=== PATIENT | male | born 1960 | race Caucasian/White ===

== ENCOUNTER → 2018-07-03 | Outpatient (CLI) | payer BC ==
[2018-07-03 12:06] LABS: Basophils % (A) 0 %; Eosinophils # (A) 0.1 k/uL (0-0.7); Eosinophils % (A) 1 %; HCT 45.7 % (39.0-53.0); HGB 14.9 gm/dL (13.0-17.5); Lymphocytes # (A) 1.1 k/uL (1.0-4.8); Lymphocytes % (A) 13 %; MCH 32.7 pg (25.0-35.0); MCHC 32.6 g/dL (31.0-37.0); Mean Platelet Volume 6.3; Monocytes # (A) 0.6 k/uL (0-1.0); Monocytes % (A) 7 %; Neutrophils # (A) 6.7 k/uL (1.3-7.7); Neutrophils % (A) 77 %; Platelet Count 232 k/uL (150-450); RBC 4.57 m/uL (4.30-5.90); RDW 13.5 % (11.5-15.5); WBC 8.7 k/uL (3.8-10.6)
== END | disposition home or self-care (01) ==
LOC: LABPAT 10:59
PROVIDERS: ATTEND Anesthesiology
DX: Z01.812 Encounter for preprocedural laboratory examination (principal)
CPT/HCPCS: 36415; 85025

== ENCOUNTER 2018-07-05 06:15 | Day surgery (SDC) | payer BC ==
[2018-06-29 16:07] VITALS: BMI 22.4
[~2018-07-05 06:15] MED LIST: DEXAMETHASONE SOD PHOSPHATE 10 MG/ML 1 ML VIAL IV ONE; HEPARIN SODIUM,PORCINE 5,000 UNIT/ML 1 ML VIAL SQ ONE; LACTATED RINGERS 1,000 ML IV SCH; LIDOCAINE 1% 20 ML VIAL (10MG/ML) FOR IV START INTRADERMA PRN; ONDANSETRON 4 MG/2 ML VIAL IVP ONE; SCOPOLAMINE 1.5MG/72HR PATCH TRANSDERM ONE
[2018-07-05] MEDS ORDERED: fentaNYL (PF) 50 MCG/ML 2 ML AMP IV ONE (07:43)
[2018-07-05] MEDS ORDERED: MIDAZOLAM 2 MG/2 ML VIAL IV ONE (07:43)
[2018-07-05] MEDS ORDERED: BUPIVACAIN-EPI 0.5%-1:200,000 30 ML VIAL SQ ONE ×2 (08:10)
[2018-07-05] MEDS ORDERED: LIDOCAINE 1% INJ 10MG/ML (20 ML MDV) ONE (08:27)
[2018-07-05] MEDS ORDERED: KETOROLAC 30 MG/ML 1 ML VIAL ONE (08:27)
[2018-07-05] MEDS ORDERED: fentaNYL (PF) 50 MCG/ML 2 ML AMP ONE (08:27)
[2018-07-05] MEDS ORDERED: MIDAZOLAM 2 MG/2 ML VIAL ONE (08:27)
[2018-07-05] MEDS ORDERED: GLYCOPYRROLATE 0.2 MG/ML 2 ML VIAL ONE (08:27)
[2018-07-05] MEDS ORDERED: ROCURONIUM BROMIDE 10 MG/ML 10 ML VIAL IV ONE (08:27)
[2018-07-05] MEDS ORDERED: PHENYLEPHRINE-0.9% NACL SYG 1 MG/10 ML SYRINGE ONE (08:27)
[2018-07-05] MEDS ORDERED: PROPOFOL 10 MG/ML 20 ML VIAL IV ONE (08:27)
[2018-07-05] MEDS ORDERED: ROPIVACAINE 5 MG/ML 30 ML VIAL ONE (08:27)
[2018-07-05] MEDS ORDERED: NEOSTIGMINE 1 MG/ML 10 ML VIAL ONE (08:27)
--- NOTE | 2018-07-05 08:27 | P.GSHP ---
History of Present Illness H&P Date: 07/05/18 Chief Complaint: rt inguinal hernia, umb hernia Patient today for laparoscopic repair right inguinal hernia. Patient also has an umbilical hernia as well. These of been there for many years. The right angle hernia is painful at times. He does not feel any swelling or bulge in the left groin. No prior repairs. Past Medical History Past Medical History: No Reported History History of Any Multi-Drug Resistant Organisms: None Reported Past Surgical History: No Surgical Hx Reported Past Anesthesia/Blood Transfusion Reactions: No Reported Reaction Past Psychological History: Anxiety Smoking Status: Current every day smoker Past Alcohol Use History: None Reported Past Drug Use History: None Reported - Past Family History Father Additional Family Medical History / Comment(s): OF PANCREATIC ISSUES Mother Additional Family Medical History / Comment(s): PULMONARY HYPERTENSION Medications and Allergies Home Medications Medication Instructions Recorded Confirmed Type No Known Home Medications 06/29/18 06/29/18 History Allergies Allergy/AdvReac Type Severity Reaction Status Date / Time bee venom protein (honey bee) Allergy Anaphylaxis Verified 06/29/18 15:59 Surgical - Exam Vital Signs Temp Pulse Resp BP Pulse Ox 97 F L 106 H 18 171/105 97 07/05/18 07:36 07/05/18 07:36 07/05/18 07:36 07/05/18 07:36 07/05/18 07:36 Physical exam: General: Well-developed, well-nourished HEENT: Normocephalic, sclerae nonicteric Abdomen: Nontender, nondistended, small reducible umbilical hernia, moderate size reducible right inguinal hernia Extremities: No edema Neuro: Alert and oriented Assessment and Plan (1) Right inguinal hernia Narrative/Plan: Will proceed with laparoscopic da Jorge A assisted right inguinal hernia repair with mesh, possible bilateral with umbilical hernia repair with possible mesh. Risks of bleeding, infection, recurrence, bladder and bowel injury, numbness, nerve injury, conversion to an open procedure were discussed with the patient. The patient understands and wishes to proceed. Current Visit: Yes Status: Acute Code(s): K40.90 - UNIL INGUINAL HERNIA, W/O OBST OR GANGR, NOT SPCF RECUR SNOMED Code(s): 682739241
[2018-07-05] MEDS: ceFAZolin IN SWFI 2 GM/20 ML SYRINGE IVP ONE ×2 (08:30→08:32)
[2018-07-05] MEDS ORDERED: LACTATED RINGERS 1,000 ML IV ONE (09:51)
[2018-07-05] MEDS ORDERED: HYDROcodone/APAP 5-325MG 1 EACH TAB PO PRN (10:33)
[2018-07-05] MEDS ORDERED: NALOXONE 0.4 MG/ML 1 ML VIAL IV PRN (10:33)
[2018-07-05 10:44] VITALS: TEMP 97.2
--- NOTE | 2018-07-05 10:46 | P.OP ---
Date of Procedure: 07/05/18 Procedure(s) Performed: PREOPERATIVE DIAGNOSIS: Right inguinal hernia, umbilical POSTOPERATIVE DIAGNOSIS: Same PROCEDURE: Laparoscopic repair right inguinal hernia with the da Jorge A robot assistance with mesh, open repair umbilical hernia SURGEON: Fox EBL: Minimal ANESTHESIA: General COMPLICATIONS: None OPERATIVE PROCEDURE: Patient was placed in the operating table in the supine position. The patient was placed under general anesthesia. The abdomen was prepped and draped in usual sterile fashion. A small curvilinear supraumbilical incision was made. The patient's hernia was carefully dissected. The umbilicus was elevated off the fascia. The defect was 1 cm in size. Through that defect the Veress needle was inserted. The saline drop test was normal. Insufflation took place to 15 mmHg. A 5 mm trocar was placed into the peritoneal cavity. This was later switched to a 12 mm trocar. 2 additional 8 mm trochars were placed in the right upper quadrant and left upper quadrant under visualization. The robotic arms were then brought in and docked into place. The fenestrated bipolar was used in the left arm and the laparoscopic oralia was utilized in the right arm. A 30 12 mm scope was used in the up position. The peritoneal cavity was inspected. The patient had an obvious large right direct inguinal hernia with some induration of the adjacent small bowel. Her was no evidence of ischemia. Evaluation of the left groin showed no identifiable hernia. The peritoneum was incised in a horizontal fashion cephalad to the internal inguinal ring. Following that careful dissection of the preperitoneal space took place. This took place using both electrocautery, sharp dissection but primarily blunt dissection. Visualization of the pubic tubercle and Noe's ligament took place medially. Full dissection took place laterally as well. The hernia sac was fully dissected. Once we had adequate space the 15 x 10 progrip mesh was advanced into the preperitoneal space and flattened out appropriately to cover all potential hernia sites. No sutures were used. The peritoneal defect was then closed using a locking 2-0 VLok suture. The large sac was incorporated into our closure anterior and medially. A small defect in the peritoneum was closed using a 3-0 Vicryl [id number] stitch. The pneumoperitoneum was then evacuated. The fascia at the umbilical hernia site was closed using [id number] Ethibond sutures. The skin of the umbilicus was tacked down to the fascia using 3-0 Vicryl sutures. The skin of all 3 sites was closed using a 4-0 Monocryl stitch. Skin glue was then applied. DISPOSITION: Stable to recovery room
[2018-07-05 10:53] VITALS: RESP 16
[2018-07-05] MEDS: HYDROmorphone 0.5 MG/0.5 ML SYRINGE IVP PRN ×2 (11:17→11:25)
[2018-07-05 12:06] VITALS: BP 143/83
[2018-07-05 12:17] VITALS: PULSE 88
--- NOTE | 2018-07-05 12:47 | P.ONQ ---
Anesthesiology Proc Note - PNB - Peripheral Nerve Block Performed Right Rectus Abdominis Single Time Out Performed: Yes (741) Procedure Start Time: 07:42 Procedure Stop Time: 07:50 Indication: Acute Post-Operative Pain, Analgesia Sedation Type: Sedate with meaningful contact maintained Preparation: Sterile Prep Position: Supine Catheter: None Needle Types: On-Q Needle Size: 50mm (2") Needle Gauge: 20 Injectate: 0.5% Ropivacaine (see comment for volume) (15) Blood Aspirated: No Pain Paresthesia on Injection Noted: No Resistance on Injection: Normal (15 ml) Events: Uneventful and Well Tolerated
--- NOTE | 2018-07-05 12:47 | P.ONQ ---
Anesthesiology Proc Note - PNB - Peripheral Nerve Block Performed Right Transversus Abdominis Single Time Out Performed: Yes (741) Procedure Start Time: 07:42 Procedure Stop Time: 07:50 Indication: Acute Post-Operative Pain, Analgesia Sedation Type: Sedate with meaningful contact maintained Position: Supine Catheter: None Needle Types: On-Q Needle Size: 50mm (2") Needle Gauge: 20 Technique: Ultrasound Injectate: 0.5% Ropivacaine (see comment for volume) (15ml)
== END 2018-07-05 12:45 | disposition home or self-care (01) ==
LOC: OR 06:15
PROVIDERS: ATTEND Surgery
DX: K40.90 Unilateral inguinal hernia, without obstruction or gangrene, not specified as recurrent (principal); K42.9 Umbilical hernia without obstruction or gangrene; F17.200 Nicotine dependence, unspecified, uncomplicated; Z91.030 Bee allergy status; Z79.899 Other long term (current) drug therapy
CPT/HCPCS: 64486; 49585; 49650; C1781; J2250; J1100; J2710; J2405; J2001; J3010; J1885; J2795; J2370; J2704; J1170; J0690

== ENCOUNTER 2019-03-09 19:46 | Inpatient (IN) | payer BC ==
[2019-03-09] MEDS ORDERED: SODIUM CHLORIDE 0.9% 500 ML 500 ML IV STA (20:11)
[2019-03-09] MEDS ORDERED: SODIUM CHLORIDE 0.9% 1,000 ML with MVI, ADULT NO.4 WITH VIT K 10 ML, THIAMINE 100 MG, F... IV ONE ×4 (20:12)
--- NOTE | 2019-03-09 20:14 | ED ---
Psych HPI - General Chief Complaint: Psychiatric Symptoms Stated Complaint: Depression Time Seen by Provider: 03/09/19 20:03 Source: patient Mode of arrival: ambulatory - History of Present Illness Initial Comments: This is a 58-year-old male with a history of alcoholism was drinking 1 bottle wine per day for long time who states she's feeling very depressed tonight not suicidal but very depressed and desponded he wants to get off alcohol. He doesn't usually go through alcohol withdrawal He does state he has a history of fatty liver. He denies any fevers chills sweats he does have intermittent episodes of dry heaves. No hematemesis no dark-colored stools no other modifying factors MD Complaint: feels depressed, other - Related Data Previous Rx's Medication Instructions Recorded Hydrocodone/Acetaminophen [[place] 1 tab PO Q6HR PRN 3 Days #10 tab 07/05/18 5-325] Allergies Allergy/AdvReac Type Severity Reaction Status Date / Time bee venom protein (honey bee) Allergy Anaphylaxis Verified 03/09/19 19:57 Review of Systems ROS Statement: Those systems with pertinent positive or pertinent negative responses have been documented in the HPI. ROS Other: All systems not noted in ROS Statement are negative. Past Medical History Past Medical History: No Reported History History of Any Multi-Drug Resistant Organisms: None Reported Past Surgical History: No Surgical Hx Reported Past Anesthesia/Blood Transfusion Reactions: No Reported Reaction Past Psychological History: Anxiety Smoking Status: Current every day smoker Past Alcohol Use History: None Reported Past Drug Use History: None Reported - Past Family History Father Additional Family Medical History / Comment(s): OF PANCREATIC ISSUES Mother Additional Family Medical History / Comment(s): PULMONARY HYPERTENSION General Exam - General Exam Comments Initial Comments: Is a well-developed asthenic appearing male who is awake alert and appears be oriented x3 he does have the smell of alcohol conjoiners on his breath Limitations: no limitations General appearance: alert, anxious Head exam: Present: atraumatic, normocephalic, normal inspection Eye exam: Present: normal appearance, PERRL, EOMI. Absent: scleral icterus, conjunctival injection, periorbital swelling ENT exam: Present: mucous membranes dry Neck exam: Present: normal inspection, full ROM, other (No stridor JVD or bruits). Absent: tenderness, meningismus, lymphadenopathy Respiratory exam: Present: normal lung sounds bilaterally. Absent: respiratory distress, wheezes, rales, rhonchi, stridor Cardiovascular Exam: Present: normal rhythm, tachycardia, normal heart sounds. Absent: systolic murmur, diastolic murmur, rubs, gallop, clicks GI/Abdominal exam: Present: soft, normal bowel sounds. Absent: distended, tenderness, guarding, rebound, rigid Extremities exam: Present: normal inspection, full ROM, normal capillary refill. Absent: tenderness, pedal edema, joint swelling, calf tenderness Back exam: Present: normal inspection Neurological exam: Present: alert, oriented X3, CN II-XII intact Psychiatric exam: Present: normal affect, normal mood Skin exam: Present: warm, dry, intact, normal color. Absent: rash Course Vital Signs 03/09/19 03/09/19 19:55 21:49 Temperature 98.4 F Pulse Rate 101 H 90 Respiratory 20 17 Rate Blood Pressure 138/88 137/80 O2 Sat by Pulse 98 98 Oximetry - Reevaluation(s) Reevaluation #1: 03/09/19 22:49 I did discuss findings with patient he is demonstrated marked intoxication with a 422 legal transcriptionist level. Patient will require admission and psychiatric evaluation with sobriety is achieved Medical Decision Making - Medical Decision Making Patient will be admitted for alcohol intoxication and depression. We placed on the alcohol withdrawal protocol. The case was discussed with Dr. Maloney - Lab Data Result diagrams: 03/09/19 21:43 03/09/19 21:43 Lab Results 03/09/19 03/09/19 03/09/19 Range/Units 21:43 21:43 21:43 WBC 4.9 (3.8-10.6) k/uL RBC 4.27 L (4.30-5.90) m/uL Hgb 14.7 (13.0-17.5) gm/dL Hct 42.9 (39.0-53.0) % MCV 100.5 H (80.0-100.0) fL MCH 34.3 (25.0-35.0) pg MCHC 34.1 (31.0-37.0) g/dL RDW 13.5 (11.5-15.5) % Plt Count 152 (150-450) k/uL Neutrophils % 61 % Lymphocytes % 28 % Monocytes % 7 % Eosinophils % 1 % Basophils % 1 % Neutrophils # 2.9 (1.3-7.7) k/uL Lymphocytes # 1.4 (1.0-4.8) k/uL Monocytes # 0.3 (0-1.0) k/uL Eosinophils # 0.1 (0-0.7) k/uL Basophils # 0.0 (0-0.2) k/uL Sodium 137 (137-145) mmol/L Potassium 4.0 (3.5-5.1) mmol/L Chloride 99 (98-107) mmol/L Carbon Dioxide 30 (22-30) mmol/L Anion Gap 8 mmol/L BUN 7 L (9-20) mg/dL Creatinine 0.67 (0.66-1.25) mg/dL Est GFR (CKD-EPI)AfAm >90 (>60 ml/min/1.73 sqM) Est GFR (CKD-EPI)NonAf >90 (>60 ml/min/1.73 sqM) Glucose 116 H (74-99) mg/dL Calcium 8.7 (8.4-10.2) mg/dL Magnesium 1.9 (1.6-2.3) mg/dL Total Bilirubin 0.7 (0.2-1.3) mg/dL AST 212 H (17-59) U/L ALT 90 H (4-49) U/L Alkaline Phosphatase 97 (38-126) U/L Total Protein 6.7 (6.3-8.2) g/dL Albumin 4.1 (3.5-5.0) g/dL Urine Opiates Screen Not Detected (NotDetected) Ur Oxycodone Screen Not Detected (NotDetected) Urine Methadone Screen Not Detected (NotDetected) Ur Propoxyphene Screen Not Detected (NotDetected) Ur Barbiturates Screen Not Detected (NotDetected) U Tricyclic Antidepress Not Detected (NotDetected) Ur Phencyclidine Scrn Not Detected (NotDetected) Ur Amphetamines Screen Not Detected (NotDetected) U Methamphetamines Scrn Not Detected (NotDetected) U Benzodiazepines Scrn Not Detected (NotDetected) Urine Cocaine Screen Not Detected (NotDetected) U Marijuana (THC) Screen Not Detected (NotDetected) Serum Alcohol 422 H* mg/dL Disposition Clinical Impression: Depression, Alcohol intoxication Disposition: ADMITTED IP TO THIS HOSP Condition: Fair Referrals: None,Stated [Primary Care Provider] - 1-2 days
[2019-03-09 22:00] LABS: Basophils % (A) 1 %; Eosinophils # (A) 0.1 k/uL (0-0.7); Eosinophils % (A) 1 %; HCT 42.9 % (39.0-53.0); HGB 14.7 gm/dL (13.0-17.5); Lymphocytes # (A) 1.4 k/uL (1.0-4.8); Lymphocytes % (A) 28 %; MCH 34.3 pg (25.0-35.0); MCHC 34.1 g/dL (31.0-37.0); MCV 100.5 fL (80.0-100.0); Mean Platelet Volume 7.9; Monocytes # (A) 0.3 k/uL (0-1.0); Monocytes % (A) 7 %; Neutrophils # (A) 2.9 k/uL (1.3-7.7); Neutrophils % (A) 61 %; Platelet Count 152 k/uL (150-450); RBC 4.27 m/uL (4.30-5.90); RDW 13.5 % (11.5-15.5); WBC 4.9 k/uL (3.8-10.6)
[2019-03-09 22:10] LABS: Amphetamine Screen,Urine Not Detected (NotDetected); Barbiturate Screen,Urine Not Detected (NotDetected); Benzodiazepines Screen,Urine Not Detected (NotDetected); Cocaine Screen,Urine Not Detected (NotDetected); Methadone Screen, Urine Not Detected (NotDetected); Opiate Screen,Urine Not Detected (NotDetected); Oxycodone Screen, Urine Not Detected (NotDetected); Phencyclidine Screen,Urine Not Detected (NotDetected); Tricyclic Antidepressant,Urine Not Detected (NotDetected); Urn Cannabinoid Scrn Not Detected (NotDetected)
[2019-03-09 22:12] LABS: ALT 90 U/L (4-49); AST 212 U/L (17-59); African American GFR (CKD) >90 (>60 ml/min/1.73 sqM); Albumin 4.1 g/dL (3.5-5.0); Alkaline Phosphatase 97 U/L (38-126); Anion Gap 8 mmol/L; Blood Urea Nitrogen 7 mg/dL (9-20); Calcium 8.7 mg/dL (8.4-10.2); Carbon Dioxide 30 mmol/L (22-30); Chloride 99 mmol/L (98-107); Glucose 116 mg/dL (74-99); Magnesium 1.9 mg/dL (1.6-2.3); Non-African American GFR(CKD) >90 (>60 ml/min/1.73 sqM); Sodium 137 mmol/L (137-145); Total Bilirubin 0.7 mg/dL (0.2-1.3); Total Protein 6.7 g/dL (6.3-8.2)
[2019-03-09 22:21] LABS: Alcohol 422 mg/dL
[2019-03-09] MEDS ORDERED: NALOXONE 0.4 MG/ML 1 ML VIAL IV PRN (22:52)
[2019-03-09] MEDS ORDERED: THIAMINE 100 MG/ML 2 ML VIAL IM STA (22:54)
[2019-03-09] MEDS: THIAMINE 100 MG TAB PO SCH (23:27)
[2019-03-09] MEDS: LORazepam 2 MG/ML INJ IV PRN (23:33)
[2019-03-09] MEDS: SODIUM CHLORIDE 0.9% 1,000 ML IV SCH (23:34)
--- NOTE | 2019-03-10 00:04 | P.HPIM ---
History of Present Illness H&P Date: 03/09/19 Chief Complaint: alcohol intoxication 58 year old male with no significant past medical history patient comes in today, reporting that he had one bottle of wine, as he feels very depressed. He denies any physical complaints at this time, denies any chest pain trouble breathing, fever, or chills. he denies any GI bleeding. he wants to get off alcohol and addiction. he tried in the past to quit cold turkey , but gets really bad withdrawal symptoms. he has been fighting addiction for the past 10 years since his left him. he was found to have very high level of blood alcohol. will be admitted under medical observation until sober. labs showed elevatedliver enzymes Review of Systems Pertinent positives as noted in HPI. All other systems were reviewed and are negative Past Medical History Past Medical History: No Reported History History of Any Multi-Drug Resistant Organisms: None Reported Past Surgical History: No Surgical Hx Reported Past Anesthesia/Blood Transfusion Reactions: No Reported Reaction Past Psychological History: Anxiety Smoking Status: Current every day smoker Past Alcohol Use History: None Reported Past Drug Use History: None Reported - Past Family History Father Additional Family Medical History / Comment(s): OF PANCREATIC ISSUES Mother Additional Family Medical History / Comment(s): PULMONARY HYPERTENSION Medications and Allergies Home Medications Medication Instructions Recorded Confirmed Type No Known Home Medications 03/09/19 03/09/19 History Allergies Allergy/AdvReac Type Severity Reaction Status Date / Time bee venom protein (honey bee) Allergy Anaphylaxis Verified 03/09/19 23:08 Physical Exam Vitals: Vital Signs Temp Pulse Resp BP Pulse Ox 03/09/19 21:49 90 17 137/80 98 03/09/19 19:55 98.4 F 101 H 20 138/88 98 Intake and Output 03/09/19 03/09/19 03/10/19 14:59 22:59 06:59 Other: Weight 63.503 kg Constitutional: No acute distress, conversant, pleasant Eyes: Anicteric sclerae, moist conjunctiva, no lid-lag Pupils equal round reactive to light ENMT: NC/AT Oropharynx clear, no erythema, exudates Neck: Supple, FROM, no masses, or JVD No carotid bruits No thyromegaly Lungs: Clear to auscultation Clear to percussion Normal respiratory effort, no accessory muscle use Cardiovascular: Heart regular in rate and rhythm, No murmurs, gallops, or rubs No peripheral edema Abdominal: Soft Nontender, no guarding, rebound or rigidity Abdomen moving with respiration Normoactive bowel sounds No hepatomegaly, No splenomegaly No palpable mass No abdominal wall hernia noted Skin: Normal temperature, tone, texture, turgor No induration No subcutaneous nodules multiple echymotic spots over his left forearm Extremities: No digital cyanosis finger clubbing bilateral hands Pedal pulses intact and symmetrical Radial pulses intact and symmetrical No calf tenderness Psychiatric: Alert and oriented to person, place and time Appropriate affect fair judgment Neuro Muscles Strength 5/5 in all 4 extremities Sensation to light touch grossly present throughout Cranial nerves II-XII grossly intact No focal sensory deficits Lymphatics: no palpable cervical or supraclavicular , or inguinal lymph nodes Results CBC & Chem 7: 03/09/19 21:43 03/09/19 21:43 Labs: Abnormal Lab Results - Last 24 Hours (Table) 03/09/19 03/09/19 Range/Units 21:43 21:43 RBC 4.27 L (4.30-5.90) m/uL MCV 100.5 H (80.0-100.0) fL BUN 7 L (9-20) mg/dL Glucose 116 H (74-99) mg/dL AST 212 H (17-59) U/L ALT 90 H (4-49) U/L Serum Alcohol 422 H* mg/dL Assessment and Plan Assessment: 58-year-old male with no significant past medical history Comes in due to long history of alcohol abuse he wants to quit alcohol and seeking help with depression and addiction. Currently denies any medical complaints Admitted under observation due to high alcohol level Plan: acute severe alcohol intoxication depression Monitor for signs of withdrawal Supportive care IV fluid hydration Multivitamins Benzos per CIWA scale Fall and seizure precautions psych consult for depression Patient denies any suicidal ideation Elevated liver enzymes secondary to alcoholic hepatitis Monitor liver function DVT prophylaxis mechanical CODE STATUS:full code Discussed with: Patient, ER, RN Anticipated length of stay less than [address]: pending psych eval A total of 60 minutes was spent on the care of this complex patient more than 50% of the time was spent in counseling and care coordination.
[2019-03-10] MEDS: LORazepam 2 MG/ML INJ IV PRN ×6 (08:03→23:14)
[2019-03-10] MEDS: SODIUM CHLORIDE 0.9% 1,000 ML IV SCH ×2 (08:04→23:16)
[2019-03-10] MEDS: THIAMINE 100 MG TAB PO SCH ×2 (09:00→16:41)
[2019-03-10 10:35] VITALS: BMI 20.7
--- NOTE | 2019-03-10 14:48 | P.PN ---
Subjective Progress Note Date: 03/10/19 Principal diagnosis: Alcohol withdrawal Patient was seen and examined. No acute events overnight. Patient reports intense shakiness and withdrawal-like symptoms. Had a fall this morning which was witnessed, denies any head trauma. He denies any chest pain, shortness of breath or palpitations. No nausea or vomiting. No fever or chills. Requesting help but states that he cannot go to inpatient alcohol detox as he would lose his job. Objective - Vital Signs Vital signs: Vital Signs Temp 98.4 F 03/10/19 14:29 Pulse 107 H 03/10/19 14:29 Resp 19 03/10/19 14:29 BP 143/85 03/10/19 14:29 Pulse Ox 94 L 03/10/19 14:29 Intake & Output 03/09/19 03/10/19 03/10/19 18:59 06:59 18:59 Intake Total 700 640 Balance 700 640 Weight 63.503 kg 63.503 kg Intake: IV 640 Sodium Chloride 0.9% 1, 640 000 ml @ 80 mls/hr IV . [id number] [facility] Rx#:[id number] Intake, IV Titration 700 Amount Sodium Chloride 0.9% 1, 700 000 ml @ 100 mls/hr IV . Q10H7M ONE with Mvi, Adult No.4 with Vit K 10 ml with Thiamine 100 mg with Folic Acid 1 mg Rx#: [id number] Other: # Voids 3 # Bowel Movements 1 - Exam General: [non toxic], [no distress], [appears at stated age] Derm: [warm], [dry] Head: [atraumatic], [normocephalic], [symmetric] Eyes: [EOMI], [no lid lag], [anicteric sclera] Mouth: [no lip lesion], [mucus membranes moist] Cardiovascular: [S1S2 reg], [tachycardic], [positive posterior tibial pulse bilateral], Lungs: [CTA bilateral], [no rhonchi, no rales] , [no accessory muscle use] Abdominal: [soft], [ nontender to palpation], [no guarding], [no appreciable organomegaly] Ext: [no gross muscle atrophy], [no edema], [no contractures] Neuro: [no focal neuro deficits] Psych: [Alert], [oriented], [appropriate affect] - Labs CBC & Chem 7: 03/09/19 21:43 03/09/19 21:43 Labs: Abnormal Lab Results - Last 24 Hours (Table) 03/09/19 03/09/19 Range/Units 21:43 21:43 RBC 4.27 L (4.30-5.90) m/uL MCV 100.5 H (80.0-100.0) fL BUN 7 L (9-20) mg/dL Glucose 116 H (74-99) mg/dL AST 212 H (17-59) U/L ALT 90 H (4-49) U/L Serum Alcohol 422 H* mg/dL Assessment and Plan Assessment: Alcohol intoxication with impending withdrawals Depression Transaminitis from alcohol abuse Macrocytosis likely due to alcohol abuse Plans: Continue Ativan as needed based on [facility] protocol. Will add Librium scheduled. Continue thiamine by mouth. Fall precautions. Advanced neurochecks. Seizure precautions. Follow psychiatry recommendations. Plans: Follow psychiatry recommendations. AST 212, ALT 90. Total bilirubin and alkaline phosphatase within normal limits. Likely due to alcohol abuse. Plans: Repeat CMP tomorrow morning. Needs to quit alcohol. MCV 100.5. Plans: Follow B12 and folate. [Patient admitted for alcohol intoxication. Withdrawing from alcohol. Had a fall this morning. Unsafe for discharge. Needs better control of his withdrawal symptoms. Would be appropriate for inpatient detox. He is pending clinical improvement.]
[2019-03-10] MEDS: chlordiazePOXIDE 25 MG CAP PO SCH ×2 (16:41→23:14)
[2019-03-11] MEDS: LORazepam 2 MG/ML INJ IV PRN ×5 (01:42→20:22)
[2019-03-11 06:56] LABS: ALT 88 U/L (4-49); AST 189 U/L (17-59); African American GFR (CKD) >90 (>60 ml/min/1.73 sqM); Albumin 3.3 g/dL (3.5-5.0); Alkaline Phosphatase 95 U/L (38-126); Anion Gap 6 mmol/L; Blood Urea Nitrogen 9 mg/dL (9-20); Calcium 9.1 mg/dL (8.4-10.2); Carbon Dioxide 27 mmol/L (22-30); Chloride 102 mmol/L (98-107); Glucose 77 mg/dL (74-99); Non-African American GFR(CKD) >90 (>60 ml/min/1.73 sqM); Potassium 3.4 mmol/L (3.5-5.1); Sodium 135 mmol/L (137-145); Total Bilirubin 1.5 mg/dL (0.2-1.3); Total Protein 5.7 g/dL (6.3-8.2)
[2019-03-11] MEDS: THIAMINE 100 MG TAB PO SCH ×2 (07:04→17:09)
[2019-03-11] MEDS: chlordiazePOXIDE 25 MG CAP PO SCH ×3 (07:04→22:21)
[2019-03-11] MEDS: SODIUM CHLORIDE 0.9% 1,000 ML IV SCH (09:52)
[2019-03-11] MEDS ORDERED: Potassium Replacement Protocol 1 EACH MISC MISCELLANE PRN (12:49)
--- NOTE | 2019-03-11 13:42 | P.PN ---
Subjective Progress Note Date: 03/11/19 Principal diagnosis: Alcohol withdrawal Patient was seen and examined. No acute events overnight. Patient sleeping comfortably after receiving Ativan. CIWA scale currently around 13. RN reports shakiness and instability in gait. He is unsafe to go home due to his balance issues. Objective - Vital Signs Vital signs: Vital Signs Temp 97.8 F 03/11/19 07:07 Pulse 69 03/11/19 07:07 Resp 16 03/11/19 07:07 BP 148/91 03/11/19 07:07 Pulse Ox 96 03/11/19 07:07 Intake & Output 03/10/19 03/11/19 03/11/19 18:59 06:59 18:59 Intake Total 640 720 170 Output Total 200 Balance 640 520 170 Weight 63.503 kg Intake: IV 640 320 Sodium Chloride 0.9% 1, 640 320 000 ml @ 80 mls/hr IV . [id number] [facility] Rx#:[id number] Intake, IV Titration 400 Amount Sodium Chloride 0.9% 1, 400 000 ml @ 80 mls/hr IV . [id number] [facility] Rx#:[id number] Oral 170 Output: Urine 200 Other: Voiding Method Toilet Diaper Incontinent # Voids 3 2 # Bowel Movements 1 - Exam General: [non toxic], [no distress], [appears at stated age] Derm: [warm], [dry] Head: [atraumatic], [normocephalic], [symmetric] Eyes: [EOMI], [no lid lag], [anicteric sclera] Mouth: [no lip lesion], [mucus membranes moist] Cardiovascular: [S1S2 reg], [no murmur], [positive DP pulse bilateral], Lungs: [CTA bilateral], [no rhonchi, no rales] , [no accessory muscle use] Abdominal: [soft], [ nontender to palpation], [no guarding], [no appreciable organomegaly] Ext: [no gross muscle atrophy], [no edema], [no contractures] Neuro: [no focal neuro deficits] Psych: [Alert], [oriented], [appropriate affect] - Labs CBC & Chem 7: 03/09/19 21:43 03/11/19 06:29 Labs: Abnormal Lab Results - Last 24 Hours (Table) 03/11/19 Range/Units 06:29 Sodium 135 L (137-145) mmol/L Potassium 3.4 L (3.5-5.1) mmol/L Creatinine 0.63 L (0.66-1.25) mg/dL Total Bilirubin 1.5 H (0.2-1.3) mg/dL AST 189 H (17-59) U/L ALT 88 H (4-49) U/L Total Protein 5.7 L (6.3-8.2) g/dL Albumin 3.3 L (3.5-5.0) g/dL Assessment and Plan Assessment: Alcohol intoxication with impending withdrawals Hypokalemia Depression Transaminitis from alcohol abuse Macrocytosis likely due to alcohol abuse Plans: Continue Ativan as needed based on [facility] protocol. Will add Librium scheduled. Continue thiamine by mouth. Fall precautions. Advanced neurochecks. Seizure precautions. Follow psychiatry recommendations. Potassium 3.4. Plans: Replace via protocol. Repeat BMP tomorrow morning. Plans: Follow psychiatry recommendations. AST 212-189, ALT 90-88. Total bilirubin elevated to 1.5 this morning. Alkaline phosphatase within normal limits. Likely due to alcohol abuse. Plans: Repeat CMP tomorrow morning. Needs to quit alcohol. MCV 100.5. Plans: Follow B12 and folate. [Patient admitted for alcohol intoxication. Withdrawing from alcohol. Unsafe for discharge due to unstable gait. Needs better control of his withdrawal symptoms. Would be appropriate for inpatient detox.]
[2019-03-11] MEDS: NICOTINE 21MG/24HR PATCH TRANSDERM SCH (14:44)
[2019-03-12] MEDS: LORazepam 2 MG/ML INJ IV PRN (02:24)
[2019-03-12] MEDS: SODIUM CHLORIDE 0.9% 1,000 ML IV SCH ×2 (02:39→13:02)
[2019-03-12] MEDS: THIAMINE 100 MG TAB PO SCH (07:21)
[2019-03-12] MEDS: NICOTINE 21MG/24HR PATCH TRANSDERM SCH (07:21)
[2019-03-12] MEDS: chlordiazePOXIDE 25 MG CAP PO SCH (07:21)
[2019-03-12 09:07] LABS: ALT 77 U/L (4-49); AST 111 U/L (17-59); African American GFR (CKD) >90 (>60 ml/min/1.73 sqM); Albumin 3.5 g/dL (3.5-5.0); Alkaline Phosphatase 94 U/L (38-126); Anion Gap 7 mmol/L; Blood Urea Nitrogen 11 mg/dL (9-20); Calcium 9.2 mg/dL (8.4-10.2); Carbon Dioxide 27 mmol/L (22-30); Chloride 101 mmol/L (98-107); Glucose 112 mg/dL (74-99); Non-African American GFR(CKD) >90 (>60 ml/min/1.73 sqM); Potassium 3.2 mmol/L (3.5-5.1); Sodium 135 mmol/L (137-145); Total Bilirubin 1.3 mg/dL (0.2-1.3); Total Protein 6.1 g/dL (6.3-8.2)
[2019-03-12] MEDS ORDERED: Potassium Replacement Protocol 1 EACH MISC MISCELLANE PRN (12:49)
[2019-03-12] MEDS ORDERED: POTASSIUM CHLORIDE ER 20 MEQ TAB.ER PO STA (12:51)
[2019-03-12] MEDS: POTASSIUM CHLORIDE ER 20 MEQ TAB.ER PO SCH ×2 (13:02→14:15)
--- NOTE | 2019-03-12 13:04 | P.DS ---
Providers Date of admission: 03/09/19 22:54 Expected date of discharge: 03/12/19 Attending physician: Elmer Kong MD Consults: 03/09/19 22:53 Consult Physician Routine Consulting Provider: Logan Renteria Consult Reason/Comments: Depression Do you want consulting provider notified?: Yes, Notify in am Primary care physician: Stated None Hospital Course: 58-year-old male with history of alcohol abuse presents the ED for depression and alcohol withdrawal. In the ED, he was noted to have a blood alcohol level of 422. He was admitted for alcohol intoxication, impending withdrawal and psychiatry consult. Patient was noted to undergo withdrawal from alcohol during his hospitalization. His CIWA scale was consistently around 13. He was given Ativan as needed per CIWA protocol. Librium was added scheduled. He was given thiamine. Psychiatry was consulted and recommended cessation of alcohol and cleared the patient for discharge. Patient was noted to have a transaminitis and macrocytosis that was thought to be secondary to alcohol abuse. Patient was seen and examined this morning. No acute events overnight. Patient reports feeling less shakiness. States that he needs to go to work. He denies any chest pain, shortness of breath or palpitations. No nausea or vomiting. No fever or chills. General: [non toxic], [mild tremors of the outstretched hands], [appears at stated age] Derm: [warm], [dry] Head: [atraumatic], [normocephalic], [symmetric] Eyes: [EOMI], [no lid lag], [anicteric sclera] Mouth: [no lip lesion], [mucus membranes moist] Cardiovascular: [S1S2 reg], [no murmur], [positive posterior tibial pulse bilateral], Lungs: [CTA bilateral], [no rhonchi, no rales] , [no accessory muscle use] Abdominal: [soft], [ nontender to palpation], [no guarding], [no appreciable organomegaly] Ext: [no gross muscle atrophy], [no edema], [no contractures] Neuro: [no focal neuro deficits] Psych: [Alert], [oriented], [appropriate affect] Alcohol intoxication with impending withdrawals and gait instability Depression Hypokalemia Transaminitis from alcohol abuse Macrocytosis likely due to alcohol abuse Plans: Continue Ativan as needed based on CIWA protocol. Will add Librium scheduled. Continue thiamine by mouth. Fall precautions. Advanced neurochecks. Seizure precautions. Follow psychiatry recommendations. Follow PT and OT recommendations. Plans: Follow psychiatry recommendations. Potassium 3.2. Plans: Replace via protocol. AST 212-111, ALT 90-77. Total bilirubin and alkaline phosphatase within normal limits. Likely due to alcohol abuse. Plans: Repeat CMP tomorrow morning. Needs to quit alcohol. MCV 100.5. Plans: Follow B12 and folate. [Patient admitted for alcohol intoxication. Shakiness has improved. We have ordered rolling walker to bedside. He is pending PT evaluation. Discharge planning pending PT clearance.] Patient Condition at Discharge: Fair Plan - Discharge Summary Discharge Rx Participant: No New Discharge Prescriptions: Continue No Known Home Medications Discharge Medication List No Known Home Medications 03/09/19 [History] Follow up Appointment(s)/Referral(s): [facility],Equipment [NON-STAFF] - As Needed None,Stated [Primary Care Provider] - 1-2 days Activity/Diet/Wound Care/Special Instructions: [facility] will deliver walker to patient's bedside before discharge.
[2019-03-12 15:09] VITALS: BP 146/82; PULSE 125; RESP 17; TEMP 97.6
== END 2019-03-12 16:15 | disposition home or self-care (01) | DRG 897 ==
LOC: EC 19:46 → 4SSUR 22:54 → OBSVTOIN 03-12 11:28 → UNDODISOB 03-12 16:15
PROVIDERS: ADMIT Internal Medicine; ATTEND Internal Medicine
DX: F10.229 Alcohol dependence with intoxication, unspecified (principal); E87.6 Hypokalemia; F10.239 Alcohol dependence with withdrawal, unspecified; F32.9 Major depressive disorder, single episode, unspecified; F17.200 Nicotine dependence, unspecified, uncomplicated; F41.9 Anxiety disorder, unspecified; K70.10 Alcoholic hepatitis without ascites; R26.9 Unspecified abnormalities of gait and mobility; Y90.8 Blood alcohol level of 240 mg/100 ml or more; D75.89 Other specified diseases of blood and blood-forming organs; W19.XXXA Unspecified fall, initial encounter; Z91.030 Bee allergy status; Z82.49 Family history of ischemic heart disease and other diseases of the circulatory system; Z83.79 Family history of other diseases of the digestive system
CPT/HCPCS: 36415; 80053; 80306; 80320; 82075; 82607; 82746; 83735; 85025; 96365; 96366; 96375; 99284

== ENCOUNTER 2019-04-19 00:58 | Emergency (ER) | payer BC ==
[2019-04-19 01:08] VITALS: TEMP 98.2
--- NOTE | 2019-04-19 01:20 | ED ---
Alcohol HPI - General Chief Complaint: Alcohol Stated Complaint: ETOH Time Seen by Provider: 04/19/19 01:19 Source: patient, family Mode of arrival: wheelchair Limitations: physical limitation - History of Present Illness Initial Comments: Jorge 58-year-old male with a history of alcohol abuse who presents the ER today questing help for his alcohol addiction. Patient states that he is always drink at least a bottle of wine nightly and starting in february he began drinking wine in the morning before work which resulted in him losing his job at which time he became more depressed and began drinking vodka during the day and wine at night. Patient reports that over the past couple weeks is been trying to cut down drinking but he goes more than today without I'll call a because very shaky and feels sick. He has never had a seizure. Patient states that he needs help. Patient denies any suicidal thoughts or plan to me states that he just wants help. Patient states that he has a daughter in good social support he has contacted [facility] but doesn't have an enrollment date as of yet. - Related Data Previous Rx's Medication Instructions Recorded Thiamine [Vitamin B-1] 100 mg PO BID-W/MEALS #60 tab 03/12/19 chlordiazePOXIDE HCl [Librium] 50 mg PO QID #34 capsule 04/19/19 Allergies Allergy/AdvReac Type Severity Reaction Status Date / Time bee venom protein (honey bee) Allergy Anaphylaxis Verified 04/19/19 01:07 Review of Systems ROS Statement: Those systems with pertinent positive or pertinent negative responses have been documented in the HPI. ROS Other: All systems not noted in ROS Statement are negative. Past Medical History Past Medical History: No Reported History Additional Past Medical History / Comment(s): ETOH History of Any Multi-Drug Resistant Organisms: None Reported Past Surgical History: No Surgical Hx Reported Additional Past Surgical History / Comment(s): Hernia Repair Past Anesthesia/Blood Transfusion Reactions: No Reported Reaction Past Psychological History: Anxiety, Depression Smoking Status: Current every day smoker Past Alcohol Use History: Abuse Past Drug Use History: None Reported - Past Family History Father Additional Family Medical History / Comment(s): OF PANCREATIC ISSUES Mother Additional Family Medical History / Comment(s): PULMONARY HYPERTENSION General Exam - General Exam Comments Initial Comments: Physical Exam GENERAL: Patient is well-developed and well-nourished. Patient is nontoxic and well-hydrated and is in no distress. HENT: Normocephalic, Atraumatic. EYES: PERRL, EOMI PULMONARY: Unlabored respirations. CARDIOVASCULAR: RRR Warm and well perfused extremities ABDOMEN: Non-distended SKIN: No rashes or bruising : Deferred NEUROLOGIC: Alert and oriented Normal speech Normal gait MUSCULOSKELETAL: Moving all extremities with no apparent injury PSYCHIATRIC: No SI/HI Relational depression Limitations: physical limitation Course Vital Signs 04/19/19 04/19/19 01:02 06:02 Temperature 98.2 F Pulse Rate 102 H 91 Respiratory 18 18 Rate Blood Pressure 127/95 119/74 O2 Sat by Pulse 97 95 Oximetry Medical Decision Making - Medical Decision Making Patient was seen and evaluated history was obtained from the patient Despite breath alcohol level being significantly elevated the patient is clinically sober he is awake alert, knows that no slurred speech no altered gait Patient adamantly denies any suicidal thoughts or plan is actively seeking help for his alcoholism Patient will be treated with Librium and discharged home with a Librium taper he is arty contact [facility] and plans to seek enrollment there for alcohol treatment - Lab Data Result diagrams: 04/19/19 01:33 04/19/19 01:33 Lab Results 04/19/19 04/19/19 04/19/19 Range/Units : 01:33 04:09 WBC 5.2 (3.8-10.6) k/uL RBC 4.66 (4.30-5.90) m/uL Hgb 15.8 (13.0-17.5) gm/dL Hct 48.4 (39.0-53.0) % MCV 103.9 H (80.0-100.0) fL MCH 33.9 (25.0-35.0) pg MCHC 32.6 (31.0-37.0) g/dL RDW 13.9 (11.5-15.5) % Plt Count 146 L (150-450) k/uL Neutrophils % 68 % Lymphocytes % 23 % Monocytes % 5 % Eosinophils % 2 % Basophils % 2 % Neutrophils # 3.5 (1.3-7.7) k/uL Lymphocytes # 1.2 (1.0-4.8) k/uL Monocytes # 0.2 (0-1.0) k/uL Eosinophils # 0.1 (0-0.7) k/uL Basophils # 0.1 (0-0.2) k/uL Macrocytosis Slight Sodium 138 (137-145) mmol/L Potassium 4.4 (3.5-5.1) mmol/L Chloride 96 L (98-107) mmol/L Carbon Dioxide 27 (22-30) mmol/L Anion Gap 15 mmol/L BUN 15 (9-20) mg/dL Creatinine 0.67 (0.66-1.25) mg/dL Est GFR (CKD-EPI)AfAm >90 (>60 ml/min/1.73 sqM) Est GFR (CKD-EPI)NonAf >90 (>60 ml/min/1.73 sqM) Glucose 113 H (74-99) mg/dL Calcium 9.5 (8.4-10.2) mg/dL Magnesium 2.0 (1.6-2.3) mg/dL Total Bilirubin 1.1 (0.2-1.3) mg/dL AST 268 H (17-59) U/L ALT 99 H (4-49) U/L Alkaline Phosphatase 141 H (38-126) U/L Total Protein 8.3 H (6.3-8.2) g/dL Albumin 5.0 (3.5-5.0) g/dL Lipase 1557 H (23-300) U/L Urine Opiates Screen Not Detected (NotDetected) Ur Oxycodone Screen Not Detected (NotDetected) Urine Methadone Screen Not Detected (NotDetected) Ur Propoxyphene Screen Not Detected (NotDetected) Ur Barbiturates Screen Not Detected (NotDetected) U Tricyclic Antidepress Not Detected (NotDetected) Ur Phencyclidine Scrn Not Detected (NotDetected) Ur Amphetamines Screen Not Detected (NotDetected) U Methamphetamines Scrn Not Detected (NotDetected) U Benzodiazepines Scrn Not Detected (NotDetected) Urine Cocaine Screen Not Detected (NotDetected) U Marijuana (THC) Screen Not Detected (NotDetected) Serum Alcohol 435 H* mg/dL Disposition Clinical Impression: Alcohol intoxication Disposition: HOME SELF-CARE Condition: Stable Instructions (If sedation given, give patient instructions): Alcohol Intoxication (ED) Prescriptions: chlordiazePOXIDE HCl [Librium] 50 mg PO QID #34 capsule Is patient prescribed a controlled substance at d/c from ED?: Yes When asked, does pt state using other controlled substances?: No Referrals: None,Stated [Primary Care Provider] - 1-2 days
[2019-04-19] MEDS ORDERED: SODIUM CHLORIDE 0.9% 1,000 ML IV STA (02:18)
[2019-04-19 02:54] LABS: Basophils # (A) 0.1 k/uL (0-0.2); Basophils % (A) 2 %; Eosinophils # (A) 0.1 k/uL (0-0.7); Eosinophils % (A) 2 %; HCT 48.4 % (39.0-53.0); HGB 15.8 gm/dL (13.0-17.5); Lymphocytes # (A) 1.2 k/uL (1.0-4.8); Lymphocytes % (A) 23 %; MCH 33.9 pg (25.0-35.0); MCHC 32.6 g/dL (31.0-37.0); MCV 103.9 fL (80.0-100.0); Macrocytosis Slight; Mean Platelet Volume 8.1; Monocytes # (A) 0.2 k/uL (0-1.0); Monocytes % (A) 5 %; Neutrophils # (A) 3.5 k/uL (1.3-7.7); Neutrophils % (A) 68 %; Platelet Count 146 k/uL (150-450); RBC 4.66 m/uL (4.30-5.90); RDW 13.9 % (11.5-15.5); WBC 5.2 k/uL (3.8-10.6)
[2019-04-19 02:57] LABS: ALT 99 U/L (4-49); AST 268 U/L (17-59); African American GFR (CKD) >90 (>60 ml/min/1.73 sqM); Alkaline Phosphatase 141 U/L (38-126); Anion Gap 15 mmol/L; Blood Urea Nitrogen 15 mg/dL (9-20); Calcium 9.5 mg/dL (8.4-10.2); Carbon Dioxide 27 mmol/L (22-30); Chloride 96 mmol/L (98-107); Glucose 113 mg/dL (74-99); Non-African American GFR(CKD) >90 (>60 ml/min/1.73 sqM); Potassium 4.4 mmol/L (3.5-5.1); Sodium 138 mmol/L (137-145); Total Bilirubin 1.1 mg/dL (0.2-1.3); Total Protein 8.3 g/dL (6.3-8.2)
[2019-04-19 03:07] LABS: Alcohol 435 mg/dL
[2019-04-19] MEDS ORDERED: chlordiazePOXIDE 25 MG CAP PO STA (03:29)
[2019-04-19 04:32] LABS: Amphetamine Screen,Urine Not Detected (NotDetected); Barbiturate Screen,Urine Not Detected (NotDetected); Benzodiazepines Screen,Urine Not Detected (NotDetected); Cocaine Screen,Urine Not Detected (NotDetected); Methadone Screen, Urine Not Detected (NotDetected); Opiate Screen,Urine Not Detected (NotDetected); Oxycodone Screen, Urine Not Detected (NotDetected); Phencyclidine Screen,Urine Not Detected (NotDetected); Tricyclic Antidepressant,Urine Not Detected (NotDetected); Urn Cannabinoid Scrn Not Detected (NotDetected)
[2019-04-19 09:48] VITALS: BP 135/76; PULSE 76; RESP 16
== END 2019-04-19 09:59 | disposition home or self-care (01) ==
LOC: EC 00:58
DX: F10.129 Alcohol abuse with intoxication, unspecified (principal); F17.200 Nicotine dependence, unspecified, uncomplicated; Z91.030 Bee allergy status
CPT/HCPCS: 36415; 80053; 80306; 80320; 82075; 83690; 83735; 85025; 93005; 96360; 99284

== ENCOUNTER 2021-06-18 16:16 | Inpatient (IN) | payer OTHER ==
[2021-06-18] MEDS ORDERED: SODIUM CHLORIDE 0.9% 1,000 ML IV STA (16:48)
[2021-06-18] MEDS ORDERED: LORazepam 2 MG/ML INJ IV PRN (16:50)
[2021-06-18] MEDS ORDERED: THIAMINE 100 MG/ML 2 ML VIAL IM STA (16:50)
--- NOTE | 2021-06-18 16:57 | ED ---
General Adult HPI - General Source: patient, EMS, RN notes reviewed, old records reviewed Mode of arrival: EMS Limitations: no limitations - History of Present Illness -: week(s) (2) Location: chest (left rib) Severity scale (1-10): 5 Quality: stabbing, aching Consistency: intermittent Associated Symptoms: confusion, shortness of breath, other (altered gait) Treatments Prior to Arrival: none <Andrew Flynn - Last Filed: 06/18/21 23:56> <Cassandra Galvin - Last Filed: 06/20/21 22:40> - General Chief complaint: Alcohol Stated complaint: anxiety Time Seen by Provider: 06/18/21 16:40 - History of Present Illness Initial comments: 60-year-old male, alert and oriented 4, presents to the emergency room tremulous with complaints of alcohol withdrawal. Patient states that he normally drinks 1-2 bottles of wine a day. He did see his primary care doctor 3 weeks ago to get assistance with alcohol cessation and was prescribed BuSpar. He states he looked up the side effects of BuSpar and was concerned so he stopped taking it 2 weeks ago. He was instructed to follow up with a [facility] however he does not have the time to go to [facility]. He has a follow-up appointment with his PCP on June 30. He states that his gait has been off for the past couple of weeks also and has been experiencing some blurred vision and some left-sided chest pain. He states that at night he gets short of breath and is not sleeping well. He denies any fevers, nausea or vomiting. (Andrew Flynn) - Related Data Home Medications Medication Instructions Recorded Confirmed No Known Home Medications 06/18/21 06/18/21 Allergies Allergy/AdvReac Type Severity Reaction Status Date / Time bee venom protein (honey bee) Allergy Anaphylaxis Verified 06/18/21 18:52 Review of Systems ROS Other: All systems not noted in ROS Statement are negative. <Andrew Flynn - Last Filed: 06/18/21 23:56> ROS Other: All systems not noted in ROS Statement are negative. <Cassandra Galvin - Last Filed: 06/20/21 22:40> ROS Statement: Those systems with pertinent positive or pertinent negative responses have been documented in the HPI. Past Medical History Past Medical History: No Reported History Additional Past Medical History / Comment(s): ETOH History of Any Multi-Drug Resistant Organisms: None Reported Past Surgical History: Hernia Repair Additional Past Surgical History / Comment(s): Hernia Repair Past Anesthesia/Blood Transfusion Reactions: No Reported Reaction Past Psychological History: Anxiety, Depression Smoking Status: Current every day smoker Past Alcohol Use History: Abuse Past Drug Use History: None Reported - Past Family History Father Additional Family Medical History / Comment(s): OF PANCREATIC ISSUES Mother Additional Family Medical History / Comment(s): PULMONARY HYPERTENSION <Abdulkadir Flynni - Last Filed: 06/18/21 23:56> General Exam Limitations: no limitations General appearance: alert, in no apparent distress Head exam: Present: atraumatic, normocephalic, normal inspection Eye exam: Present: normal appearance, EOMI. Absent: scleral icterus, conjunctival injection, periorbital swelling, periorbital tenderness ENT exam: Present: normal oropharynx, mucous membranes moist Neck exam: Present: normal inspection, full ROM. Absent: tenderness, meningismus, lymphadenopathy, thyromegaly Respiratory exam: Present: normal lung sounds bilaterally. Absent: respiratory distress, accessory muscle use Cardiovascular Exam: Present: tachycardia. Absent: JVD GI/Abdominal exam: Present: soft. Absent: distended, tenderness Extremities exam: Present: normal capillary refill. Absent: pedal edema Back exam: Present: normal inspection, full ROM. Absent: tenderness, CVA tenderness (R), CVA tenderness (L), rash noted Neurological exam: Present: alert, oriented X3, CN II-XII intact Expanded Neurological exam: Present: tremor Patient oriented to: Present: person, place, time Speech: Present: fluid speech Cranial nerves: EOM's Intact: Normal, Gag Reflex: Normal, Tongue Deviation: Normal Motor strength exam: RUE: 5, LUE: 5, RLE: 5, LLE: 5 Eye Response: (4) open spontaneously Motor Response: (6) obeys commands Verbal Response: (5) oriented [place] Total: 15 Psychiatric exam: Present: normal affect, normal mood. Absent: homicidal ideation, suicidal ideation Skin exam: Present: warm, dry, intact, normal color. Absent: cyanosis, omer phoretic, petechiae, pallor <Abdulkadir Flynni - Last Filed: 06/18/21 23:56> Course Vital Signs 06/18/21 06/18/21 06/18/21 16:18 18:00 20:25 Temperature 99.9 F H 98.5 F Pulse Rate 114 H 125 H 89 Respiratory 18 18 18 Rate Blood Pressure 158/95 162/105 138/91 O2 Sat by Pulse 96 97 96 Oximetry 06/19/21 06/19/21 06/19/21 02:00 03:00 04:00 Temperature Pulse Rate 85 87 82 Respiratory 18 16 18 Rate Blood Pressure 145/107 148/99 143/104 O2 Sat by Pulse 96 95 95 Oximetry 06/19/21 06/19/21 06/19/21 05:00 06:23 07:42 Temperature Pulse Rate 82 84 78 Respiratory 18 18 16 Rate Blood Pressure 140/98 157/99 148/96 O2 Sat by Pulse 95 96 Oximetry 06/19/21 06/19/21 06/19/21 08:17 10:21 10:43 Temperature Pulse Rate 98 78 101 H Respiratory 18 18 20 Rate Blood Pressure 158/98 151/110 163/101 O2 Sat by Pulse 94 L Oximetry 06/19/21 11:11 Temperature Pulse Rate 80 Respiratory 18 Rate Blood Pressure 174/91 O2 Sat by Pulse 94 L Oximetry Medical Decision Making - Lab Data Result diagrams: 06/18/21 17:25 06/18/21 17:25 <Andrew Flynn - Last Filed: 06/18/21 23:56> - Lab Data Result diagrams: 06/20/21 06:12 06/20/21 06:12 <Cassandra Galvin - Last Filed: 06/20/21 22:40> - Medical Decision Making 60-year-old male patient presents to emergency room with complaints of dizziness, left sided chest pain and shortness of breath since yesterday. He states that he's also had an altered gait for the past 2 weeks. He denies any recent head trauma. He is tremulous with complaints of alcohol withdrawal, states he normally drinks 1-2 bottles of wine a day, last drink today. CT of the brain was completed for the patient's complaints of altered gait and dizziness. No acute intracranial process was noted. No evidence of midline shift or intracranial bleed. Chest x-ray shows no acute cardiopulmonary disease. Labs show no evidence of leukocytosis. D-dimer was elevated 0.[address] angiogram of the chest shows no evidence of pulmonary embolism. There is evidence of hepatic steatosis and mild emphysematous changes. Lactic acid is 3.1, magnesium is 1.3, IV fluids and magnesium supplementation was provided. Alcohol level is 121. Troponin is 0.021 EKG shows sinus tachycardia at 104. On physical exam patient has no leg swelling or calf tenderness. No focal neurological deficits. Lung sounds are clear. Patient remains tachycardic and tremulous. He will be admitted for impending DTs, given ativan per CIWA scale. Patient is agreeable to the admission states that he would prefer to be discharged on Ativan to help with alcohol cessation. Case discussed with Dr. Galvin. (Andrew Flynn) I was available for consultation in the emergency department. The history and physical exam were done by the midlevel provider. I was consulted for this patients care. I reviewed the case with the midlevel provider and based on their presentation of the patient, I agree with the assessment, medical decision making and plan of care as documented. Chart was dictated using [employer] dictation software. Attempts were made to correct any dictation errors however some typographical errors may persist. (Cassandra Galvin) - Lab Data Lab Results 06/18/21 06/18/21 06/18/21 Range/Units 17:25 17:25 17:25 WBC 7.6 (3.8-10.6) k/uL RBC 4.24 L (4.30-5.90) m/uL Hgb 14.2 (13.0-17.5) gm/dL Hct 43.1 (39.0-53.0) % MCV 101.7 H (80.0-100.0) fL MCH 33.5 (25.0-35.0) pg MCHC 32.9 (31.0-37.0) g/dL RDW 13.4 (11.5-15.5) % Plt Count 133 L (150-450) k/uL MPV 8.0 Neutrophils % 76 % Lymphocytes % 12 % Monocytes % 7 % Eosinophils % 2 % Basophils % 1 % Neutrophils # 5.8 (1.3-7.7) k/uL Lymphocytes # 0.9 L (1.0-4.8) k/uL Monocytes # 0.5 (0-1.0) k/uL Eosinophils # 0.1 (0-0.7) k/uL Basophils # 0.1 (0-0.2) k/uL Macrocytosis Slight PT 9.9 (9.0-12.0) sec INR 0.9 (<1.2) APTT 20.8 L (22.0-30.0) sec D-Dimer 0.99 H (<0.60) mg/L FEU Sodium 131 L (137-145) mmol/L Potassium 4.0 (3.5-5.1) mmol/L Chloride 97 L (98-107) mmol/L Carbon Dioxide 19 L (22-30) mmol/L Anion Gap 15 mmol/L BUN 9 (9-20) mg/dL Creatinine 0.65 L (0.66-1.25) mg/dL Est GFR (CKD-EPI)AfAm >90 (>60 ml/min/1.73 sqM) Est GFR (CKD-EPI)NonAf >90 (>60 ml/min/1.73 sqM) Glucose 90 (74-99) mg/dL Lactic Ac Sepsis Rflx Plasma Lactic Acid Franky (0.7-2.0) mmol/L Calcium 9.3 (8.4-10.2) mg/dL Magnesium 1.3 L (1.6-2.3) mg/dL Total Bilirubin 1.2 (0.2-1.3) mg/dL AST 160 H (17-59) U/L ALT 64 H (4-49) U/L Alkaline Phosphatase 156 H (38-126) U/L Troponin I (0.000-0.034) ng/mL Total Protein 7.4 (6.3-8.2) g/dL Albumin 4.4 (3.5-5.0) g/dL Serum Alcohol 121 mg/dL Influenza Type A (PCR) (Not Detectd) Influenza Type B (PCR) (Not Detectd) RSV (PCR) (Not Detectd) SARS-CoV-2 (PCR) (Not Detectd) 06/18/21 06/18/21 06/18/21 Range/Units 17:25 17:25 18:04 WBC (3.8-10.6) k/uL RBC (4.30-5.90) m/uL Hgb (13.0-17.5) gm/dL Hct (39.0-53.0) % MCV (80.0-100.0) fL MCH (25.0-35.0) pg MCHC (31.0-37.0) g/dL RDW (11.5-15.5) % Plt Count (150-450) k/uL MPV Neutrophils % % Lymphocytes % % Monocytes % % Eosinophils % % Basophils % % Neutrophils # (1.3-7.7) k/uL Lymphocytes # (1.0-4.8) k/uL Monocytes # (0-1.0) k/uL Eosinophils # (0-0.7) k/uL Basophils # (0-0.2) k/uL Macrocytosis PT (9.0-12.0) sec INR (<1.2) APTT (22.0-30.0) sec D-Dimer (<0.60) mg/L FEU Sodium (137-145) mmol/L Potassium (3.5-5.1) mmol/L Chloride (98-107) mmol/L Carbon Dioxide (22-30) mmol/L Anion Gap mmol/L BUN (9-20) mg/dL Creatinine (0.66-1.25) mg/dL Est GFR (CKD-EPI)AfAm (>60 ml/min/1.73 sqM) Est GFR (CKD-EPI)NonAf (>60 ml/min/1.73 sqM) Glucose (74-99) mg/dL Lactic Ac Sepsis Rflx Y Plasma Lactic Acid Franky 3.1 H* (0.7-2.0) mmol/L Calcium (8.4-10.2) mg/dL Magnesium (1.6-2.3) mg/dL Total Bilirubin (0.2-1.3) mg/dL AST (17-59) U/L ALT (4-49) U/L Alkaline Phosphatase (38-126) U/L Troponin I 0.021 (0.000-0.034) ng/mL Total Protein (6.3-8.2) g/dL Albumin (3.5-5.0) g/dL Serum Alcohol mg/dL Influenza Type A (PCR) (Not Detectd) Influenza Type B (PCR) (Not Detectd) RSV (PCR) (Not Detectd) SARS-CoV-2 (PCR) (Not Detectd) 06/18/21 06/18/21 Range/Units 19:13 20:36 WBC (3.8-10.6) k/uL RBC (4.30-5.90) m/uL Hgb (13.0-17.5) gm/dL Hct (39.0-53.0) % MCV (80.0-100.0) fL MCH (25.0-35.0) pg MCHC (31.0-37.0) g/dL RDW (11.5-15.5) % Plt Count (150-450) k/uL MPV Neutrophils % % Lymphocytes % % Monocytes % % Eosinophils % % Basophils % % Neutrophils # (1.3-7.7) k/uL Lymphocytes # (1.0-4.8) k/uL Monocytes # (0-1.0) k/uL Eosinophils # (0-0.7) k/uL Basophils # (0-0.2) k/uL Macrocytosis PT (9.0-12.0) sec INR (<1.2) APTT (22.0-30.0) sec D-Dimer (<0.60) mg/L FEU Sodium (137-145) mmol/L Potassium (3.5-5.1) mmol/L Chloride (98-107) mmol/L Carbon Dioxide (22-30) mmol/L Anion Gap mmol/L BUN (9-20) mg/dL Creatinine (0.66-1.25) mg/dL Est GFR (CKD-EPI)AfAm (>60 ml/min/1.73 sqM) Est GFR (CKD-EPI)NonAf (>60 ml/min/1.73 sqM) Glucose (74-99) mg/dL Lactic Ac Sepsis Rflx Plasma Lactic Acid Franky 1.4 (0.7-2.0) mmol/L Calcium (8.4-10.2) mg/dL Magnesium (1.6-2.3) mg/dL Total Bilirubin (0.2-1.3) mg/dL AST (17-59) U/L ALT (4-49) U/L Alkaline Phosphatase (38-126) U/L Troponin I (0.000-0.034) ng/mL Total Protein (6.3-8.2) g/dL Albumin (3.5-5.0) g/dL Serum Alcohol mg/dL Influenza Type A (PCR) Not Detected (Not Detectd) Influenza Type B (PCR) Not Detected (Not Detectd) RSV (PCR) Not Detected (Not Detectd) SARS-CoV-2 (PCR) Not Detected (Not Detectd) Disposition Decision Date: 06/18/21 Decision Time: 19:36 <Andrew Flynn - Last Filed: 06/18/21 23:56> <Cassandra Galvin - Last Filed: 06/20/21 22:40> Clinical Impression: Alcohol intoxication, Alcohol withdrawal, Impending delirium tremens, Lactic acidosis Disposition: ADMITTED IP TO THIS HOSP
[2021-06-18] MEDS: LORazepam 2 MG/ML INJ IV PRN ×3 (17:40→22:43)
[2021-06-18 17:42] LABS: Basophils # (A) 0.1 k/uL (0-0.2); Basophils % (A) 1 %; Eosinophils # (A) 0.1 k/uL (0-0.7); Eosinophils % (A) 2 %; HCT 43.1 % (39.0-53.0); HGB 14.2 gm/dL (13.0-17.5); Lymphocytes # (A) 0.9 k/uL (1.0-4.8); Lymphocytes % (A) 12 %; MCH 33.5 pg (25.0-35.0); MCHC 32.9 g/dL (31.0-37.0); MCV 101.7 fL (80.0-100.0); Macrocytosis Slight; Monocytes # (A) 0.5 k/uL (0-1.0); Monocytes % (A) 7 %; Neutrophils # (A) 5.8 k/uL (1.3-7.7); Neutrophils % (A) 76 %; Platelet Count 133 k/uL (150-450); RBC 4.24 m/uL (4.30-5.90); RDW 13.4 % (11.5-15.5); WBC 7.6 k/uL (3.8-10.6)
[2021-06-18 17:54] LABS: ALT 64 U/L (4-49); AST 160 U/L (17-59); African American GFR (CKD) >90 (>60 ml/min/1.73 sqM); Albumin 4.4 g/dL (3.5-5.0); Alkaline Phosphatase 156 U/L (38-126); Anion Gap 15 mmol/L; Blood Urea Nitrogen 9 mg/dL (9-20); Calcium 9.3 mg/dL (8.4-10.2); Carbon Dioxide 19 mmol/L (22-30); Chloride 97 mmol/L (98-107); Glucose 90 mg/dL (74-99); Magnesium 1.3 mg/dL (1.6-2.3); Non-African American GFR(CKD) >90 (>60 ml/min/1.73 sqM); Sodium 131 mmol/L (137-145); Total Bilirubin 1.2 mg/dL (0.2-1.3); Total Protein 7.4 g/dL (6.3-8.2)
[2021-06-18 18:05] LABS: INR 0.9 (<1.2); Prothrombin Time 9.9 sec (9.0-12.0)
[2021-06-18 18:06] LABS: Alcohol 121 mg/dL; Partial Thromboplastin Time 20.8 sec (22.0-30.0)
[2021-06-18] MEDS ORDERED: MAGNESIUM OXIDE 400 MG TAB PO STA (18:37)
--- NOTE | 2021-06-18 19:04 | CT ---
EXAMINATION TYPE: CT brain wo con CT DLP: 1090.4 mGycm, Automated exposure control for dose reduction was used. DATE OF EXAM: 06/18/2021 6:03 PM COMPARISON: None. CLINICAL INDICATION:Male, 60 years old with history of altered gait, Unsteady gait. TECHNIQUE: Brain: Multiple axial CT images of the brain were obtained without IV contrast. FINDINGS: Brain: Extra-axial spaces: No abnormal extra-axial fluid collections. Ventricular system: Within normal limits Cerebral parenchyma: No acute intraparenchymal hemorrhage or mass effect. The doe-white junction is well differentiated. Cerebellum: Unremarkable. Mass effect: No evidence of midline shift. Intracranial vasculature: Atherosclerotic calcifications of the intracranial vessels. Soft tissues: Normal. Calvarium/osseous structures: No depressed skull fracture. Paranasal sinuses and mastoid air cells: Mild scattered paranasal sinus disease. Visualized orbits: Orbital contents are intact. IMPRESSION: No acute intracranial process.
--- NOTE | 2021-06-18 19:06 | XR ---
EXAMINATION TYPE: XR chest 2V DATE OF EXAM: 06/18/2021 6:03 PM COMPARISON:None TECHNIQUE: XR chest 2V Frontal and lateral views of the chest. CLINICAL INDICATION:Male, 60 years old with history of difficulty breathing; FINDINGS: Lungs/Pleura: There is no evidence of pleural effusion, focal consolidation, or pneumothorax. Pulmonary vascularity: Unremarkable. Heart/mediastinum: Cardiomediastinal silhouette is unremarkable. Musculoskeletal: No acute osseous pathology. IMPRESSION: No acute cardiopulmonary disease/process.
--- NOTE | 2021-06-18 19:15 | CT ---
EXAMINATION TYPE: CT angio chest CT DLP: 254.1 mGycm, Automated exposure control for dose reduction was used. DATE OF EXAM: 06/18/2021 6:41 PM COMPARISON: Chest radiograph from same day. CLINICAL INDICATION:Male, 60 years old with history of elevated dimer; Elevated d-dimer, anxiety. TECHNIQUE/CONTRAST: CTA scan of the thorax is performed with IV Contrast, patient injected with 100 mL of Isovue 370, pul monary embolism protocol. MIP images are created and reviewed. FINDINGS: Pulmonary Artery: There is no evidence for a filling defect within the pulmonary vasculature to sugge st acute pulmonary embolism. The pulmonary artery is of normal size. Lungs/Pleura: No evidence of focal consolidation, pleural effusion or pneumothorax. Airway: Large airways are patent. Heart: Within normal limits for size.. Vasculature: No evidence of aortic aneurysm. Mediastinum: No gross evidence of adenopathy. Musculoskeletal: No acute osseous abnormalities. Mild multilevel degenerative disc disease changes. Soft Tissues: Unremarkable. Lower neck: No significant findings. Upper Abdomen: Diffuse low-attenuation to the liver parenchyma. IMPRESSION: 1. No evidence of pulmonary embolism. 2. Mild emphysema changes. 3. Hepatic steatosis.
[2021-06-18] MEDS: SODIUM CHLORIDE 0.9% 1,000 ML IV SCH (19:43)
[2021-06-18] MEDS ORDERED: ACETAMINOPHEN TAB 325 MG TAB PO PRN (19:48)
[2021-06-18] MEDS ORDERED: NALOXONE 0.4 MG/ML 1 ML VIAL IV PRN (19:48)
[2021-06-19] MEDS: LORazepam 2 MG/ML INJ IV PRN ×10 (00:15→20:00)
[2021-06-19] MEDS: SODIUM CHLORIDE 0.9% 1,000 ML IV SCH ×3 (06:37→18:48)
[2021-06-19] MEDS: NICOTINE 14MG/24HR PATCH TRANSDERM SCH (10:23)
[2021-06-19] MEDS: THIAMINE 100 MG TAB PO SCH ×2 (11:16→17:00)
[2021-06-19 12:05] LABS: ALT 52 U/L (4-49); AST 107 U/L (17-59); African American GFR (CKD) >90 (>60 ml/min/1.73 sqM); Albumin 3.6 g/dL (3.5-5.0); Albumin/Globulin Ratio 1.3; Alkaline Phosphatase 122 U/L (38-126); Anion Gap 8 mmol/L; Blood Urea Nitrogen 10 mg/dL (9-20); Calcium 9.1 mg/dL (8.4-10.2); Carbon Dioxide 24 mmol/L (22-30); Chloride 99 mmol/L (98-107); Globulin 2.8 g/dL; Glucose 74 mg/dL (74-99); Magnesium 1.4 mg/dL (1.6-2.3); Non-African American GFR(CKD) >90 (>60 ml/min/1.73 sqM); Potassium 3.9 mmol/L (3.5-5.1); Sodium 131 mmol/L (137-145); Total Bilirubin 1.4 mg/dL (0.2-1.3); Total Protein 6.4 g/dL (6.3-8.2)
[2021-06-19] MEDS ORDERED: Magnesium Replacement Protocol 1 EACH MISC MISCELLANE PRN (12:24)
--- NOTE | 2021-06-19 14:22 | P.HPIM ---
History of Present Illness H&P Date: 06/19/21 This is a pleasant 60-year-old male presents to the with complaints of gait disturbance for the last couple weeks, blurred vision as well as left-sided rib pain that he states will intermittent spasm on his lower rib on the left side. No radiation. Denies chest pain, palpitations. Denies headache, dizziness or lightheadedness. Per patient his gait problems have resulted in multiple falls, denies hitting his head. Blurry vision he states that he has bad eyes and doesn't elaborate much more than that. Has been getting short of breath at night and is not sleeping well. Reports cough with grayish yellow sputum persistent states he has been a smoker for 20 years and this is chronic for him. There has been no fever. Also reports feelings of anxiety, states physically he feels similar to when he went through his divorce and required a walker to ambulate around the house. Patient is also a daily drinker, admits to drinking 1-2 bottles of wine per day with a 12% alcohol content, but has cut down to maybe 1 bottle per day of chardonnay with half the alcohol content. Alcohol on admission was 121. Patient was prescribed BuSpar by his primary care provider to help with alcohol cessation however he stopped taking outpatient about 2 weeks ago as he states he read the medication could cause anxiety. Was recommended to follow-up with [facility]. Patient is also a daily smoker states at his heaviest over 2 packs per day currently around 1/2 to 3/4 packs per day. Patient does have tremors noted with purposeful movement, none at rest. Some ataxia and generalized weakness present. Brain CT negative for acute changes. Chest x-ray is also negative. Chest CTA shows no evidence for PE, mild emphysema changes, hepatic steatosis. with a fatty liver. Patient follows with Dr. Rina aLwrence in the primary care setting, chronic medical conditions include alcohol abuse, current daily smoker, anxiety, depression, hernia repair. No home medications. On admission, d-dimer elevated at 0.99, sodium 131, chloride 97, CO2 19, lactic acid 3.1, now 1.4, magnesium 1.3, elevated liver enz ymes. Troponin negative. Influenza A/B, RSV, Covid all negative. EKG shows sinus tachycardia heart rate 104. We will replace magnesium, consult neurology, patient started on CIWA protocol, monitor patient for acute alcohol withdrawal. REVIEW OF SYSTEMS: CONSTITUTIONAL: No fever, no malaise, Reports fatigue and decreased appetite HEENT: No recent visual problems or hearing problems. Denied any sore throat. CARDIOVASCULAR: No chest pain, orthopnea, PND, no palpitations, no syncope. PULMONARY: no hemoptysis. Reports shortness of breath at night, productive cough with yellow/doe sputum GASTROINTESTINAL: No diarrhea, no nausea, no vomiting, no abdominal pain. NEUROLOGICAL: No headaches, no numbness, reports generalized weakness, difficulty ambulating has been falling. No slurred speech, no confusion. HEMATOLOGICAL: Denies any bleeding or petechiae. GENITOURINARY: Denies any burning micturition, reports hesitancy and weak stream. MUSCULOSKELETAL/RHEUMATOLOGICAL: Denies any joint pain, swelling, or any muscle pain. ENDOCRINE: Denies any polyuria or polydipsia. The rest of the 14-point review of systems is negative. PHYSICAL EXAMINATION: GENERAL: The patient is alert and oriented x3, not in any acute distress. Well developed, well nourished. HEENT: Pupils are round and equally reacting to light. EOMI. No scleral icterus. No conjunctival pallor. Normocephalic, atraumatic. No pharyngeal erythema. No thyromegaly. CARDIOVASCULAR: S1 and S2 present. No murmurs, rubs, or gallops. PULMONARY: Chest is clear to auscultation, no wheezing or crackles. ABDOMEN: Soft, nontender, nondistended, normoactive bowel sounds. No palpable organomegaly. MUSCULOSKELETAL: No joint swelling or deformity. EXTREMITIES: No cyanosis, clubbing, or pedal edema. NEUROLOGICAL: Generalized weakness, ataxia noted, tremors with movement SKIN: No rashes. 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 other neurologic process, neuro has been consulted for further work up. Hypertension not currently on medication states his blood pressure fluctuates at home Elevated d-dimer with no evidence for PE Hyponatremia, due to poor oral intake continue with IV fluids Lactic acidosis, resolved Hypomagnesemia Chronic alcohol abuse Daily nicotine use GI prophylaxis DVT Prophylaxis Full Code Plan Continue IV fluids [facility] protocol Monitor for acute withdrawal Consult Neuro Replace magnesium PT/OT consult The impression and plan of care has been dictated by Thu Theodore Nurse Practitioner as directed. Dr. Octavia MD I have performed a history and physical examination and medical decision making of this patient, discussed the same with the dictator, and agree with the dictators assessment and plan as written, documented as a scribe. Based on total visit time, I have performed more than 50% of this visit. Past Medical History Past Medical History: No Reported History Additional Past Medical History / Comment(s): ETOH History of Any Multi-Drug Resistant Organisms: None Reported Past Surgical History: Hernia Repair Additional Past Surgical History / Comment(s): Hernia Repair Past Anesthesia/Blood Transfusion Reactions: No Reported Reaction Past Psychological History: Anxiety, Depression Smoking Status: Current every day smoker Past Alcohol Use History: Abuse Past Drug Use History: None Reported - Past Family History Father Additional Family Medical History / Comment(s): OF PANCREATIC ISSUES Mother Additional Family Medical History / Comment(s): PULMONARY HYPERTENSION Medications and Allergies Home Medications Medication Instructions Recorded Confirmed Type No Known Home Medications 06/18/21 06/18/21 History Allergies Allergy/AdvReac Type Severity Reaction Status Date / Time bee venom protein (honey bee) Allergy Anaphylaxis Verified 06/18/21 18:52 Physical Exam Vitals: Vital Signs Temp Pulse Resp BP Pulse Ox 06/19/21 08:17 98 18 158/98 06/19/21 07:42 78 16 148/96 06/19/21 06:23 84 18 157/99 96 06/19/21 05:00 82 18 140/98 95 06/19/21 04:00 82 18 143/104 95 06/19/21 03:00 87 16 148/99 95 06/19/21 02:00 85 18 145/107 96 06/18/21 20:25 89 18 138/91 96 06/18/21 18:00 98.5 F 125 H 18 162/105 97 06/18/21 16:18 99.9 F H 114 H 18 158/95 96 Intake and Output 06/18/21 06/19/21 06/19/21 22:59 06:59 14:59 Output Total 220 Balance -220 Output: Urine 220 Other: Weight 63.503 kg Results CBC & Chem 7: 06/18/21 17:25 06/19/21 11:28 Labs: Abnormal Lab Results - Last 24 Hours (Table) 06/18/21 06/18/21 06/18/21 Range/Units 17:25 17:25 17:25 RBC 4.24 L (4.30-5.90) m/uL MCV 101.7 H (80.0-100.0) fL Plt Count 133 L (150-450) k/uL Lymphocytes # 0.9 L (1.0-4.8) k/uL APTT 20.8 L (22.0-30.0) sec D-Dimer 0.99 H (<0.60) mg/L FEU Sodium 131 L (137-145) mmol/L Chloride 97 L (98-107) mmol/L Carbon Dioxide 19 L (22-30) mmol/L Creatinine 0.65 L (0.66-1.25) mg/dL Plasma Lactic Acid Franky (0.7-2.0) mmol/L Magnesium 1.3 L (1.6-2.3) mg/dL AST 160 H (17-59) U/L ALT 64 H (4-49) U/L Alkaline Phosphatase 156 H (38-126) U/L 06/18/21 Range/Units 17:25 RBC (4.30-5.90) m/uL MCV (80.0-100.0) fL Plt Count (150-450) k/uL Lymphocytes # (1.0-4.8) k/uL APTT (22.0-30.0) sec D-Dimer (<0.60) mg/L FEU Sodium (137-145) mmol/L Chloride (98-107) mmol/L Carbon Dioxide (22-30) mmol/L Creatinine (0.66-1.25) mg/dL Plasma Lactic Acid Franky 3.1 H* (0.7-2.0) mmol/L Magnesium (1.6-2.3) mg/dL AST (17-59) U/L ALT (4-49) U/L Alkaline Phosphatase (38-126) U/L Assessment and Plan Time with Patient: Greater than 30
--- NOTE | 2021-06-19 14:43 | P.CNNES ---
History of Present Illness Consult date: 06/19/21 Requesting physician: Thu Theodore Reason for Consult: gait disturbance, tremors History of Present Illness: This is a 60-year-old gentleman with alcohol use, tobacco use use who presented to the emergency department for tremulous and complaints of alcohol withdrawal. He drinks 1-2 bottles of wine daily. His last drink was was yesterday. Neurology is consulted for tremors and gait disturbance. I spoke with N.P. from primary team and was concerned about Parkinson's disease. According to the patient he has been treating drinking alcohol for 10 years after getting . There is a period and his that he stopped but restarted again and last drink was yesterday. He smokes about 3/4 of pack per day. He denies of any focal weakness. He does have numbness in his feet and he feels he had it for some time. Patient denies of any family history of essential tremor. Some of the work-up in the hospital consisted of: CT head is reported as no acute intracranial process. I reviewed the CT and do agree there is no acute or subacute ischemic stroke and no intraparechymal hemorrhage. There is lacunar infarcts that are old in the basal ganglia (internal capsule). MCV 101 Sodium is 131, magnesium is 1.3 AST 160, ALT 64, lactic acid vein is 3.1 Urine alcohol level is 121 Review of Systems Review of system: The 12 point system was reviewed and apparent positive and negative per HPI. Past Medical History Past Medical History: No Reported History Additional Past Medical History / Comment(s): ETOH History of Any Multi-Drug Resistant Organisms: None Reported Past Surgical History: Hernia Repair Additional Past Surgical History / Comment(s): Hernia Repair Past Anesthesia/Blood Transfusion Reactions: No Reported Reaction Past Psychological History: Anxiety, Depression Smoking Status: Current every day smoker Past Alcohol Use History: Abuse Past Drug Use History: None Reported - Past Family History Father Additional Family Medical History / Comment(s): OF PANCREATIC ISSUES Mother Additional Family Medical History / Comment(s): PULMONARY HYPERTENSION Medications and Allergies Home Medications Medication Instructions Recorded Confirmed Type No Known Home Medications 06/18/21 06/18/21 History Allergies Allergy/AdvReac Type Severity Reaction Status Date / Time bee venom protein (honey bee) Allergy Anaphylaxis Verified 06/18/21 18:52 Physical Examination - Vital Signs Vital Signs: Vital Signs Temp Pulse Resp BP Pulse Ox 06/19/21 12:45 98 F 88 18 139/100 97 06/19/21 11:11 80 18 174/91 94 L 06/19/21 10:43 101 H 20 163/101 06/19/21 10:21 78 18 151/110 94 L 06/19/21 08:17 98 18 158/98 06/19/21 07:42 78 16 148/96 06/19/21 06:23 84 18 157/99 96 06/19/21 05:00 82 18 140/98 95 06/19/21 04:00 82 18 143/104 95 06/19/21 03:00 87 16 148/99 95 06/19/21 02:00 85 18 145/107 96 06/18/21 20:25 89 18 138/91 96 06/18/21 18:00 98.5 F 125 H 18 162/105 97 06/18/21 16:18 99.9 F H 114 H 18 158/95 96 Intake and Output 06/18/21 06/19/21 06/19/21 22:59 06:59 14:59 Output Total 480 Balance -480 Output: Urine 480 Other: Weight 63.503 kg 63.503 kg GENERAL: The patient is lying in bed and is not in acute distress. CHEST: The heart rate is regular rate rhythm. No murmurs to auscultation. LUNG: Clear to auscultation bilaterally no wheezing noted throughout. Not labored breathing. ABDOMEN/GI: Bowel sounds present in all 4 quadrants. No tenderness to palpation throughout. NEUROLOGICAL: Higher mental function: The patient is awake, alert, oriented to self, place and time. Patient is following commands. No aphasia and no neglect. Cranial nerves: The pupils are round, equal and reactive to light and accommodation. Visual damico are full to confrontation throughout. Extraocular movement is intact no nystagmus is noted. Facial sensation is normal to touch throughout. The facial strength is normal throughout. Hearing is normal bilaterally to hand rub. Tongue is midline and moved [id number] without any difficulty. No dysarthria is noted. Shoulder shrug is normal bilaterally. Motor: The strength is 5 over 5 throughout. Normal tone and bulk. No resting tremor. He has some tremor with finger to nose and seems like essential tremor. and at time generalized tremor and is awake and responsive during episode. Cerebellum: Normal finger to nose heel to lange bilaterally. Sensation: Sensation is normal to touch throughout. Reflexes (right/left): 2+ over bilateral uppers while lowers are 0. Plantars are mute bilaterally. Results - Laboratory Findings CBC and BMP: 06/18/21 17:25 06/19/21 11:28 Abnormal Lab Findings: Abnormal Labs 06/18/21 06/18/21 06/18/21 17:25 17:25 17:25 RBC 4.24 L MCV 101.7 H Plt Count 133 L Lymphocytes # 0.9 L APTT 20.8 L D-Dimer 0.99 H Sodium 131 L Chloride 97 L Carbon Dioxide 19 L Creatinine 0.65 L Plasma Lactic Acid Franky Magnesium 1.3 L Total Bilirubin AST 160 H ALT 64 H Alkaline Phosphatase 156 H 06/18/21 06/19/21 17:25 11:28 RBC MCV Plt Count Lymphocytes # APTT D-Dimer Sodium 131 L Chloride Carbon Dioxide Creatinine 0.63 L Plasma Lactic Acid Franky 3.1 H* Magnesium 1.4 L Total Bilirubin 1.4 H AST 107 H ALT 52 H Alkaline Phosphatase Assessment and Plan Assessment: Alcohol intoxication and his serum alcohol on presentation is 121 His generalized tremor is hard to assess but possibly going through alcohol withdrawal and possible component of essential tremors. His unsteady gait is likely due peripheral neuropathy from chronic alcohol use (has areflexia of lowers and per patient has numbness of feet). Ongoing alcohol use for the past 10 years Tobacco use Plan: Recommend alcohol cessation for at least a month and to have his tremors be re- evaluated. Vitamin B12, folate and TSH is ordered by the primary team is pending I ordered hemoglobin A1c Recommend EMG with nerve conduction study as an outpatient since I feel the patient has peripheral neuropathy in his lower extremity likely due to his chronic alcohol use CT of the head I feel the patient has lacunar stroke in the basal ganglia bilaterally. Therefore I started the patient on aspirin 81 mg daily. I'll refrain from using statin because of his elevated LFT's. Every 4 neuro checks PT and OT is consulted Patient is currently on thiamine 100 mg twice a day Regarding alcohol withdrawal will defer management to primary team. We'll defer the rest of medical management to primary team Upon discharge recommend the patient follow up with a neurologist within 1-2 weeks. Thank you for the consultation Neuro-hospitalist Padilla Villavicencio M.D. Time with Patient: Greater than 30
[2021-06-19] MEDS: MAGNESIUM SULFATE-D5W PMX 1 GM in DEXTROSE/WATER 1 100ML.BAG IVPB SCH ×3 (15:44→21:28)
[2021-06-19] MEDS: amLODIPine 5 MG TAB PO SCH (16:09)
--- NOTE | 2021-06-19 17:01 | US ---
EXAMINATION TYPE: US carotid duplex BILAT DATE OF EXAM: 06/19/2021 COMPARISON: NONE CLINICAL HISTORY: stroke. stroke EXAM MEASUREMENTS: RIGHT: Peak Systolic Velocity (PSV) cm/sec ----- Right CCA: 50.5 ----- Right ICA: 58.1 ----- Right ECA: 70.2 ICA/CCA ratio: 1.2 RIGHT: End Diastole cm/sec ----- Right CCA: 13.9 ----- Right ICA: 10.9 ----- Right ECA: 14.2 LEFT: Peak Systolic Velocity (PSV) cm/sec ----- Left CCA: 65.8 ----- Left ICA: 63.6 ----- Left ECA: 81.2 ICA/CCA ratio: 1.0 LEFT: End Diastole cm/sec ----- Left CCA: 10.9 ----- Left ICA: 19.1 ----- Left ECA: 12.0 VERTEBRALS (direction of flow): Right Vertebral: Antegrade Left Vertebral: Antegrade Rhythm: Normal Mild plaque bilateral bifurcations. no evidence of increased velocities. IMPRESSION: There is antegrade flow in the vertebral arteries. The images and measurements suggest le ss than 15% stenosis in both internal carotid arteries. Criteria for Assigning % of Stenosis / Diameter reduction (Estimation based on the indirect measurements of the internal carotid artery velocities (ICA PSV). 1. Normal (no stenosis)=ICA PSV < 125 cm/s: ratio < 2.0: ICA EDV<40 cm/s. 2. Less than 50% stenosis=ICA PSV < 125 cm/s: ratio < 2.0: ICA EDV<40 cm/s. 3. 50 to 69% stenosis=ICA PSV of 125 to 230 cm/s: ration 2.0 ? 4.0: ICA EDV 40-100 cm/s. 4. Greater than 70% stenosis to near occlusion= ICA PSV > 230 cm/s: ratio > 4.0: ICA EDV > 100 cm/s. 5. Near occlusion= ICA PSV velocities may be low or undetectable: variable ratio and ICA EDV. 6. Total occlusion=unable to detect flow.
--- NOTE | 2021-06-19 18:40 | ECHOF ---
Referral Reason:stroke MEASUREMENTS -------- HEIGHT: 175.3 cm WEIGHT: 63.5 kg BP: 153/85 RVIDd: 2.9 cm (< 3.3) IVSd: 1.0 cm (0.6 - 1.1) LVIDd: 3.2 cm (3.9 - 5.3) LVPWd: 1.0 cm (0.6 - 1.1) IVSs: 1.5 cm LVIDs: 2.6 cm LVPWs: 1.4 cm LA Diam: 2.4 cm (2.7 - 3.8) Ao Diam: 2.7 cm (2.0 - 3.7) AV Cusp: 1.8 cm (1.5 - 2.6) MV EXCURSION: 13.059 mm (> 18.000) MV EF SLOPE: 99 mm/s (70 - 150) EPSS: 1.1 cm MV E Jethro: 0.46 m/s MV DecT: 522 ms MV A Jethro: 0.55 m/s MV E/A Ratio: 0.85 FINDINGS -------- Sinus rhythm. This was a technically difficult study with suboptimal views. The left ventricular size is normal. Left ventricular wall thickness is normal. Overall left vent ricular systolic function is mildly impaired with, an EF between 45 - 50 %. The right ventricle is normal in size. The left atrium is normal in size. The right atrium is normal in size. 3 ml of Lumason was utilized for enhancement of images. Interatrial and interventricular septum intact. The aortic valve is trileaflet, and appears structurally normal. No aortic stenosis or regurgitation. The mitral valve is normal. Trace tricuspid regurgitation present. Unable to estimate RVSP due to inadequate TR jet spectral do ppler profile. The pulmonic valve was not well visualized. The aortic root size is normal. Normal inferior vena cava with normal inspiratory collapse consistent with estimated right atrial pre ssure of 5 mmHg. There is no pericardial effusion. CONCLUSIONS -------- 1. This was a technically difficult study with suboptimal views. 2. The left ventricular size is normal. 3. Left ventricular wall thickness is normal. 4. Overall left ventricular systolic function is mildly impaired with, an EF between 45 - 50 %. 5. 3 ml of Lumason was utilized for enhancement of images. 6. Trace tricuspid regurgitation present. 7. There is no pericardial effusion. SALES ACCOUNT ASSOCIATE: Irene Rincon RDCS
[2021-06-19] MEDS: SYMBICORT 80-4.5 MCG INHALER INHALATION SCH (21:17)
[2021-06-19 23:18] LABS: Vitamin B12 >2000.0 pg/mL (200.0-944.0)
[2021-06-20] MEDS: SODIUM CHLORIDE 0.9% 1,000 ML IV SCH ×2 (02:05→12:20)
[2021-06-20] MEDS: LORazepam 2 MG/ML INJ IV PRN ×3 (06:05→23:38)
[2021-06-20] MEDS: SYMBICORT 80-4.5 MCG INHALER INHALATION SCH ×2 (08:16→19:55)
[2021-06-20] MEDS: THIAMINE 100 MG TAB PO SCH ×2 (08:51→16:58)
[2021-06-20] MEDS: ASPIRIN 81 MG PO SCH (08:51)
[2021-06-20] MEDS: amLODIPine 5 MG TAB PO SCH (08:51)
[2021-06-20] MEDS: NICOTINE 14MG/24HR PATCH TRANSDERM SCH (08:51)
[2021-06-20] MEDS: FOLIC ACID 1 MG TAB PO SCH (08:51)
[2021-06-20] MEDS ORDERED: Magnesium Replacement Protocol 1 EACH MISC MISCELLANE PRN (09:01)
[2021-06-20 09:52] LABS: Basophils # (A) 0.03 X 10*3/uL (0.00-0.10); Basophils % (A) 0.6 %; Eosinophils # (A) 0.07 X 10*3/uL (0.04-0.35); Eosinophils % (A) 1.5 %; HCT 37.8 % (39.6-50.0); HGB 12.8 g/dL (13.0-17.0); Immature Grans, Automated 0.4 %; Lymphocytes # (A) 0.77 X 10*3/uL (0.90-5.00); Lymphocytes % (A) 16.2 %; MCH 33.7 pg (27.0-32.0); MCHC 33.9 g/dL (32.0-37.0); MCV 99.5 fL (80.0-97.0); Mean Platelet Volume 10.7 fL (9.5-12.2); Monocytes # (A) 0.81 X 10*3/uL (0.20-1.00); NRBC Per 100 WBC 0 /100 WBCS (0.0-0.0); Neutrophils # (A) 3.06 X 10*3/uL (1.80-7.70); Neutrophils % (A) 64.3 %; Platelet Count 126 X 10*3/uL (140-440); RDW 13.2 % (11.5-14.5); WBC 4.76 X 10*3/uL (4.50-10.00)
[2021-06-20 10:15] LABS: African American GFR (CKD) 128.4 (60.0-200.0); Anion Gap 14.2 mmol/L (10.00-18.00); BUN/Creat Ratio 13.67 Ratio (12.00-20.00); Blood Urea Nitrogen 8.2 mg/dL (9.0-27.0); Calcium 8.5 mg/dL (8.7-10.3); Carbon Dioxide 20.8 mmol/L (20.0-27.5); Non-African American GFR(CKD) 110.8 (60.0-200.0); Potassium 3.6 mmol/L (3.5-5.5)
[2021-06-20] MEDS: MAGNESIUM SULFATE-D5W PMX 1 GM in DEXTROSE/WATER 1 100ML.BAG IVPB SCH ×2 (10:35→11:34)
--- NOTE | 2021-06-20 11:18 | P.PN ---
Subjective Progress Note Date: 06/20/21 The patient is seen at bedside and feels about the same. Objective - Vital Signs Vital signs: Vital Signs Temp 97.4 F L 06/20/21 07:00 Pulse 81 06/20/21 07:00 Resp 18 06/20/21 07:00 BP 158/89 06/20/21 07:00 Pulse Ox 97 06/20/21 00:55 Intake & Output 06/19/21 06/20/21 06/20/21 18:59 06:59 18:59 Intake Total 118 Output Total 510 630 Balance -392 -630 Weight 63.503 kg Intake: Oral 118 Output: Urine 510 630 Other: Voiding Method Urinal # Voids 1 1 - Exam GENERAL: The patient is lying in bed and is not in acute distress. NEUROLOGICAL: Higher mental function: The patient is awake, alert, oriented to self, place and time. Patient is following commands. No aphasia and no neglect. Cranial nerves: The pupils are round, equal and reactive to light and accommodation. Visual damico are full to confrontation throughout. Extraocular movement is intact no nystagmus is noted. Facial sensation is normal to touch throughout. The facial strength is normal throughout. Hearing is normal bilaterally to hand rub. Tongue is midline and moved [id number] without any difficulty. No dysarthria is noted. Shoulder shrug is normal bilaterally. Motor: Upon walking he has generalized body tremor and is unsteady but resolves when he rests. The strength is 5 over 5 throughout. Normal tone and bulk. No resting tremor. He has some tremor with finger to nose and seems like essential tremor. and at time generalized tremor and is awake and responsive during episode. Cerebellum: Normal finger to nose heel to lange bilaterally. Sensation: Sensation is normal to touch throughout. Reflexes (right/left): 2+ over bilateral uppers. While right lower is 1+ over patella and ankle while left is 0. Plantars are mute bilaterally. WORK-UP: CT head is reported as no acute intracranial process. I reviewed the CT and do agree there is no acute or subacute ischemic stroke and no intraparechymal hem orrhage. There is lacunar infarcts that are old in the basal ganglia (internal capsule). MCV 101 Sodium is 131, magnesium is 1.3 AST 160, ALT 64, lactic acid vein is 3.1 Urine alcohol level is 121 TSH: 2.24 Serum folate: 4.40 which is just make it to cut-off of borderline normal (normal is 4.40-31) HbA1c: 5.2 Vitamin B12: >2000 - Labs CBC & Chem 7: 06/20/21 06:12 06/20/21 06:12 Labs: Abnormal Lab Results - Last 24 Hours (Table) 06/19/21 06/19/21 06/20/21 Range/Units 11:28 15:58 06:12 RBC (4.40-5.60) X 10*6/uL Hgb (13.0-17.0) g/dL Hct (39.6-50.0) % MCV (80.0-97.0) fL MCH (27.0-32.0) pg Plt Count (140-440) X 10*3/uL Lymphocytes # (0.90-5.00) X 10*3/uL Sodium 131 L 133 L (137-145) mmol/L BUN 8.2 L (9.0-27.0) mg/dL Creatinine 0.63 L (0.66-1.25) mg/dL Calcium 8.5 L (8.7-10.3) mg/dL Magnesium 1.4 L (1.6-2.3) mg/dL Total Bilirubin 1.4 H (0.2-1.3) mg/dL AST 107 H (17-59) U/L ALT 52 H (4-49) U/L Vitamin B12 >2000.0 H (200.0-944.0) pg/mL 06/20/21 Range/Units 06:12 RBC 3.80 L (4.40-5.60) X 10*6/uL Hgb 12.8 L (13.0-17.0) g/dL Hct 37.8 L (39.6-50.0) % MCV 99.5 H (80.0-97.0) fL MCH 33.7 H (27.0-32.0) pg Plt Count 126 L (140-440) X 10*3/uL Lymphocytes # 0.77 L (0.90-5.00) X 10*3/uL Sodium (137-145) mmol/L BUN (9.0-27.0) mg/dL Creatinine (0.66-1.25) mg/dL Calcium (8.7-10.3) mg/dL Magnesium (1.6-2.3) mg/dL Total Bilirubin (0.2-1.3) mg/dL AST (17-59) U/L ALT (4-49) U/L Vitamin B12 (200.0-944.0) pg/mL Assessment and Plan Assessment: Alcohol intoxication and his serum alcohol on presentation is 121 His generalized tremor is hard to assess but possibly going through alcohol withdrawal and possible component of essential tremors on examination. His unsteady gait is likely due peripheral neuropathy from chronic alcohol use (numbness of feet. Possibly lumbosacral radicultopathy on left lower extremity). Severely low normal folate (Serum folate: 4.40 which is just make it to cut-off of borderline normal (normal is 4.40-31): likely due to his chronic alcohol use. Ongoing alcohol use for the past 10 years Tobacco use Plan: * Recommend alcohol cessation for at least a month and to have his tremors be re-evaluated. * Severely low normal folate (Serum folate: 4.40 which is just make it to cut- off of borderline normal (normal is 4.40-31). I started the patient on folic acid 1mg daily. * Recommend EMG with nerve conduction study as an outpatient since I feel the patient has peripheral neuropathy in his lower extremity likely due to his chronic alcohol use * Can consider MRI L-spine: If unable as inpatient can be done as outpatient. He seems to have asymmetric reflexes in lowers (worse on the left lower). * CT of the head I feel the patient has lacunar stroke in the basal ganglia bilaterally (likely small vessel disease). Therefore I started the patient on aspirin 81 mg daily. I'll refrain from using statin because of his elevated LFT's. * Ordered ionizied calcium * Every 4 neuro checks * PT and OT is consulted * Patient is currently on thiamine 100 mg twice a day * Can consider propranolol low dose which helps with essential tremor and hypertension. * Regarding alcohol withdrawal will defer management to primary team. * We'll defer the rest of medical management to primary team * Upon discharge recommend the patient follow up with a neurologist within 1-2 weeks. The patient is discussed with the patient, his nurse and N.P. from primary team. Neuro-hospitalist Padilla Villavicencio M.D. Time with Patient: Less than 30
[2021-06-20] MEDS ORDERED: Potassium Replacement Protocol 1 EACH MISC MISCELLANE PRN (11:59)
[2021-06-20] MEDS ORDERED: POTASSIUM CHLORIDE ER 20 MEQ TAB.ER PO SCH (12:00)
[2021-06-20 14:03] VITALS: BMI 20.7
--- NOTE | 2021-06-20 16:30 | P.PN ---
Subjective Progress Note Date: 06/20/21 This is a pleasant 60-year-old male presents to the with complaints of gait disturbance for the last couple weeks, blurred vision as well as left-sided rib pain that he states will intermittent spasm on his lower rib on the left side. No radiation. Denies chest pain, palpitations. Denies headache, dizziness or lightheadedness. Per patient his gait problems have resulted in multiple falls, denies hitting his head. Blurry vision he states that he has bad eyes and doesn't elaborate much more than that. Has been getting short of breath at night and is not sleeping well. Reports cough with grayish yellow sputum persistent states he has been a smoker for 20 years and this is chronic for him. There has been no fever. Also reports feelings of anxiety, states physically he feels similar to when he went through his divorce and required a walker to ambulate around the house. Patient is also a daily drinker, admits to drinking 1-2 bottles of wine per day with a 12% alcohol content, but has cut down to maybe 1 bottle per day of chardonnay with half the alcohol content. Alcohol on admission was 121. Patient was prescribed BuSpar by his primary care provider to help with alcohol cessation however he stopped taking outpatient about 2 weeks ago as he states he read the medication could cause anxiety. Was recommended to follow-up with [facility]. Patient is also a daily smoker states at his heaviest over 2 packs per day currently around 1/2 to 3/4 packs per day. Patient does have tremors noted with purposeful movement, none at rest. Some ataxia and generalized weakness present. Brain CT negative for acute changes. Chest x-ray is also negative. Chest CTA shows no evidence for PE, mild emphysema changes, hepatic steatosis. with a fatty liver. Patient follows with Dr. Rina Lawrence in the primary care setting, chronic medical conditions include alcohol abuse, current daily smoker, anxiety, depression, hernia repair. No home medications. On admission, d-dimer elevated at 0.99, sodium 131, chloride 97, CO2 19, lactic acid 3.1, now 1.4, magnesium 1.3, elevated liver enzymes. Troponin negative. Influenza A/B, RSV, Covid all negative. EKG shows sinus tachycardia heart rate 104. We will replace magnesium, consult neurology, patient started on CIWA protocol, monitor patient for acute alcohol withdrawal. 06/20/2021 Patient doing better today, still with an essential tremor. States he is seeing spots all along the wall. Alert x 3, appropriate. Continues on CIWA protcol. Magnesium improved today now 2.0, potassium 3.6. Carotid doppler shows less than 15% stenosis bilateral ICA, EF 45-50% with trace triscupid regurg. A1C 5.2, Neuro recommends follow up outpatient in 1-2 weeks for EMG, and further evaluation of tremors. Possible neuropathy lower extremity from chronic alcohol abuse. Vitals stable today. Awaiting PT/OT evaluation. Review of Systems Constitutional: Denied any fatigue denied any fever. Cardio vascular: denied any chest pain, palpitations Gastrointestinal: denied any nausea, vomiting, diarrhea Pulmonary: Denied any shortness of breath cough Neurologic: Reports tremors, reports visual hallucinations All inpatient medications were reviewed and appropriate changes in these medications as dictated in the interval history and assessment and plan. PHYSICAL EXAMINATION: GENERAL: The patient is alert and oriented x3, not in any acute distress. Well developed, well nourished. HEENT: Pupils are round and equally reacting to light. EOMI. No scleral icterus. No conjunctival pallor. Normocephalic, atraumatic. No pharyngeal erythema. No thyromegaly. CARDIOVASCULAR: S1 and S2 present. No murmurs, rubs, or gallops. PULMONARY: Chest is clear to auscultation, no wheezing or crackles. ABDOMEN: Soft, nontender, nondistended, normoactive bowel sounds. No palpable organomegaly. MUSCULOSKELETAL: No joint swelling or deformity. EXTREMITIES: No cyanosis, clubbing, or pedal edema. NEUROLOGICAL: Generalized weakness, ataxia noted, tremors with movement SKIN: No rashes. Assessment and Plan Assessment Acute alcohol withdrawal Elevated liver enzymes; component of fatty liver and possible alcoholic hepatitis Tremors; alcohol withdrawal vs. 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 current ef 45-50% not in acute exacerbation Hypertension, was started on amlodipine Elevated d-dimer with no evidence for PE Hyponatremia, due to poor oral intake continue with IV fluids, improved Lactic acidosis, resolved Hypomagnesemia, resolved Chronic alcohol abuse: counseling provided Daily nicotine use: counseling provided GI prophylaxis DVT Prophylaxis Full Code Plan Continue IV fluids CIPA protocol Monitor for acute withdrawal Neuro workup outpatient for EMG Cardiology evaluation outpatient PT/OT eval needed for discharge planning The impression and plan of care has been dictated by Thu Theodore Nurse Practitioner as directed. Dr. Octavia MD I have performed a history and physical examination and medical decision making of this patient, discussed the same with the dictator, and agree with the dictators assessment and plan as written, documented as a scribe. Based on total visit time, I have performed more than 50% of this visit. Objective - Vital Signs Vital signs: Vital Signs Temp 97.4 F L 06/20/21 07:00 Pulse 81 06/20/21 07:00 Resp 18 06/20/21 07:00 BP 158/89 06/20/21 07:00 Pulse Ox 97 06/20/21 00:55 Intake & Output 06/19/21 06/20/21 06/20/21 18:59 06:59 18:59 Intake Total 118 Output Total 510 630 Balance -392 -630 Weight 63.503 kg Intake: Oral 118 Output: Urine 510 630 Other: Voiding Method Urinal # Voids 1 1 - Labs CBC & Chem 7: 06/20/21 06:12 06/20/21 06:12 Labs: Abnormal Lab Results - Last 24 Hours (Table) 06/19/21 06/19/21 06/20/21 Range/Units 11:28 15:58 06:12 RBC (4.40-5.60) X 10*6/uL Hgb (13.0-17.0) g/dL Hct (39.6-50.0) % MCV (80.0-97.0) fL MCH (27.0-32.0) pg Plt Count (140-440) X 10*3/uL Lymphocytes # (0.90-5.00) X 10*3/uL Sodium 131 L 133 L (137-145) mmol/L BUN 8.2 L (9.0-27.0) mg/dL Creatinine 0.63 L (0.66-1.25) mg/dL Calcium 8.5 L (8.7-10.3) mg/dL Magnesium 1.4 L (1.6-2.3) mg/dL Total Bilirubin 1.4 H (0.2-1.3) mg/dL AST 107 H (17-59) U/L ALT 52 H (4-49) U/L Vitamin B12 >2000.0 H (200.0-944.0) pg/mL 06/20/21 Range/Units 06:12 RBC 3.80 L (4.40-5.60) X 10*6/uL Hgb 12.8 L (13.0-17.0) g/dL Hct 37.8 L (39.6-50.0) % MCV 99.5 H (80.0-97.0) fL MCH 33.7 H (27.0-32.0) pg Plt Count 126 L (140-440) X 10*3/uL Lymphocytes # 0.77 L (0.90-5.00) X 10*3/uL Sodium (137-145) mmol/L BUN (9.0-27.0) mg/dL Creatinine (0.66-1.25) mg/dL Calcium (8.7-10.3) mg/dL Magnesium (1.6-2.3) mg/dL Total Bilirubin (0.2-1.3) mg/dL AST (17-59) U/L ALT (4-49) U/L Vitamin B12 (200.0-944.0) pg/mL Assessment and Plan Time with Patient: Less than 30
[2021-06-21] MEDS: LORazepam 2 MG/ML INJ IV PRN ×3 (04:02→20:17)
[2021-06-21] MEDS: SYMBICORT 80-4.5 MCG INHALER INHALATION SCH ×2 (08:38→19:24)
[2021-06-21] MEDS: FOLIC ACID 1 MG TAB PO SCH (09:52)
[2021-06-21] MEDS: amLODIPine 5 MG TAB PO SCH (09:52)
[2021-06-21] MEDS: ASPIRIN 81 MG PO SCH (09:52)
[2021-06-21] MEDS: NICOTINE 14MG/24HR PATCH TRANSDERM SCH (09:52)
[2021-06-21] MEDS: THIAMINE 100 MG TAB PO SCH ×2 (09:52→15:14)
--- NOTE | 2021-06-21 11:06 | P.PN ---
Subjective Progress Note Date: 06/21/21 The patient is seen at bedside and feels his tremors is mildly improving today compared to initial presentation. Denies of any new neurological problems. Objective - Vital Signs Vital signs: Vital Signs Temp 97.6 F 06/21/21 07:00 Pulse 81 06/21/21 07:00 Resp 20 06/21/21 07:00 BP 158/92 06/21/21 07:00 Pulse Ox 97 06/21/21 07:00 Intake & Output 06/20/21 06/21/21 06/21/21 18:59 06:59 18:59 Intake Total 720 118 Output Total 0 Balance 720 118 Weight 63.503 kg Intake: Intake, IV Titration 600 Amount Sodium Chloride 0.9% 1, 600 000 ml @ 75 mls/hr IV . [id number] [facility] Rx#:[id number] Oral 120 118 Output: Stool 0 Other: Voiding Method Urinal # Voids 2 4 # Bowel Movements 1 - Exam GENERAL: The patient is lying in bed and is not in acute distress. NEUROLOGICAL: Higher mental function: The patient is awake, alert, oriented to self, place and time. Patient is following commands. No aphasia and no neglect. Cranial nerves: The pupils are round, equal and reactive to light and accommodation. Visual damico are full to confrontation throughout. Extraocular movement is intact no nystagmus is noted. Facial sensation is normal to touch throughout. The facial strength is normal throughout. Hearing is normal bilaterally to hand rub. Tongue is midline and moved [id number] without any difficulty. No dysarthria is noted. Shoulder shrug is normal bilaterally. Motor: The strength is 5 over 5 throughout. Normal tone and bulk. No resting tremor. He has some tremor with finger to nose and seems like essential tremor. and at time generalized tremor but mildly improved compared to yesterday and is awake and responsive during episode. Cerebellum: Normal finger to nose heel to lange bilaterally. Sensation: Sensation is normal to touch throughout. Reflexes (right/left): 2+ over bilateral uppers. While right lower is 1+ over patella and ankle while left is 0. Plantars are mute bilaterally. WORK-UP: CT head is reported as no acute intracranial process. I reviewed the CT and do agree there is no acute or subacute ischemic stroke and no intraparechymal hemorrhage. There is lacunar infarcts that are old in the basal ganglia (internal capsule). MCV 101 Sodium is 131, magnesium is 2.0 calcium is 8.5 and ionized calcium is 5.0 AST 160, ALT 64, lactic acid vein is 3.1 Urine alcohol level is 121 TSH: 2.24 Serum folate: 4.40 which is just make it to cut-off of borderline normal (normal is 4.40-31) HbA1c: 5.2 Vitamin B12: >2000 - Labs CBC & Chem 7: 06/20/21 06:12 06/20/21 06:12 Assessment and Plan Assessment: Alcohol intoxication and his serum alcohol on presentation is 121 His generalized tremor is hard to assess but possibly going through alcohol withdrawal and possible component of essential tremors on examination. His unsteady gait is likely due peripheral neuropathy from chronic alcohol use (numbness of feet. Possibly lumbosacral radicultopathy on left lower extremity). Severely low normal folate (Serum folate: 4.40 which is just make it to cut-off of borderline normal (normal is 4.40-31): likely due to his chronic alcohol use. Ongoing alcohol use for the past 10 years Tobacco use Plan: * Recommend alcohol cessation for at least a month and to have his tremors be re-evaluated. * Severely low normal folate (Serum folate: 4.40 which is just make it to cut- off of borderline normal (normal is 4.40-31). I started the patient on folic acid 1mg daily. * Recommend EMG with nerve conduction study as an outpatient since I feel the patient has peripheral neuropathy in his lower extremity likely due to his chronic alcohol use * Can consider MRI L-spine: If unable as inpatient can be done as outpatient. He seems to have asymmetric reflexes in lowers (worse on the left lower). Also consider MRI Brain/C-spine as outpatient if he continues to have tremors and he is sober. * CT of the head I feel the patient has lacunar stroke in the basal ganglia bilaterally (likely small vessel disease). Therefore I started the patient on aspirin 81 mg daily. I'll refrain from using statin because of his elevated LFT's. * Every 4 neuro checks * PT and OT is consulted * Patient is currently on thiamine 100 mg twice a day * Can consider propranolol low dose which helps with essential tremor and hypertension. * Regarding alcohol withdrawal will defer management to primary team. * We'll defer the rest of medical management to primary team * Upon discharge recommend the patient follow up with a neurologist within 1-2 weeks. The patient is discussed with the patient and his nurse. There is no further neurological work-up. Please notify neurology team if any further concerns (Dr. Santillan will start neurology coverage tomorrow AM if needed). Neuro-hospitalist Padilla Villavicencio M.D. Time with Patient: Less than 30
[2021-06-21 11:43] LABS: African American GFR (CKD) 128.4 (60.0-200.0); Albumin 3.8 g/dL (3.8-4.9); Albumin/Globulin Ratio 1.65 (1.60-3.17); Anion Gap 13.6 mmol/L (10.00-18.00); BUN/Creat Ratio 14.67 Ratio (12.00-20.00); Blood Urea Nitrogen 8.8 mg/dL (9.0-27.0); Calcium 9.1 mg/dL (8.7-10.3); Carbon Dioxide 22.4 mmol/L (20.0-27.5); Globulin 2.3 g/dL (1.6-3.3); Magnesium 1.9 mg/dL (1.5-2.4); Non-African American GFR(CKD) 110.8 (60.0-200.0); Potassium 3.6 mmol/L (3.5-5.5); Total Bilirubin 0.9 mg/dL (0.30-1.20); Total Protein 6.1 g/dL (6.2-8.2)
--- NOTE | 2021-06-21 12:54 | P.PN ---
Subjective Progress Note Date: 06/21/21 This is a pleasant 60-year-old male presents to the with complaints of gait disturbance for the last couple weeks, blurred vision as well as left-sided rib pain that he states will intermittent spasm on his lower rib on the left side. No radiation. Denies chest pain, palpitations. Denies headache, dizziness or lightheadedness. Per patient his gait problems have resulted in multiple falls, denies hitting his head. Blurry vision he states that he has bad eyes and doesn't elaborate much more than that. Has been getting short of breath at night and is not sleeping well. Reports cough with grayish yellow sputum persistent states he has been a smoker for 20 years and this is chronic for him. There has been no fever. Also reports feelings of anxiety, states physically he feels similar to when he went through his divorce and required a walker to ambulate around the house. Patient is also a daily drinker, admits to drinking 1-2 bottles of wine per day with a 12% alcohol content, but has cut down to maybe 1 bottle per day of chardonnay with half the alcohol content. Alcohol on admission was 121. Patient was prescribed BuSpar by his primary care provider to help with alcohol cessation however he stopped taking outpatient about 2 weeks ago as he states he read the medication could cause anxiety. Was recommended to follow-up with [place]. Patient is also a daily smoker states at his heaviest over 2 packs per day currently around 1/2 to 3/4 packs per day. Patient does have tremors noted with purposeful movement, none at rest. Some ataxia and generalized weakness present. Brain CT negative for acute changes. Chest x-ray is also negative. Chest CTA shows no evidence for PE, mild emphysema changes, hepatic steatosis. with a fatty liver. Patient follows with Dr. Rina Lawrence in the primary care setting, chronic medical conditions include alcohol abuse, current daily smoker, anxiety, depression, hernia repair. No home medications. On admission, d-dimer elevated at 0.99, sodium 131, chloride 97, CO2 19, lactic acid 3.1, now 1.4, magnesium 1.3, elevated liver enzymes. Troponin negative. Influenza A/B, RSV, Covid all negative. EKG shows sinus tachycardia heart rate 104. We will replace magnesium, consult neurology, patient started on CIWA protocol, monitor patient for acute alcohol withdrawal. 06/20/2021 Patient doing better today, still with an essential tremor. States he is seeing spots all along the wall. Alert x 3, appropriate. Continues on CIWA protcol. Magnesium improved today now 2.0, potassium 3.6. Carotid doppler shows less than 15% stenosis bilateral ICA, EF 45-50% with trace triscupid regurg. A1C 5.2, Neuro recommends follow up outpatient in 1-2 weeks for EMG, and further evaluation of tremors. Possible neuropathy lower extremity from chronic alcohol abuse. Vitals stable today. Awaiting PT/OT evaluation. 06/21/2021 Patient evaluated today sitting in bed. Requesting a walker and needs to increase activity level. Pending PT OT consultation. Patient wants to go home, which really needs PT evaluation prior. Having some tremors, per nurse CIWA scale has been around 8 to 9 today and patient has been receiving IV ativan. Labs today show sodium level has improved up to 134, magnesium 1.9, potassium 3.6. Will start patient on oral supplementation daily. Liver enzymes have almost normalized. Afebrile. Review of Systems Constitutional: Denied any fatigue denied any fever. Cardio vascular: denied any chest pain, palpitations Gastrointestinal: denied any nausea, vomiting, diarrhea Pulmonary: Denied any shortness of breath cough Neurologic: Reports tremors, reports visual hallucinations All inpatient medications were reviewed and appropriate changes in these medications as dictated in the interval history and assessment and plan. PHYSICAL EXAMINATION: GENERAL: The patient is alert and oriented x3, not in any acute distress. Well developed, well nourished. HEENT: Pupils are round and equally reacting to light. EOMI. No scleral icterus. No conjunctival pallor. Normocephalic, atraumatic. No pharyngeal erythema. No thyromegaly. CARDIOVASCULAR: S1 and S2 present. No murmurs, rubs, or gallops. PULMONARY: Chest is clear to auscultation, no wheezing or crackles. ABDOMEN: Soft, nontender, nondistended, normoactive bowel sounds. No palpable organomegaly. MUSCULOSKELETAL: No joint swelling or deformity. EXTREMITIES: No cyanosis, clubbing, or pedal edema. NEUROLOGICAL: Generalized weakness, patient still with noted tremors. SKIN: No rashes. Assessment and Plan Assessment Acute alcohol withdrawal Elevated liver enzymes; component of fatty liver and possible alcoholic hepatitis Tremors; alcohol withdrawal vs. 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 current ef 45-50% not in acute exacerbation Hypertension, was started on amlodipine Elevated d-dimer with no evidence for PE Hyponatremia, due to poor oral intake continue with IV fluids, improved Lactic acidosis, resolved Hypomagnesemia, resolved Chronic alcohol abuse: counseling provided Daily nicotine use: counseling provided GI prophylaxis DVT Prophylaxis Full Code Plan Start Propanolol today Continue IV fluids CIWA protocol Monitor for acute withdrawal Neuro workup outpatient for EMG Cardiology evaluation outpatient PT/OT eval needed for discharge planning which can D/C tomorrow once patient has PT eval. The impression and plan of care has been dictated by Thu Theodore, Nurse Practitioner as directed. Dr. Octavia MD I have performed a history and physical examination and medical decision making of this patient, discussed the same with the dictator, and agree with the di ctators assessment and plan as written, documented as a scribe. Based on total visit time, I have performed more than 50% of this visit. Objective - Vital Signs Vital signs: Vital Signs Temp 97.6 F 06/21/21 07:00 Pulse 81 06/21/21 07:00 Resp 20 06/21/21 07:00 BP 158/92 06/21/21 07:00 Pulse Ox 97 06/21/21 07:00 Intake & Output 06/20/21 06/21/21 06/21/21 18:59 06:59 18:59 Intake Total 720 118 Output Total 0 Balance 720 118 Weight 63.503 kg Intake: Intake, IV Titration 600 Amount Sodium Chloride 0.9% 1, 600 000 ml @ 75 mls/hr IV . [id number] [facility] Rx#:[id number] Oral 120 118 Output: Stool 0 Other: Voiding Method Urinal # Voids 2 4 # Bowel Movements 1 - Labs CBC & Chem 7: 06/20/21 06:12 06/21/21 08:09 Labs: Abnormal Lab Results - Last 24 Hours (Table) 06/20/21 Range/Units 06:12 Sodium 133 L (135-145) mmol/L BUN 8.2 L (9.0-27.0) mg/dL Calcium 8.5 L (8.7-10.3) mg/dL Assessment and Plan Time with Patient: Less than 30
[2021-06-21] MEDS: PROPRANOLOL LA 60 MG CAP.SA.24H PO SCH (15:13)
[2021-06-21] MEDS: POTASSIUM CHLORIDE ER 20 MEQ TAB.ER PO SCH (15:14)
[2021-06-21] MEDS: MAGNESIUM OXIDE 400 MG TAB PO SCH (15:14)
[2021-06-22] MEDS: SYMBICORT 80-4.5 MCG INHALER INHALATION SCH (07:34)
[2021-06-22 07:44] VITALS: BP 150/103; PULSE 75; RESP 19; TEMP 97.7
[2021-06-22] MEDS: POTASSIUM CHLORIDE ER 20 MEQ TAB.ER PO SCH (10:33)
[2021-06-22] MEDS: ASPIRIN 81 MG PO SCH (10:33)
[2021-06-22] MEDS: FOLIC ACID 1 MG TAB PO SCH (10:33)
[2021-06-22] MEDS: amLODIPine 5 MG TAB PO SCH (10:33)
[2021-06-22] MEDS: THIAMINE 100 MG TAB PO SCH (10:33)
[2021-06-22] MEDS: PROPRANOLOL LA 60 MG CAP.SA.24H PO SCH (10:33)
[2021-06-22] MEDS: MAGNESIUM OXIDE 400 MG TAB PO SCH (10:33)
[2021-06-22] MEDS: NICOTINE 14MG/24HR PATCH TRANSDERM SCH (10:33)
--- NOTE | 2021-06-23 22:33 | P.DS ---
Providers Date of admission: 06/19/21 09:23 Attending physician: Joaquín Ramsey Consults: 06/19/21 12:24 Consult Physician Routine Consulting Provider: Padilla Villavicencio Consult Reason/Comments: gait disturbance, tremors Do you want consulting provider notified?: Yes [facility] Course: Final Diagnosis Acute alcohol withdrawal Elevated liver enzymes; component of fatty liver and possible alcoholic hepatitis Tremors; alcohol withdrawal vs. 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 Walker has been provider. PT has cleared patient for discharge home. Patient will follow up with primary care, neurology and cardiology. Patient expresses a desire for smoking and drinking cessation. Understands health risk associated with use. Patient is also recommended for EMG outpatient with neurology. Statin was not recommended on d ischarge due to elevated liver enzymes these can be trended outpatient and once returned to normal patient would be appropriate for statin therapy. Hospital Course This is a pleasant 60-year-old male presents to the with complaints of gait disturbance for the last couple weeks, blurred vision as well as left-sided rib pain that he states will intermittent spasm on his lower rib on the left side. No radiation. Denies chest pain, palpitations. Denies headache, dizziness or lightheadedness. Per patient his gait problems have resulted in multiple falls, denies hitting his head. Blurry vision he states that he has bad eyes and doesn't elaborate much more than that. Has been getting short of breath at night and is not sleeping well. Reports cough with grayish yellow sputum persistent states he has been a smoker for 20 years and this is chronic for him. Chronic conditions include hypertension not currently on medication at home, currently daily smoker, chronic daily alcohol use with 1 to 2 bottles of wine daily which he has recently cut down. On initial exam patient presents with tremors and taxia. He is alert x3. Was recently started on BuSpar outpatient to help with cessation but stopped taking. Patient was admitted and monitored for acute alcohol withdrawal and consult was placed to neurology for work up regarding tremors and ataxia. Magnesium was also replaced. Diagnostics include; Brain CT negative for acute changes. Chest x-ray is also negative. Chest CTA shows no evidence for PE, mild emphysema changes, hepatic steatosis. with a fatty liver. D-dimer elevated at 0.99, sodium 131, chloride 97, CO2 19, lactic acid 3.1, now 1.4, magnesium 1.3, elevated liver enzymes. Troponin negative x3. TSH 2.240, B12 >2000, folate 4.40. Influenza A/B, RSV, Covid all negative. EKG shows sinus tachycardia heart rate 104. Carotid doppler shows less than 15% stenosis bilateral ICA, EF 45-50% with trace triscupid regurg. Neurology work up includes possible peripheral neuropathy secondary to chronic alcohol abuse as well as possible lumbosacral radiculopathy on left lower extremity. Further recommendations from neurology include; MRI L-spine which can be done outpatient, for asymmetric reflexes in lowers (worse on the left lower). Also consider MRI Brain/C-spine as outpatient if he continues to have tremors and he is sober. 06/22/2021 Patient evaluated today sitting up at the bedside. PT evaluation completed and is stable for discharge home. Patient was started on propanolol for tremors. He did receive IV ativan for alcohol withdrawal symptoms yesterday. Tremors have much improved. Patient also had elevated blood pressure and was started on amlodipine. Blood pressure now in the 130's/80s. Sodium has improved to 134 after receiving IV fluids, potassium 3.6, magnesium now 1.9. Liver enzymes have improved as well. Patient will need to follow up with cardiology outpatient as well as neurology. Patient today denies chest pain, chest pressure. He denies cough or shortness of breath. Denies nausea, vomiting, diarrhea. He is tolerating diet. Alert x3. Lungs are clear, S1 S2 auscultated. Abdomen is soft and nontender. Tremors have improved. He receieved walker today and is antcipating discharge. Scripts are given for repeat labs in 2-3 days. Follow up with primary care within 1-2 days after discharge. Labs are stable. Vitals are stable. Please see medication reconciliation for a list of current medications. Thank you for allowing us to participate in the care of this patient. The impression and plan of care has been dictated by Thu Theodore, Nurse Practitioner as directed. Dr. Octavia MD I have performed a history and physical examination and medical decision making of this patient, discussed the same with the dictator, and agree with the dictators assessment and plan as written, documented as a scribe. Based on total visit time, I have performed more than 50% of this visit. Patient Condition at Discharge: Fair Plan - Discharge Summary Discharge Rx Participant: No New Discharge Prescriptions: New Folic Acid 1 mg PO DAILY #30 tab Propranolol LA [Inderal LA] 60 mg PO DAILY #30 cap Magnesium Oxide [Mag-Ox] 400 mg PO DAILY #14 tab amLODIPine [Norvasc] 5 mg PO DAILY #30 tab Thiamine [Vitamin B-1] 100 mg PO BID-W/MEALS #60 tab Aspirin 81 mg PO DAILY #30 tab Nicotine 14Mg/24Hr Patch [Habitrol] 1 patch TRANSDERM DAILY patch Potassium Chloride ER [K-Dur 20] 20 meq PO DAILY #14 tablet chlordiazePOXIDE HCl [Librium] 0 mg PO DIRECTED 6 Days #12 capsule Acetaminophen Tab [Tylenol] 650 mg PO Q6HR PRN tab PRN Reason: Mild Pain Or Fever > 100.5 Discharge Medication List Acetaminophen Tab [Tylenol] 650 mg PO Q6HR PRN tab 06/22/21 [Rx] Aspirin 81 mg PO DAILY #30 tab 06/22/21 [Rx] Folic Acid 1 mg PO DAILY #30 tab 06/22/21 [Rx] Magnesium Oxide [Mag-Ox] 400 mg PO DAILY #14 tab 06/22/21 [Rx] Nicotine 14Mg/24Hr Patch [Habitrol] 1 patch TRANSDERM DAILY patch 06/22/21 [Rx] Potassium Chloride ER [K-Dur 20] 20 meq PO DAILY #14 tablet 06/22/21 [Rx] Propranolol LA [Inderal LA] 60 mg PO DAILY #30 cap 06/22/21 [Rx] Thiamine [Vitamin B-1] 100 mg PO BID-W/MEALS #60 tab 06/22/21 [Rx] amLODIPine [Norvasc] 5 mg PO DAILY #30 tab 06/22/21 [Rx] chlordiazePOXIDE HCl [Librium] 0 mg PO DIRECTED 6 Days #12 capsule 06/22/21 [Rx] Follow up Appointment(s)/Referral(s): [facility] [NON-STAFF] - As Needed (walker) Rina Lawrence MD [Primary Care Provider] - 1-2 days (office is closed at time of discharge. Please call to schedule appointment) Padilla Clemons MD [STAFF PHYSICIAN] - 1 Week (Follow up 1-2 weeks with neurology needs EMG with nerve conduction for possible alcohol induced peripheral neuropathy as recommended by Dr Villavicencio. Office will call with appointment time) Thomas Brooks MD [STAFF PHYSICIAN] - 2 Weeks (New patient for possible alcohol induced cardiomyopathy. Office not answering Please call to schedule appointement) Ambulatory/Diagnostic Orders: Comprehensive Metabolic Panel [LAB.AMB] Time Frame: 3 Days, Location: None Selected Magnesium [LAB.AMB] Time Frame: 3 Days, Location: None Selected Patient Instructions/Handouts: Generalized Anxiety Disorder (ED) Activity/Diet/Wound Care/Special Instructions: Recommend follow up with neurology in 1-2 weeks outpatient Recommend EMG with nerve conduction study as an outpatient Can consider MRI L-spine, which can be done outpatient. He seems to have asymmetric reflexes in lowers (worse on the left lower). Also consider MRI Brain/C-spine as outpatient if tremors continue outpatient Recommend follow up with cardiology outpatient in 1-2 weeks Discharge Disposition: HOME SELF-CARE
== END 2021-06-22 14:57 | disposition home or self-care (01) | DRG 897 ==
LOC: EC 16:16 → 6NMEDSUR 22:33 → OBSVTOIN 06-19 09:23 → 6NMEDSUR 06-19 12:10 → 4SSUR 06-21 12:27
PROVIDERS: ADMIT Hospitalist; ATTEND Hospitalist
DX: F10.239 Alcohol dependence with withdrawal, unspecified (principal); E87.2 Acidosis; I67.89 Other cerebrovascular disease; I42.6 Alcoholic cardiomyopathy; E87.1 Hypo-osmolality and hyponatremia; I50.22 Chronic systolic (congestive) heart failure; F10.229 Alcohol dependence with intoxication, unspecified; G62.1 Alcoholic polyneuropathy; I11.0 Hypertensive heart disease with heart failure; Z20.822 Contact with and (suspected) exposure to COVID-19; K70.10 Alcoholic hepatitis without ascites; K76.0 Fatty (change of) liver, not elsewhere classified; Y90.6 Blood alcohol level of 120-199 mg/100 ml; E83.42 Hypomagnesemia; G25.0 Essential tremor; I65.23 Occlusion and stenosis of bilateral carotid arteries; F32.A Depression, unspecified; F41.9 Anxiety disorder, unspecified; H53.8 Other visual disturbances; R29.6 Repeated falls; F17.210 Nicotine dependence, cigarettes, uncomplicated; Z71.6 Tobacco abuse counseling; Z71.41 Alcohol abuse counseling and surveillance of alcoholic; Z87.19 Personal history of other diseases of the digestive system; Z86.73 Personal history of transient ischemic attack (TIA), and cerebral infarction without residual deficits; Z98.890 Other specified postprocedural states; Z91.030 Bee allergy status; Z83.79 Family history of other diseases of the digestive system; Z82.49 Family history of ischemic heart disease and other diseases of the circulatory system
CPT/HCPCS: 36415; 70450; 71046; 71275; 80048; 80053; 80320; 82330; 82607; 82746; 83036; 83605; 83735; 84443; 84484; 85025; 85379; 85610; 85730; 87636; 93005; 93306; 93880; 94640; 96361; 96374; 96376; 99285

== ENCOUNTER → 2021-07-13 | Outpatient (CLI) | payer OTHER ==
--- NOTE | 2021-07-13 21:59 | CT ---
EXAMINATION TYPE: CT abdomen pelvis w con CT DLP: 427 mGycm, Automated exposure control for dose reduction was used. DATE OF EXAM: 07/13/2021 7:24 PM COMPARISON: None. CLINICAL INDICATION:Male, 60 years old with history of R74.8 ABNORMAL LEVELS OF OTHER SERUM ENZYMES; elevated liver enzymes TECHNIQUE: Standard CT of the abdomen and pelvis following the administration of 100 cc of Isovue 3 00 IV contrast material and oral contrast. Coronal and sagittal reformats were performed. FINDINGS: LOWER CHEST: Unremarkable ABDOMEN LIVER: Diffusely hypoattenuating parenchyma. Focal fatty infiltration of segment IVb. GALLBLADDER AND BILE DUCTS: Unremarkable. PANCREAS: Unremarkable. SPLEEN: Unremarkable. ADRENAL GLANDS: Unremarkable. KIDNEYS AND URETERS: No evidence of hydronephrosis or renal calculus. The ureters are unremarkable. PELVIS BLADDER: Unremarkable REPRODUCTIVE: Prostate is enlarged in size measuring 5.4 cm in transverse dimension. ABDOMEN & PELVIS STOMACH AND BOWEL: No suspicious filling defect within the visualized opacified colon. No evidence of bowel obstruction. PERITONEUM: No evidence of pneumoperitoneum or free fluid. VASCULATURE: No evidence of aortic aneurysm. Moderate atherosclerosis of the arterial vasculature. MUSCULOSKELETAL: Mild disc degeneration changes are present throughout the thoracolumbar spine.. LYMPH NODES: No gross evidence for lymphadenopathy. SOFT TISSUE/ABDOMINAL WALL: Bilateral fat filled inguinal hernia. IMPRESSION: 1. Hepatic steatosis. 2. Prostatomegaly correlate with serum PSA.
== END | disposition home or self-care (01) ==
LOC: RADCTMAIN 17:01
PROVIDERS: ATTEND Family Medicine
DX: R74.8 Abnormal levels of other serum enzymes (principal); F10.10 Alcohol abuse, uncomplicated
CPT/HCPCS: 74177; Q9967

== ENCOUNTER → 2022-11-02 | Outpatient (CLI) | payer OTHER ==
--- NOTE | 2022-11-02 10:35 | CTL ---
EXAMINATION TYPE: CT Low Dose Lung DATE OF EXAM: 11/02/2022 9:58 AM CLINICAL INDICATION:Male, 62 years old with history of Z12.2 screening, Z87.891 personal hx of tobacc o us; personal hx of tobacco dependence 1packs/day X 20 years currently smoking , history of tobacco use. COMPARISON: 06/18/2021 TECHNIQUE: Multiple axial non-contrast scans were obtained from approximately the lung apices through the upper abdomen. Coronal and sagittal reformatted images were obtained. Low dose technique was uti lized. CT DLP: 77.9 mGycm, Automated exposure control for dose reduction was used. CT Contrast: Contrast used: None Oral contrast used: None FINDINGS: ======== Lack of intravenous contrast and low dose technique limits the evaluation of the vascular and soft ti ssue structures. LUNGS: No evidence of pulmonary fibrosis. No evidence of focal consolidation, pneumothorax or pleural effusion. Mild centrilobular and paraseptal emphysema changes are seen throughout the lungs. Nodules: RUL: Calcified granuloma series 4 image 86, stable RML: None. RLL: 3 mm series 4 image 137, stable from 06/18/2021 SARITA: None. LLL: None. AIRWAY: Patent and unremarkable. HEART: Size within normal limits. Moderate to severe coronary artery calcifications. MEDIASTINUM: No gross evidence of adenopathy. VASCULATURE: No aortic aneurysm. MUSCULOSKELETAL: No acute osseous abnormalities SOFT TISSUES/LYMPH NODES: Unremarkable. LOWER NECK: No significant findings. UPPER ABDOMEN: No significant findings. IMPRESSION: 1. No clinically significant pulmonary nodules. 2. Mild emphysema changes. 3. Moderate to severe coronary artery calcifications. CT LUNG RAD AND CT CHEST RECOMMENDATION: Lung-Rad 2 Benign Appearance or Behavior: Continue annual sc reening with LDCT in 12 months. S Modifier (other clinically significant findings): Moderate to severe coronary artery calcifications . Recommend smoking cessation (if current smoker), or continuation of smoking cessation (if prior smo ker). Annual screening for lung cancer with low-dose computed tomography is recommended in adults age s 55 to 77 years who have a 30 pack-year smoking history and currently smoke or have quit within the past 15 years. Screening should be discontinued once a person has not smoked for 15 years or develops a health problem that substantially limits life expectancy or the ability or willingness to have cur ative lung surgery. Lung rads 2021 [email or web address]
== END | disposition home or self-care (01) ==
LOC: RADCTMAIN 09:22
PROVIDERS: ATTEND Internal Medicine
DX: Z12.2 Encounter for screening for malignant neoplasm of respiratory organs (principal); J43.2 Centrilobular emphysema; I25.10 Atherosclerotic heart disease of native coronary artery without angina pectoris; F17.210 Nicotine dependence, cigarettes, uncomplicated
CPT/HCPCS: 71271

== ENCOUNTER 2023-03-22 09:04 | Emergency (ER) | payer OTHER ==
[2023-03-22] MEDS ORDERED: ASPIRIN 81 MG PO STA (09:38)
[2023-03-22] MEDS ORDERED: NITROGLYCERIN OINT 1 INCH/GM PACKET TOPICAL STA (09:38)
--- NOTE | 2023-03-22 09:42 | ED ---
General Adult HPI - General Chief complaint: Chest Pain Stated complaint: Chest Discomfort Time Seen by Provider: 03/22/23 09:20 Source: patient, RN notes reviewed Mode of arrival: ambulatory Limitations: no limitations - History of Present Illness Initial comments: Patient is a pleasant 62-year-old male presenting to the emergency department with concern for right-sided chest discomfort. Onset of symptoms was around 4 days ago. Discomfort is positional. Discomfort does increase with cough or deep breaths. Otherwise no dyspnea. Patient does have chronic cough secondary to smoking. Cough is not worse than normal. No fever. Patient states he had recent negative stress test and echo and EKG at his cardiology office just a few weeks ago. - Related Data Home Medications Medication Instructions Recorded Confirmed Rosuvastatin Calcium 5 mg PO Q48H 03/22/23 03/22/23 Rosuvastatin Calcium 10 mg PO Q48H 03/22/23 03/22/23 Venlafaxine HCl ER [Effexor Xr] 37.5 mg PO DAILY 03/22/23 03/22/23 valACYclovir HCL [Valtrex] 1,000 mg PO DAILY 03/22/23 03/22/23 Previous Rx's Medication Instructions Recorded Aspirin 81 mg PO DAILY #30 tab 06/22/21 amLODIPine [Norvasc] 5 mg PO DAILY #30 tab 06/22/21 Allergies Allergy/AdvReac Type Severity Reaction Status Date / Time bee venom protein (honey bee) Allergy Anaphylaxis Verified 03/22/23 12:43 Review of Systems ROS Statement: Those systems with pertinent positive or pertinent negative responses have been documented in the HPI. ROS Other: All systems not noted in ROS Statement are negative. Constitutional: Denies: fever Eyes: Denies: eye pain ENT: Denies: ear pain Respiratory: Reports: as per HPI Cardiovascular: Reports: as per HPI Endocrine: Denies: fatigue Gastrointestinal: Denies: abdominal pain, vomiting Musculoskeletal: Denies: back pain Past Medical History Past Medical History: No Reported History Additional Past Medical History / Comment(s): ETOH History of Any Multi-Drug Resistant Organisms: None Reported Past Surgical History: Hernia Repair Additional Past Surgical History / Comment(s): Hernia Repair Past Anesthesia/Blood Transfusion Reactions: No Reported Reaction Past Psychological History: Anxiety, Depression Smoking Status: Current every day smoker Past Alcohol Use History: Abuse Past Drug Use History: None Reported - Past Family History Father Additional Family Medical History / Comment(s): OF PANCREATIC ISSUES Mother Additional Family Medical History / Comment(s): PULMONARY HYPERTENSION General Exam Limitations: no limitations General appearance: alert, in no apparent distress Head exam: Present: normocephalic Eye exam: Present: normal appearance Neck exam: Present: normal inspection Respiratory exam: Present: normal lung sounds bilaterally, chest wall tenderness (Mild right-sided below the nipple) Cardiovascular Exam: Present: regular rate, normal rhythm Expanded Peripheral pulses: 2+: Radial (R), Radial (L), Posterior Tibialis (R), Posterior Tibialis (L) GI/Abdominal exam: Present: soft. Absent: tenderness Extremities exam: Present: normal inspection. Absent: pedal edema, calf tenderness Neurological exam: Present: alert Psychiatric exam: Present: normal affect, normal mood Skin exam: Present: normal color Course Vital Signs 03/22/23 03/22/23 03/22/23 09:12 09:48 10:35 Temperature 98.8 F 98.1 F Pulse Rate 111 H 86 Respiratory 18 18 Rate Blood Pressure 136/83 128/81 O2 Sat by Pulse 94 L 91 L 88 L Oximetry 03/22/23 03/22/23 10:37 12:00 Temperature Pulse Rate 98 90 Respiratory 18 20 Rate Blood Pressure 130/78 O2 Sat by Pulse 95 95 Oximetry EKG Findings - EKG Results: EKG: interpreted by ERMD, sinus rhythm, normal axis, normal QRS, normal ST/T Medical Decision Making - Medical Decision Making Was pt. sent in by a medical professional or institution (, PA, CLIENT SUPPORT ADMINISTRATOR, urgent care, hospital, or intermediate...) When possible be specific @ -No Did you speak to anyone other than the patient for history (EMS, parent, family, police, friend...)? What history was obtained from this source @ -No Did you review nursing and triage notes (agree or disagree)? Why? @ -I reviewed and agree with nursing and triage notes Were old charts reviewed (outside hosp., previous admission, EMS record, old EKG, old radiological studies, urgent care reports/EKG's, intermediate records)? Report findings @ -Previous chest x-ray reviewed Differential Diagnosis (chest pain, altered mental status, abdominal pain women, abdominal pain men, vaginal bleeding, weakness, fever, dyspnea, syncope, headache, dizziness, GI bleed, back pain, seizure, CVA, palpatations, mental health, musculoskeletal)? @ -Differential Chest Pain: Stable Angina, Unstable Angina, STEMI, NSTEMI Aortic Dissection, Pneumothorax, Musculoskeletal, Esophageal Spasm GERD, Cholecystitis, Pancreatitis, Zoster, this is not meant to be an all-inclusive list. EKG interpreted by me (3pts min.). @ -As above X-rays interpreted by me (1pt min.). @ -Chest x-ray does have concern for nodules. CT interpreted by me (1pt min.). @ -Computed tomography scan with nodules. No obvious embolism. U/S interpreted by me (1pt. min.). @ -None done What testing was considered but not performed or refused? (CT, X-rays, U/S, labs)? Why? @ -Consider further cardiac testing however patient had recent evaluation that was reported as negative. In addition patient has atypical symptoms. What meds were considered but not given or refused? Why? @ -None Did you discuss the management of the patient with other professionals (professionals i.e. , PA, CLIENT SUPPORT ADMINISTRATOR, lab, RT, psych nurse, socially responsible investment adviser, marble cutter, teacher, evp and chief operating officer, case manager specialist)? Give summary @ -Case was discussed with Dr. Meek who did review the images. He would like patient to be discharged and follow-up for further evaluation including PET scan and biopsy. Was smoking cessation discussed for >3mins.? @ -I discussed smoking cessation for greater than 3 minutes. The risks of smoking were discussed with the patient including but not limited to wrist of cancer, stroke, coronary artery disease, and COPD. Also discussed with the patient were multiple methods of quitting smoking. Lastly, we discussed the financial cost of smoking. Was critical care preformed (if so, how long)? @ -No Were there social determinants of health that impacted care today? How? (Homelessness, low income, unemployed, alcoholism, drug addiction, transportation, low edu. Level, literacy, decrease access to med. care, prison, rehab)? @ -No Was there de-escalation of care discussed even if they declined (Discuss DNR or withdrawal of care, Hospice)? DNR status @ -No What co-morbidities impacted this encounter? (DM, HTN, Smoking, COPD, CAD, Cancer, CVA, ARF, Chemo, Hep., AIDS, mental health diagnosis, sleep apnea, morbid obesity)? @ -None Was patient admitted / discharged? Hospital course, mention meds given and route, prescriptions, significant lab abnormalities, going to OR and other pertinent info. @ -Patient reevaluated. Patient is updated on results and concern and need for follow-up for further testing. Patient is made aware this could be cancerous diagnosis. Patient is comfortable with discharge home. Patient is feeling better at this time but still receptive to a dose of Toradol. Patient receptive to quitting smoking and further decreasing alcohol intake. Undiagnosed new problem with uncertain prognosis? @ -No Drug Therapy requiring intensive monitoring for toxicity (Heparin, Nitro, Insulin, Cardizem)? @ -No Were any procedures done? @ -No Diagnosis/symptom? @ -Pulmonary nodules Acute, or Chronic, or Acute on Chronic? @ -Acute Uncomplicated (without systemic symptoms) or Complicated (systemic symptoms)? @ -default Side effects of treatment? @ -No Exacerbation, Progression, or Severe Exacerbation? @ -No Poses a threat to life or bodily function? How? (Chest pain, USA, SD, pneumonia, PE, COPD, DKA, ARF, appy, cholecystitis, CVA, Diverticulitis, Homicidal, Suicidal, threat to staff... and all critical care pts) @ -No - Lab Data Result diagrams: 03/22/23 09:41 03/22/23 09:41 Lab Results 03/22/23 03/22/23 03/22/23 Range/Units 09:41 09:41 09:41 WBC 11.2 H (3.8-10.6) k/uL RBC 4.13 L (4.30-5.90) m/uL Hgb 14.0 (13.0-17.5) gm/dL Hct 42.0 (39.0-53.0) % MCV 101.8 H (80.0-100.0) fL MCH 34.0 (25.0-35.0) pg MCHC 33.4 (31.0-37.0) g/dL RDW 14.3 (11.5-15.5) % Plt Count 214 (150-450) k/uL MPV 7.6 Neutrophils % 82 % Lymphocytes % 7 % Monocytes % 8 % Eosinophils % 0 % Basophils % 0 % Neutrophils # 9.2 H (1.3-7.7) k/uL Lymphocytes # 0.8 L (1.0-4.8) k/uL Monocytes # 0.9 (0-1.0) k/uL Eosinophils # 0.1 (0-0.7) k/uL Basophils # 0.0 (0-0.2) k/uL Macrocytosis Slight PT 9.3 L (10.0-12.5) sec INR 0.8 (<1.2) APTT 25.7 (22.0-30.0) sec D-Dimer 3.64 H (<0.60) mg/L FEU Sodium 136 L (137-145) mmol/L Potassium 4.3 (3.5-5.1) mmol/L Chloride 98 (98-107) mmol/L Carbon Dioxide 24 (22-30) mmol/L Anion Gap 14 mmol/L BUN 11 (9-20) mg/dL Creatinine 0.55 L (0.66-1.25) mg/dL Est GFR (CKD-EPI)AfAm >90 (>60 ml/min/1.73 sqM) Est GFR (CKD-EPI)NonAf >90 (>60 ml/min/1.73 sqM) Glucose 147 H (74-99) mg/dL Calcium 8.7 (8.4-10.2) mg/dL Magnesium 2.0 (1.6-2.3) mg/dL Total Bilirubin 0.8 (0.2-1.3) mg/dL AST 38 (17-59) U/L ALT 26 (4-49) U/L Alkaline Phosphatase 88 (38-126) U/L Troponin I (0.000-0.034) ng/mL Total Protein 6.5 (6.3-8.2) g/dL Albumin 3.9 (3.5-5.0) g/dL Amylase 71 (30-110) U/L Lipase 336 H (23-300) U/L Serum Alcohol 221 H* mg/dL 03/22/23 Range/Units 09:41 WBC (3.8-10.6) k/uL RBC (4.30-5.90) m/uL Hgb (13.0-17.5) gm/dL Hct (39.0-53.0) % MCV (80.0-100.0) fL MCH (25.0-35.0) pg MCHC (31.0-37.0) g/dL RDW (11.5-15.5) % Plt Count (150-450) k/uL MPV Neutrophils % % Lymphocytes % % Monocytes % % Eosinophils % % Basophils % % Neutrophils # (1.3-7.7) k/uL Lymphocytes # (1.0-4.8) k/uL Monocytes # (0-1.0) k/uL Eosinophils # (0-0.7) k/uL Basophils # (0-0.2) k/uL Macrocytosis PT (10.0-12.5) sec INR (<1.2) APTT (22.0-30.0) sec D-Dimer (<0.60) mg/L FEU Sodium (137-145) mmol/L Potassium (3.5-5.1) mmol/L Chloride (98-107) mmol/L Carbon Dioxide (22-30) mmol/L Anion Gap mmol/L BUN (9-20) mg/dL Creatinine (0.66-1.25) mg/dL Est GFR (CKD-EPI)AfAm (>60 ml/min/1.73 sqM) Est GFR (CKD-EPI)NonAf (>60 ml/min/1.73 sqM) Glucose (74-99) mg/dL Calcium (8.4-10.2) mg/dL Magnesium (1.6-2.3) mg/dL Total Bilirubin (0.2-1.3) mg/dL AST (17-59) U/L ALT (4-49) U/L Alkaline Phosphatase (38-126) U/L Troponin I <0.012 (0.000-0.034) ng/mL Total Protein (6.3-8.2) g/dL Albumin (3.5-5.0) g/dL Amylase (30-110) U/L Lipase (23-300) U/L Serum Alcohol mg/dL Disposition Clinical Impression: Pulmonary nodule Disposition: HOME SELF-CARE Condition: Stable Instructions (If sedation given, give patient instructions): Chest Pain (ED), Pulmonary Nodules (ED) Additional Instructions: Please do follow-up with primary care physician in the next one or 2 days for recheck. Have primary care physician review testing done today. Please also follow-up with pulmonary doctor within the next week, number provided. Return for difficulty breathing, worsening symptoms or any other concerns. Discontinue alcohol and tobacco use. Is patient prescribed a controlled substance at d/c from ED?: No Referrals: Rina Lawrence MD [Primary Care Provider] - 1-2 days Jill Meek MD [STAFF PHYSICIAN] - 1-2 days Time of Disposition: 14:03
[2023-03-22 09:51] VITALS: TEMP 98.1
--- NOTE | 2023-03-22 09:58 | XR ---
EXAMINATION TYPE: XR chest 2V DATE OF EXAM: 03/22/2023 COMPARISON: 06/18/2021 INDICATION: Short of breath TECHNIQUE: Frontal and lateral views of the chest are obtained. FINDINGS: The heart size is normal. The pulmonary vasculature is normal. There is a mild infiltrate within the right mid lung. IMPRESSION: 1. Mild right mid lung infiltrate. Correlate for pneumonia. Follow performed
[2023-03-22 10:15] LABS: Basophils % (A) 0 %; Eosinophils # (A) 0.1 k/uL (0-0.7); Eosinophils % (A) 0 %; Lymphocytes # (A) 0.8 k/uL (1.0-4.8); Lymphocytes % (A) 7 %; MCHC 33.4 g/dL (31.0-37.0); MCV 101.8 fL (80.0-100.0); Macrocytosis Slight; Mean Platelet Volume 7.6; Monocytes # (A) 0.9 k/uL (0-1.0); Monocytes % (A) 8 %; Neutrophils # (A) 9.2 k/uL (1.3-7.7); Neutrophils % (A) 82 %; Platelet Count 214 k/uL (150-450); RBC 4.13 m/uL (4.30-5.90); RDW 14.3 % (11.5-15.5); WBC 11.2 k/uL (3.8-10.6)
[2023-03-22 10:24] LABS: ALT 26 U/L (4-49); AST 38 U/L (17-59); African American GFR (CKD) >90 (>60 ml/min/1.73 sqM); Albumin 3.9 g/dL (3.5-5.0); Alkaline Phosphatase 88 U/L (38-126); Amylase 71 U/L (30-110); Anion Gap 14 mmol/L; Blood Urea Nitrogen 11 mg/dL (9-20); Calcium 8.7 mg/dL (8.4-10.2); Carbon Dioxide 24 mmol/L (22-30); Chloride 98 mmol/L (98-107); Glucose 147 mg/dL (74-99); Lipase 336 U/L (23-300); Non-African American GFR(CKD) >90 (>60 ml/min/1.73 sqM); Potassium 4.3 mmol/L (3.5-5.1); Sodium 136 mmol/L (137-145); Total Bilirubin 0.8 mg/dL (0.2-1.3); Total Protein 6.5 g/dL (6.3-8.2)
[2023-03-22 10:45] LABS: INR 0.8 (<1.2); Partial Thromboplastin Time 25.7 sec (22.0-30.0); Prothrombin Time 9.3 sec (10.0-12.5)
[2023-03-22 10:49] LABS: Alcohol 221 mg/dL
[2023-03-22 12:10] VITALS: RESP 20
--- NOTE | 2023-03-22 13:13 | CT ---
EXAMINATION TYPE: CT angio chest CT DLP: 265.7 mGycm, Automated exposure control for dose reduction was used. DATE OF EXAM: 03/22/2023 12:17 PM COMPARISON: None. CLINICAL INDICATION:Male, 62 years old with history of cp; elevated d-dimer, chest pain x4 days TECHNIQUE/CONTRAST: CTA scan of the thorax is performed with IV Contrast, patient injected with 100 mL of Isovue 300, MIP images are created and reviewed these are created on a separate workstation.. FINDINGS: Pulmonary Artery: There is no evidence for a filling defect within the pulmonary arteries to suggest acute pulmonary embolism. The pulmonary trunk size is upper normal, 2.9 cm. Heart: Heart is within normal limits for size. Moderate coronary arterial calcifications. No pericar dial effusion. Vasculature: Mild to moderate mostly calcified atherosclerotic disease of the thoracic and upper abdo freeman aorta. There is a 4 vessel branch pattern from the arch, with the left vertebral artery appeari ng to arise directly from the arch; there is moderate atherosclerotic calcified plaque in the area an d one cannot exclude a significant stenosis here. No evidence of aortic dissection. Visualized celiac and superior arteries are patent. There is mild narrowing of the proximal renal arteries, not judged to be clinically significant. Mediastinum: Subtle ill-defined mediastinal fat without clear evidence of a measurable enlarged node. There is however both superior and inferior right hilar adenopathy measuring 23 x 18 mm and 15 x 12 mm. Airway: Large airways are patent. Lower neck: No significant findings. Soft Tissues: Mild bilateral gynecomastia. No axillary adenopathy. Lungs/Pleura: Moderate bilateral pulmonary emphysematous changes, centrilobular pattern. There are mu ltiple bilateral pulmonary nodules, solid in appearance with some surrounding groundglass attenuation . For example: Right upper lobe measuring 17 x 7 mm series 406 image 46, 13 x 10 mm image 60, and luis icircular subpleural nodule abutting the oblique fissure 21.5 x 15 mm0 image 87. There is a patch of reticular and groundglass opacity in the anterior superior right middle lobe. In the right lower lobe there is an area of patchy and linear opacity posteriorly with 2 discrete pulmonary nodules associat ed with this, 14 x 11 mm image 132 and 17 x 12 mm image 131. Another lateral subpleural nodule in the right lower lobe is 18 x 11 mm on image 116. In the left upper lobe there is a nodule anteriorly measuring 17 x 10 mm on image 67. In the left low er lobe, posterior subpleural nodule is 11 x 8 mm image 100. Another subpleural nodule at the base of left lower lobe is 10 x 8 mm image 134. Other examples are possible. Small right pleural effusion. No pneumothorax. Musculoskeletal: Moderate degenerative disc disease changes are present throughout the thoracolumbar spine. Mild apex right scoliosis. No clearly acute bony abnormality. Upper Abdomen: Moderate hepatic steatosis. Adrenals appear mildly thickened and nodular without discr ete mass; this might represent hyperplasia and/or adenomatoid changes. IMPRESSION: 1. No evidence of pulmonary embolism. 2. Moderate pulmonary emphysematous changes. 3. Multiple bilateral pulmonary nodules, nonspecific but the leading considerations include neoplasm /metastatic disease and infectious process/septic emboli. Appropriate follow-up recommended. 4. Right hilar adenopathy. 5. Small right pleural effusion. 6. Moderate atherosclerosis of the aorta and branches, including the coronary arteries. 7. Moderate hepatic steatosis.
[2023-03-22] MEDS ORDERED: KETOROLAC 15 MG/ML 1 ML VIAL IVP STA (14:03)
[2023-03-22 14:25] VITALS: BP 123/79; PULSE 95
== END 2023-03-22 14:14 | disposition home or self-care (01) ==
LOC: EC 09:04
DX: R91.1 Solitary pulmonary nodule (principal); F32.A Depression, unspecified; F41.9 Anxiety disorder, unspecified; F17.210 Nicotine dependence, cigarettes, uncomplicated; Z79.899 Other long term (current) drug therapy; Z91.030 Bee allergy status
CPT/HCPCS: 36415; 93005; 85379; 80053; 82150; 83690; 83735; 84484; 85025; 85610; 85730; 80320; 71046; 71275; 99406; 99285; 96374; J1885; Q9967

== ENCOUNTER 2023-04-12 14:47 | Inpatient (IN) | payer OTHER ==
[2023-04-12] MEDS ORDERED: IPRATROPIUM-ALBUTEROL 3 ML NEB INHALATION STA (15:25)
[2023-04-12] MEDS ORDERED: SODIUM CHLORIDE 0.9% 1,000 ML IV STA ×3 (15:25→16:24)
[2023-04-12 15:48] LABS: HCT 35.5 % (39.0-53.0); HGB 11.7 gm/dL (13.0-17.5); MCH 33.8 pg (25.0-35.0); MCV 102.4 fL (80.0-100.0); Macrocytosis Slight; Mean Platelet Volume 7.7; Platelet Count 361 k/uL (150-450); RBC 3.46 m/uL (4.30-5.90); RDW 13.3 % (11.5-15.5); WBC 29.6 k/uL (3.8-10.6)
[2023-04-12 15:59] LABS: Potassium 3.9 mmol/L (3.5-5.1)
[2023-04-12 16:00] LABS: ALT 27 U/L (4-49); AST 24 U/L (17-59); African American GFR (CKD) >90 (>60 ml/min/1.73 sqM); Albumin 2.8 g/dL (3.5-5.0); Alkaline Phosphatase 115 U/L (38-126); Anion Gap 13 mmol/L; Blood Urea Nitrogen 16 mg/dL (9-20); Calcium 8.4 mg/dL (8.4-10.2); Carbon Dioxide 20 mmol/L (22-30); Chloride 97 mmol/L (98-107); Glucose 151 mg/dL (74-99); Magnesium 1.7 mg/dL (1.6-2.3); Non-African American GFR(CKD) >90 (>60 ml/min/1.73 sqM); Sodium 130 mmol/L (137-145); Total Bilirubin 0.3 mg/dL (0.2-1.3); Total Protein 5.6 g/dL (6.3-8.2)
[2023-04-12 16:02] LABS: Appearance,Urine Clear (Clear); Bilirubin,Urine Negative (Negative); Blood,Urine Negative (Negative); Color,Urine Yellow; Glucose,Urine (UA) Negative (Negative); Ketones,Urine Negative (Negative); Leukocyte Esterase,Urine Negative (Negative); Nitrite,Urine Negative (Negative); Partial Thromboplastin Time 28.2 sec (22.0-30.0); Protein,Urine Trace (Negative); Prothrombin Time 10.9 sec (10.0-12.5); Specific Gravity,Urine 1.018 (1.001-1.035); Urobilinogen,Urine <2.0 mg/dL (<2.0)
[2023-04-12 16:09] LABS: NT-Pro-B-Type Natriuretic Pept 1030 pg/mL
[2023-04-12 16:13] LABS: Band Neutrophils % 1 %; Monocytes # (M) 2.07 k/uL (0-1.0); Neutrophils % (M) 91 %; Nucleated Red Blood Cells 0 /100 WBC (0-0); Total Cells Counted 100
[2023-04-12] MEDS ORDERED: AZITHROMYCIN 500 MG in SODIUM CHLORIDE 0.9% 250 ML IVPB STA (16:13)
[2023-04-12] MEDS ORDERED: PNEUMONIA PROTOCOL UTILIZED 1 EACH MISC PO PRN (16:13)
--- NOTE | 2023-04-12 16:16 | XR ---
EXAMINATION TYPE: XR chest 2V DATE OF EXAM: 04/12/2023 COMPARISON: 04-13 INDICATION: Pain pleurisy TECHNIQUE: Single frontal view of the chest is obtained. FINDINGS: The heart size is normal. The pulmonary vasculature is normal. There is a new consolidation in the right upper lobe with indistinct margins. Some mild infiltrate ma y be in the right lower lobe periphery. On the lateral projection posterior density appears to be pre sent. Small right pleural effusion is present. Follow up exams are recommended. IMPRESSION: 1. New right upper lobe density. Correlate for pneumonia. Follow-up to clearing is recommended. 2. Small right pleural effusion. A loculated posterior effusion may be present. Continued follow-up i s recommended.
--- NOTE | 2023-04-12 16:33 | ED ---
General Adult HPI - General Chief complaint: Shortness of Breath Stated complaint: Pneumonia Time Seen by Provider: 04/12/23 15:14 Source: patient, RN notes reviewed, old records reviewed Mode of arrival: ambulatory Limitations: no limitations - History of Present Illness Initial comments: Patient is a 62-year-old male who presents emergency department from his PCPs office over concern for possible pneumonia. Patient was evaluated earlier this month for similar complaints and diagnosed with pleurisy. Was having some right-sided chest discomfort. They did a thorough evaluation on the patient including CT angiogram for any PE and patient was diagnosed with pleurisy as well as lung nodules. States he was feeling improved however over the last week or so has noticed that he has been having worsening nonproductive cough. States he is also having the pleuritic chest pain as well from all the coughing that he is having. Denies any other chest pain. Denies any nausea or vomiting. Denies any fevers. States he does not feel like he is able to cough anything up. Is no longer smoking tobacco but does have a history of chronic tobacco use. Repeat chest x-ray obtained today in the office showed a right-sided infiltrate and was sent here for further evaluation. I do not have access to the patient's chest x-ray. - Related Data Home Medications Medication Instructions Recorded Confirmed Rosuvastatin Calcium 10 mg PO DAILY 03/22/23 04/12/23 Venlafaxine HCl ER [Effexor Xr] 37.5 mg PO DAILY 03/22/23 04/12/23 valACYclovir HCL [Valtrex] 1,000 mg PO DAILY 03/22/23 04/12/23 Previous Rx's Medication Instructions Recorded Aspirin 81 mg PO DAILY #30 tab 06/22/21 amLODIPine [Norvasc] 5 mg PO DAILY #30 tab 06/22/21 Allergies Allergy/AdvReac Type Severity Reaction Status Date / Time bee venom protein (honey bee) Allergy Anaphylaxis Verified 04/12/23 17:40 Review of Systems ROS Statement: Those systems with pertinent positive or pertinent negative responses have been documented in the HPI. Review of Systems: CONST: Denies fever EYES: Denies blurry vision ENT: Denies nasal congestion C/V: Denies Chest pain RESP: Endorses shortness of breath, cough GI: Denies abdominal pain : Denies dysuria SKIN: Denies rash. MSK: Denies joint pain. NEURO: Denies headache ROS Other: All systems not noted in ROS Statement are negative. Past Medical History Past Medical History: No Reported History Additional Past Medical History / Comment(s): ETOH History of Any Multi-Drug Resistant Organisms: None Reported Past Surgical History: Hernia Repair Additional Past Surgical History / Comment(s): Hernia Repair Past Anesthesia/Blood Transfusion Reactions: No Reported Reaction Past Psychological History: Anxiety, Depression Smoking Status: Current every day smoker Past Alcohol Use History: Abuse, Occasional Past Drug Use History: None Reported - Past Family History Father Additional Family Medical History / Comment(s): OF PANCREATIC ISSUES Mother Additional Family Medical History / Comment(s): PULMONARY HYPERTENSION General Exam - General Exam Comments Initial Comments: General: Appears in mild discomfort from his cough. HEAD: Normal with no signs of head trauma. EYES: PERRLA, EOMI, conjunctiva normal, no discharge. ENT: Hearing grossly intact, normal oropharynx. RESPIRATORY: Patient has coarse breath sounds particularly on the right lung field. Mild wheezing centrally. Minimal hypoxia on room air to 94 to 95%. No significant increased work of breathing. C/V: Regular rate and rhythm. S1 and S2 auscultated, no edema, peripheral pulses 2+ and intact throughout ABD: Abd is soft, nontender, nondistended EXT: Normal range of motion, no obvious deformity SKIN: No rashes or lesions observed on exposed skin. NEURO: Alert and oriented x 4. Limitations: no limitations Course Vital Signs 04/12/23 04/12/23 04/12/23 14:50 16:47 17:02 Temperature 98.2 F Pulse Rate 126 H 112 H 112 H Respiratory 20 Rate Blood Pressure 117/70 O2 Sat by Pulse 94 L Oximetry 04/12/23 18:52 Temperature Pulse Rate 112 H Respiratory 20 Rate Blood Pressure 133/98 O2 Sat by Pulse 95 Oximetry Medical Decision Making - Medical Decision Making Was pt. sent in by a medical professional or institution (, PA, PHOTOGRAPHIC EQUIPMENT ASSEMBLER, urgent care, hospital, or fpc...) When possible be specific @ -Sent in by his PCP. Did you speak to anyone other than the patient for history (EMS, parent, family, police, friend...)? What history was obtained from this source @ -No Did you review nursing and triage notes (agree or disagree)? Why? @ -I reviewed and agree with nursing and triage notes Were old charts reviewed (outside hosp., previous admission, EMS record, old EKG, old radiological studies, urgent care reports/EKG's, fpc records)? Report findings @ -No old charts were reviewed Differential Diagnosis (chest pain, altered mental status, abdominal pain women, abdominal pain men, vaginal bleeding, weakness, fever, dyspnea, syncope, headache, dizziness, GI bleed, back pain, seizure, CVA, palpatations, mental health, musculoskeletal)? @ -Differential Dyspnea: Coronary syndrome, arrhythmia, tamponade, asthma, COPD, pulmonary embolism, pneumonia, pneumothorax, pulmonary effusion, anaphylaxis, diabetic ketoacidosis, flailed chest, pulmonary contusion, diaphragmatic rupture, anemia, neuromuscular, this is not meant to be an all-inclusive list. EKG interpreted by me (3pts min.). @ -As above X-rays interpreted by me (1pt min.). @ -Chest x-ray reveals a right-sided pneumonia with a suspected pneumonic pleural effusion. CT interpreted by me (1pt min.). @ -None done U/S interpreted by me (1pt. min.). @ -None done What testing was considered but not performed or refused? (CT, X-rays, U/S, labs)? Why? @ -None What meds were considered but not given or refused? Why? @ -None Did you discuss the management of the patient with other professionals (pr ofessionals i.e. , PA, PHOTOGRAPHIC EQUIPMENT ASSEMBLER, lab, RT, psych nurse, manager social responsibility, can stacker, teacher, armed security officer, home health care case manager)? Give summary @ -I spoke with [facility] hospitalist group who accepted the admission. MLShona Thu Was smoking cessation discussed for >3mins.? @ -No Was critical care preformed (if so, how long)? @ -yes, 35 minutes Were there social determinants of health that impacted care today? How? (Homelessness, low income, unemployed, alcoholism, drug addiction, transportation, low edu. Level, literacy, decrease access to med. care, skilled nursing, rehab)? @ -No Was there de-escalation of care discussed even if they declined (Discuss DNR or withdrawal of care, Hospice)? DNR status @ -No What co-morbidities impacted this encounter? (DM, HTN, Smoking, COPD, CAD, Cancer, CVA, ARF, Chemo, Hep., AIDS, mental health diagnosis, sleep apnea, morbid obesity)? @ -None Was patient admitted / discharged? Hospital course, mention meds given and route, prescriptions, significant lab abnormalities, going to OR and other pertinent info. @ -Based on the patient's presentation and physical exam, he presents to the emergency department complaining of upper respiratory symptoms for last approximately 5 days. Chest x-ray done at PCPs office revealed a suspected pneumonia and was transferred here for further evaluation. We will obtain chest x-ray as well as cardiopulmonary labs. Patient was in agreement this plan. Vital signs are more or less within acceptable limits except for tachycardia. No significant hypoxia or increased work of breathing. Patient does appear dehydrated. He will be given a 1 L fluid bolus as well as a breathing treatment. EKG shows sinus tachycardia. Chest x-ray reveals a right-sided pneumonia with pleural effusion. Patient's laboratory studies are remarkable for a leukocytosis of 29. Lactic acid pending. Viral swabs negative. On reevaluation, I updated the patient. He does have 2 out of 4 SIRS criteria and therefore meets for sepsis. Sepsis criteria met at 1613. Antibiotics ordered for pneumonia, Rocephin and azithromycin. Patient ordered additional 1 L fluid bolus as well as placed on maintenance fluids. Patient will be admitted on IV antibiotics. Patient was in agreement this plan. I spoke with the [facility] hospitalist group who accepted the admission. ANN Andino. Undiagnosed new problem with uncertain prognosis? @ -No Drug Therapy requiring intensive monitoring for toxicity (Heparin, Nitro, Insulin, Cardizem)? @ -No Were any procedures done? @ -No Diagnosis/symptom? @ -Pneumonia, sepsis, pleural effusion Acute, or Chronic, or Acute on Chronic? @ -Acute Uncomplicated (without systemic symptoms) or Complicated (systemic symptoms)? @ -Complicated Side effects of treatment? @ -No Exacerbation, Progression, or Severe Exacerbation? @ -No Poses a threat to life or bodily function? How? (Chest pain, [place], [place], pneumonia, PE, COPD, DKA, ARF, appy, cholecystitis, CVA, Diverticulitis, Homicidal, Suicidal, threat to staff... and all critical care pts) @ -Yes - Lab Data Result diagrams: 04/12/23 15:34 04/12/23 15:34 Lab Results 04/12/23 04/12/23 04/12/23 Range/Units 15:34 15:34 15:34 WBC 29.6 H (3.8-10.6) k/uL RBC 3.46 L (4.30-5.90) m/uL Hgb 11.7 L (13.0-17.5) gm/dL Hct 35.5 L (39.0-53.0) % MCV 102.4 H (80.0-100.0) fL MCH 33.8 (25.0-35.0) pg MCHC 33.0 (31.0-37.0) g/dL RDW 13.3 (11.5-15.5) % Plt Count 361 (150-450) k/uL MPV 7.7 Neutrophils % Not Reportable Neutrophils % (Manual) 91 % Band Neuts % (Manual) 1 % Lymphocytes % Not Reportable Lymphocytes % (Manual) 1 % Monocytes % Not Reportable Monocytes % (Manual) 7 % Eosinophils % Not Reportable Basophils % Not Reportable Neutrophils # Not Reportable Neutrophils # (Manual) 27.20 H (1.3-7.7) k/uL Lymphocytes # Not Reportable Lymphocytes # (Manual) 0.30 L (1.0-4.8) k/uL Monocytes # Not Reportable Monocytes # (Manual) 2.07 H (0-1.0) k/uL Eosinophils # Not Reportable Basophils # Not Reportable Nucleated RBCs 0 (0-0) /100 WBC Manual Slide Review Performed Macrocytosis Slight PT 10.9 (10.0-12.5) sec INR 1.0 (<1.2) APTT 28.2 (22.0-30.0) sec Sodium (137-145) mmol/L Potassium (3.5-5.1) mmol/L Chloride (98-107) mmol/L Carbon Dioxide (22-30) mmol/L Anion Gap mmol/L BUN (9-20) mg/dL Creatinine (0.66-1.25) mg/dL Est GFR (CKD-EPI)AfAm (>60 ml/min/1.73 sqM) Est GFR (CKD-EPI)NonAf (>60 ml/min/1.73 sqM) Glucose (74-99) mg/dL Plasma Lactic Acid Franky (0.7-2.0) mmol/L Calcium (8.4-10.2) mg/dL Magnesium (1.6-2.3) mg/dL Total Bilirubin (0.2-1.3) mg/dL AST (17-59) U/L ALT (4-49) U/L Alkaline Phosphatase (38-126) U/L Troponin I (0.000-0.034) ng/mL NT-Pro-B Natriuret Pep pg/mL Total Protein (6.3-8.2) g/dL Albumin (3.5-5.0) g/dL Urine Color Yellow Urine Appearance Clear (Clear) Urine pH 5.0 (5.0-8.0) Ur Specific Valier 1.018 (1.001-1.035) Urine Protein Trace H (Negative) Urine Glucose (UA) Negative (Negative) Urine Ketones Negative (Negative) Urine Blood Negative (Negative) Urine Nitrite Negative (Negative) Urine Bilirubin Negative (Negative) Urine Urobilinogen <2.0 (<2.0) mg/dL Ur Leukocyte Esterase Negative (Negative) Influenza Type A (PCR) (Not Detectd) Influenza Type B (PCR) (Not Detectd) RSV (PCR) (Not Detectd) SARS-CoV-2 (PCR) (Not Detectd) 04/12/23 04/12/23 04/12/23 Range/Units 15:34 15:34 15:34 WBC (3.8-10.6) k/uL RBC (4.30-5.90) m/uL Hgb (13.0-17.5) gm/dL Hct (39.0-53.0) % MCV (80.0-100.0) fL MCH (25.0-35.0) pg MCHC (31.0-37.0) g/dL RDW (11.5-15.5) % Plt Count (150-450) k/uL MPV Neutrophils % Neutrophils % (Manual) % Band Neuts % (Manual) % Lymphocytes % Lymphocytes % (Manual) % Monocytes % Monocytes % (Manual) % Eosinophils % Basophils % Neutrophils # Neutrophils # (Manual) (1.3-7.7) k/uL Lymphocytes # Lymphocytes # (Manual) (1.0-4.8) k/uL Monocytes # Monocytes # (Manual) (0-1.0) k/uL Eosinophils # Basophils # Nucleated RBCs (0-0) /100 WBC Manual Slide Review Macrocytosis PT (10.0-12.5) sec INR (<1.2) APTT (22.0-30.0) sec Sodium 130 L (137-145) mmol/L Potassium 3.9 (3.5-5.1) mmol/L Chloride 97 L (98-107) mmol/L Carbon Dioxide 20 L (22-30) mmol/L Anion Gap 13 mmol/L BUN 16 (9-20) mg/dL Creatinine 0.77 (0.66-1.25) mg/dL Est GFR (CKD-EPI)AfAm >90 (>60 ml/min/1.73 sqM) Est GFR (CKD-EPI)NonAf >90 (>60 ml/min/1.73 sqM) Glucose 151 H (74-99) mg/dL Plasma Lactic Acid Franky (0.7-2.0) mmol/L Calcium 8.4 (8.4-10.2) mg/dL Magnesium 1.7 (1.6-2.3) mg/dL Total Bilirubin 0.3 (0.2-1.3) mg/dL AST 24 (17-59) U/L ALT 27 (4-49) U/L Alkaline Phosphatase 115 (38-126) U/L Troponin I <0.012 (0.000-0.034) ng/mL NT-Pro-B Natriuret Pep 1030 pg/mL Total Protein 5.6 L (6.3-8.2) g/dL Albumin 2.8 L (3.5-5.0) g/dL Urine Color Urine Appearance (Clear) Urine pH (5.0-8.0) Ur Specific Valier (1.001-1.035) Urine Protein (Negative) Urine Glucose (UA) (Negative) Urine Ketones (Negative) Urine Blood (Negative) Urine Nitrite (Negative) Urine Bilirubin (Negative) Urine Urobilinogen (<2.0) mg/dL Ur Leukocyte Esterase (Negative) Influenza Type A (PCR) Not Detected (Not Detectd) Influenza Type B (PCR) Not Detected (Not Detectd) RSV (PCR) Not Detected (Not Detectd) SARS-CoV-2 (PCR) Not Detected (Not Detectd) 01/23/24 Range/Units 16:40 WBC (3.8-10.6) k/uL RBC (4.30-5.90) m/uL Hgb (13.0-17.5) gm/dL Hct (39.0-53.0) % MCV (80.0-100.0) fL MCH (25.0-35.0) pg MCHC (31.0-37.0) g/dL RDW (11.5-15.5) % Plt Count (150-450) k/uL MPV Neutrophils % Neutrophils % (Manual) % Band Neuts % (Manual) % Lymphocytes % Lymphocytes % (Manual) % Monocytes % Monocytes % (Manual) % Eosinophils % Basophils % Neutrophils # Neutrophils # (Manual) (1.3-7.7) k/uL Lymphocytes # Lymphocytes # (Manual) (1.0-4.8) k/uL Monocytes # Monocytes # (Manual) (0-1.0) k/uL Eosinophils # Basophils # Nucleated RBCs (0-0) /100 WBC Manual Slide Review Macrocytosis PT (10.0-12.5) sec INR (<1.2) APTT (22.0-30.0) sec Sodium (137-145) mmol/L Potassium (3.5-5.1) mmol/L Chloride (98-107) mmol/L Carbon Dioxide (22-30) mmol/L Anion Gap mmol/L BUN (9-20) mg/dL Creatinine (0.66-1.25) mg/dL Est GFR (CKD-EPI)AfAm (>60 ml/min/1.73 sqM) Est GFR (CKD-EPI)NonAf (>60 ml/min/1.73 sqM) Glucose (74-99) mg/dL Plasma Lactic Acid Franky 1.7 (0.7-2.0) mmol/L Calcium (8.4-10.2) mg/dL Magnesium (1.6-2.3) mg/dL Total Bilirubin (0.2-1.3) mg/dL AST (17-59) U/L ALT (4-49) U/L Alkaline Phosphatase (38-126) U/L Troponin I (0.000-0.034) ng/mL NT-Pro-B Natriuret Pep pg/mL Total Protein (6.3-8.2) g/dL Albumin (3.5-5.0) g/dL Urine Color Urine Appearance (Clear) Urine pH (5.0-8.0) Ur Specific Valier (1.001-1.035) Urine Protein (Negative) Urine Glucose (UA) (Negative) Urine Ketones (Negative) Urine Blood (Negative) Urine Nitrite (Negative) Urine Bilirubin (Negative) Urine Urobilinogen (<2.0) mg/dL Ur Leukocyte Esterase (Negative) Influenza Type A (PCR) (Not Detectd) Influenza Type B (PCR) (Not Detectd) RSV (PCR) (Not Detectd) SARS-CoV-2 (PCR) (Not Detectd) - EKG Data -: EKG Interpreted by Me EKG Comments: 12-lead Electrocardiogram Interpretation Note EKG was reviewed and interpreted by myself. 12-lead ECG performed at 1510 is interpreted by me as revealing sinus tachycardia at a rate of 118 beats per minute. [place] is normal. NM interval is 192 ms, QRS duration is 80 ms, QTc is 365 ms.. There were no ST or T wave abnormalities to suggest myocardial ischemia or injury. R wave progression across the precordium was satisfactory. By my interpretation this EKG is non-diagnostic for acute ischemia. Critical Care Time Critical Care Time: Yes Total Critical Care Time: 35 Disposition Clinical Impression: Sepsis, Pneumonia, Pleural effusion Disposition: ADMITTED IP TO THIS HOSP Condition: Stable Time of Disposition: 16:28
[2023-04-12] MEDS ORDERED: NALOXONE 0.4 MG/ML 1 ML VIAL IV PRN (16:48)
[2023-04-12] MEDS ORDERED: ONDANSETRON 4 MG/2 ML VIAL IVP PRN (16:48)
[2023-04-12] MEDS ORDERED: KETOROLAC 15 MG/ML 1 ML VIAL IVP STA (16:50)
[2023-04-12] MEDS ORDERED: LORazepam 1 MG TAB PO PRN ×4 (19:14)
[2023-04-12] MEDS ORDERED: THIAMINE 100 MG/ML 2 ML VIAL IM STA (19:14)
[2023-04-12] MEDS ORDERED: LORazepam 0.5 MG TAB PO PRN (19:14)
[2023-04-12] MEDS: PANTOPRAZOLE 40 MG/10 ML VIAL IVP SCH (21:01)
[2023-04-12] MEDS: ACETAMINOPHEN TAB 325 MG TAB PO PRN (21:03)
[2023-04-12] MEDS: HEPARIN SODIUM,PORCINE 5,000 UNIT/ML 1 ML VIAL SQ SCH (22:31)
[2023-04-13] MEDS: KETOROLAC 15 MG/ML 1 ML VIAL IVP PRN ×2 (02:18→07:56)
[2023-04-13] MEDS: HEPARIN SODIUM,PORCINE 5,000 UNIT/ML 1 ML VIAL SQ SCH ×2 (07:33→14:41)
[2023-04-13] MEDS: amLODIPine 5 MG TAB PO SCH (07:48)
[2023-04-13] MEDS: ASPIRIN 81 MG PO SCH (07:48)
[2023-04-13] MEDS: PANTOPRAZOLE 40 MG/10 ML VIAL IVP SCH ×2 (07:48→20:25)
[2023-04-13] MEDS: THIAMINE 100 MG TAB PO SCH (07:48)
[2023-04-13] MEDS: VENLAFAXINE HCL ER 37.5 MG CAP PO SCH (07:48)
[2023-04-13] MEDS: ATORVASTATIN 20 MG TAB PO SCH (07:48)
--- NOTE | 2023-04-13 08:34 | XR ---
EXAMINATION TYPE: XR chest 2V DATE OF EXAM: 04/13/2023 COMPARISON: 04/12/2023 INDICATION: Pneumonia TECHNIQUE: Frontal and lateral views of the chest are obtained. FINDINGS: The heart size is normal. The pulmonary vasculature is normal. Right upper lobe consolidation is worsening over the interval. Some developing left perihilar infiltr ate may be present. Small right pleural effusion remains present posterior loculated pleural effusion not as well-visualized currently. IMPRESSION: 1. Worsening right upper lobe consolidation. 2. Developing minimal left hilar infiltrate. 3. Stable right pleural fluid
[2023-04-13] MEDS ORDERED: AZITHROMYCIN 500 MG TAB PO SCH (09:00)
[2023-04-13] MEDS ORDERED: PIPERACILLIN-TAZOBACTAM 3.375 GM in SODIUM CHLORIDE 0.9% 100 ML IVPB STA (10:23)
[2023-04-13] MEDS: SODIUM CHLORIDE 0.9% 1,000 ML IV SCH (10:41)
[2023-04-13] MEDS ORDERED: RX INFO: IV CONTRAST WAS GIVEN 1 EACH MISC MISCELLANE PRN (11:07)
[2023-04-13 11:10] LABS: HCT 34.8 % (39.6-50.0); HGB 11.4 g/dL (13.0-17.0); MCHC 32.8 g/dL (32.0-37.0); MCV 100.9 FL (80.0-97.0); Mean Platelet Volume 9.7 FL (9.5-12.2); NRBC Per 100 WBC 0 X 10*3/uL (0.00-0.01); Platelet Count 316 X 10*3/uL (140-440); RBC 3.45 X 10*6/uL (4.40-5.60); RDW 14.2 % (11.5-14.5); WBC 27.12 X 10*3/uL (4.50-10.00)
[2023-04-13 11:32] LABS: Blood Urea Nitrogen 11.9 mg/dL (9.0-27.0); Calcium 8.6 mg/dL (8.7-10.3); Carbon Dioxide 18.1 mmol/L (21.6-31.8); Chloride 98 mmol/L (96-109); Glucose 115 mg/dL (70-110); Potassium 4.6 mmol/L (3.5-5.5); Sodium 133 mmol/L (135-145)
[2023-04-13 11:38] LABS: Basophils # (M) 0 X 10*3/uL (0.00-0.10); Eosinophils # (M) 0 X 10*3/uL (0.04-0.35); Lymphocytes # (M) 1.08 X 10*3/uL (0.90-5.00); Monocytes # (M) 2.44 X 10*3/uL (0.20-1.00); Myelocytes % 1 % (0-0); Neutrophils # (M) 23.32 X 10*3/uL (1.80-7.70); Neutrophils % (M) 86 %; Nucleated Red Blood Cells 1 /100 WBCS
--- NOTE | 2023-04-13 12:24 | CT ---
EXAMINATION TYPE: CT chest w con DATE OF EXAM: 04/13/2023 COMPARISON: 03/22/2023 HISTORY: pneumonia CT DLP: 250.3 mGycm, Automated exposure control for dose reduction was used. CONTRAST: Performed injected with 100 mL of Isovue 300. TECHNIQUE: Axial images were obtained at 5 mm thick sections. Reconstructed images are reviewed on [facility] computer in the coronal plane. FINDINGS: Portion of the thyroid visualized is normal. There is a loculated pleural fluid collection at the left base. There is loculated along the posterio r medial right lung base. There is a large irregular consolidation measuring 9.9 x 5.8 cm right upper lung field. Correlate for pneumonia. This appears to been interval development from -. However, there were underlying nodul es present previously. Neoplasm may be obscured by the suspected pneumonia. Nodular type densities may be in the periphery of the left mid lung measuring 0.8 cm, series 201 imag e 34 measuring 0.7 cm, image 201 image 25. Multiple mediastinal lymph nodes are present. Some of these are large such as a pretracheal 1.1 cm s uspected right suprahilar adenopathy measuring 1.5 cm. The ascending aorta diameter at the level of [facility] main pulmonary artery is 3.7 cm. The main pulmonary artery diameter at the bifurcation is 3.[address] sections are obtained through the upper abdomen. Abdomen is essentially unremarkable. IMPRESSION: 1. Large consolidation, interval development, right upper lobe. Correlate for pneumonia. 2. Scattered small additional foci could be small nodules or infectious etiology present bilaterally. 3. Enlarged mediastinal adenopathy. 4. Loculated right basilar pleural effusion
[2023-04-13] MEDS: LOPERAMIDE 2 MG CAP PO PRN (14:02)
[2023-04-13] MEDS: PIPERACILLIN-TAZOBACTAM 3.375 GM in SODIUM CHLORIDE 0.9% 100 ML IVPB SCH ×2 (15:08→23:39)
--- NOTE | 2023-04-13 15:24 | P.CNPUL ---
History of Present Illness Consult date: 04/13/23 Requesting physician: Joaquní Ramsey Reason for consult: dyspnea, hypoxemia, abnormal CXR/CT Chief complaint: Shortness of breath, cough congestion History of present illness: This is a pleasant 62-year-old male patient with a known history of anxiety, hyperlipidemia, hypertension, chronic and ongoing tobacco dependence, chronic daily alcohol use who had recently been having issues with shortness of breath cough congestion pleuritic type right-sided chest pain and had been following with his PCP. CT scan from March for 2023 revealed moderate pulmonary emphysematous changes. Multiple bilateral pulmonary nodules, nonspecific, right hilar adenopathy. The patient was scheduled to see Dr. Meek in our office as an outpatient however his symptoms continued to worsen and he presented here to the emergency room yesterday. He has been having issues with anxiety, dyspnea on exertion, cough and congestion. He states his cough has been light to dark brown in nature. He has been having issues with fevers and chills. Chest x-ray reveals worsening right upper lobe consolidation. Developing minimal left hilar infiltrate. Stable right pleural effusion. CT scan of the chest today reveals a large consolidation, interval development, right upper lobe. Scattered small additional foci could be small nodules or infectious etiology bilaterally. Enlarged mediastinal adenopathy. Loculated right basilar pleural effusion. White count 27.1. Hemoglobin 11.4. Sodium 133. Potassium 4.6. Bicarb 18. BUN 12. Creatinine 0.7. Glucose 115. Viral screen was negative. Urinalysis clean. Troponin negative. BNP 1030. Procalcitonin 64.60. He was initiated on Zosyn and azithromycin. He is seen today in consultation in the emergency department. He is awake and alert in no acute distress. He is somewhat anxious. He is maintaining O2 saturation in the 90s on 2 L/min per nasal cannula. He does state his last drink was yesterday morning prior to coming to the emergency room. He is on the CIWA protocol. The patient denies having passed out or aspirated. Review of Systems REVIEW OF SYSTEMS: CONSTITUTIONAL: Denies any recent significant weight loss or weight gain. EYES: Denies change in vision. EARS, NOSE, MOUTH, THROAT: Denies headaches, denies sore throat. CARDIOVASCULAR: Positive for right-sided chest pain, no palpitations or syncopal episodes. RESPIRATORY: Positive for shortness of breath, cough, congestion no hemoptysis. GASTROINTESTINAL: Denies change in appetite, denies abdominal pain GENITOURINARY: Denies hematuria, denies infections. MUSKULOSKELETAL: Denies pain, denies swelling. INTEGUMENTARY: Denies rash, denies eczema. NEUROLOGICAL: Denies recent memory loss, no recent seizure activity. PSYCHIATRIC: Denies anxiety, denies depression. HEMATOLOGIC/LYMPHATIC: Denies anemia, denies enlarged lymph nodes. Past Medical History Past Medical History: No Reported History Additional Past Medical History / Comment(s): ETOH History of Any Multi-Drug Resistant Organisms: None Reported Past Surgical History: Hernia Repair Additional Past Surgical History / Comment(s): Hernia Repair Past Anesthesia/Blood Transfusion Reactions: No Reported Reaction Past Psychological History: Anxiety, Depression Smoking Status: Current every day smoker Past Alcohol Use History: Abuse, Occasional Past Drug Use History: None Reported - Past Family History Father Additional Family Medical History / Comment(s): OF PANCREATIC ISSUES Mother Additional Family Medical History / Comment(s): PULMONARY HYPERTENSION Medications and Allergies Home Medications Medication Instructions Recorded Confirmed Type Aspirin 81 mg PO DAILY #30 tab 06/22/21 04/12/23 Rx amLODIPine [Norvasc] 5 mg PO DAILY #30 tab 06/22/21 04/12/23 Rx Rosuvastatin Calcium 10 mg PO DAILY 03/22/23 04/12/23 History Venlafaxine HCl ER [Effexor Xr] 37.5 mg PO DAILY 03/22/23 04/12/23 History valACYclovir HCL [Valtrex] 1,000 mg PO DAILY 03/22/23 04/12/23 History Allergies Allergy/AdvReac Type Severity Reaction Status Date / Time bee venom protein (honey bee) Allergy Anaphylaxis Verified 04/12/23 17:40 Physical Exam Vitals: Vital Signs Temp Pulse Pulse Resp BP BP Pulse Ox 04/13/23 13:23 99 F 113 H 20 136/79 95 04/13/23 08:00 98.5 F 112 H 22 129/75 97 04/13/23 02:29 119 H 04/13/23 02:00 99.3 F 119 H 16 152/88 96 04/13/23 00:53 16 95 04/12/23 20:00 98.6 F 115 H 16 140/80 90 L 04/12/23 18:52 112 H 20 133/98 95 04/12/23 17:02 112 H 04/12/23 16:47 112 H Intake and Output 04/13/23 04/13/23 04/13/23 06:59 14:59 22:59 Intake Total 240 Balance 240 Intake: Oral 240 Other: # Voids 2 2 # Bowel Movements 2 GENERAL EXAM: Alert, pleasant, anxious 62-year-old male patient, on 2 L nasal cannula, fairly comfortable in no apparent distress. HEAD: Normocephalic. EYES: Normal reaction of pupils, equal size. NOSE: Clear with pink turbinates. THROAT: No erythema or exudates. NECK: No masses, no JVD. CHEST: No chest wall deformity. LUNGS: Equal air entry with rhonchi, crackles throughout the right lung. CVS: S1 and S2 normal with no audible murmur, regular rhythm. ABDOMEN: No hepatosplenomegaly, normal bowel sounds, no guarding or rigidity. SPINE: No scoliosis or deformity SKIN: No rashes CENTRAL NERVOUS SYSTEM: No focal deficits, tone is normal in all 4 extremities. EXTREMITIES: There is no peripheral edema. No clubbing, no cyanosis. Peripheral pulses are intact. Results - Laboratory Findings CBC and BMP: 04/13/23 06:14 04/13/23 06:14 PT/INR, D-dimer PT 10.9 sec (10.0-12.5) 04/12/23 15:34 INR 1.0 (<1.2) 04/12/23 15:34 Abnormal lab findings: Abnormal Labs 04/12/23 04/12/23 04/12/23 15:34 15:34 15:34 WBC 29.6 H RBC 3.46 L Hgb 11.7 L Hct 35.5 L MCV 102.4 H MCH Neutrophils # (Manual) 27.20 H Lymphocytes # (Manual) 0.30 L Monocytes # (Manual) 2.07 H Eosinophils # (Manual) Sodium 130 L Chloride 97 L Carbon Dioxide 20 L Anion Gap Glucose 151 H Calcium Total Protein 5.6 L Albumin 2.8 L Procalcitonin Urine Protein Trace H 04/12/23 04/13/23 04/13/23 15:34 06:14 06:14 WBC 27.12 H RBC 3.45 L Hgb 11.4 L Hct 34.8 L MCV 100.9 H MCH 33.0 H Neutrophils # (Manual) Lymphocytes # (Manual) Monocytes # (Manual) 2.44 H Eosinophils # (Manual) 0 L Sodium 133 L Chloride Carbon Dioxide 18.1 L Anion Gap 16.90 H Glucose 115 H Calcium 8.6 L Total Protein Albumin Procalcitonin 64.60 H Urine Protein - Diagnostic Findings Chest x-ray: image reviewed CT scan - chest: image reviewed Assessment and Plan Assessment: Acute hypoxemic respiratory failure secondary to acute right lung pneumonia, possible abscess, cannot rule out malignancy. Procalcitonin 64.6. Viral screen negative. Acute right-sided chest wall pain secondary to above Recent CAT scan March 22, 2023 revealing bilateral pulmonary nodules Chronic and ongoing tobacco dependence Chronic and ongoing daily alcohol use Previous hospitalization for alcohol withdrawal syndrome History of anxiety Hypertension Hyperlipidemia Plan: The patient was seen and evaluated CAT scan, chest x-ray, labs and medications reviewed Suspect pneumonia versus malignancy Plan for bronchoscopy with BAL and biopsies tomorrow Continue Zosyn Discontinue azithromycin Add Levaquin Add bronchodilators Educated regarding the importance of complete smoking cessation NicoDerm patch will be offered Educated regarding the importance of alcohol cessation Remains on the CIWA protocol We will continue to follow and make further recommendations based on his clinical status I have personally seen and examined the patient, performed the documentation and the assessment and plan as written. Number of minutes spent on the visit: 20.
[2023-04-13] MEDS: IPRATROPIUM-ALBUTEROL 3 ML NEB INHALATION SCH ×2 (15:38→21:24)
[2023-04-13] MEDS ORDERED: TEMAZEPAM 7.5 MG CAP PO PRN (20:20)
--- NOTE | 2023-04-14 00:36 | P.HPIM ---
History of Present Illness H&P Date: 04/13/23 Chief Complaint: Shortness of breath Patient is a 62-year-old male with known history of severe alcohol abuse, hypertension, hyperlipidemia, depression, anxiety and currently everyday smoker presents to ER from his PCPs office due to concern for possible pneumonia. Patient was seen in the ER on 03/22/2023 due to concern for pleurisy CTA chest was done at that time showed no evidence of PE. Moderate pulmonary emphysematous changes. Multiple bilateral pulmonary nodules consideration including neoplasm/metastatic disease. And infectious process/septic emboli and follow-up was recommended. Patient states that he felt better for the weekend started having shortness of b reath again since last week with a nonproductive cough. Is also having chest pain with deep breathing and coughing. Denies any nausea or vomiting. Denies any fever or chills. Chest x-ray showed worsening right upper lobe consolidation. Developing minimal left hilar infiltrate. Stable right pleural fluid. EKG showed sinus tachycardia. Patient was given antibiotics in the form of ceftriaxone and azithromycin. Laboratory data showed WBC 29.6 hemoglobin 11.7 and platelets 361 Sodium 130 potassium 3.9 chloride 97 bicarb is 20 BUN 16 and creatinine 0.77 and blood sugar 151 Troponin 0.012 and proBNP 1030 Procalcitonin level is 64.6 and urinalysis negative for infection. Influenza A, B, RSV and COVID-19 PCR not detected. Review of Systems Constitutional: Patient denies any fever or chills . Does have generalized weakness and fatigue. Abdomen: Patient denied any nausea or vomiting or abd. pain Cardiovascular: Patient denies any chest pain or short of breath no palpitations. Patient does have pleuritic chest pain. No leg swelling. Respiratory: patient cough without sputum production. Positive for shortness of breath Neurologic: Patient denied any numbness or tingling or headache. Musculoskeletal: Patient denies any complaints of joint swelling or deformity. Skin: Negative Psychiatric: Negative Endocrine: No heat or cold intolerance. No recent weight gain. Genitourinary: No dysuria or hematuria. All other 14 point ROS negative except the above Past Medical History Past Medical History: No Reported History Additional Past Medical History / Comment(s): ETOH History of Any Multi-Drug Resistant Organisms: None Reported Past Surgical History: Hernia Repair Additional Past Surgical History / Comment(s): Hernia Repair Past Anesthesia/Blood Transfusion Reactions: No Reported Reaction Past Psychological History: Anxiety, Depression Smoking Status: Current every day smoker Past Alcohol Use History: Abuse, Occasional Past Drug Use History: None Reported - Past Family History Father Additional Family Medical History / Comment(s): OF PANCREATIC ISSUES Mother Additional Family Medical History / Comment(s): PULMONARY HYPERTENSION Medications and Allergies Home Medications Medication Instructions Recorded Confirmed Type Aspirin 81 mg PO DAILY #30 tab 06/22/21 04/12/23 Rx amLODIPine [Norvasc] 5 mg PO DAILY #30 tab 06/22/21 04/12/23 Rx Rosuvastatin Calcium 10 mg PO DAILY 03/22/23 04/12/23 History Venlafaxine HCl ER [Effexor Xr] 37.5 mg PO DAILY 03/22/23 04/12/23 History valACYclovir HCL [Valtrex] 1,000 mg PO DAILY 03/22/23 04/12/23 History Allergies Allergy/AdvReac Type Severity Reaction Status Date / Time bee venom protein (honey bee) Allergy Anaphylaxis Verified 04/12/23 17:40 Physical Exam Vitals: Vital Signs Temp Pulse Pulse Resp BP BP Pulse Ox 04/13/23 08:00 98.5 F 112 H 22 129/75 97 04/13/23 02:29 119 H 04/13/23 02:00 99.3 F 119 H 16 152/88 96 04/13/23 00:53 16 95 04/12/23 20:00 98.6 F 115 H 16 140/80 90 L 04/12/23 18:52 112 H 20 133/98 95 04/12/23 17:02 112 H 04/12/23 16:47 112 H 04/12/23 14:50 98.2 F 126 H 20 117/70 94 L Intake and Output 04/12/23 04/13/23 04/13/23 22:59 06:59 14:59 Intake Total 240 Balance 240 Intake: Oral 240 Other: # Voids 2 1 # Bowel Movements 1 Weight 66.224 kg PHYSICAL EXAMINATION: Patient is lying in the bed , no acute distress, awake alert and oriented.. HEENT: Normocephalic. Neck is supple. Pupils reactive. Nostrils clear. Oral cavity is moist. Neck reveals no JVD, carotid bruits, or thyromegaly. CHEST EXAMINATION: Trachea is central. Symmetrical expansion. Bilateral coarse breath sounds. Nonlabored breathing. Mild expiratory wheezing. CARDIAC: Normal S1, S2 with no gallops. No murmurs ABDOMEN: Soft. Bowel sounds present. Nontender. No organomegaly. No abdominal bruits. Extremities: reveal no edema. No clubbing or cyanosis Neurologically awake, alert, oriented x3 with well-coordinated movements. No focal deficits noted Skin: No rash or skin lesions. Psychiatric: Coperative. Nonsuicidal, Musculoskeletal: No joint swelling or deformity. Normal range of motion. Results CBC & Chem 7: 04/13/23 06:14 04/13/23 06:14 Labs: Abnormal Lab Results - Last 24 Hours (Table) 04/12/23 04/12/23 04/12/23 Range/Units 15:34 15:34 15:34 WBC 29.6 H (3.8-10.6) k/uL RBC 3.46 L (4.30-5.90) m/uL Hgb 11.7 L (13.0-17.5) gm/dL Hct 35.5 L (39.0-53.0) % MCV 102.4 H (80.0-100.0) fL Neutrophils # (Manual) 27.20 H (1.3-7.7) k/uL Lymphocytes # (Manual) 0.30 L (1.0-4.8) k/uL Monocytes # (Manual) 2.07 H (0-1.0) k/uL Sodium 130 L (137-145) mmol/L Chloride 97 L (98-107) mmol/L Carbon Dioxide 20 L (22-30) mmol/L Glucose 151 H (74-99) mg/dL Total Protein 5.6 L (6.3-8.2) g/dL Albumin 2.8 L (3.5-5.0) g/dL Procalcitonin (0.02-0.09) ng/mL Urine Protein Trace H (Negative) 04/12/23 Range/Units 15:34 WBC (3.8-10.6) k/uL RBC (4.30-5.90) m/uL Hgb (13.0-17.5) gm/dL Hct (39.0-53.0) % MCV (80.0-100.0) fL Neutrophils # (Manual) (1.3-7.7) k/uL Lymphocytes # (Manual) (1.0-4.8) k/uL Monocytes # (Manual) (0-1.0) k/uL Sodium (137-145) mmol/L Chloride (98-107) mmol/L Carbon Dioxide (22-30) mmol/L Glucose (74-99) mg/dL Total Protein (6.3-8.2) g/dL Albumin (3.5-5.0) g/dL Procalcitonin 64.60 H (0.02-0.09) ng/mL Urine Protein (Negative) Microbiology - Last 24 Hours (Table) 04/12/23 16:42 Gram Stain - Preliminary Sputum Thrombosis Risk Factor Assmnt - DVT/VTE Prophylaxis DVT/VTE Prophylaxis: Pharmacologic Prophylaxis ordered - Choose All That Apply Any of the Below Risk Factors Present?: Yes Each Factor Represents 1 point: Age 41-60 years Other Risk Factors: No Other congenital or acquired thrombophilia - If yes, enter type in comment: No Thrombosis Risk Factor Assessment Total Risk Factor Score: 1 Thrombosis Risk Factor Assessment Level: Low Risk Assessment and Plan Assessment: Acute hypoxic respiratory failure secondary to right lung pneumonia. Significant leukocytosis and elevated procalcitonin level. Right upper lobe pneumonia and also developing minimal left hilar infiltrate. Stable right pleural effusion. Sepsis secondary to above Pleuritic chest pain secondary to above Bilateral pulmonary nodules as per CT chest on 03/22/2023. Ongoing nicotine addiction Daily alcohol use Anxiety/depression Hypertension Hyperlipidemia DVT prophylaxis and GI prophylaxis. Plan: Patient will be continued on IV hydration with normal saline. Was given a dose of ceftriaxone and azithromycin in the ER. Patient will be started on Zosyn. Continue with oxygen supplementation Continue breathing treatments. Monitor for alcohol withdrawal symptoms Due to extensive pneumonia and underlying pulmonary nodules, pulmonary will be consulted for further evaluation. Prognosis is guarded at this time. Time with Patient: Greater than 30
[2023-04-14] MEDS: SODIUM CHLORIDE 0.9% 1,000 ML IV SCH ×2 (02:47→07:58)
[2023-04-14] MEDS: HEPARIN SODIUM,PORCINE 5,000 UNIT/ML 1 ML VIAL SQ SCH ×4 (02:47→23:21)
[2023-04-14] MEDS: PIPERACILLIN-TAZOBACTAM 3.375 GM in SODIUM CHLORIDE 0.9% 100 ML IVPB SCH ×3 (07:57→23:21)
[2023-04-14] MEDS: ASPIRIN 81 MG PO SCH (08:07)
[2023-04-14] MEDS: ATORVASTATIN 20 MG TAB PO SCH (08:07)
[2023-04-14] MEDS: amLODIPine 5 MG TAB PO SCH (08:07)
[2023-04-14] MEDS: THIAMINE 100 MG TAB PO SCH (08:08)
[2023-04-14] MEDS: VENLAFAXINE HCL ER 37.5 MG CAP PO SCH (08:08)
--- NOTE | 2023-04-14 08:26 | US ---
EXAMINATION TYPE: US chest DATE OF EXAM: 04/14/2023 COMPARISON: CT, XR CLINICAL INDICATION: Male, 62 years old with history of Markings for thoracentesis by pulmonary staff ; Right pleural effusion TECHNIQUE: Targeted ultrasound of the posterior lower bilateral hemithoraces EXAM MEASUREMENTS: Right Pleural Effusion pocket size: 7.0 cm. Fluid appears loculated. Right skin surface to fluid distance: 3.7 cm Left Pleural Effusion pocket size: No fluid seen Right side marked for possible thoracentesis outside the dept. *Fluid appears loculated. Left side NOT marked for possible thoracentesis outside the dept. Pulmonologists are able to review the images in the patient?s EMR. IMPRESSIONS: Right side marked for thoracentesis outside the department.
[2023-04-14] MEDS: LEVOFLOXACIN 750 MG TAB PO SCH (08:39)
[2023-04-14] MEDS: PANTOPRAZOLE 40 MG/10 ML VIAL IVP SCH ×2 (08:40→19:37)
[2023-04-14] MEDS: NICOTINE 21MG/24HR PATCH TRANSDERM SCH (08:45)
[2023-04-14] MEDS: IPRATROPIUM-ALBUTEROL 3 ML NEB INHALATION SCH ×4 (09:51→20:56)
[2023-04-14 11:07] LABS: Basophils # (A) 0.04 X 10*3/uL (0.00-0.10); Basophils % (A) 0.2 %; Eosinophils # (A) 0.05 X 10*3/uL (0.04-0.35); Eosinophils % (A) 0.3 %; HCT 27.8 % (39.6-50.0); HGB 9.3 g/dL (13.0-17.0); Lymphocytes # (A) 1.43 X 10*3/uL (0.90-5.00); Lymphocytes % (A) 7.8 %; MCH 32.7 pg (27.0-32.0); MCHC 33.5 g/dL (32.0-37.0); MCV 97.9 FL (80.0-97.0); Mean Platelet Volume 9.4 FL (9.5-12.2); Monocytes # (A) 2.73 X 10*3/uL (0.20-1.00); Monocytes % (A) 14.9 %; NRBC Per 100 WBC 0 X 10*3/uL (0.00-0.01); Neutrophils # (A) 13.87 X 10*3/uL (1.80-7.70); Neutrophils % (A) 75.9 %; Platelet Count 301 X 10*3/uL (140-440); RBC 2.84 X 10*6/uL (4.40-5.60); RDW 14.1 % (11.5-14.5); WBC 18.29 X 10*3/uL (4.50-10.00)
[2023-04-14 11:40] LABS: BUN/Creat Ratio 11.33 Ratio (12.00-20.00); Blood Urea Nitrogen 6.8 mg/dL (9.0-27.0); Calcium 8.2 mg/dL (8.7-10.3); Carbon Dioxide 24.2 mmol/L (21.6-31.8); Chloride 94 mmol/L (96-109); Glucose 100 mg/dL (70-110); Potassium 3.9 mmol/L (3.5-5.5); Sodium 130 mmol/L (135-145)
--- NOTE | 2023-04-14 14:32 | P.PN ---
Subjective Progress Note Date: 04/14/23 This is a pleasant 62-year-old male patient with a known history of anxiety, hyperlipidemia, hypertension, chronic and ongoing tobacco dependence, chronic daily alcohol use who had recently been having issues with shortness of breath cough congestion pleuritic type right-sided chest pain and had been following with his PCP. CT scan from March for 2023 revealed moderate pulmonary emphysematous changes. Multiple bilateral pulmonary nodules, nonspecific, right hilar adenopathy. The patient was scheduled to see Dr. Meek in our office as an outpatient however his symptoms continued to worsen and he presented here to the emergency room yesterday. He has been having issues with anxiety, dyspnea on exertion, cough and congestion. He states his cough has been light to dark brown in nature. He has been having issues with fevers and chills. Chest x-ray reveals worsening right upper lobe consolidation. Developing minimal left hilar infiltrate. Stable right pleural effusion. CT scan of the chest today reveals a large consolidation, interval development, right upper lobe. Scattered small additional foci could be small nodules or infectious etiology bilaterally. Enlarged mediastinal adenopathy. Loculated right basilar pleural effusion. White count 27.1. Hemoglobin 11.4. Sodium 133. Potassium 4.6. Bicarb 18. BUN 12. Creatinine 0.7. Glucose 115. Viral screen was negative. Urinalysis clean. Troponin negative. BNP 1030. Procalcitonin 64.60. He was initiated on Zosyn and azithromycin. He is seen today in consultation in the emergency department. He is awake and alert in no acute distress. He is somewhat anxious. He is maintaining O2 saturation in the 90s on 2 L/min per nasal cannula. He does state his last drink was yesterday morning prior to coming to the emergency room. He is on the CIWA protocol. The patient denies having passed out or aspirated. The patient is seen today April 14, 2023 in follow-up on the regular medical floor. He is currently sitting up in bed. Awake and alert in no acute distress. Feeling about the same today as compared to yesterday. Maintaining O2 saturations in the 90s on 2 L/min per nasal cannula. He is afebrile. Slightly tachycardic. Blood pressure stable. Ultrasound of the right chest reveals a 7.0 cm pocket however the fluid appeared loculated with some lung tissue within. Blood culture pending. Sputum culture pending. White count 18.2. Hemoglobin 9.3. Sodium 130. Potassium 3.9. Bicarb 24. BUN 7. Creatinine 0.6. He is continued on bronchodilators, antibiotics in the form of Zosyn and Levaquin. Heparin for DVT prophylaxis. NicoDerm patch in place. Objective - Vital Signs Vital signs: Vital Signs Temp 98.2 F 04/14/23 10:37 Pulse 122 H 04/14/23 14:00 Resp 22 04/14/23 14:00 BP 123/69 04/14/23 14:00 Pulse Ox 97 04/14/23 14:00 FiO2 Intake & Output 04/13/23 04/14/23 04/14/23 18:59 06:59 18:59 Intake Total 340 1600 Output Total 1200 Balance 340 1600 -1200 Intake: Intake, IV Titration 100 600 Amount Piperacillin-Tazobactam 3 100 .375 gm In Sodium Chloride 0.9% 100 ml @ 200 mls/hr IVPB ONCE STA Rx#:[id number] Sodium Chloride 0.9% 1, 600 000 ml @ 75 mls/hr IV . [id number] Rx#:[id number] Oral 240 1000 Output: Urine 1200 Other: # Voids 2 3 # Bowel Movements 1 - Exam GENERAL EXAM: Alert, anxious 62-year-old male patient, on 2 L nasal cannula, fairly comfortable in no apparent distress. HEAD: Normocephalic. EYES: Normal reaction of pupils, equal size. NOSE: Clear with pink turbinates. THROAT: No erythema or exudates. NECK: No masses, no JVD. CHEST: No chest wall deformity. LUNGS: Equal air entry with rhonchi, crackles throughout the right lung. CVS: S1 and S2 normal with no audible murmur, regular rhythm. ABDOMEN: No hepatosplenomegaly, normal bowel sounds, no guarding or rigidity. SPINE: No scoliosis or deformity SKIN: No rashes CENTRAL NERVOUS SYSTEM: No focal deficits, tone is normal in all 4 extremities. EXTREMITIES: There is no peripheral edema. No clubbing, no cyanosis. Peripheral pulses are intact. - Labs CBC & Chem 7: 04/14/23 05:49 04/14/23 05:49 Labs: Abnormal Lab Results - Last 24 Hours (Table) 01/25/24 01/25/24 Range/Units 05:49 05:49 WBC 18.29 H (4.50-10.00) X 10*3/uL RBC 2.84 L (4.40-5.60) X 10*6/uL Hgb 9.3 L (13.0-17.0) g/dL Hct 27.8 L (39.6-50.0) % MCV 97.9 H (80.0-97.0) FL MCH 32.7 H (27.0-32.0) pg MPV 9.4 L (9.5-12.2) FL Immature Gran # 0.17 H (0.00-0.04) X 10*3/uL Neutrophils # 13.87 H (1.80-7.70) X 10*3/uL Monocytes # 2.73 H (0.20-1.00) X 10*3/uL Sodium 130 L (135-145) mmol/L Chloride 94 L (96-109) mmol/L BUN 6.8 L (9.0-27.0) mg/dL BUN/Creatinine Ratio 11.33 L (12.00-20.00) Ratio Calcium 8.2 L (8.7-10.3) mg/dL Microbiology - Last 24 Hours (Table) 04/12/23 16:40 Blood Culture - Preliminary Blood 04/12/23 16:35 Blood Culture - Preliminary Blood Assessment and Plan Assessment: Acute hypoxemic respiratory failure secondary to acute right lung pneumonia, possible abscess, cannot rule out malignancy. Procalcitonin 64.6. Viral screen negative. Initiated on Zosyn and Levaquin. Ultrasound of the right chest revealed a 7.0 cm pocket however it was somewhat loculated and with lung tissue in place. Plan is for pigtail placement today by interventional radiology. Plan is for bronchoscopy with biopsies today. Acute right-sided chest wall pain secondary to above Recent CAT scan March 22, 2023 revealing bilateral pulmonary nodules Chronic and ongoing tobacco dependence Chronic and ongoing daily alcohol use Previous hospitalization for alcohol withdrawal syndrome History of anxiety Hypertension Hyperlipidemia Plan: The patient was seen and evaluated Ultrasound of the chest, labs and medications reviewed Suspect pneumonia versus malignancy Plan for bronchoscopy with BAL and biopsies today Plan is for pigtail catheter insertion to the right pleural effusion today Patient is agreeable to the plan Continue Zosyn and Levaquin Continue NicoDerm patch Remains on the CIWA protocol We will continue to follow I have personally seen and examined the patient, performed the documentation and the assessment and plan as written. Number of minutes spent on the visit: 10.
[2023-04-14] MEDS ORDERED: PROPOFOL 10 MG/ML 20 ML VIAL IV ONE (14:47)
[2023-04-14] MEDS ORDERED: fentaNYL (PF) 50 MCG/ML 2 ML AMP ONE (14:47)
[2023-04-14] MEDS ORDERED: MIDAZOLAM 2 MG/2 ML VIAL ONE (14:47)
[2023-04-14] MEDS ORDERED: KETAMINE HCL IN 0.9 % NACL 50 MG/5 ML SYRINGE ONE (14:47)
[2023-04-14] MEDS ORDERED: SUCCINYLCHOLINE CHLORIDE 200 MG/10 ML VIAL IV ONE (14:47)
--- NOTE | 2023-04-14 14:59 | US ---
EXAMINATION TYPE: US guided chest tube insertion DATE OF EXAM: 04/14/2023 2:25 PM CLINICAL INDICATION:Male, 62 years old with history of right pleural effusion COMPARISON: 04/13/2023 TECHNIQUE: Ultrasound-guided chest tube insertion. PROCEDURE: Informed consent was obtained. Safe access in the right pleural effusion was identified via ultrasoun d. The safest allowable access to the fluid collection was then identified. The patient was then prep ped and draped in the usual sterile fashion. Local anesthesia was provided. Trocar technique was used with a 8-Syrian pigtail catheter placed into right pleural effusion. Placement was confirmed with ultrasound guidance. Approximately 60 mL was drained and sent to the lab for analysis. A water sealed container was then hooked up. The tubing was affixed to the skin. There was no significant blood loss and post-procedur e hemostasis was achieved. The patient tolerated the procedure well without complication. Patient w as transferred to the general medical floor in stable condition. IMPRESSION: Successful 8 Syrian tube placement within the right pleural space.
[2023-04-14] MEDS ORDERED: IV FLUID CONTINUATION 1,000 ML IV ONE (15:11)
[2023-04-14] MEDS ORDERED: ALBUTEROL NEBULIZED 2.5 MG/3 ML INHALATION ONE (15:55)
--- NOTE | 2023-04-14 16:05 | XR ---
EXAMINATION TYPE: XR chest 1V portable DATE OF EXAM: 04/14/2023 COMPARISON: 04/13/2023 INDICATION: Post bronchoscopy TECHNIQUE: Single frontal view of the chest is obtained. FINDINGS: The heart size is normal. The pulmonary vasculature is normal. There is a large right upper lung field mass. Small right pleural effusion appears to be present. Fin dings are similar to comparison. IMPRESSION: 1. Persistent right upper lobe peripheral consolidation can be compatible with pneumonia. Continued f ollow-up is recommended
--- NOTE | 2023-04-14 16:09 | FL ---
EXAMINATION TYPE: FL bronchoscopy Intraoperative/procedural fluoroscopic services were provided. Tota l fluoroscopy time is 13 seconds with a total of 1 submitted images to PACS. Please see the operative /procedural note for further details. DAP: [id number] mGym2
[2023-04-14] MEDS: KETOROLAC 15 MG/ML 1 ML VIAL IVP PRN ×2 (17:20→23:21)
[2023-04-14] MEDS: ACETAMINOPHEN TAB 325 MG TAB PO PRN (19:36)
--- NOTE | 2023-04-14 22:15 | OP ---
OPERATIVE REPORT DATE OF SERVICE : PROCEDURE PERFORMED: Bronchoscopy with bronchoalveolar lavage of the right upper lobe, and multiple transbronchial biopsies of the right upper lobe masslike consolidation using fluoroscopy as guidance. ANESTHESIA USED: The patient underwent endotracheal intubation and general anesthesia. DESCRIPTION OF PROCEDURE: The patient was brought in to the operating room #4. The patient was placed in a supine position, he was intubated by Anesthesia. An adapter was applied to the endotracheal tube. Then the bronchoscope was advanced through the endotracheal tube all the way down. A thorough examination was done of the rico, right upper lobe, right middle lobe, right lower lobe, left upper lobe, lingula, and left lower lobe. There was no evidence of any significant purulent secretions noted in the airways. Then using fluoroscopy, multiple transbronchial biopsies were done of the anterolateral segment of the right upper lobe. Roughly 7 transbronchial biopsies were done with fluoroscopy guidance. Then, the bronchoscope was wedged into that same segment and lavage of the anterolateral area of the right upper lobe was performed. Procedure was well tolerated, no complications, negligible blood loss was noted. Fluid and transbronchial biopsies were sent for different diagnostic studies. MMODL / IJN: [id number] /
[2023-04-15] MEDS: SODIUM CHLORIDE 0.9% 1,000 ML IV SCH ×2 (02:46→07:55)
[2023-04-15] MEDS: ACETAMINOPHEN TAB 325 MG TAB PO PRN (03:56)
[2023-04-15] MEDS: KETOROLAC 15 MG/ML 1 ML VIAL IVP PRN ×2 (06:20→15:40)
[2023-04-15] MEDS: LOPERAMIDE 2 MG CAP PO PRN (06:21)
[2023-04-15] MEDS: PIPERACILLIN-TAZOBACTAM 3.375 GM in SODIUM CHLORIDE 0.9% 100 ML IVPB SCH ×3 (07:54→23:26)
[2023-04-15] MEDS: IPRATROPIUM-ALBUTEROL 3 ML NEB INHALATION SCH ×4 (08:36→21:10)
[2023-04-15 08:44] LABS: Basophils # (A) 0.04 X 10*3/uL (0.00-0.10); Basophils % (A) 0.3 %; Eosinophils # (A) 0.09 X 10*3/uL (0.04-0.35); Eosinophils % (A) 0.7 %; HCT 24.6 % (39.6-50.0); HGB 8.3 g/dL (13.0-17.0); Lymphocytes # (A) 1.12 X 10*3/uL (0.90-5.00); Lymphocytes % (A) 8.6 %; MCH 32.7 pg (27.0-32.0); MCHC 33.7 g/dL (32.0-37.0); MCV 96.9 FL (80.0-97.0); Mean Platelet Volume 9.4 FL (9.5-12.2); Monocytes # (A) 1.79 X 10*3/uL (0.20-1.00); Monocytes % (A) 13.8 %; NRBC Per 100 WBC 0 X 10*3/uL (0.00-0.01); Neutrophils # (A) 9.74 X 10*3/uL (1.80-7.70); Neutrophils % (A) 75.3 %; Platelet Count 287 X 10*3/uL (140-440); RBC 2.54 X 10*6/uL (4.40-5.60); WBC 12.95 X 10*3/uL (4.50-10.00)
[2023-04-15 09:25] LABS: ALT 57 U/L (10-49); AST 93 U/L (14-35); Albumin 2.3 g/dL (3.8-4.9); Alkaline Phosphatase 107 U/L (41-126); Blood Urea Nitrogen 7.2 mg/dL (9.0-27.0); Carbon Dioxide 25.2 mmol/L (21.6-31.8); Chloride 101 mmol/L (96-109); Globulin 2.1 g/dL (1.6-3.3); Glucose 96 mg/dL (70-110); Magnesium 1.7 mg/dL (1.5-2.4); Potassium 3.6 mmol/L (3.5-5.5); Sodium 137 mmol/L (135-145); Total Bilirubin 0.3 mg/dL (0.3-1.2); Total Protein 4.4 g/dL (6.2-8.2)
[2023-04-15] MEDS: ATORVASTATIN 20 MG TAB PO SCH (10:22)
[2023-04-15] MEDS: LEVOFLOXACIN 750 MG TAB PO SCH (10:22)
[2023-04-15] MEDS: VENLAFAXINE HCL ER 37.5 MG CAP PO SCH (10:22)
[2023-04-15] MEDS: ASPIRIN 81 MG PO SCH (10:22)
[2023-04-15] MEDS: NICOTINE 21MG/24HR PATCH TRANSDERM SCH (10:22)
[2023-04-15] MEDS: amLODIPine 5 MG TAB PO SCH (10:22)
[2023-04-15] MEDS: PANTOPRAZOLE 40 MG/10 ML VIAL IVP SCH ×2 (10:23→20:56)
[2023-04-15] MEDS: THIAMINE 100 MG TAB PO SCH (10:23)
[2023-04-15] MEDS: HEPARIN SODIUM,PORCINE 5,000 UNIT/ML 1 ML VIAL SQ SCH ×3 (10:23→23:26)
[2023-04-15 13:23] LABS: Appearance,BF Bloody (Clear)
--- NOTE | 2023-04-15 14:39 | P.PN ---
Subjective Progress Note Date: 04/15/23 This is a pleasant 62-year-old male patient with a known history of anxiety, hyperlipidemia, hypertension, chronic and ongoing tobacco dependence, chronic daily alcohol use who had recently been having issues with shortness of breath cough congestion pleuritic type right-sided chest pain and had been following with his PCP. CT scan from March for 2023 revealed moderate pulmonary emphysematous changes. Multiple bilateral pulmonary nodules, nonspecific, right hilar adenopathy. The patient was scheduled to see Dr. Meek in our office as an outpatient however his symptoms continued to worsen and he presented here to the emergency room yesterday. He has been having issues with anxiety, dyspnea on exertion, cough and congestion. He states his cough has been light to dark brown in nature. He has been having issues with fevers and chills. Chest x-ray reveals worsening right upper lobe consolidation. Developing minimal left hilar infiltrate. Stable right pleural effusion. CT scan of the chest today reveals a large consolidation, interval development, right upper lobe. Scattered small additional foci could be small nodules or infectious etiology bilaterally. Enlarged mediastinal adenopathy. Loculated right basilar pleural effusion. White count 27.1. Hemoglobin 11.4. Sodium 133. Potassium 4.6. Bicarb 18. BUN 12. Creatinine 0.7. Glucose 115. Viral screen was negative. Urinalysis clean. Troponin negative. BNP 1030. Procalcitonin 64.60. He was initiated on Zosyn and azithromycin. He is seen today in consultation in the emergency department. He is awake and alert in no acute distress. He is somewhat anxious. He is maintaining O2 saturation in the 90s on 2 L/min per nasal cannula. He does state his last drink was yesterday morning prior to coming to the emergency room. He is on the CIWA protocol. The patient denies having passed out or aspirated. The patient is seen today April 14, 2023 in follow-up on the regular medical floor. He is currently sitting up in bed. Awake and alert in no acute distress. Feeling about the same today as compared to yesterday. Maintaining O2 saturations in the 90s on 2 L/min per nasal cannula. He is afebrile. Slightly tachycardic. Blood pressure stable. Ultrasound of the right chest reveals a 7.0 cm pocket however the fluid appeared loculated with some lung tissue within. Blood culture pending. Sputum culture pending. White count 18.2. Hemoglobin 9.3. Sodium 130. Potassium 3.9. Bicarb 24. BUN 7. Creatinine 0.6. He is continued on bronchodilators, antibiotics in the form of Zosyn and Levaquin. Heparin for DVT prophylaxis. NicoDerm patch in place. The patient is seen today April 15, 2023 in follow-up on the regular medical floor. He is currently resting comfortably in bed. Awake and alert in no acute distress. He is maintaining good O2 saturations in the 90s on 2 L/min per nasal cannula. He is afebrile. Hemodynamically stable. White count 12.9. Hemoglobin 8.3. Platelets 287. Sodium 137. Potassium 3.6. Bicarb 25. BUN 7. Creatinine 0.5. Bronchoscopy cultures pending. Cytology pending. He remains on Zosyn and Levaquin. Continued on bronchodilators. Heparin for DVT prophylaxis. Remains on the [facility] protocol. NicoDerm patch in place. Objective - Vital Signs Vital signs: Vital Signs Temp 97.7 F 04/15/23 13:15 Pulse 113 H 04/15/23 13:15 Resp 18 04/15/23 13:15 BP 143/76 04/15/23 13:15 Pulse Ox 97 04/15/23 13:15 FiO2 Intake & Output 04/14/23 04/15/23 04/15/23 18:59 06:59 18:59 Intake Total 550 2600 Output Total 1498 2200 506 Balance -948 400 -506 Intake: IV 550 Intake, IV Titration 900 Amount Sodium Chloride 0.9% 1, 900 000 ml @ 75 mls/hr IV . [id number] [facility] Rx#:[id number] Oral 1700 Output: Chest Tube Drainage 98 6 Pleural Catheter Right 98 6 Posterior Chest Urine 1400 2200 500 - Exam GENERAL EXAM: Alert, anxious 62-year-old male, on 2 L nasal cannula, comfortable in no apparent distress. HEAD: Normocephalic. EYES: Normal reaction of pupils, equal size. NOSE: Clear with pink turbinates. THROAT: No erythema or exudates. NECK: No masses, no JVD. CHEST: No chest wall deformity. LUNGS: Equal air entry with rhonchi, crackles throughout the right lung. CVS: S1 and S2 normal with no audible murmur, regular rhythm. ABDOMEN: No hepatosplenomegaly, normal bowel sounds, no guarding or rigidity. SPINE: No scoliosis or deformity SKIN: No rashes CENTRAL NERVOUS SYSTEM: No focal deficits, tone is normal in all 4 extremities. EXTREMITIES: There is no peripheral edema. No clubbing, no cyanosis. Peripheral pulses are intact. - Labs CBC & Chem 7: 04/15/23 05:30 04/15/23 05:30 Labs: Abnormal Lab Results - Last 24 Hours (Table) 04/13/23 04/14/23 04/15/23 Range/Units 06:14 15:02 05:30 WBC 12.95 H (4.50-10.00) X 10*3/uL RBC 2.54 L (4.40-5.60) X 10*6/uL Hgb 8.3 L (13.0-17.0) g/dL Hct 24.6 L (39.6-50.0) % MCH 32.7 H (27.0-32.0) pg MPV 9.4 L (9.5-12.2) FL Immature Gran # 0.17 H (0.00-0.04) X 10*3/uL Neutrophils # 9.74 H (1.80-7.70) X 10*3/uL Neutrophils # (Manual) 23.32 H (1.80-7.70) X 10*3/uL Monocytes # 1.79 H (0.20-1.00) X 10*3/uL BUN (9.0-27.0) mg/dL Creatinine (0.6-1.5) mg/dL Calcium (8.7-10.3) mg/dL AST (14-35) U/L ALT (10-49) U/L Total Protein (6.2-8.2) g/dL Albumin (3.8-4.9) g/dL Albumin/Globulin Ratio (1.60-3.17) Ratio Fluid Appearance Bloody A (Clear) 04/15/23 Range/Units 05:30 WBC (4.50-10.00) X 10*3/uL RBC (4.40-5.60) X 10*6/uL Hgb (13.0-17.0) g/dL Hct (39.6-50.0) % MCH (27.0-32.0) pg MPV (9.5-12.2) FL Immature Gran # (0.00-0.04) X 10*3/uL Neutrophils # (1.80-7.70) X 10*3/uL Neutrophils # (Manual) (1.80-7.70) X 10*3/uL Monocytes # (0.20-1.00) X 10*3/uL BUN 7.2 L (9.0-27.0) mg/dL Creatinine 0.5 L (0.6-1.5) mg/dL Calcium 8.0 L (8.7-10.3) mg/dL AST 93 H (14-35) U/L ALT 57 H (10-49) U/L Total Protein 4.4 L (6.2-8.2) g/dL Albumin 2.3 L (3.8-4.9) g/dL Albumin/Globulin Ratio 1.10 L (1.60-3.17) Ratio Fluid Appearance (Clear) Microbiology - Last 24 Hours (Table) 04/12/23 16:40 Blood Culture - Preliminary Blood 04/12/23 16:35 Blood Culture - Preliminary Blood Assessment and Plan Assessment: Acute hypoxemic respiratory failure secondary to acute right lung pneumonia, possible abscess, cannot rule out malignancy. Procalcitonin 64.6. Viral screen negative. Initiated on Zosyn and Levaquin. Ultrasound of the right chest revealed a 7.0 cm pocket however it was somewhat loculated and with lung tissue in place. Pigtail catheter placed April 14, 2023. Bronchoscopy with biopsies performed April 14, 2023. Ultrasound cytology pending Acute right-sided chest wall pain secondary to above Recent CAT scan March 22, 2023 revealing bilateral pulmonary nodules Chronic and ongoing tobacco dependence Chronic and ongoing daily alcohol use Previous hospitalization for alcohol withdrawal syndrome History of anxiety Hypertension Hyperlipidemia Plan: The patient was seen and evaluated Labs and medications reviewed Suspect pneumonia versus malignancy Bronchial wash cultures and cytology pending Pigtail catheter fluid cultures and cytology pending Continue Zosyn and Levaquin Continue NicoDerm patch Remains on the CIME protocol Follow-up chest x-ray in a.m. We will continue to follow I have personally seen and examined the patient, performed the documentation and the assessment and plan as written. Number of minutes spent on the visit: 10.
[2023-04-15] MEDS: LIDOCAINE 4% PATCH TOPICAL SCH (16:30)
[2023-04-15] MEDS: HYDROcodone/APAP 5-325MG 1 EACH TAB PO PRN (23:25)
--- NOTE | 2023-04-16 03:33 | P.PN ---
Subjective Progress Note Date: 04/14/23 Patient is a 62-year-old male with known history of severe alcohol abuse, hypertension, hyperlipidemia, depression, anxiety and currently everyday smoker presents to ER from his PCPs office due to concern for possible pneumonia. Patient was seen in the ER on 03/22/2023 due to concern for pleurisy CTA chest was done at that time showed no evidence of PE. Moderate pulmonary emphysematous changes. Multiple bilateral pulmonary nodules consideration including neoplasm/metastatic disease. And infectious process/septic emboli and follow-up was recommended. Patient states that he felt better for the weekend started having shortness of breath again since last week with a nonproductive cough. Is also having chest pain with deep breathing and coughing. Denies any nausea or vomiting. Denies any fever or chills. Chest x-ray showed worsening right upper lobe consolidation. Developing minimal left hilar infiltrate. Stable right pleural fluid. EKG showed sinus tachycardia. Patient was given antibiotics in the form of ceftriaxone and azithromycin. Laboratory data showed WBC 29.6 hemoglobin 11.7 and platelets 361 Sodium 130 potassium 3.9 chloride 97 bicarb is 20 BUN 16 and creatinine 0.77 and blood sugar 151 Troponin 0.012 and proBNP 1030 Procalcitonin level is 64.6 and urinalysis negative for infection. Influenza A, B, RSV and COVID-19 PCR not detected. 04/14/2023 Patient is seen in follow-up this morning with multiple medical consultations following including infectious disease and pulmonary and patient is scheduled to undergo bronchoscopy today along with chest tube placement. Patient continued on antibiotics along with steroids and breathing inhalational treatments and will await bronchoscopy report. Await cultures to determine discharge antibiotics. Patient is afebrile and white count is trending down Review of systems: Constitutional: No reports of fatigue, fever, or chills Cardiovascular: No reports of chest pain or palpitations Respiratory: No reports of shortness of breath or cough GI: No reports of nausea, vomiting, or diarrhea : No reports of dysuria or retention Neurovascular: No reports of weakness or numbness All medications have been reviewed PHYSICAL EXAMINATION: Patient is lying in the bed , no acute distress, awake alert and oriented.. Thin built, elderly appearing HEENT: Normocephalic. Neck is supple. Pupils reactive. Nostrils clear. Oral cavi ty is moist. Neck reveals no JVD, carotid bruits, or thyromegaly. CHEST EXAMINATION: Trachea is central. Symmetrical expansion. Bilateral coarse breath sounds. Nonlabored breathing. Mild expiratory wheezing. CARDIAC: Normal S1, S2 with no gallops. No murmurs ABDOMEN: Soft. Bowel sounds present. Nontender. No organomegaly. No abdominal bruits. Extremities: reveal no edema. No clubbing or cyanosis Neurologically awake, alert, oriented x3 with well-coordinated movements. No focal deficits noted Skin: No rash or skin lesions. Psychiatric: Cooperative. Non-suicidal, Musculoskeletal: No joint swelling or deformity. Normal range of motion. Assessment: Acute hypoxic respiratory failure secondary to right lung pneumonia. Significant leukocytosis and elevated procalcitonin level of 64.6. Right upper lobe pneumonia and also developing minimal left hilar infiltrate. Stable right pleural effusion. Sepsis secondary to above Pleuritic chest pain secondary to above Bilateral pulmonary nodules as per CT chest on 03/22/2023. Ongoing nicotine addiction Daily alcohol use Anxiety/depression Hypertension Hyperlipidemia DVT prophylaxis and GI prophylaxis. Plan: Patient will be continued on IV hydration with normal saline. Patient continued on Zosyn. Continue with oxygen supplementation, currently maintained on 4 L via nasal cannula. Interventional radiology consulted for right-sided chest tube placement with a possible drainage tube and specimen sent which is pending for sometime today. Continue breathing inhalational treatments. White count is trending down and currently 18 and will follow-up on repeat labs. Monitor for alcohol withdrawal symptoms and currently maintained on CIWA protocol, not currently requiring Ativan Pulmonary following due to extensive pneumonia and underlying pulmonary nodules and awaiting chest tube placement as well as bronchoscopy Due to multiple complex medical issues, prognosis is guarded at this time. The impression and plan of care has been dictated by Barbara Lawler, Nurse Practitioner as directed. Dr. Jose Armando MD I have performed a history and examination and MDM of this patient, discussed the same with the dictator, and agree with the dictator's assessment and plan as written ,documented as a scribe. Based on total visit time, I have performed more than 50% of the visit. Objective - Vital Signs Vital signs: Vital Signs Temp 98.2 F 04/14/23 10:37 Pulse 110 H 04/14/23 10:37 Resp 20 04/14/23 10:37 BP 125/67 04/14/23 10:37 Pulse Ox 94 L 04/14/23 09:53 FiO2 Intake & Output 04/13/23 04/14/23 04/14/23 18:59 06:59 18:59 Intake Total 340 1600 Output Total 1200 Balance 340 1600 -1200 Intake: Intake, IV Titration 100 600 Amount Piperacillin-Tazobactam 3 100 .375 gm In Sodium Chloride 0.9% 100 ml @ 200 mls/hr IVPB ONCE STA Rx#:[id number] Sodium Chloride 0.9% 1, 600 000 ml @ 75 mls/hr IV . [id number] [facility] Rx#:[id number] Oral 240 1000 Output: Urine 1200 Other: # Voids 2 3 # Bowel Movements 1 - Labs CBC & Chem 7: 04/15/23 05:30 04/15/23 05:30 Labs: Abnormal Lab Results - Last 24 Hours (Table) 04/13/23 04/13/23 Range/Units 06:14 06:14 WBC 27.12 H (4.50-10.00) X 10*3/uL RBC 3.45 L (4.40-5.60) X 10*6/uL Hgb 11.4 L (13.0-17.0) g/dL Hct 34.8 L (39.6-50.0) % MCV 100.9 H (80.0-97.0) FL MCH 33.0 H (27.0-32.0) pg Monocytes # (Manual) 2.44 H (0.20-1.00) X 10*3/uL Eosinophils # (Manual) 0 L (0.04-0.35) X 10*3/uL Sodium 133 L (135-145) mmol/L Carbon Dioxide 18.1 L (21.6-31.8) mmol/L Anion Gap 16.90 H (4.00-12.00) mmol/L Glucose 115 H (70-110) mg/dL Calcium 8.6 L (8.7-10.3) mg/dL Microbiology - Last 24 Hours (Table) 04/12/23 16:40 Blood Culture - Preliminary Blood 04/12/23 16:35 Blood Culture - Preliminary Blood 04/12/23 16:42 Gram Stain - Preliminary Sputum
--- NOTE | 2023-04-16 03:40 | P.PN ---
Subjective Progress Note Date: 04/15/23 Patient is a 62-year-old male with known history of severe alcohol abuse, hypertension, hyperlipidemia, depression, anxiety and currently everyday smoker presents to ER from his PCPs office due to concern for possible pneumonia. Patient was seen in the ER on 03/22/2023 due to concern for pleurisy CTA chest was done at that time showed no evidence of PE. Moderate pulmonary emphysematous changes. Multiple bilateral pulmonary nodules consideration including neoplasm/metastatic disease. And infectious process/septic emboli and follow-up was recommended. Patient states that he felt better for the weekend started having shortness of breath again since last week with a nonproductive cough. Is also having chest pain with deep breathing and coughing. Denies any nausea or vomiting. Denies any fever or chills. Chest x-ray showed worsening right upper lobe consolidation. Developing minimal left hilar infiltrate. Stable right pleural fluid. EKG showed sinus tachycardia. Patient was given antibiotics in the form of ceftriaxone and azithromycin. Laboratory data showed WBC 29.6 hemoglobin 11.7 and platelets 361 Sodium 130 potassium 3.9 chloride 97 bicarb is 20 BUN 16 and creatinine 0.77 and blood sugar 151 Troponin 0.012 and proBNP 1030 Procalcitonin level is 64.6 and urinalysis negative for infection. Influenza A, B, RSV and COVID-19 PCR not detected. 04/14/2023 Patient is seen in follow-up this morning with pulmonary following and patient is scheduled to undergo bronchoscopy today along with chest tube placement. Interventional radiology consulted for chest tube placement. Patient continued on antibiotics along with steroids and breathing inhalational treatments and will await bronchoscopy report. Await cultures to determine discharge antibiotics. Patient is afebrile and white count is trending down 04/15/2023 Patient is seen in follow-up this morning with pulmonary following. Patient is status post bronchoscopy with cultures pending as well as chest tube placement on the right. Patient continues to be significantly short of breath and bronchospastic with frequent coughing spells and pain due to the cough. Patient having some rib cage pain and will add lidocaine patches. Patient encouraged to increase activity as tolerated and will also add incentive spirometer and encouraged the patient to use at least 10 times every hour while awake. Patient is currently afebrile and white count is trending down and will follow-up with repeat labs. Continue on CIWA protocol. Patient does not appear to be actively withdrawing at this time although is somewhat anxious due to the shortness of breath. Review of systems: Constitutional: No reports of fatigue, fever, or chills Cardiovascular: No reports of chest pain or palpitations Respiratory: reports of continued shortness of breath with frequent coughing spells GI: No reports of nausea, vomiting, or diarrhea : No reports of dysuria or retention Neurovascular: No reports of weakness or numbness All medications have been reviewed PHYSICAL EXAMINATION: Patient is sitting up at the side of the bed , no acute distress, awake alert and oriented.. Thin built, elderly appearing HEENT: Normocephalic. Neck is supple. Pupils reactive. Nostrils clear. Oral cavity is moist. Neck reveals no JVD, carotid bruits, or thyromegaly. CHEST EXAMINATION: Trachea is central. Symmetrical expansion. Bilateral coarse breath sounds. Nonlabored breathing. Mild expiratory wheezing. Extremely bronchospastic on exam CARDIAC: Normal S1, S2 with no gallops. No murmurs ABDOMEN: Soft. Bowel sounds present. Nontender. No organomegaly. No abdominal bruits. Extremities: reveal no edema. No clubbing or cyanosis Neurologically awake, alert, oriented x3 with well-coordinated movements. No focal deficits noted Skin: No rash or skin lesions. Psychiatric: Cooperative. Non-suicidal, slightly anxious Musculoskeletal: No joint swelling or deformity. Normal range of motion. Assessment: Acute hypoxic respiratory failure secondary to right lung pneumonia. Significant leukocytosis and elevated procalcitonin level of 64.6. Right upper lobe pneumonia and also developing minimal left hilar infiltrate. Stable right pleural effusion. Status post bronchoscopy with BAL and right chest tube placement on 04/14/2023 Sepsis secondary to above Pleuritic chest pain secondary to above Bilateral pulmonary nodules as per CT chest on 03/22/2023. Ongoing nicotine addiction Daily alcohol use, maintained on CIRI protocol Anxiety/depression Hypertension Hyperlipidemia DVT prophylaxis and GI prophylaxis. Plan: Patient will be continued on IV hydration with normal saline. Patient continued on Zosyn. Continue with oxygen supplementation, currently maintained on 4 L via nasal cannula. Interventional radiology placed right-sided chest tube. Pulmonary following as well and patient is status post bronchoscopy with BAL and cultures are pending Continue breathing inhalational treatments. White count is trending down and will follow-up on repeat labs. Monitor for alcohol withdrawal symptoms and currently maintained on CIRI protocol, not currently requiring Ativan Pulmonary following due to extensive pneumonia and underlying pulmonary nodules and is status post chest tube placement as well as bronchoscopy. Will add incentive spirometer and encouraged the patient to use at least 10 times every hour while awake. Encouraged to increase activity as tolerated. Due to multiple complex medical issues, prognosis is guarded at this time. The impression and plan of care has been dictated by Barbara Lawler, Nurse Practitioner as directed. Dr. Jose Armando MD I have performed a history and examination and MDM of this patient, discussed the same with the dictator, and agree with the dictator's assessment and plan as written ,documented as a scribe. Based on total visit time, I have performed more than 50% of the visit. Objective - Vital Signs Vital signs: Vital Signs Temp 98 F 04/16/23 00:39 Pulse 98 04/16/23 00:39 Resp 18 04/16/23 00:39 BP 129/79 04/16/23 00:39 Pulse Ox 98 04/16/23 00:39 FiO2 Intake & Output 04/15/23 04/15/23 04/16/23 06:59 18:59 06:59 Intake Total 2600 Output Total 2200 506 Balance 400 -506 Intake: Intake, IV Titration 900 Amount Sodium Chloride 0.9% 1, 900 000 ml @ 75 mls/hr IV . [id number] [facility] Rx#:[id number] Oral 1700 Output: Chest Tube Drainage 6 Pleural Catheter Right 6 Posterior Chest Urine 2200 500 Other: Voiding Method Urinal # Voids 4 - Labs CBC & Chem 7: 04/15/23 05:30 04/15/23 05:30 Labs: Abnormal Lab Results - Last 24 Hours (Table) 04/13/23 04/14/23 04/15/23 Range/Units 06:14 15:02 05:30 WBC 12.95 H (4.50-10.00) X 10*3/uL RBC 2.54 L (4.40-5.60) X 10*6/uL Hgb 8.3 L (13.0-17.0) g/dL Hct 24.6 L (39.6-50.0) % MCH 32.7 H (27.0-32.0) pg MPV 9.4 L (9.5-12.2) FL Immature Gran # 0.17 H (0.00-0.04) X 10*3/uL Neutrophils # 9.74 H (1.80-7.70) X 10*3/uL Neutrophils # (Manual) 23.32 H (1.80-7.70) X 10*3/uL Monocytes # 1.79 H (0.20-1.00) X 10*3/uL BUN (9.0-27.0) mg/dL Creatinine (0.6-1.5) mg/dL Calcium (8.7-10.3) mg/dL AST (14-35) U/L ALT (10-49) U/L Total Protein (6.2-8.2) g/dL Albumin (3.8-4.9) g/dL Albumin/Globulin Ratio (1.60-3.17) Ratio Fluid Appearance Bloody A (Clear) 04/15/23 Range/Units 05:30 WBC (4.50-10.00) X 10*3/uL RBC (4.40-5.60) X 10*6/uL Hgb (13.0-17.0) g/dL Hct (39.6-50.0) % MCH (27.0-32.0) pg MPV (9.5-12.2) FL Immature Gran # (0.00-0.04) X 10*3/uL Neutrophils # (1.80-7.70) X 10*3/uL Neutrophils # (Manual) (1.80-7.70) X 10*3/uL Monocytes # (0.20-1.00) X 10*3/uL BUN 7.2 L (9.0-27.0) mg/dL Creatinine 0.5 L (0.6-1.5) mg/dL Calcium 8.0 L (8.7-10.3) mg/dL AST 93 H (14-35) U/L ALT 57 H (10-49) U/L Total Protein 4.4 L (6.2-8.2) g/dL Albumin 2.3 L (3.8-4.9) g/dL Albumin/Globulin Ratio 1.10 L (1.60-3.17) Ratio Fluid Appearance (Clear) Microbiology - Last 24 Hours (Table) 04/12/23 16:40 Blood Culture - Preliminary Blood 04/12/23 16:35 Blood Culture - Preliminary Blood 04/14/23 15:02 Acid Fast Bacilli Smear - Preliminary Bronchoalviolar Lavage - Right 04/14/23 15:02 Gram Stain - Preliminary Bronchoalviolar Lavage - Right
[2023-04-16 04:18] LABS: Amylase, Fluid Source Pleural fluid; Amylase,Body Fluid 66 U/L; Glucose, BF Source Pleural fluid; Glucose, Body Fluid 79 mg/dL; LDH, Body Fluid Source Pleural fluid; T. Protein, Body Fluid Source Pleural fluid; Total Protein, Body Fluid 3540 mg/dL
[2023-04-16 04:37] LABS: Appearance,BF Slightly Hazy (Clear)
[2023-04-16] MEDS: HYDROcodone/APAP 5-325MG 1 EACH TAB PO PRN ×4 (05:29→23:20)
[2023-04-16] MEDS: IPRATROPIUM-ALBUTEROL 3 ML NEB INHALATION SCH ×4 (08:42→22:04)
[2023-04-16 09:02] LABS: Basophils # (A) 0.03 X 10*3/uL (0.00-0.10); Basophils % (A) 0.3 %; Eosinophils # (A) 0.34 X 10*3/uL (0.04-0.35); HCT 25.6 % (39.6-50.0); HGB 8.6 g/dL (13.0-17.0); Lymphocytes % (A) 10.7 %; MCH 32.2 pg (27.0-32.0); MCHC 33.6 g/dL (32.0-37.0); MCV 95.9 FL (80.0-97.0); Mean Platelet Volume 9.5 FL (9.5-12.2); Monocytes # (A) 1.69 X 10*3/uL (0.20-1.00); Monocytes % (A) 15.1 %; NRBC Per 100 WBC 0 X 10*3/uL (0.00-0.01); Neutrophils # (A) 7.78 X 10*3/uL (1.80-7.70); Neutrophils % (A) 69.5 %; Platelet Count 329 X 10*3/uL (140-440); RBC 2.67 X 10*6/uL (4.40-5.60); RDW 13.9 % (11.5-14.5)
--- NOTE | 2023-04-16 09:18 | XR ---
EXAMINATION TYPE: XR chest 1V portable DATE OF EXAM: 04/16/2023 COMPARISON: 04/14/2023 INDICATION: Right pleural effusion, mass TECHNIQUE: Single frontal view of the chest is obtained. FINDINGS: The heart size is mildly prominent. The pulmonary vasculature is normal. Right upper lobe consolidation has slight improvement over the interval. Some increasing left perihil ar filtrate is developing. Correlate for atelectasis and pneumonia. Small right pleural effusion may be present. IMPRESSION: 1. Slight improvement of the right upper lobe pneumonia. Small right pleural effusion may be present. This should be followed to clearing. 2. Some mild atelectasis or developing pneumonia in the left perihilar region.
[2023-04-16] MEDS: ASPIRIN 81 MG PO SCH (09:22)
[2023-04-16] MEDS: THIAMINE 100 MG TAB PO SCH (09:22)
[2023-04-16] MEDS: PIPERACILLIN-TAZOBACTAM 3.375 GM in SODIUM CHLORIDE 0.9% 100 ML IVPB SCH ×3 (09:22→23:20)
[2023-04-16] MEDS: HEPARIN SODIUM,PORCINE 5,000 UNIT/ML 1 ML VIAL SQ SCH ×3 (09:22→23:20)
[2023-04-16] MEDS: ATORVASTATIN 20 MG TAB PO SCH (09:23)
[2023-04-16] MEDS: LEVOFLOXACIN 750 MG TAB PO SCH (09:23)
[2023-04-16] MEDS: PANTOPRAZOLE 40 MG/10 ML VIAL IVP SCH ×2 (09:23→20:37)
[2023-04-16] MEDS: LIDOCAINE 4% PATCH TOPICAL SCH (09:23)
[2023-04-16] MEDS: NICOTINE 21MG/24HR PATCH TRANSDERM SCH (09:23)
[2023-04-16] MEDS: amLODIPine 5 MG TAB PO SCH (09:23)
[2023-04-16] MEDS: VENLAFAXINE HCL ER 37.5 MG CAP PO SCH (09:24)
[2023-04-16 09:26] LABS: Calcium 8.2 mg/dL (8.7-10.3); Carbon Dioxide 25.7 mmol/L (21.6-31.8); Chloride 98 mmol/L (96-109); Glucose 94 mg/dL (70-110); Potassium 3.4 mmol/L (3.5-5.5); Sodium 135 mmol/L (135-145)
[2023-04-16] MEDS: SODIUM CHLORIDE 0.9% 1,000 ML IV SCH (10:39)
--- NOTE | 2023-04-16 13:23 | P.PN ---
Subjective Progress Note Date: 04/16/23 This is a pleasant 62-year-old male patient with a known history of anxiety, hyperlipidemia, hypertension, chronic and ongoing tobacco dependence, chronic daily alcohol use who had recently been having issues with shortness of breath cough congestion pleuritic type right-sided chest pain and had been following with his PCP. CT scan from March for 2023 revealed moderate pulmonary emphysematous changes. Multiple bilateral pulmonary nodules, nonspecific, right hilar adenopathy. The patient was scheduled to see Dr. Meek in our office as an outpatient however his symptoms continued to worsen and he presented here to the emergency room yesterday. He has been having issues with anxiety, dyspnea on exertion, cough and congestion. He states his cough has been light to dark brown in nature. He has been having issues with fevers and chills. Chest x-ray reveals worsening right upper lobe consolidation. Developing minimal left hilar infiltrate. Stable right pleural effusion. CT scan of the chest today reveals a large consolidation, interval development, right upper lobe. Scattered small additional foci could be small nodules or infectious etiology bilaterally. Enlarged mediastinal adenopathy. Loculated right basilar pleural effusion. White count 27.1. Hemoglobin 11.4. Sodium 133. Potassium 4.6. Bicarb 18. BUN 12. Creatinine 0.7. Glucose 115. Viral screen was negative. Urinalysis clean. Troponin negative. BNP 1030. Procalcitonin 64.60. He was initiated on Zosyn and azithromycin. He is seen today in consultation in the emergency department. He is awake and alert in no acute distress. He is somewhat anxious. He is maintaining O2 saturation in the 90s on 2 L/min per nasal cannula. He does state his last drink was yesterday morning prior to coming to the emergency room. He is on the CIWA protocol. The patient denies having passed out or aspirated. The patient is seen today April 14, 2023 in follow-up on the regular medical floor. He is currently sitting up in bed. Awake and alert in no acute distress. Feeling about the same today as compared to yesterday. Maintaining O2 saturations in the 90s on 2 L/min per nasal cannula. He is afebrile. Slightly tachycardic. Blood pressure stable. Ultrasound of the right chest reveals a 7.0 cm pocket however the fluid appeared loculated with some lung tissue within. Blood culture pending. Sputum culture pending. White count 18.2. Hemoglobin 9.3. Sodium 130. Potassium 3.9. Bicarb 24. BUN 7. Creatinine 0.6. He is continued on bronchodilators, antibiotics in the form of Zosyn and Levaquin. Heparin for DVT prophylaxis. NicoDerm patch in place. The patient is seen today April 15, 2023 in follow-up on the regular medical floor. He is currently resting comfortably in bed. Awake and alert in no acute distress. He is maintaining good O2 saturations in the 90s on 2 L/min per nasal cannula. He is afebrile. Hemodynamically stable. White count 12.9. Hemoglobin 8.3. Platelets 287. Sodium 137. Potassium 3.6. Bicarb 25. BUN 7. Creatinine 0.5. Bronchoscopy cultures pending. Cytology pending. He remains on Zosyn and Levaquin. Continued on bronchodilators. Heparin for DVT prophylaxis. Remains on the CIIN protocol. NicoDerm patch in place. The patient is seen today April 16, 2023 in follow-up on the regular medical floor. He is awake and alert in no acute distress. Feeling better today compared to yesterday. Still having some right-sided chest discomfort. Pleurx pigtail catheter remains in place. No leak noted. Approximately 110 mL out total thus far. Pathology is pending. Chest x-ray is showing improvement. He is maintaining O2 saturations in the 90s on 3 L/min per nasal cannula. Sputum culture revealed no growth. Bronchial wash cultures revealed no growth. White count 11.2. Hemoglobin 8.6. Platelets 329. Sodium 135. Potassium 3.4. Bicarb 26. BUN 6. Creatinine 0.5. Pleural fluid analysis reveals an exudate with a total protein of 3.5 and LDH of 419. He remains on Zosyn and Levaquin. Continued on bronchodilators. Heparin for DVT prophylaxis. Remains on the CIWA protocol. NicoDerm patch in place. Objective - Vital Signs Vital signs: Vital Signs Temp 98.9 F 04/16/23 07:18 Pulse 102 H 04/16/23 12:37 Resp 23 04/16/23 07:18 BP 146/87 04/16/23 07:18 Pulse Ox 98 04/16/23 08:43 FiO2 Intake & Output 04/15/23 04/16/2324 18:59 06:59 18:59 Output Total 506 2000 Balance -506 -1999 Output: Chest Tube Drainage 6 Pleural Catheter Right 6 Posterior Chest Urine 500 2000 Other: Voiding Method Urinal Urinal # Voids 4 5 - Exam GENERAL EXAM: Alert, anxious 62-year-old male, sitting up in bed, on 3 L nasal cannula, comfortable in no apparent distress. HEAD: Normocephalic. EYES: Normal reaction of pupils, equal size. NOSE: Clear with pink turbinates. THROAT: No erythema or exudates. NECK: No masses, no JVD. CHEST: No chest wall deformity. Right-sided pigtail catheter remains in place. No leak noted. LUNGS: Equal air entry with rhonchi, crackles throughout the right lung. CVS: S1 and S2 normal with no audible murmur, regular rhythm. ABDOMEN: No hepatosplenomegaly, normal bowel sounds, no guarding or rigidity. SPINE: No scoliosis or deformity SKIN: No rashes CENTRAL NERVOUS SYSTEM: No focal deficits, tone is normal in all 4 extremities. EXTREMITIES: There is no peripheral edema. No clubbing, no cyanosis. Periphe ral pulses are intact. - Labs CBC & Chem 7: 04/16/23 06:39 04/16/23 06:39 Labs: Abnormal Lab Results - Last 24 Hours (Table) 04/14/23 04/15/23 04/16/23 Range/Units 15:02 15:00 06:39 WBC 11.20 H (4.50-10.00) X 10*3/uL RBC 2.67 L (4.40-5.60) X 10*6/uL Hgb 8.6 L (13.0-17.0) g/dL Hct 25.6 L (39.6-50.0) % MCH 32.2 H (27.0-32.0) pg Immature Gran # 0.16 H (0.00-0.04) X 10*3/uL Neutrophils # 7.78 H (1.80-7.70) X 10*3/uL Monocytes # 1.69 H (0.20-1.00) X 10*3/uL Potassium (3.5-5.5) mmol/L BUN (9.0-27.0) mg/dL Creatinine (0.6-1.5) mg/dL Calcium (8.7-10.3) mg/dL Fluid Appearance Bloody A Slightly Hazy A (Clear) 04/16/23 Range/Units 06:39 WBC (4.50-10.00) X 10*3/uL RBC (4.40-5.60) X 10*6/uL Hgb (13.0-17.0) g/dL Hct (39.6-50.0) % MCH (27.0-32.0) pg Immature Gran # (0.00-0.04) X 10*3/uL Neutrophils # (1.80-7.70) X 10*3/uL Monocytes # (0.20-1.00) X 10*3/uL Potassium 3.4 L (3.5-5.5) mmol/L BUN 6.0 L (9.0-27.0) mg/dL Creatinine 0.5 L (0.6-1.5) mg/dL Calcium 8.2 L (8.7-10.3) mg/dL Fluid Appearance (Clear) Microbiology - Last 24 Hours (Table) 04/14/23 15:02 Gram Stain - Preliminary Bronchoalviolar Lavage - Right Bronchial Washings Culture - Preliminary 04/12/23 16:42 Gram Stain - Final Sputum Sputum Culture - Final 04/12/23 16:40 Blood Culture - Preliminary Blood 04/12/23 16:35 Blood Culture - Preliminary Blood 04/14/23 15:02 Acid Fast Bacilli Smear - Preliminary Bronchoalviolar Lavage - Right Assessment and Plan Assessment: Acute hypoxemic respiratory failure secondary to acute right lung pneumonia, possible abscess, cannot rule out malignancy. Procalcitonin 64.6. Viral screen negative. Initiated on Zosyn and Levaquin. Ultrasound of the right chest revealed a 7.0 cm pocket however it was somewhat loculated and with lung tissue in place. Pigtail catheter placed April 14, 2023. Fluid is an exudate. Bronchoscopy with biopsies performed April 14, 2023. Cultures and cytology pending Acute right-sided chest wall pain secondary to above Recent CAT scan March 22, 2023 revealing bilateral pulmonary nodules Chronic and ongoing tobacco dependence Chronic and ongoing daily alcohol use Previous hospitalization for alcohol withdrawal syndrome History of anxiety Hypertension Hyperlipidemia Plan: The patient was seen and evaluated Labs and medications reviewed Bronchial wash cultures and cytology pending Pigtail catheter fluid cultures and cytology pending Continue the current treatment plan We will continue to follow I have personally seen and examined the patient, performed the documentation and the assessment and plan as written. Number of minutes spent on the visit: 10.
[2023-04-16] MEDS ORDERED: LIDOCAINE 4% PATCH TOPICAL PRN (20:28)
--- NOTE | 2023-04-16 20:34 | P.PN ---
Subjective Progress Note Date: 04/16/23 Patient is a 62-year-old male with known history of severe alcohol abuse, hypertension, hyperlipidemia, depression, anxiety and currently everyday smoker presents to ER from his PCPs office due to concern for possible pneumonia. Patient was seen in the ER on 03/22/2023 due to concern for pleurisy CTA chest was done at that time showed no evidence of PE. Moderate pulmonary emphysematous changes. Multiple bilateral pulmonary nodules consideration including neoplasm/metastatic disease. And infectious process/septic emboli and follow-up was recommended. Patient states that he felt better for the weekend started having shortness of breath again since last week with a nonproductive cough. Is also having chest pain with deep breathing and coughing. Denies any nausea or vomiting. Denies any fever or chills. Chest x-ray showed worsening right upper lobe consolidation. Developing minimal left hilar infiltrate. Stable right pleural fluid. EKG showed sinus tachycardia. Patient was given antibiotics in the form of ceftriaxone and azithromycin. Laboratory data showed WBC 29.6 hemoglobin 11.7 and platelets 361 Sodium 130 potassium 3.9 chloride 97 bicarb is 20 BUN 16 and creatinine 0.77 and blood sugar 151 Troponin 0.012 and proBNP 1030 Procalcitonin level is 64.6 and urinalysis negative for infection. Influenza A, B, RSV and COVID-19 PCR not detected. 04/14/2023 Patient is seen in follow-up this morning with pulmonary following and patient is scheduled to undergo bronchoscopy today along with chest tube placement. Interventional radiology consulted for chest tube placement. Patient continued on antibiotics along with steroids and breathing inhalational treatments and will await bronchoscopy report. Await cultures to determine discharge antibiotics. Patient is afebrile and white count is trending down 04/15/2023 Patient is seen in follow-up this morning with pulmonary following. Patient is status post bronchoscopy with cultures pending as well as chest tube placement on the right. Patient continues to be significantly short of breath and bronchospastic with frequent coughing spells and pain due to the cough. Patient having some rib cage pain and will add lidocaine patches. Patient encouraged to increase activity as tolerated and will also add incentive spirometer and encouraged the patient to use at least 10 times every hour while awake. Patient is currently afebrile and white count is trending down and will follow-up with repeat labs. Continue on CIWA protocol. Patient does not appear to be actively withdrawing at this time although is somewhat anxious due to the shortness of breath. 04/16/2023 Patient is seen in follow-up today currently sitting up on the side of the bed with pulmonary following continued on breathing inhalational treatments along with antibiotics. Cultures thus far status post bronchoscopy has been negative and patient continues with right-sided chest tube awaiting finalized cultures. Patient is afebrile white count is trending down and patient reports some improvement in shortness of breath. Patient continues to have cough with dyspnea with exertion. Continue with CIWA protocol as needed. Continue pain management. Encouraged to increase activity as tolerated. Review of systems: Constitutional: No reports of fatigue, fever, or chills Cardiovascular: No reports of chest pain or palpitations Respiratory: reports of continued shortness of breath with frequent coughing spells although feels shortness of breath is improving slightly faint GI: No reports of nausea, vomiting, or diarrhea : No reports of dysuria or retention Neurovascular: No reports of weakness or numbness All medications have been reviewed PHYSICAL EXAMINATION: Patient is sitting up at the side of the bed , no acute distress, awake alert and oriented.. Thin built, elderly appearing HEENT: Normocephalic. Neck is supple. Pupils reactive. Nostrils clear. Oral cavity is moist. Neck reveals no JVD, carotid bruits, or thyromegaly. CHEST EXAMINATION: Trachea is central. Symmetrical expansion. Bilateral coarse breath sounds. Nonlabored breathing. Faint expiratory wheezing. Less bronchospastic on exam, right-sided chest tube noted CARDIAC: Normal S1, S2 with no gallops. No murmurs ABDOMEN: Soft. Bowel sounds present. Nontender. No organomegaly. No abdominal bruits. Extremities: reveal no edema. No clubbing or cyanosis Neurologically awake, alert, oriented x3 with well-coordinated movements. No focal deficits noted Skin: No rash or skin lesions. Psychiatric: Cooperative. Non-suicidal, slightly anxious Musculoskeletal: No joint swelling or deformity. Normal range of motion. Assessment: Acute hypoxic respiratory failure secondary to right lung pneumonia. Significant leukocytosis and elevated procalcitonin level of 64.6. Right upper lobe pneumonia and also developing minimal left hilar infiltrate. Stable right pleural effusion. Status post bronchoscopy with BAL and right chest tube placement on 04/14/2023 Sepsis secondary to above Pleuritic chest pain secondary to above Bilateral pulmonary nodules as per CT chest on 03/22/2023. Ongoing nicotine addiction Daily alcohol use, maintained on CIWA protocol Anxiety/depression Hypertension Hyperlipidemia DVT prophylaxis and GI prophylaxis. Plan: Patient will be continued on Zosyn as well as Levaquin. Cultures thus far negative and finalized are pending. continue with oxygen supplementation, currently maintained on 4 L via nasal cannula. Interventional radiology placed right-sided chest tube. Pulmonary following as well and patient is status post bronchoscopy with BAL and cultures are pending Continue breathing inhalational treatments. White count is trending down and will follow-up on repeat labs. Monitor for alcohol withdrawal symptoms and currently maintained on CIWA protocol, not currently requiring Ativan Pulmonary following due to extensive pneumonia and underlying pulmonary nodules and is status post chest tube placement as well as bronchoscopy. Continue to encourage incentive spirometer at least 10 times every hour while awake. Encouraged to increase activity as tolerated. Due to multiple complex medical issues, prognosis is guarded at this time. The impression and plan of care has been dictated by Barbara Lawler, Nurse Practitioner as directed. Dr. Jose Armando MD I have performed a history and examination and MDM of this patient, discussed the same with the dictator, and agree with the dictator's assessment and plan as written ,documented as a scribe. Based on total visit time, I have performed more than 50% of the visit. Objective - Vital Signs Vital signs: Vital Signs Temp 98.0 F 04/16/23 20:00 Pulse 101 H 04/16/23 20:00 Resp 18 04/16/23 20:00 BP 148/78 04/16/23 20:00 Pulse Ox 95 04/16/23 20:00 FiO2 Intake & Output 04/16/23 04/16/23 04/17/23 06:59 18:59 06:59 Output Total 1999 503 Balance -1999 - Output: Chest Tube Drainage 3 Pleural Catheter Right 3 Posterior Chest Urine 1999 500 Other: Voiding Method Urinal Urinal # Voids 5 3 - Labs CBC & Chem 7: 04/16/23 06:39 04/16/23 06:39 Labs: Abnormal Lab Results - Last 24 Hours (Table) 04/15/23 04/16/23 04/16/23 Range/Units 15:00 06:39 06:39 WBC 11.20 H (4.50-10.00) X 10*3/uL RBC 2.67 L (4.40-5.60) X 10*6/uL Hgb 8.6 L (13.0-17.0) g/dL Hct 25.6 L (39.6-50.0) % MCH 32.2 H (27.0-32.0) pg Immature Gran # 0.16 H (0.00-0.04) X 10*3/uL Neutrophils # 7.78 H (1.80-7.70) X 10*3/uL Monocytes # 1.69 H (0.20-1.00) X 10*3/uL Potassium 3.4 L (3.5-5.5) mmol/L BUN 6.0 L (9.0-27.0) mg/dL Creatinine 0.5 L (0.6-1.5) mg/dL Calcium 8.2 L (8.7-10.3) mg/dL Fluid Appearance Slightly Hazy A (Clear) Microbiology - Last 24 Hours (Table) 04/14/23 15:02 Gram Stain - Preliminary Bronchoalviolar Lavage - Right Bronchial Washings Culture - Preliminary 04/12/23 16:42 Gram Stain - Final Sputum Sputum Culture - Final 04/12/23 16:40 Blood Culture - Preliminary Blood 04/12/23 16:35 Blood Culture - Preliminary Blood 04/14/23 15:02 Acid Fast Bacilli Smear - Preliminary Bronchoalviolar Lavage - Right
[2023-04-17] MEDS: HYDROcodone/APAP 5-325MG 1 EACH TAB PO PRN ×3 (05:05→19:15)
[2023-04-17] MEDS: SODIUM CHLORIDE 0.9% 1,000 ML IV SCH (06:50)
[2023-04-17] MEDS: IPRATROPIUM-ALBUTEROL 3 ML NEB INHALATION SCH ×4 (08:41→20:56)
[2023-04-17] MEDS: PIPERACILLIN-TAZOBACTAM 3.375 GM in SODIUM CHLORIDE 0.9% 100 ML IVPB SCH ×2 (09:57→15:54)
[2023-04-17] MEDS: PANTOPRAZOLE 40 MG/10 ML VIAL IVP SCH ×2 (09:57→20:44)
[2023-04-17] MEDS: THIAMINE 100 MG TAB PO SCH (09:58)
[2023-04-17] MEDS: LEVOFLOXACIN 750 MG TAB PO SCH (09:58)
[2023-04-17] MEDS: HEPARIN SODIUM,PORCINE 5,000 UNIT/ML 1 ML VIAL SQ SCH ×2 (09:58→15:54)
[2023-04-17] MEDS: ASPIRIN 81 MG PO SCH (09:58)
[2023-04-17] MEDS: ATORVASTATIN 20 MG TAB PO SCH (09:58)
[2023-04-17] MEDS: NICOTINE 21MG/24HR PATCH TRANSDERM SCH (09:58)
[2023-04-17] MEDS: VENLAFAXINE HCL ER 37.5 MG CAP PO SCH (09:58)
[2023-04-17] MEDS: amLODIPine 5 MG TAB PO SCH (09:58)
[2023-04-17 10:26] LABS: Basophils # (A) 0.06 X 10*3/uL (0.00-0.10); Basophils % (A) 0.5 %; Eosinophils # (A) 0.41 X 10*3/uL (0.04-0.35); Eosinophils % (A) 3.2 %; HCT 25.9 % (39.6-50.0); HGB 8.6 g/dL (13.0-17.0); Lymphocytes # (A) 1.26 X 10*3/uL (0.90-5.00); Lymphocytes % (A) 9.9 %; MCH 32.6 pg (27.0-32.0); MCHC 33.2 g/dL (32.0-37.0); MCV 98.1 FL (80.0-97.0); Mean Platelet Volume 9.7 FL (9.5-12.2); Monocytes # (A) 1.61 X 10*3/uL (0.20-1.00); Monocytes % (A) 12.7 %; NRBC Per 100 WBC 0 X 10*3/uL (0.00-0.01); Neutrophils # (A) 9.18 X 10*3/uL (1.80-7.70); Neutrophils % (A) 72.5 %; Platelet Count 398 X 10*3/uL (140-440); RBC 2.64 X 10*6/uL (4.40-5.60); RDW 13.9 % (11.5-14.5); WBC 12.67 X 10*3/uL (4.50-10.00)
[2023-04-17 10:42] LABS: Blood Urea Nitrogen 6.4 mg/dL (9.0-27.0); Calcium 7.9 mg/dL (8.7-10.3); Carbon Dioxide 27.2 mmol/L (21.6-31.8); Chloride 97 mmol/L (96-109); Glucose 84 mg/dL (70-110); Magnesium 1.7 mg/dL (1.5-2.4); Potassium 3.7 mmol/L (3.5-5.5); Sodium 133 mmol/L (135-145)
--- NOTE | 2023-04-17 13:49 | P.PN ---
Subjective Progress Note Date: 04/17/23 This is a pleasant 62-year-old male patient with a known history of anxiety, hyperlipidemia, hypertension, chronic and ongoing tobacco dependence, chronic daily alcohol use who had recently been having issues with shortness of breath cough congestion pleuritic type right-sided chest pain and had been following with his PCP. CT scan from March for 2023 revealed moderate pulmonary emphysematous changes. Multiple bilateral pulmonary nodules, nonspecific, right hilar adenopathy. The patient was scheduled to see Dr. Meek in our office as an outpatient however his symptoms continued to worsen and he presented here to the emergency room yesterday. He has been having issues with anxiety, dyspnea on exertion, cough and congestion. He states his cough has been light to dark brown in nature. He has been having issues with fevers and chills. Chest x-ray reveals worsening right upper lobe consolidation. Developing minimal left hilar infiltrate. Stable right pleural effusion. CT scan of the chest today reveals a large consolidation, interval development, right upper lobe. Scattered small additional foci could be small nodules or infectious etiology bilaterally. Enlarged mediastinal adenopathy. Loculated right basilar pleural effusion. White count 27.1. Hemoglobin 11.4. Sodium 133. Potassium 4.6. Bicarb 18. BUN 12. Creatinine 0.7. Glucose 115. Viral screen was negative. Urinalysis clean. Troponin negative. BNP 1030. Procalcitonin 64.60. He was initiated on Zosyn and azithromycin. He is seen today in consultation in the emergency department. He is awake and alert in no acute distress. He is somewhat anxious. He is maintaining O2 saturation in the 90s on 2 L/min per nasal cannula. He does state his last drink was yesterday morning prior to coming to the emergency room. He is on the CIWA protocol. The patient denies having passed out or aspirated. The patient is seen today April 14, 2023 in follow-up on the regular medical floor. He is currently sitting up in bed. Awake and alert in no acute distress. Feeling about the same today as compared to yesterday. Maintaining O2 saturations in the 90s on 2 L/min per nasal cannula. He is afebrile. Slightly tachycardic. Blood pressure stable. Ultrasound of the right chest reveals a 7.0 cm pocket however the fluid appeared loculated with some lung tissue within. Blood culture pending. Sputum culture pending. White count 18.2. Hemoglobin 9.3. Sodium 130. Potassium 3.9. Bicarb 24. BUN 7. Creatinine 0.6. He is continued on bronchodilators, antibiotics in the form of Zosyn and Levaquin. Heparin for DVT prophylaxis. NicoDerm patch in place. The patient is seen today April 15, 2023 in follow-up on the regular medical floor. He is currently resting comfortably in bed. Awake and alert in no acute distress. He is maintaining good O2 saturations in the 90s on 2 L/min per nasal cannula. He is afebrile. Hemodynamically stable. White count 12.9. Hemoglobin 8.3. Platelets 287. Sodium 137. Potassium 3.6. Bicarb 25. BUN 7. Creatinine 0.5. Bronchoscopy cultures pending. Cytology pending. He remains on Zosyn and Levaquin. Continued on bronchodilators. Heparin for DVT prophylaxis. Remains on the CILA protocol. NicoDerm patch in place. The patient is seen today April 16, 2023 in follow-up on the regular medical floor. He is awake and alert in no acute distress. Feeling better today compared to yesterday. Still having some right-sided chest discomfort. Pleurx pigtail catheter remains in place. No leak noted. Approximately 110 mL out total thus far. Pathology is pending. Chest x-ray is showing improvement. He is maintaining O2 saturations in the 90s on 3 L/min per nasal cannula. Sputum culture revealed no growth. Bronchial wash cultures revealed no growth. White count 11.2. Hemoglobin 8.6. Platelets 329. Sodium 135. Potassium 3.4. Bicarb 26. BUN 6. Creatinine 0.5. Pleural fluid analysis reveals an exudate with a total protein of 3.5 and LDH of 419. He remains on Zosyn and Levaquin. Continued on bronchodilators. Heparin for DVT prophylaxis. Remains on the CIWA protocol. NicoDerm patch in place. The patient is seen today April 17, 2023 in follow-up on the regular medical floor. He is currently resting comfortably in bed. Awake and alert in no acute distress. Breathing easier today compared to yesterday. He does have ongoing cough and congestion. He is continued on Zosyn and Levaquin. Pigtail catheter remains in place with minimal output. No leak. Bronchial wash cultures revealed no growth. Sputum culture revealed no growth. Pleural fluid revealed exudate with a total protein of 3.5 and LDH of 419, cultures are pending. Pathology is pending. Count 12.6. Hemoglobin 8.6. Platelets 398. Sodium 133. Potassium 3.7. Bicarb 27. BUN 6. Creatinine 0.5. He remains on bronchodilators. Heparin for DVT prophylaxis. Remains on the CIWA protocol. NicoDerm patch in place. To saturations in the 90s on 3 L nasal cannula. He is afebrile. Hemodynamically stable. Objective - Vital Signs Vital signs: Vital Signs Temp 98.6 F 04/17/23 07:33 Pulse 95 04/17/23 12:00 Resp 20 04/17/23 07:33 BP 129/96 04/17/23 07:33 Pulse Ox 97 04/17/23 07:33 FiO2 Intake & Output 04/16/23 04/17/23 04/17/23 18:59 06:59 18:59 Output Total 503 1000 0 Balance -503 -1000 0 Output: Chest Tube Drainage 3 0 Pleural Catheter Right 3 0 Posterior Chest Urine 500 1000 Other: Voiding Method Urinal Urinal Urinal # Voids 3 1 - Exam GENERAL EXAM: Alert, 62-year-old male, on 3 L nasal cannula, in no apparent distress. HEAD: Normocephalic. EYES: Normal reaction of pupils, equal size. NOSE: Clear with pink turbinates. THROAT: No erythema or exudates. NECK: No masses, no JVD. CHEST: No chest wall deformity. Right-sided pigtail catheter remains in place. No leak noted. Normal output LUNGS: Equal air entry with rhonchi, crackles throughout the right lung. CVS: S1 and S2 normal with no audible murmur, regular rhythm. ABDOMEN: No hepatosplenomegaly, normal bowel sounds, no guarding or rigidity. SPINE: No scoliosis or deformity SKIN: No rashes CENTRAL NERVOUS SYSTEM: No focal deficits, tone is normal in all 4 extremities. EXTREMITIES: There is no peripheral edema. No clubbing, no cyanosis. Peripheral pulses are intact. - Labs CBC & Chem 7: 04/17/23 06:14 04/17/23 06:14 Labs: Abnormal Lab Results - Last 24 Hours (Table) 04/17/23 04/17/23 Range/Units 06:14 06:14 WBC 12.67 H (4.50-10.00) X 10*3/uL RBC 2.64 L (4.40-5.60) X 10*6/uL Hgb 8.6 L (13.0-17.0) g/dL Hct 25.9 L (39.6-50.0) % MCV 98.1 H (80.0-97.0) FL MCH 32.6 H (27.0-32.0) pg Immature Gran # 0.15 H (0.00-0.04) X 10*3/uL Neutrophils # 9.18 H (1.80-7.70) X 10*3/uL Monocytes # 1.61 H (0.20-1.00) X 10*3/uL Eosinophils # 0.41 H (0.04-0.35) X 10*3/uL Sodium 133 L (135-145) mmol/L BUN 6.4 L (9.0-27.0) mg/dL Creatinine 0.5 L (0.6-1.5) mg/dL Calcium 7.9 L (8.7-10.3) mg/dL Microbiology - Last 24 Hours (Table) 04/14/23 15:02 Gram Stain - Final Bronchoalviolar Lavage - Right Bronchial Washings Culture - Final 04/15/23 15:00 Gram Stain - Preliminary Pleural Fluid 04/15/23 15:00 Acid Fast Bacilli Smear - Preliminary Pleural Fluid 04/12/23 16:42 Gram Stain - Final Sputum Sputum Culture - Final Assessment and Plan Assessment: Acute hypoxemic respiratory failure secondary to acute right lung pneumonia, po ssible abscess, cannot rule out malignancy. Procalcitonin 64.6. Viral screen negative. Initiated on Zosyn and Levaquin. Ultrasound of the right chest revealed a 7.0 cm pocket however it was somewhat loculated and with lung tissue in place. Pigtail catheter placed April 14, 2023. Fluid is an exudate. Bronchoscopy with biopsies performed April 14, 2023. Cultures and cytology pending Acute right-sided chest wall pain secondary to above Recent CAT scan March 22, 2023 revealing bilateral pulmonary nodules Chronic and ongoing tobacco dependence Chronic and ongoing daily alcohol use Previous hospitalization for alcohol withdrawal syndrome History of anxiety Hypertension Hyperlipidemia Plan: The patient was seen and evaluated Labs and medications reviewed Bronchial biopsies pending Pigtail catheter fluid cultures and cytology pending Continue the current treatment plan Plan for CT scan of the chest in a.m. We will continue to follow I have personally seen and examined the patient, performed the documentation and the assessment and plan as written. Number of minutes spent on the visit: 10.
[2023-04-18] MEDS: HEPARIN SODIUM,PORCINE 5,000 UNIT/ML 1 ML VIAL SQ SCH ×4 (00:14→23:10)
[2023-04-18] MEDS: PIPERACILLIN-TAZOBACTAM 3.375 GM in SODIUM CHLORIDE 0.9% 100 ML IVPB SCH ×4 (00:15→23:09)
[2023-04-18] MEDS: HYDROcodone/APAP 5-325MG 1 EACH TAB PO PRN ×4 (00:15→20:12)
--- NOTE | 2023-04-18 06:22 | P.PN ---
Subjective Progress Note Date: 04/17/23 Patient is a 62-year-old male with known history of severe alcohol abuse, hypertension, hyperlipidemia, depression, anxiety and currently everyday smoker presents to ER from his PCPs office due to concern for possible pneumonia. Patient was seen in the ER on 03/22/2023 due to concern for pleurisy CTA chest was done at that time showed no evidence of PE. Moderate pulmonary emphysematous changes. Multiple bilateral pulmonary nodules consideration including neoplasm/metastatic disease. And infectious process/septic emboli and follow-up was recommended. Patient states that he felt better for the weekend started having shortness of breath again since last week with a nonproductive cough. Is also having chest pain with deep breathing and coughing. Denies any nausea or vomiting. Denies any fever or chills. Chest x-ray showed worsening right upper lobe consolidation. Developing minimal left hilar infiltrate. Stable right pleural fluid. EKG showed sinus tachycardia. Patient was given antibiotics in the form of ceftriaxone and azithromycin. Laboratory data showed WBC 29.6 hemoglobin 11.7 and platelets 361 Sodium 130 potassium 3.9 chloride 97 bicarb is 20 BUN 16 and creatinine 0.77 and blood sugar 151 Troponin 0.012 and proBNP 1030 Procalcitonin level is 64.6 and urinalysis negative for infection. Influenza A, B, RSV and COVID-19 PCR not detected. 04/14/2023 Patient is seen in follow-up this morning with pulmonary following and patient is scheduled to undergo bronchoscopy today along with chest tube placement. Interventional radiology consulted for chest tube placement. Patient continued on antibiotics along with steroids and breathing inhalational treatments and will await bronchoscopy report. Await cultures to determine discharge antibiotics. Patient is afebrile and white count is trending down 04/15/2023 Patient is seen in follow-up this morning with pulmonary following. Patient is status post bronchoscopy with cultures pending as well as chest tube placement on the right. Patient continues to be significantly short of breath and bronchospastic with frequent coughing spells and pain due to the cough. Patient having some rib cage pain and will add lidocaine patches. Patient encouraged to increase activity as tolerated and will also add incentive spirometer and encouraged the patient to use at least 10 times every hour while awake. Patient is currently afebrile and white count is trending down and will follow-up with repeat labs. Continue on CIWA protocol. Patient does not appear to be actively withdrawing at this time although is somewhat anxious due to the shortness of breath. 04/16/2023 Patient is seen in follow-up today currently sitting up on the side of the bed with pulmonary following continued on breathing inhalational treatments along with antibiotics. Cultures thus far status post bronchoscopy has been negative and patient continues with right-sided chest tube awaiting finalized cultures. Patient is afebrile white count is trending down and patient reports some improvement in shortness of breath. Patient continues to have cough with dyspnea with exertion. Continue with CIWA protocol as needed. Continue pain management. Encouraged to increase activity as tolerated. 04/17/2023 Patient is seen in follow-up today with pulmonary following. Continued on antibiotics in the form of Levaquin and Zosyn and cultures thus far are negative. Patient continues with 2 to 3 L via nasal cannula and continues to report shortness of breath with frequent coughing spells. Encouraged incentive spirometer and increased activity as tolerated. Patient continues with chest tube and cultures remain pending from this as well. Plan for repeat CT of the chest in the a.m. Review of systems: Constitutional: No reports of fatigue, fever, or chills Cardiovascular: No reports of chest pain or palpitations Respiratory: reports of continued shortness of breath with frequent coughing spells although feels shortness of breath is improving slightly faint GI: No reports of nausea, vomiting, or diarrhea : No reports of dysuria or retention Neurovascular: No reports of weakness or numbness All medications have been reviewed PHYSICAL EXAMINATION: Patient is sitting up at the side of the bed , no acute distress, awake alert and oriented.. Thin built, elderly appearing HEENT: Normocephalic. Neck is supple. Pupils reactive. Nostrils clear. Oral cavity is moist. Neck reveals no JVD, carotid bruits, or thyromegaly. CHEST EXAMINATION: Trachea is central. Symmetrical expansion. Bilateral coarse breath sounds. Nonlabored breathing. Faint expiratory wheezing. Less bronchospastic on exam, right-sided chest tube noted CARDIAC: Normal S1, S2 with no gallops. No murmurs ABDOMEN: Soft. Bowel sounds present. Nontender. No organomegaly. No abdominal bruits. Extremities: reveal no edema. No clubbing or cyanosis Neurologically awake, alert, oriented x3 with well-coordinated movements. No focal deficits noted Skin: No rash or skin lesions. Psychiatric: Cooperative. Non-suicidal, slightly anxious Musculoskeletal: No joint swelling or deformity. Normal range of motion. Assessment: Acute hypoxic respiratory failure secondary to right lung pneumonia. Significant leukocytosis and elevated procalcitonin level of 64.6. Right upper lobe pneumonia and also developing minimal left hilar infiltrate. Stable right pleural effusion. Status post bronchoscopy with BAL and right chest tube placement on 04/14/2023 Sepsis secondary to above Pleuritic chest pain secondary to above Bilateral pulmonary nodules as per CT chest on 03/22/2023. Ongoing nicotine addiction Daily alcohol use, maintained on CIWA protocol Anxiety/depression Hypertension Hyperlipidemia DVT prophylaxis and GI prophylaxis. Plan: Patient will be continued on Zosyn as well as Levaquin. Cultures thus far negative and finalized are pending. continue with oxygen supplementation, currently maintained on 4 L via nasal cannula. Interventional radiology placed right-sided chest tube. Pulmonary following as well and patient is status post bronchoscopy with BAL and cultures are pending Continue breathing inhalational treatments. White count is trending down and will follow-up on repeat labs. Monitor for alcohol withdrawal symptoms and currently maintained on CIWA protocol, not currently requiring Ativan Pulmonary following due to extensive pneumonia and underlying pulmonary nodules and is status post chest tube placement as well as bronchoscopy. Repeat ct chest ordered for am. Continue to encourage incentive spirometer at least 10 times every hour while awake. Encouraged to increase activity as tolerated. Due to multiple complex medical issues, prognosis is guarded at this time. The impression and plan of care has been dictated by Barbara Lawler, Nurse Practitioner as directed. Dr. Jose Armando MD I have performed a history and examination and MDM of this patient, discussed the same with the dictator, and agree with the dictator's assessment and plan as written ,documented as a scribe. Based on total visit time, I have performed more than 50% of the visit. Objective - Vital Signs Vital signs: Vital Signs Temp 97.7 F 04/17/23 13:53 Pulse 98 04/17/23 15:29 Resp 21 04/17/23 13:53 BP 127/79 04/17/23 13:53 Pulse Ox 99 04/17/23 13:53 FiO2 Intake & Output 04/16/23 04/17/23 04/17/23 18:59 06:59 18:59 Output Total 503 1000 0 Balance -503 -1000 0 Output: Chest Tube Drainage 3 0 Pleural Catheter Right 3 0 Posterior Chest Urine 500 1000 Other: Voiding Method Urinal Urinal Urinal # Voids 3 1 - Labs CBC & Chem 7: 04/17/23 06:14 04/17/23 06:14 Labs: Abnormal Lab Results - Last 24 Hours (Table) 04/17/23 04/17/23 Range/Units 06:14 06:14 WBC 12.67 H (4.50-10.00) X 10*3/uL RBC 2.64 L (4.40-5.60) X 10*6/uL Hgb 8.6 L (13.0-17.0) g/dL Hct 25.9 L (39.6-50.0) % MCV 98.1 H (80.0-97.0) FL MCH 32.6 H (27.0-32.0) pg Immature Gran # 0.15 H (0.00-0.04) X 10*3/uL Neutrophils # 9.18 H (1.80-7.70) X 10*3/uL Monocytes # 1.61 H (0.20-1.00) X 10*3/uL Eosinophils # 0.41 H (0.04-0.35) X 10*3/uL Sodium 133 L (135-145) mmol/L BUN 6.4 L (9.0-27.0) mg/dL Creatinine 0.5 L (0.6-1.5) mg/dL Calcium 7.9 L (8.7-10.3) mg/dL Microbiology - Last 24 Hours (Table) 04/15/23 15:00 Gram Stain - Preliminary Pleural Fluid Body Fluid Culture - Preliminary 04/14/23 15:02 Gram Stain - Final Bronchoalviolar Lavage - Right Bronchial Washings Culture - Final 04/15/23 15:00 Acid Fast Bacilli Smear - Preliminary Pleural Fluid
[2023-04-18] MEDS: IPRATROPIUM-ALBUTEROL 3 ML NEB INHALATION SCH ×5 (07:34→20:33)
--- NOTE | 2023-04-18 08:41 | CT ---
EXAMINATION TYPE: CT chest wo con CT DLP: 253.8 mGycm, Automated exposure control for dose reduction was used. DATE OF EXAM: 04/18/2023 8:30 AM COMPARISON: . Chest radiograph from 04/16/2023, CT chest 04/13/2023 CLINICAL INDICATION:Male, 62 years old with history of Right empyema; [facility], TECHNIQUE: Multiple axial images were obtained through the chest without IV contrast. Lack of IV or o ral contrast limits evaluation of solid and hollow organ viscera. . Coronal and sagittal reformats re viewed. FINDINGS: LUNGS/ PLEURA: Small right lower lobe loculated pleural effusion with pleural pigtail catheter identi fied. Decrease from prior exam. No pneumothorax. Redemonstration of few scattered pulmonary nodules largest in the left lower lobe along the pleura measuring up to 1.4 cm (series 205, image 54). Increa sed patchy reticular groundglass opacities throughout the left lung most probably within the upper lo be. Redemonstration of large irregular consolidation right upper lobe with peripheral thick wall. Thi s measures grossly 8.2 x 5.3 cm. Dilated bronchials are identified within this consolidation. Surroun ding groundglass reticular opacities demonstrated within the right upper lobe again. AIRWAY: Patent and unremarkable.. HEART: Size within normal limits.Increased density within the coronary arteries may relate to scleros is versus vascular stents.. MEDIASTINUM: A few mildly prominent/enlarged mediastinal and right hilar lymph nodes identified again . This measures up to 0.9 cm short axis. VASCULATURE: No aortic aneurysm. Atherosclerotic calcification of the aorta and its branches. MUSCULOSKELETAL: No acute osseous abnormalities. No aggressive osseous lesion. SOFT TISSUES/LYMPH NODES: Unremarkable. LOWER NECK: No significant findings. UPPER ABDOMEN: No significant findings. IMPRESSION: 1. Redemonstration of right upper lobe large irregular consolidation with peripheral thick wall which may represent cavitary pneumonia. Overall similar appearance to prior exam. 2. Similar scattered pulmonary nodules from prior examination which may represent infectious nodules. Attention on follow-up. 3. Similar mediastinal and hilar adenopathy. 4. Scattered reticular groundglass opacities throughout both lungs which is increased in the left upp er lobe from prior examination likely representing infectious/inflammatory process. 5. Slightly decreased size of loculated right lower lung pleural effusion and/or empyema with pleural pigtail catheter in place.
[2023-04-18] MEDS: PANTOPRAZOLE 40 MG/10 ML VIAL IVP SCH ×2 (09:13→20:13)
[2023-04-18] MEDS: THIAMINE 100 MG TAB PO SCH (09:14)
[2023-04-18] MEDS: NICOTINE 21MG/24HR PATCH TRANSDERM SCH (09:14)
[2023-04-18] MEDS: ASPIRIN 81 MG PO SCH (09:14)
[2023-04-18] MEDS: MAGNESIUM OXIDE 400 MG TAB PO SCH (09:14)
[2023-04-18] MEDS: amLODIPine 5 MG TAB PO SCH (09:14)
[2023-04-18] MEDS: ATORVASTATIN 20 MG TAB PO SCH (09:14)
[2023-04-18] MEDS: VENLAFAXINE HCL ER 37.5 MG CAP PO SCH (09:15)
[2023-04-18] MEDS: LEVOFLOXACIN 750 MG TAB PO SCH (09:15)
[2023-04-18 09:47] LABS: Nucleated Cells, Body Fluid 0 /UL; RBC, Body Fluid 137500 /UL (0-2000)
--- NOTE | 2023-04-18 13:36 | P.PN ---
Subjective Progress Note Date: 04/18/23 Patient is a 62-year-old male with known history of severe alcohol abuse, hypertension, hyperlipidemia, depression, anxiety and currently everyday smoker presents to ER from his PCPs office due to concern for possible pneumonia. Patient was seen in the ER on 03/22/2023 due to concern for pleurisy CTA chest was done at that time showed no evidence of PE. Moderate pulmonary emphysematous changes. Multiple bilateral pulmonary nodules consideration including neoplasm/metastatic disease. And infectious process/septic emboli and follow-up was recommended. Patient states that he felt better for the weekend started having shortness of breath again since last week with a nonproductive cough. Is also having chest pain with deep breathing and coughing. Denies any nausea or vomiting. Denies any fever or chills. Chest x-ray showed worsening right upper lobe consolidation. Developing minimal left hilar infiltrate. Stable right pleural fluid. EKG showed sinus tachycardia. Patient was given antibiotics in the form of ceftriaxone and azithromycin. Laboratory data showed WBC 29.6 hemoglobin 11.7 and platelets 361 Sodium 130 potassium 3.9 chloride 97 bicarb is 20 BUN 16 and creatinine 0.77 and blood sugar 151 Troponin 0.012 and proBNP 1030 Procalcitonin level is 64.6 and urinalysis negative for infection. Influenza A, B, RSV and COVID-19 PCR not detected. 04/14/2023 Patient is seen in follow-up this morning with pulmonary following and patient is scheduled to undergo bronchoscopy today along with chest tube placement. Interventional radiology consulted for chest tube placement. Patient continued on antibiotics along with steroids and breathing inhalational treatments and will await bronchoscopy report. Await cultures to determine discharge antibiotics. Patient is afebrile and white count is trending down 04/15/2023 Patient is seen in follow-up this morning with pulmonary following. Patient is status post bronchoscopy with cultures pending as well as chest tube placement on the right. Patient continues to be significantly short of breath and bronchospastic with frequent coughing spells and pain due to the cough. Patient having some rib cage pain and will add lidocaine patches. Patient encouraged to increase activity as tolerated and will also add incentive spirometer and encouraged the patient to use at least 10 times every hour while awake. Patient is currently afebrile and white count is trending down and will follow-up with repeat labs. Continue on CIWA protocol. Patient does not appear to be actively withdrawing at this time although is somewhat anxious due to the shortness of breath. 04/16/2023 Patient is seen in follow-up today currently sitting up on the side of the bed with pulmonary following continued on breathing inhalational treatments along with antibiotics. Cultures thus far status post bronchoscopy has been negative and patient continues with right-sided chest tube awaiting finalized cultures. Patient is afebrile white count is trending down and patient reports some improvement in shortness of breath. Patient continues to have cough with dyspnea with exertion. Continue with CIWA protocol as needed. Continue pain management. Encouraged to increase activity as tolerated. 04/17/2023 Patient is seen in follow-up today with pulmonary following. Continued on antibiotics in the form of Levaquin and Zosyn and cultures thus far are negative. Patient continues with 2 to 3 L via nasal cannula and continues to report shortness of breath with frequent coughing spells. Encouraged incentive spirometer and increased activity as tolerated. Patient continues with chest tube and cultures remain pending from this as well. Plan for repeat CT of the chest in the a.m. 04/18/2023 Patient is seen in follow-up today with pulmonary following continued on antibiotics in the form of Zosyn along with Levaquin. Cultures remain negative thus far and patient continues with catheter on the right chest and is scheduled for repeat CT chest today which is pending at this time. Patient discussed possible removal of the catheter today and patient also reporting he would like to go home as he has financial situations to take care of. Patient is afebrile with no reports of worsening shortness of breath, chest pains or palpitations. Patient continues on breathing inhalational treatments as well. Patient currently continues on 2 to 3 L of oxygen via nasal cannula and reports does not wear oxygen outpatient. Discussed with case management in the event patient may require oxygen on discharge. Will perform home O2 eval and await pulmonary clearance to discuss discharge planning. Encouraged to increase activity as tolerated and continued incentive spirometer use. Review of systems: Constitutional: No reports of fatigue, fever, or chills Cardiovascular: No reports of chest pain or palpitations Respiratory: reports of continued shortness of breath with frequent coughing spells although feels shortness of breath is improving GI: No reports of nausea, vomiting, or diarrhea : No reports of dysuria or retention Neurovascular: No reports of weakness or numbness All medications have been reviewed PHYSICAL EXAMINATION: Patient is sitting up at the side of the bed , no acute distress, awake alert and oriented.. Thin built, elderly appearing HEENT: Normocephalic. Neck is supple. Pupils reactive. Nostrils clear. Oral cavity is moist. Neck reveals no JVD, carotid bruits, or thyromegaly. CHEST EXAMINATION: Trachea is central. Symmetrical expansion. Bilateral coarse breath sounds. Nonlabored breathing. Faint expiratory wheezing. Less bronchospastic on exam, right-sided chest tube noted CARDIAC: Normal S1, S2 with no gallops. No murmurs ABDOMEN: Soft. Bowel sounds present. Nontender. No organomegaly. No abdominal bruits. Extremities: reveal no edema. No clubbing or cyanosis Neurologically awake, alert, oriented x3 with well-coordinated movements. No focal deficits noted Skin: No rash or skin lesions. Psychiatric: Cooperative. Non-suicidal, slightly anxious Musculoskeletal: No joint swelling or deformity. Normal range of motion. Assessment: Acute hypoxic respiratory failure secondary to right lung pneumonia. Significant leukocytosis and elevated procalcitonin level of 64.6. Right upper lobe pneumonia and also developing minimal left hilar infiltrate. Stable right pleural effusion. Status post bronchoscopy with BAL and right chest tube placement on 04/14/2023 Sepsis secondary to above Pleuritic chest pain secondary to above Bilateral pulmonary nodules as per CT chest on 03/22/2023. Ongoing nicotine addiction Daily alcohol use, maintained on CIWA protocol Anxiety/depression Hypertension Hyperlipidemia DVT prophylaxis and GI prophylaxis. Plan: Patient will be continued on Zosyn as well as Levaquin. Cultures thus far negative. continue with oxygen supplementation, currently maintained on 2-3 L via nasal cannula. Wean FiO2 as tolerated as patient does not wear oxygen outpatient. Will assess for home O2 eval. Encouraged incentive spirometer use and increased activity as tolerated Interventional radiology placed right-sided chest tube. Pulmonary following as well and patient is status post bronchoscopy with BAL and cultures are negative thus far. Repeat CT chest ordered and discussion of possible chest tube removal Continue breathing inhalational treatments. Monitor for alcohol withdrawal symptoms and currently maintained on CIWA protocol, not currently requiring Ativan Pulmonary following due to extensive pneumonia and underlying pulmonary nodules and is status post chest tube placement as well as bronchoscopy. Repeat ct chest results pending Patient is asking when he can go home. Will discuss further with pulmonary on discharge planning with possible discharge in 24 hours Due to multiple complex medical issues, prognosis is guarded at this time. The impression and plan of care has been dictated by Barbara Lawler, Nurse Practitioner as directed. Dr. Jose Armando MD I have performed a history and examination and MDM of this patient, discussed the same with the dictator, and agree with the dictator's assessment and plan as written ,documented as a scribe. Based on total visit time, I have performed more than 50% of the visit. Objective - Vital Signs Vital signs: Vital Signs Temp 97.8 F 04/18/23 07:38 Pulse 97 04/18/23 11:04 Resp 19 04/18/23 07:38 BP 132/76 04/18/23 07:38 Pulse Ox 92 L 04/18/23 07:38 FiO2 Intake & Output 04/17/23 04/18/23 04/18/23 18:59 06:59 18:59 Output Total 0 3000 Balance 0 -3000 Output: Chest Tube Drainage 0 Pleural Catheter Right 0 Posterior Chest Urine 3000 Other: Voiding Method Urinal Urinal Toilet Urinal # Voids 5 5 - Labs CBC & Chem 7: 04/17/23 06:14 04/17/23 06:14 Labs: Abnormal Lab Results - Last 24 Hours (Table) 04/14/23 Range/Units 15:02 Fluid RBC [id number] H (0-2000) /uL Microbiology - Last 24 Hours (Table) 04/15/23 15:00 Anaerobic Culture - Preliminary Pleural Fluid 04/15/23 15:00 Gram Stain - Preliminary Pleural Fluid Body Fluid Culture - Preliminary 04/12/23 16:40 Blood Culture - Final Blood 04/12/23 16:35 Blood Culture - Final Blood 04/14/23 15:02 Gram Stain - Final Bronchoalviolar Lavage - Right Bronchial Washings Culture - Final
--- NOTE | 2023-04-18 14:39 | P.PN ---
Subjective Progress Note Date: 04/18/23 This is a pleasant 62-year-old male patient with a known history of anxiety, hyperlipidemia, hypertension, chronic and ongoing tobacco dependence, chronic daily alcohol use who had recently been having issues with shortness of breath cough congestion pleuritic type right-sided chest pain and had been following with his PCP. CT scan from March for 2023 revealed moderate pulmonary emphysematous changes. Multiple bilateral pulmonary nodules, nonspecific, right hilar adenopathy. The patient was scheduled to see Dr. Meek in our office as an outpatient however his symptoms continued to worsen and he presented here to the emergency room yesterday. He has been having issues with anxiety, dyspnea on exertion, cough and congestion. He states his cough has been light to dark brown in nature. He has been having issues with fevers and chills. Chest x-ray reveals worsening right upper lobe consolidation. Developing minimal left hilar infiltrate. Stable right pleural effusion. CT scan of the chest today reveals a large consolidation, interval development, right upper lobe. Scattered small additional foci could be small nodules or infectious etiology bilaterally. Enlarged mediastinal adenopathy. Loculated right basilar pleural effusion. White count 27.1. Hemoglobin 11.4. Sodium 133. Potassium 4.6. Bicarb 18. BUN 12. Creatinine 0.7. Glucose 115. Viral screen was negative. Urinalysis clean. Troponin negative. BNP 1030. Procalcitonin 64.60. He was initiated on Zosyn and azithromycin. He is seen today in consultation in the emergency department. He is awake and alert in no acute distress. He is somewhat anxious. He is maintaining O2 saturation in the 90s on 2 L/min per nasal cannula. He does state his last drink was yesterday morning prior to coming to the emergency room. He is on the CIWA protocol. The patient denies having passed out or aspirated. The patient is seen today April 14, 2023 in follow-up on the regular medical floor. He is currently sitting up in bed. Awake and alert in no acute distress. Feeling about the same today as compared to yesterday. Maintaining O2 saturations in the 90s on 2 L/min per nasal cannula. He is afebrile. Slightly tachycardic. Blood pressure stable. Ultrasound of the right chest reveals a 7.0 cm pocket however the fluid appeared loculated with some lung tissue within. Blood culture pending. Sputum culture pending. White count 18.2. Hemoglobin 9.3. Sodium 130. Potassium 3.9. Bicarb 24. BUN 7. Creatinine 0.6. He is continued on bronchodilators, antibiotics in the form of Zosyn and Levaquin. Heparin for DVT prophylaxis. NicoDerm patch in place. The patient is seen today April 15, 2023 in follow-up on the regular medical floor. He is currently resting comfortably in bed. Awake and alert in no acute distress. He is maintaining good O2 saturations in the 90s on 2 L/min per nasal cannula. He is afebrile. Hemodynamically stable. White count 12.9. Hemoglobin 8.3. Platelets 287. Sodium 137. Potassium 3.6. Bicarb 25. BUN 7. Creatinine 0.5. Bronchoscopy cultures pending. Cytology pending. He remains on Zosyn and Levaquin. Continued on bronchodilators. Heparin for DVT prophylaxis. Remains on the C[facility] protocol. NicoDerm patch in place. The patient is seen today April 16, 2023 in follow-up on the regular medical floor. He is awake and alert in no acute distress. Feeling better today compared to yesterday. Still having some right-sided chest discomfort. Pleurx pigtail catheter remains in place. No leak noted. Approximately 110 mL out total thus far. Pathology is pending. Chest x-ray is showing improvement. He is maintaining O2 saturations in the 90s on 3 L/min per nasal cannula. Sputum culture revealed no growth. Bronchial wash cultures revealed no growth. White count 11.2. Hemoglobin 8.6. Platelets 329. Sodium 135. Potassium 3.4. Bicarb 26. BUN 6. Creatinine 0.5. Pleural fluid analysis reveals an exudate with a total protein of 3.5 and LDH of 419. He remains on Zosyn and Levaquin. Continued on bronchodilators. Heparin for DVT prophylaxis. Remains on the CIWA protocol. NicoDerm patch in place. The patient is seen today April 17, 2023 in follow-up on the regular medical floor. He is currently resting comfortably in bed. Awake and alert in no acute distress. Breathing easier today compared to yesterday. He does have ongoing cough and congestion. He is continued on Zosyn and Levaquin. Pigtail catheter remains in place with minimal output. No leak. Bronchial wash cultures revealed no growth. Sputum culture revealed no growth. Pleural fluid revealed exudate with a total protein of 3.5 and LDH of 419, cultures are pending. Pathology is pending. Count 12.6. Hemoglobin 8.6. Platelets 398. Sodium 133. Potassium 3.7. Bicarb 27. BUN 6. Creatinine 0.5. He remains on bronchodilators. Heparin for DVT prophylaxis. Remains on the CIMO protocol. NicoDerm patch in place. To saturations in the 90s on 3 L nasal cannula. He is afebrile. Hemodynamically stable. The patient is seen today April 18, 2023 and follow-up on the regular medical floor. He is sitting up in bed. Awake and alert in no acute distress. Denies any worsening shortness of breath, cough or congestion. Feeling better today compared to yesterday. Maintaining good O2 saturations in the 90s on 3 L/min per nasal cannula. Has been afebrile. Hemodynamically stable. CT scan of the chest continues to redemonstrate the right upper lobe large irregular consolidation with peripheral thick wall which may represent cavitary pneumonia. Overall similar appearance to prior. Similar scattered pulmonary nodules. S imilar mediastinal and hilar adenopathy. Scattered reticular groundglass opacities throughout both lungs. Slightly decreased size of loculated right lower lung effusion/empyema with pleural pigtail catheter in place. Pleural fluid cultures revealed no growth. Bronchial wash cultures revealing no growth. Pathology is pending. White count 12.6. Hemoglobin 8.6. Sodium 133. Potassium 3.7. Bicarb 27. BUN 6.4. Creatinine 0.5. Glucose 84. He remains on Zosyn and Levaquin. NicoDerm patch in place. Heparin for DVT prophylaxis. Objective - Vital Signs Vital signs: Vital Signs Temp 97.7 F 04/18/23 13:47 Pulse 95 04/18/23 13:47 Resp 21 04/18/23 13:47 BP 127/67 04/18/23 13:47 Pulse Ox 97 04/18/23 13:47 FiO2 Intake & Output 04/17/23 04/18/23 04/18/23 18:59 06:59 18:59 Output Total 0 3000 Balance 0 -3000 Output: Chest Tube Drainage 0 Pleural Catheter Right 0 Posterior Chest Urine 3000 Other: Voiding Method Urinal Urinal Toilet Urinal # Voids 5 5 - Exam GENERAL EXAM: Alert, pleasant 62-year-old male, sitting up at the bedside, comfortable, on 3 L nasal cannula, in no apparent distress. HEAD: Normocephalic. EYES: Normal reaction of pupils, equal size. NOSE: Clear with pink turbinates. THROAT: No erythema or exudates. NECK: No masses, no JVD. CHEST: No chest wall deformity. Right-sided pigtail catheter remains in place. No leak noted. Normal output LUNGS: Equal air entry with rhonchi, crackles throughout the right lung. CVS: S1 and S2 normal with no audible murmur, regular rhythm. ABDOMEN: No hepatosplenomegaly, normal bowel sounds, no guarding or rigidity. SPINE: No scoliosis or deformity SKIN: No rashes CENTRAL NERVOUS SYSTEM: No focal deficits, tone is normal in all 4 extremities. EXTREMITIES: There is no peripheral edema. No clubbing, no cyanosis. Peripheral pulses are intact. - Labs CBC & Chem 7: 04/17/23 06:14 04/17/23 06:14 Labs: Abnormal Lab Results - Last 24 Hours (Table) 04/14/23 Range/Units 15:02 Fluid RBC [id number] H (0-2000) /uL Microbiology - Last 24 Hours (Table) 04/15/23 15:00 Anaerobic Culture - Preliminary Pleural Fluid 04/15/23 15:00 Gram Stain - Preliminary Pleural Fluid Body Fluid Culture - Preliminary 04/12/23 16:40 Blood Culture - Final Blood 04/12/23 16:35 Blood Culture - Final Blood 04/14/23 15:02 Gram Stain - Final Bronchoalviolar Lavage - Right Bronchial Washings Culture - Final Assessment and Plan Assessment: Acute hypoxemic respiratory failure secondary to acute right lung pneumonia, possible abscess, cannot rule out malignancy. Procalcitonin 64.6. Viral screen negative. Initiated on Zosyn and Levaquin. Ultrasound of the right chest reve aled a 7.0 cm pocket however it was somewhat loculated and with lung tissue in place. Pigtail catheter placed April 14, 2023. Fluid is an exudate. Bronchoscopy with biopsies performed April 14, 2023. Cultures and cytology pending. Follow-up CT scan of the chest continues to redemonstrate the right upper lobe large irregular consolidation with peripheral thick wall which may represent cavitary pneumonia. Overall similar appearance to prior. Similar scattered pulmonary nodules. Similar mediastinal and hilar adenopathy. Scattered reticular groundglass opacities throughout both lungs. Slightly decreased size of loculated right lower lung effusion/empyema with pleural pigtail catheter in place. Acute right-sided chest wall pain secondary to above Recent CAT scan March 22, 2023 revealing bilateral pulmonary nodules Chronic and ongoing tobacco dependence Chronic and ongoing daily alcohol use Previous hospitalization for alcohol withdrawal syndrome History of anxiety Hypertension Hyperlipidemia Plan: The patient was seen and evaluated CT scan of the chest, labs and medications reviewed Continue the current treatment plan We will request IR to remove the pigtail catheter We will continue to follow I have personally seen and examined the patient, performed the documentation and the assessment and plan as written. Number of minutes spent on the visit: 10.
[2023-04-19] MEDS: HEPARIN SODIUM,PORCINE 5,000 UNIT/ML 1 ML VIAL SQ SCH ×2 (07:31→16:05)
[2023-04-19] MEDS: ASPIRIN 81 MG PO SCH (07:34)
[2023-04-19] MEDS: PIPERACILLIN-TAZOBACTAM 3.375 GM in SODIUM CHLORIDE 0.9% 100 ML IVPB SCH (07:34)
[2023-04-19] MEDS: amLODIPine 5 MG TAB PO SCH (07:35)
[2023-04-19] MEDS: MAGNESIUM OXIDE 400 MG TAB PO SCH (07:35)
[2023-04-19] MEDS: NICOTINE 21MG/24HR PATCH TRANSDERM SCH (07:35)
[2023-04-19] MEDS: ATORVASTATIN 20 MG TAB PO SCH (07:35)
[2023-04-19] MEDS: THIAMINE 100 MG TAB PO SCH (07:35)
[2023-04-19] MEDS: LEVOFLOXACIN 750 MG TAB PO SCH (07:36)
[2023-04-19] MEDS: VENLAFAXINE HCL ER 37.5 MG CAP PO SCH (07:45)
[2023-04-19] MEDS: IPRATROPIUM-ALBUTEROL 3 ML NEB INHALATION SCH ×4 (08:16→21:39)
[2023-04-19] MEDS: PANTOPRAZOLE 40 MG/10 ML VIAL IVP SCH ×2 (08:45→20:20)
--- NOTE | 2023-04-19 09:47 | P.PN ---
Progress Note - Text Progress Note Date: 04/19/23 Patient will require 2 L of oxygen via nasal cannula on discharge to manage COPD. Prescription was provided to case management.
[2023-04-19 11:42] VITALS: BMI 21.5
--- NOTE | 2023-04-19 14:18 | P.PN ---
Subjective Progress Note Date: 04/19/23 This is a pleasant 62-year-old male patient with a known history of anxiety, hyperlipidemia, hypertension, chronic and ongoing tobacco dependence, chronic daily alcohol use who had recently been having issues with shortness of breath cough congestion pleuritic type right-sided chest pain and had been following with his PCP. CT scan from March for 2023 revealed moderate pulmonary emphysematous changes. Multiple bilateral pulmonary nodules, nonspecific, right hilar adenopathy. The patient was scheduled to see Dr. Meek in our office as an outpatient however his symptoms continued to worsen and he presented here to the emergency room yesterday. He has been having issues with anxiety, dyspnea on exertion, cough and congestion. He states his cough has been light to dark brown in nature. He has been having issues with fevers and chills. Chest x-ray reveals worsening right upper lobe consolidation. Developing minimal left hilar infiltrate. Stable right pleural effusion. CT scan of the chest today reveals a large consolidation, interval development, right upper lobe. Scattered small additional foci could be small nodules or infectious etiology bilaterally. Enlarged mediastinal adenopathy. Loculated right basilar pleural effusion. White count 27.1. Hemoglobin 11.4. Sodium 133. Potassium 4.6. Bicarb 18. BUN 12. Creatinine 0.7. Glucose 115. Viral screen was negative. Urinalysis clean. Troponin negative. BNP 1030. Procalcitonin 64.60. He was initiated on Zosyn and azithromycin. He is seen today in consultation in the emergency department. He is awake and alert in no acute distress. He is somewhat anxious. He is maintaining O2 saturation in the 90s on 2 L/min per nasal cannula. He does state his last drink was yesterday morning prior to coming to the emergency room. He is on the CIWA protocol. The patient denies having passed out or aspirated. The patient is seen today April 14, 2023 in follow-up on the regular medical floor. He is currently sitting up in bed. Awake and alert in no acute distress. Feeling about the same today as compared to yesterday. Maintaining O2 saturations in the 90s on 2 L/min per nasal cannula. He is afebrile. Slightly tachycardic. Blood pressure stable. Ultrasound of the right chest reveals a 7.0 cm pocket however the fluid appeared loculated with some lung tissue within. Blood culture pending. Sputum culture pending. White count 18.2. Hemoglobin 9.3. Sodium 130. Potassium 3.9. Bicarb 24. BUN 7. Creatinine 0.6. He is continued on bronchodilators, antibiotics in the form of Zosyn and Levaquin. Heparin for DVT prophylaxis. NicoDerm patch in place. The patient is seen today April 15, 2023 in follow-up on the regular medical floor. He is currently resting comfortably in bed. Awake and alert in no acute distress. He is maintaining good O2 saturations in the 90s on 2 L/min per nasal cannula. He is afebrile. Hemodynamically stable. White count 12.9. Hemoglobin 8.3. Platelets 287. Sodium 137. Potassium 3.6. Bicarb 25. BUN 7. Creatinine 0.5. Bronchoscopy cultures pending. Cytology pending. He remains on Zosyn and Levaquin. Continued on bronchodilators. Heparin for DVT prophylaxis. Remains on the CINY protocol. NicoDerm patch in place. The patient is seen today April 16, 2023 in follow-up on the regular medical floor. He is awake and alert in no acute distress. Feeling better today compared to yesterday. Still having some right-sided chest discomfort. Pleurx pigtail catheter remains in place. No leak noted. Approximately 110 mL out total thus far. Pathology is pending. Chest x-ray is showing improvement. He is maintaining O2 saturations in the 90s on 3 L/min per nasal cannula. Sputum culture revealed no growth. Bronchial wash cultures revealed no growth. White count 11.2. Hemoglobin 8.6. Platelets 329. Sodium 135. Potassium 3.4. Bicarb 26. BUN 6. Creatinine 0.5. Pleural fluid analysis reveals an exudate with a total protein of 3.5 and LDH of 419. He remains on Zosyn and Levaquin. Continued on bronchodilators. Heparin for DVT prophylaxis. Remains on the CIWA protocol. NicoDerm patch in place. The patient is seen today April 17, 2023 in follow-up on the regular medical floor. He is currently resting comfortably in bed. Awake and alert in no acute distress. Breathing easier today compared to yesterday. He does have ongoing cough and congestion. He is continued on Zosyn and Levaquin. Pigtail catheter remains in place with minimal output. No leak. Bronchial wash cultures revealed no growth. Sputum culture revealed no growth. Pleural fluid revealed exudate with a total protein of 3.5 and LDH of 419, cultures are pending. Pathology is pending. Count 12.6. Hemoglobin 8.6. Platelets 398. Sodium 133. Potassium 3.7. Bicarb 27. BUN 6. Creatinine 0.5. He remains on bronchodilators. Heparin for DVT prophylaxis. Remains on the CINY protocol. NicoDerm patch in place. To saturations in the 90s on 3 L nasal cannula. He is afebrile. Hemodynamically stable. The patient is seen today April 18, 2023 and follow-up on the regular medical floor. He is sitting up in bed. Awake and alert in no acute distress. Denies any worsening shortness of breath, cough or congestion. Feeling better today compared to yesterday. Maintaining good O2 saturations in the 90s on 3 L/min per nasal cannula. Has been afebrile. Hemodynamically stable. CT scan of the chest continues to redemonstrate the right upper lobe large irregular consolidation with peripheral thick wall which may represent cavitary pneumonia. Overall similar appearance to prior. Similar scattered pulmonary nodules. S imilar mediastinal and hilar adenopathy. Scattered reticular groundglass opacities throughout both lungs. Slightly decreased size of loculated right lower lung effusion/empyema with pleural pigtail catheter in place. Pleural fluid cultures revealed no growth. Bronchial wash cultures revealing no growth. Pathology is pending. White count 12.6. Hemoglobin 8.6. Sodium 133. Potassium 3.7. Bicarb 27. BUN 6.4. Creatinine 0.5. Glucose 84. He remains on Zosyn and Levaquin. NicoDerm patch in place. Heparin for DVT prophylaxis. The patient is seen today April 19, 2023 in follow-up on the regular medical floor. He is currently resting comfortably in bed. Awake and alert in no acute distress. His pigtail catheter was removed yesterday. He is maintaining good O2 saturations in the 90s on 2 L/min per nasal cannula. He remains on antibiotics in the form of Zosyn and Levaquin. NicoDerm patch remains in place. Lung biopsies revealed focal organizing pneumonia, acute and chronic inflammation and focal fibrosis. No evidence of malignancy. Pleural fluid cultures revealed no growth. Bronchial wash cultures revealed no growth. Objective - Vital Signs Vital signs: Vital Signs Temp 97.4 F L 04/19/23 07:31 Pulse 104 H 04/19/23 09:14 Resp 18 04/19/23 07:31 BP 124/70 04/19/23 07:31 Pulse Ox 94 L 04/19/23 09:14 FiO2 Intake & Output 04/18/23 04/19/23 04/19/23 18:59 06:59 18:59 Weight 66.224 kg Other: Voiding Method Toilet Toilet Urinal Urinal # Voids 4 3 - Exam GENERAL EXAM: Alert, pleasant 62-year-old male, on 3 L nasal cannula, in no apparent distress. HEAD: Normocephalic. EYES: Normal reaction of pupils, equal size. NOSE: Clear with pink turbinates. THROAT: No erythema or exudates. NECK: No masses, no JVD. CHEST: No chest wall deformity. Right-sided pigtail catheter removed. LUNGS: Equal air entry with rhonchi, crackles throughout the right lung. CVS: S1 and S2 normal with no audible murmur, regular rhythm. ABDOMEN: No hepatosplenomegaly, normal bowel sounds, no guarding or rigidity. SPINE: No scoliosis or deformity SKIN: No rashes CENTRAL NERVOUS SYSTEM: No focal deficits, tone is normal in all 4 extremities. EXTREMITIES: There is no peripheral edema. No clubbing, no cyanosis. Peripheral pulses are intact. - Labs CBC & Chem 7: 04/17/23 06:14 04/17/23 06:14 Labs: Microbiology - Last 24 Hours (Table) 04/15/23 15:00 Gram Stain - Preliminary Pleural Fluid Body Fluid Culture - Preliminary 04/15/23 15:00 Anaerobic Culture - Preliminary Pleural Fluid Assessment and Plan Assessment: Acute hypoxemic respiratory failure secondary to acute right lung pneumonia, possible abscess, cannot rule out malignancy. Procalcitonin 64.6. Viral screen negative. Initiated on Zosyn and Levaquin. Ultrasound of the right chest revealed a 7.0 cm pocket however it was somewhat loculated and with lung tissue in place. Pigtail catheter placed April 14, 2023. Fluid is an exudate. Bronchoscopy with biopsies performed April 14, 2023. Cultures negative. Pathology negative for malignancy. Follow-up CT scan of the chest continues to redemonstrate the right upper lobe large irregular consolidation with peripheral thick wall which may represent cavitary pneumonia. Overall similar appearance to prior. Similar scattered pulmonary nodules. Similar mediastinal and hilar adenopathy. Scattered reticular groundglass opacities throughout both lungs. Slightly decreased size of loculated right lower lung effusion/empyema with pleural pigtail catheter in place. Acute right-sided chest wall pain secondary to above, improved Recent CT scan March 22, 2023 revealing bilateral pulmonary nodules Chronic and ongoing tobacco dependence Chronic and ongoing daily alcohol use Previous hospitalization for alcohol withdrawal syndrome History of anxiety Hypertension Hyperlipidemia Plan: The patient was seen and evaluated Labs and medications reviewed Discontinue Zosyn Continue Levaquin for now Pigtail catheter removed Probable discharge in the a.m. Evaluate for possible home oxygen We will continue to follow I have personally seen and examined the patient, performed the documentation and the assessment and plan as written. Number of minutes spent on the visit: 10.
[2023-04-19] MEDS: HYDROcodone/APAP 5-325MG 1 EACH TAB PO PRN (18:39)
[2023-04-20] MEDS: HYDROcodone/APAP 5-325MG 1 EACH TAB PO PRN (00:03)
[2023-04-20] MEDS: HEPARIN SODIUM,PORCINE 5,000 UNIT/ML 1 ML VIAL SQ SCH ×2 (00:03→09:05)
--- NOTE | 2023-04-20 05:27 | P.PN ---
Subjective Progress Note Date: 04/19/23 Patient is a 62-year-old male with known history of severe alcohol abuse, hypertension, hyperlipidemia, depression, anxiety and currently everyday smoker presents to ER from his PCPs office due to concern for possible pneumonia. Patient was seen in the ER on 03/22/2023 due to concern for pleurisy CTA chest was done at that time showed no evidence of PE. Moderate pulmonary emphysematous changes. Multiple bilateral pulmonary nodules consideration including neoplasm/metastatic disease. And infectious process/septic emboli and follow-up was recommended. Patient states that he felt better for the weekend started having shortness of breath again since last week with a nonproductive cough. Is also having chest pain with deep breathing and coughing. Denies any nausea or vomiting. Denies any fever or chills. Chest x-ray showed worsening right upper lobe consolidation. Developing minimal left hilar infiltrate. Stable right pleural fluid. EKG showed sinus tachycardia. Patient was given antibiotics in the form of ceftriaxone and azithromycin. Laboratory data showed WBC 29.6 hemoglobin 11.7 and platelets 361 Sodium 130 potassium 3.9 chloride 97 bicarb is 20 BUN 16 and creatinine 0.77 and blood sugar 151 Troponin 0.012 and proBNP 1030 Procalcitonin level is 64.6 and urinalysis negative for infection. Influenza A, B, RSV and COVID-19 PCR not detected. 04/14/2023 Patient is seen in follow-up this morning with pulmonary following and patient is scheduled to undergo bronchoscopy today along with chest tube placement. Interventional radiology consulted for chest tube placement. Patient continued on antibiotics along with steroids and breathing inhalational treatments and will await bronchoscopy report. Await cultures to determine discharge antibiotics. Patient is afebrile and white count is trending down 04/15/2023 Patient is seen in follow-up this morning with pulmonary following. Patient is status post bronchoscopy with cultures pending as well as chest tube placement on the right. Patient continues to be significantly short of breath and bronchospastic with frequent coughing spells and pain due to the cough. Patient having some rib cage pain and will add lidocaine patches. Patient encouraged to increase activity as tolerated and will also add incentive spirometer and encouraged the patient to use at least 10 times every hour while awake. Patient is currently afebrile and white count is trending down and will follow-up with repeat labs. Continue on CIWA protocol. Patient does not appear to be actively withdrawing at this time although is somewhat anxious due to the shortness of breath. 04/16/2023 Patient is seen in follow-up today currently sitting up on the side of the bed with pulmonary following continued on breathing inhalational treatments along with antibiotics. Cultures thus far status post bronchoscopy has been negative and patient continues with right-sided chest tube awaiting finalized cultures. Patient is afebrile white count is trending down and patient reports some improvement in shortness of breath. Patient continues to have cough with dyspnea with exertion. Continue with CIWA protocol as needed. Continue pain management. Encouraged to increase activity as tolerated. 04/17/2023 Patient is seen in follow-up today with pulmonary following. Continued on antibiotics in the form of Levaquin and Zosyn and cultures thus far are negative. Patient continues with 2 to 3 L via nasal cannula and continues to report shortness of breath with frequent coughing spells. Encouraged incentive spirometer and increased activity as tolerated. Patient continues with chest tube and cultures remain pending from this as well. Plan for repeat CT of the chest in the a.m. 04/18/2023 Patient is seen in follow-up today with pulmonary following continued on antibiotics in the form of Zosyn along with Levaquin. Cultures remain negative thus far and patient continues with catheter on the right chest and is scheduled for repeat CT chest today which is pending at this time. Patient discussed possible removal of the catheter today and patient also reporting he would like to go home as he has financial situations to take care of. Patient is afebrile with no reports of worsening shortness of breath, chest pains or palpitations. Patient continues on breathing inhalational treatments as well. Patient currently continues on 2 to 3 L of oxygen via nasal cannula and reports does not wear oxygen outpatient. Discussed with case management in the event patient may require oxygen on discharge. Will perform home O2 eval and await pulmonary clearance to discuss discharge planning. Encouraged to increase activity as tolerated and continued incentive spirometer use. 04/19/2023 Patient is seen in follow-up today with pulmonary following and is continued on Levaquin. Patient has completed Zosyn and cultures are negative. Biopsy from the bronchoscopy suggestive of inflammatory/infectious process. Patient continues on 2 L and will require oxygen on discharge. Case management following arranging discharge planning. Patient is afebrile with no reported worsening shortness of breath. Patient denies chest pain. Patient is tolerating diet with no reported nausea or vomiting. Patient encouraged to continue using incentive spirometer and increase activity as tolerated. Review of systems: Constitutional: No reports of fatigue, fever, or chills Cardiovascular: No reports of chest pain or palpitations Respiratory: reports of continued shortness of breath with frequent coughing spells although feels shortness of breath is improving GI: No reports of nausea, vomiting, or diarrhea : No reports of dysuria or retention Neurovascular: No reports of weakness or numbness All medications have been reviewed PHYSICAL EXAMINATION: Patient is sitting up at the side of the bed , no acute distress, awake alert and oriented.. Thin built, elderly appearing HEENT: Normocephalic. Neck is supple. Pupils reactive. Nostrils clear. Oral cavity is moist. Neck reveals no JVD, carotid bruits, or thyromegaly. CHEST EXAMINATION: Trachea is central. Symmetrical expansion. Bilateral coarse breath sounds. Nonlabored breathing. Faint expiratory wheezing. Less bronchospastic on exam CARDIAC: Normal S1, S2 with no gallops. No murmurs ABDOMEN: Soft. Bowel sounds present. Nontender. No organomegaly. No abdominal bruits. Extremities: reveal no edema. No clubbing or cyanosis Neurologically awake, alert, oriented x3 with well-coordinated movements. No focal deficits noted Skin: No rash or skin lesions. Psychiatric: Cooperative. Non-suicidal, slightly anxious Musculoskeletal: No joint swelling or deformity. Normal range of motion. Assessment: Acute hypoxic respiratory failure secondary to right lung pneumonia. Significant leukocytosis and elevated procalcitonin level of 64.6. Right upper lobe pneumonia and also developing minimal left hilar infiltrate. Stable right pleural effusion. Status post bronchoscopy with BAL and right chest tube placement on 04/14/2023, status post chest tube removal on 04/18/2023 Sepsis secondary to above Pleuritic chest pain secondary to above Bilateral pulmonary nodules as per CT chest on 03/22/2023. Ongoing nicotine addiction Daily alcohol use, maintained on CIWA protocol Anxiety/depression Hypertension Hyperlipidemia DVT prophylaxis and GI prophylaxis. Plan: Patient will be continued on Levaquin. Cultures thus far negative. continue with oxygen supplementation, currently maintained on 2 L via nasal cannula. Wean FiO2 as tolerated as patient does not wear oxygen outpatient. Patient does qualify for home O2 and case management following and a prescription was provided.. Encouraged incentive spirometer use and increased activity as tolerated Interventional radiology placed right-sided chest tube. Pulmonary following as well and patient is status post bronchoscopy with BAL and cultures are negative thus far. Repeat CT chest ordered and chest tube has been removed Continue breathing inhalational treatments. Monitor for alcohol withdrawal symptoms and currently maintained on CIWA protocol, not currently requiring Ativan Patient is inquiring when he can go home. Pulmonary recommends monitoring overnight as chest tube was removed with possible discharge planning in the next 24 hours The impression and plan of care has been dictated by Barbara Lawler, Nurse Practitioner as directed. Dr. Octavia MD I have performed a history and examination and MDM of this patient, discussed the same with the dictator, and agree with the dictator's assessment and plan as written ,documented as a scribe. Based on total visit time, I have performed more than 50% of the visit. Objective - Vital Signs Vital signs: Vital Signs Temp 97.4 F L 04/19/23 07:31 Pulse 104 H 04/19/23 09:14 Resp 18 04/19/23 07:31 BP 124/70 04/19/23 07:31 Pulse Ox 94 L 04/19/23 09:14 FiO2 Intake & Output 04/18/23 04/19/23 04/19/23 18:59 06:59 18:59 Weight 66.224 kg Other: Voiding Method Toilet Toilet Urinal Urinal # Voids 4 3 - Labs CBC & Chem 7: 04/17/23 06:14 04/17/23 06:14 Labs: Abnormal Lab Results - Last 24 Hours (Table) 04/14/23 Range/Units 15:02 Fluid RBC [id number] H (0-2000) /uL Microbiology - Last 24 Hours (Table) 04/15/23 15:00 Gram Stain - Preliminary Pleural Fluid Body Fluid Culture - Preliminary 04/15/23 15:00 Anaerobic Culture - Preliminary Pleural Fluid
[2023-04-20 08:33] VITALS: BP 132/83; TEMP 97.8
[2023-04-20] MEDS: IPRATROPIUM-ALBUTEROL 3 ML NEB INHALATION SCH ×3 (09:03→15:58)
[2023-04-20] MEDS: ASPIRIN 81 MG PO SCH (09:05)
[2023-04-20] MEDS: amLODIPine 5 MG TAB PO SCH (09:05)
[2023-04-20] MEDS: MAGNESIUM OXIDE 400 MG TAB PO SCH (09:05)
[2023-04-20] MEDS: THIAMINE 100 MG TAB PO SCH (09:05)
[2023-04-20] MEDS: ATORVASTATIN 20 MG TAB PO SCH (09:05)
[2023-04-20] MEDS: LEVOFLOXACIN 750 MG TAB PO SCH (09:06)
[2023-04-20] MEDS: NICOTINE 21MG/24HR PATCH TRANSDERM SCH (09:06)
[2023-04-20] MEDS: PANTOPRAZOLE 40 MG/10 ML VIAL IVP SCH (09:06)
[2023-04-20] MEDS: VENLAFAXINE HCL ER 37.5 MG CAP PO SCH (09:06)
[2023-04-20 12:23] VITALS: PULSE 80; RESP 16
--- NOTE | 2023-04-20 14:15 | P.PN ---
Subjective Progress Note Date: 04/20/23 This is a pleasant 62-year-old male patient with a known history of anxiety, hyperlipidemia, hypertension, chronic and ongoing tobacco dependence, chronic daily alcohol use who had recently been having issues with shortness of breath cough congestion pleuritic type right-sided chest pain and had been following with his PCP. CT scan from March for 2023 revealed moderate pulmonary emphysematous changes. Multiple bilateral pulmonary nodules, nonspecific, right hilar adenopathy. The patient was scheduled to see Dr. Meek in our office as an outpatient however his symptoms continued to worsen and he presented here to the emergency room yesterday. He has been having issues with anxiety, dyspnea on exertion, cough and congestion. He states his cough has been light to dark brown in nature. He has been having issues with fevers and chills. Chest x-ray reveals worsening right upper lobe consolidation. Developing minimal left hilar infiltrate. Stable right pleural effusion. CT scan of the chest today reveals a large consolidation, interval development, right upper lobe. Scattered small additional foci could be small nodules or infectious etiology bilaterally. Enlarged mediastinal adenopathy. Loculated right basilar pleural effusion. White count 27.1. Hemoglobin 11.4. Sodium 133. Potassium 4.6. Bicarb 18. BUN 12. Creatinine 0.7. Glucose 115. Viral screen was negative. Urinalysis clean. Troponin negative. BNP 1030. Procalcitonin 64.60. He was initiated on Zosyn and azithromycin. He is seen today in consultation in the emergency department. He is awake and alert in no acute distress. He is somewhat anxious. He is maintaining O2 saturation in the 90s on 2 L/min per nasal cannula. He does state his last drink was yesterday morning prior to coming to the emergency room. He is on the CIWA protocol. The patient denies having passed out or aspirated. The patient is seen today April 14, 2023 in follow-up on the regular medical floor. He is currently sitting up in bed. Awake and alert in no acute distress. Feeling about the same today as compared to yesterday. Maintaining O2 saturations in the 90s on 2 L/min per nasal cannula. He is afebrile. Slightly tachycardic. Blood pressure stable. Ultrasound of the right chest reveals a 7.0 cm pocket however the fluid appeared loculated with some lung tissue within. Blood culture pending. Sputum culture pending. White count 18.2. Hemoglobin 9.3. Sodium 130. Potassium 3.9. Bicarb 24. BUN 7. Creatinine 0.6. He is continued on bronchodilators, antibiotics in the form of Zosyn and Levaquin. Heparin for DVT prophylaxis. NicoDerm patch in place. The patient is seen today April 15, 2023 in follow-up on the regular medical floor. He is currently resting comfortably in bed. Awake and alert in no acute distress. He is maintaining good O2 saturations in the 90s on 2 L/min per nasal cannula. He is afebrile. Hemodynamically stable. White count 12.9. Hemoglobin 8.3. Platelets 287. Sodium 137. Potassium 3.6. Bicarb 25. BUN 7. Creatinine 0.5. Bronchoscopy cultures pending. Cytology pending. He remains on Zosyn and Levaquin. Continued on bronchodilators. Heparin for DVT prophylaxis. Remains on the CILA protocol. NicoDerm patch in place. The patient is seen today April 16, 2023 in follow-up on the regular medical floor. He is awake and alert in no acute distress. Feeling better today compared to yesterday. Still having some right-sided chest discomfort. Pleurx pigtail catheter remains in place. No leak noted. Approximately 110 mL out total thus far. Pathology is pending. Chest x-ray is showing improvement. He is maintaining O2 saturations in the 90s on 3 L/min per nasal cannula. Sputum culture revealed no growth. Bronchial wash cultures revealed no growth. White count 11.2. Hemoglobin 8.6. Platelets 329. Sodium 135. Potassium 3.4. Bicarb 26. BUN 6. Creatinine 0.5. Pleural fluid analysis reveals an exudate with a total protein of 3.5 and LDH of 419. He remains on Zosyn and Levaquin. Continued on bronchodilators. Heparin for DVT prophylaxis. Remains on the CIWA protocol. NicoDerm patch in place. The patient is seen today April 17, 2023 in follow-up on the regular medical floor. He is currently resting comfortably in bed. Awake and alert in no acute distress. Breathing easier today compared to yesterday. He does have ongoing cough and congestion. He is continued on Zosyn and Levaquin. Pigtail catheter remains in place with minimal output. No leak. Bronchial wash cultures revealed no growth. Sputum culture revealed no growth. Pleural fluid revealed exudate with a total protein of 3.5 and LDH of 419, cultures are pending. Pathology is pending. Count 12.6. Hemoglobin 8.6. Platelets 398. Sodium 133. Potassium 3.7. Bicarb 27. BUN 6. Creatinine 0.5. He remains on bronchodilators. Heparin for DVT prophylaxis. Remains on the CILA protocol. NicoDerm patch in place. To saturations in the 90s on 3 L nasal cannula. He is afebrile. Hemodynamically stable. The patient is seen today April 18, 2023 and follow-up on the regular medical floor. He is sitting up in bed. Awake and alert in no acute distress. Denies any worsening shortness of breath, cough or congestion. Feeling better today compared to yesterday. Maintaining good O2 saturations in the 90s on 3 L/min per nasal cannula. Has been afebrile. Hemodynamically stable. CT scan of the chest continues to redemonstrate the right upper lobe large irregular consolidation with peripheral thick wall which may represent cavitary pneumonia. Overall similar appearance to prior. Similar scattered pulmonary nodules. S imilar mediastinal and hilar adenopathy. Scattered reticular groundglass opacities throughout both lungs. Slightly decreased size of loculated right lower lung effusion/empyema with pleural pigtail catheter in place. Pleural fluid cultures revealed no growth. Bronchial wash cultures revealing no growth. Pathology is pending. White count 12.6. Hemoglobin 8.6. Sodium 133. Potassium 3.7. Bicarb 27. BUN 6.4. Creatinine 0.5. Glucose 84. He remains on Zosyn and Levaquin. NicoDerm patch in place. Heparin for DVT prophylaxis. The patient is seen today April 19, 2023 in follow-up on the regular medical floor. He is currently resting comfortably in bed. Awake and alert in no acute distress. His pigtail catheter was removed yesterday. He is maintaining good O2 saturations in the 90s on 2 L/min per nasal cannula. He remains on antibiotics in the form of Zosyn and Levaquin. NicoDerm patch remains in place. Lung biopsies revealed focal organizing pneumonia, acute and chronic inflammation and focal fibrosis. No evidence of malignancy. Pleural fluid cultures revealed no growth. Bronchial wash cultures revealed no growth. The patient is seen today April 20, 2023 in follow-up on the regular medical floor. He is resting comfortably in bed. Awake and alert in no acute distress. Denies any worsening shortness of breath, cough or congestion. He is maintaining good O2 saturations in the 90s on 2 L/min per nasal cannula. Bronchial wash cultures revealed no growth. Pleural fluid cultures revealed no growth. Pathology revealed no evidence of malignancy. New labs today. Continued on DuoNeb ventilations. Heparin for DVT prophylaxis. NicoDerm patch in place. Antibiotics in the form of Levaquin. Objective - Vital Signs Vital signs: Vital Signs Temp 97.8 F 04/20/23 07:14 Pulse 80 04/20/23 12:14 Resp 16 04/20/23 12:14 BP 132/83 04/20/23 07:14 Pulse Ox 98 04/20/23 09:03 FiO2 Intake & Output 04/19/23 04/20/23 04/20/23 18:59 06:59 18:59 Intake Total 200 Balance 200 Intake: Intake, IV Titration 200 Amount Piperacillin-Tazobactam 3 200 .375 gm In Sodium Chloride 0.9% 100 ml @ 25 mls/hr IVPB Q8HR [facility] Rx# :[id number] Other: # Voids 3 3 - Exam GENERAL EXAM: Alert, pleasant 62-year-old male, sitting up in bed, on 2 L nasal cannula, in no apparent distress. HEAD: Normocephalic. EYES: Normal reaction of pupils, equal size. NOSE: Clear with pink turbinates. THROAT: No erythema or exudates. NECK: No masses, no JVD. CHEST: No chest wall deformity. Right-sided pigtail catheter removed. LUNGS: Equal air entry with rhonchi, crackles throughout the right lung. CVS: S1 and S2 normal with no audible murmur, regular rhythm. ABDOMEN: No hepatosplenomegaly, normal bowel sounds, no guarding or rigidity. SPINE: No scoliosis or deformity SKIN: No rashes CENTRAL NERVOUS SYSTEM: No focal deficits, tone is normal in all 4 extremities. EXTREMITIES: There is no peripheral edema. No clubbing, no cyanosis. Peripheral pulses are intact. - Labs CBC & Chem 7: 04/17/23 06:14 04/17/23 06:14 Labs: Microbiology - Last 24 Hours (Table) 04/15/23 15:00 Gram Stain - Final Pleural Fluid Body Fluid Culture - Final Assessment and Plan Assessment: Acute hypoxemic respiratory failure secondary to acute right lung pneumonia, possible abscess, cannot rule out malignancy. Procalcitonin 64.6. Viral screen negative. Initiated on Zosyn and Levaquin. Ultrasound of the right chest revealed a 7.0 cm pocket however it was somewhat loculated and with lung tissue in place. Pigtail catheter placed April 14, 2023. Fluid is an exudate. Bron choscopy with biopsies performed April 14, 2023. Cultures negative. Pathology negative for malignancy. Follow-up CT scan of the chest continues to redemonstrate the right upper lobe large irregular consolidation with peripheral thick wall which may represent cavitary pneumonia. Overall similar appearance to prior. Similar scattered pulmonary nodules. Similar mediastinal and hilar adenopathy. Scattered reticular groundglass opacities throughout both lungs. Slightly decreased size of loculated right lower lung effusion/empyema with pleural pigtail catheter placed and subsequently removed. Acute right-sided chest wall pain secondary to above, improved Recent CT scan March 22, 2023 revealing bilateral pulmonary nodules Chronic and ongoing tobacco dependence Chronic and ongoing daily alcohol use Previous hospitalization for alcohol withdrawal syndrome History of anxiety Hypertension Hyperlipidemia Plan: The patient was seen and evaluated Medications reviewed Cleared for discharge from the pulmonary standpoint Complete a course of Levaquin Educated regarding importance of complete smoking cessation NicoDerm patch in place Follow-up in our office in 1 week I have personally seen and examined the patient, performed the documentation and the assessment and plan as written. Number of minutes spent on the visit: 10.
--- NOTE | 2023-04-24 10:53 | P.DS ---
Providers Date of admission: 04/12/23 16:50 Expected date of discharge: 04/20/23 Attending physician: Joaquín Ramsey Consults: 04/13/23 10:20 Consult Physician Routine Consulting Provider: Jill Meek Consult Reason/Comments: RUL consolidation Do you want consulting provider notified?: Yes Primary care physician: Rina Lawrence [facility] Course: Final diagnosis Acute hypoxic respiratory failure secondary to right lung pneumonia. Significant leukocytosis and elevated procalcitonin level of 64.6. Right upper lobe pneumonia and also developing minimal left hilar infiltrate. Stable right pleural effusion. Status post bronchoscopy with BAL and right chest tube placement on 04/14/2023, status post chest tube removal on 04/18/2023 Sepsis secondary to above Pleuritic chest pain secondary to above Bilateral pulmonary nodules as per CT chest on 03/22/2023. Ongoing nicotine addiction Daily alcohol use, maintained on CIWA protocol Anxiety/depression Hypertension Hyperlipidemia DVT prophylaxis and GI prophylaxis. Discharge disposition Patient is being discharged in a stable condition with guarded prognosis to home. Patient will follow-up with Dr. Lawrence in the outpatient setting upon discharge. Patient is to continue with antibiotics and supplemental oxygen with close outpatient follow-up with pulmonary as scheduled. Total time taken is greater than 35 minutes. Hospital course This is a 62-year-old male who was recently admitted with hypoxic respiratory failure secondary to right lung pneumonia status post bronchoscopy with BAL and chest tube placement. Cultures from chest tube are negative patient was continued on antibiotics and will continue with Levaquin to complete the course. Patient continued to require oxygen secondary to COPD and will be discharged home on 2 L. Patient instructed to follow-up with primary care provider as well as pulmonary outpatient. Patient was continued on CIWA protocol although not requiring and patient was not actively withdrawing. Encourage complete tobacco and alcohol cessation. Patient has been cleared by consultations. Please refer to consultation note for further HPI. Currently no reports of chest pain, no worsening shortness of breath, or palpitations. Patient is afebrile. No reports of nausea or vomiting and patient is tolerating diet. Patient will be discharged home today. Physical exam: Gen: This is a 62-year-old male who is awake, alert and oriented x 3, thin built, elderly appearing HEENT: Head is atraumatic, normocephalic. Pupils equal, round. Sclerae is anicteric. NECK: Supple. No JVD. No lymphadenopathy. No thyromegaly. LUNGS: Diminished breath sounds bilaterally otherwise clear to auscultation. No wheezes, coarse rhonchi. No intercostal retractions. HEART: Regular rate and rhythm. No murmur. ABDOMEN: Soft. Bowel sounds are present. No masses. No tenderness. EXTREMITIES: No pedal edema. No calf tenderness. NEUROLOGICAL: Patient is awake, alert and oriented x3. Cranial nerves 2 through 12 are grossly intact. Please refer to medication reconciliation sheet for a list of medications. The impression and plan of care has been dictated by Barbara Lawler, Nurse Practitioner as directed. Dr. Octavia MD I have performed a history and examination and MDM of this patient, discussed the same with the dictator, and agree with the dictator's assessment and plan as written ,documented as a scribe. Based on total visit time, I have performed more than 50% of the visit. Patient Condition at Discharge: Stable Plan - Discharge Summary New Discharge Prescriptions: New Nicotine 21Mg/24Hr Patch [Habitrol] 1 patch TRANSDERM DAILY #30 patch Magnesium Oxide [Mag-Ox] 400 mg PO DAILY #30 tab HYDROcodone/APAP 5-325MG [[place] 5-325] 1 each PO Q6HR PRN #5 tab PRN Reason: Pain Thiamine [Vitamin B-1] 100 mg PO DAILY #30 tab Levofloxacin [Levaquin] 750 mg PO DAILY 10 Days #10 tab Acetaminophen Tab [Tylenol] 650 mg PO Q6HR PRN tab PRN Reason: Mild Pain Or Fever > 100.5 Continue amLODIPine [Norvasc] 5 mg PO DAILY #30 tab Venlafaxine HCl ER [Effexor XR] 37.5 mg PO DAILY valACYclovir HCL [Valtrex] 1,000 mg PO DAILY Aspirin 81 mg PO DAILY #30 tab Rosuvastatin Calcium 10 mg PO DAILY #30 tab Discharge Medication List Aspirin 81 mg PO DAILY #30 tab 06/22/21 [Rx] amLODIPine [Norvasc] 5 mg PO DAILY #30 tab 06/22/21 [Rx] Venlafaxine HCl ER [Effexor XR] 37.5 mg PO DAILY 03/22/23 [History] valACYclovir HCL [Valtrex] 1,000 mg PO DAILY 03/22/23 [History] Acetaminophen Tab [Tylenol] 650 mg PO Q6HR PRN tab 04/20/23 [Rx] HYDROcodone/APAP 5-325MG [[place] 5-325] 1 each PO Q6HR PRN #5 tab 04/20/23 [Rx] Levofloxacin [Levaquin] 750 mg PO DAILY 10 Days #10 tab 04/20/23 [Rx] Magnesium Oxide [Mag-Ox] 400 mg PO DAILY #30 tab 04/20/23 [Rx] Nicotine 21Mg/24Hr Patch [Habitrol] 1 patch TRANSDERM DAILY #30 patch 04/20/23 [Rx] Rosuvastatin Calcium 10 mg PO DAILY #30 tab 04/20/23 [Rx] Thiamine [Vitamin B-1] 100 mg PO DAILY #30 tab 04/20/23 [Rx] Follow up Appointment(s)/Referral(s): [facility],Equipment [NON-STAFF] - As Needed (Please call [facility] once home to arrange delivery of the oxygen concentrator. ) Ronak Villavicencio DO [Doctor of Osteopathic Medicine] - 04/29/23 8:30 am (With [facility]) Rina Lawrence MD [Primary Care Provider] - 1-2 days (office not answering Please call to schedule appointment ) Patient Instructions/Handouts: Pleural Effusion (DC) Activity/Diet/Wound Care/Special Instructions: Activity limited until follow-up Follow-up with pulmonary in the outpatient setting Continue taking medications as prescribed Avoid tobacco and alcohol use Continue taking antibiotics until finished Follow-up with primary care provider on discharge Discharge Disposition: HOME SELF-CARE
== END 2023-04-20 16:04 | disposition home or self-care (01) | DRG 720 ==
LOC: EC 14:47 → 4SSUR 16:50
PROVIDERS: ADMIT Hospitalist; ATTEND Hospitalist
PROC: 0W9930Z Drainage of Right Pleural Cavity with Drainage Device, Percutaneous Approach (ICD-10-PCS; principal; 2023-04-14 07:30)
PROC: 0BBC8ZX Excision of Right Upper Lung Lobe, Via Natural or Artificial Opening Endoscopic, Diagnostic (ICD-10-PCS; principal; 2023-04-14 07:30)
PROC: 0B9C8ZX Drainage of Right Upper Lung Lobe, Via Natural or Artificial Opening Endoscopic, Diagnostic (ICD-10-PCS; principal; 2023-04-14 07:30)
DX: A41.9 Sepsis, unspecified organism (principal); J18.9 Pneumonia, unspecified organism; E86.0 Dehydration; Z71.6 Tobacco abuse counseling; F17.200 Nicotine dependence, unspecified, uncomplicated; F10.10 Alcohol abuse, uncomplicated; Z71.41 Alcohol abuse counseling and surveillance of alcoholic; E78.5 Hyperlipidemia, unspecified; F32.A Depression, unspecified; F41.9 Anxiety disorder, unspecified; I10 Essential (primary) hypertension; J86.9 Pyothorax without fistula; J84.89 Other specified interstitial pulmonary diseases; J96.01 Acute respiratory failure with hypoxia; J91.8 Pleural effusion in other conditions classified elsewhere; Z79.82 Long term (current) use of aspirin; Z79.899 Other long term (current) drug therapy; R91.8 Other nonspecific abnormal finding of lung field; R59.0 Localized enlarged lymph nodes; Z11.52 Encounter for screening for COVID-19; Z28.310 Unvaccinated for COVID-19; Z28.21 Immunization not carried out because of patient refusal; Z71.3 Dietary counseling and surveillance
CPT/HCPCS: 31624; 31628; 32551; 36415; 71045; 71046; 71250; 71260; 76604; 76942; 80048; 80053; 81003; 82150; 82945; 83605; 83615; 83735; 83880; 84145; 84157; 84484; 85025; 85610; 85730; 87040; 87070; 87075; 87102; 87116; 87205; 87206; 87449; 87496; 87498; 87502; 87529; 87634; 87635; 87636; 87798; 88305; 89050; 94640; 94760; 96361; 96365; 96366; 96367; 96372; 96375; 96376; 99291

== ENCOUNTER 2023-04-24 11:41 | Emergency (ER) | payer OTHER ==
[2023-04-24 12:00] VITALS: RESP 18
[2023-04-24] MEDS ORDERED: KETOROLAC 15 MG/ML 1 ML VIAL IM STA (12:09)
--- NOTE | 2023-04-24 12:24 | ED ---
General Adult HPI - General Chief complaint: Extremity Injury, Upper Stated complaint: fall/R wrist inj Time Seen by Provider: 04/24/23 11:55 Source: patient, RN notes reviewed Mode of arrival: ambulatory Limitations: no limitations - History of Present Illness Initial comments: 62-year-old male presents to the emergency department for evaluation of right injury. Patient states that last night he got out of bed and tripped on a blanket causing him to fall. He states that he put out his right hand to catch himself. He notes pain to the medial and lateral right wrist. He does report that he hit his head but states that it was not hit hard. He denies loss of consciousness, denies blood thinners, denies significant headache. - Related Data Home Medications Medication Instructions Recorded Confirmed Venlafaxine HCl ER [Effexor XR] 37.5 mg PO DAILY 03/22/23 04/12/23 valACYclovir HCL [Valtrex] 1,000 mg PO DAILY 03/22/23 04/12/23 Previous Rx's Medication Instructions Recorded Aspirin 81 mg PO DAILY #30 tab 06/22/21 amLODIPine [Norvasc] 5 mg PO DAILY #30 tab 06/22/21 Acetaminophen Tab [Tylenol] 650 mg PO Q6HR PRN tab 04/20/23 HYDROcodone/APAP 5-325MG [[place] 1 each PO Q6HR PRN #5 tab 04/20/23 5-325] Levofloxacin [Levaquin] 750 mg PO DAILY 10 Days #10 tab 04/20/23 Magnesium Oxide [Mag-Ox] 400 mg PO DAILY #30 tab 04/20/23 Nicotine 21Mg/24Hr Patch [Habitrol] 1 patch TRANSDERM DAILY #30 patch 04/20/23 Rosuvastatin Calcium 10 mg PO DAILY #30 tab 04/20/23 Thiamine [Vitamin B-1] 100 mg PO DAILY #30 tab 04/20/23 HYDROcodone/APAP 5-325MG [[place] 5] 1 each PO Q6HR PRN #12 tab 04/24/23 Allergies Allergy/AdvReac Type Severity Reaction Status Date / Time bee venom protein (honey bee) Allergy Anaphylaxis Verified 04/24/23 11:53 Review of Systems ROS Statement: Those systems with pertinent positive or pertinent negative responses have been documented in the HPI. ROS Other: All systems not noted in ROS Statement are negative. Past Medical History Past Medical History: No Reported History Additional Past Medical History / Comment(s): ETOH History of Any Multi-Drug Resistant Organisms: None Reported Past Surgical History: Hernia Repair Additional Past Surgical History / Comment(s): Hernia Repair Past Anesthesia/Blood Transfusion Reactions: No Reported Reaction Past Psychological History: Anxiety, Depression Smoking Status: Current every day smoker Past Alcohol Use History: Abuse, Occasional Past Drug Use History: None Reported - Past Family History Father Additional Family Medical History / Comment(s): OF PANCREATIC ISSUES Mother Additional Family Medical History / Comment(s): PULMONARY HYPERTENSION General Exam Limitations: no limitations General appearance: alert, in no apparent distress Head exam: Present: atraumatic, normocephalic, normal inspection Eye exam: Present: normal appearance, PERRL, EOMI. Absent: scleral icterus, conjunctival injection, periorbital swelling ENT exam: Present: normal exam, mucous membranes moist Neck exam: Present: normal inspection. Absent: tenderness, meningismus, lymp hadenopathy Respiratory exam: Present: wheezes. Absent: respiratory distress, rales, rhonchi, stridor Cardiovascular Exam: Present: regular rate, normal rhythm, normal heart sounds. Absent: systolic murmur, diastolic murmur, rubs, gallop, clicks Extremities exam: Present: tenderness, normal capillary refill, other (radial pulses 2+, swelling to right hand ). Absent: full ROM Neurological exam: Present: alert, oriented X3, CN II-XII intact, normal gait Psychiatric exam: Present: normal affect, normal mood Skin exam: Present: warm, dry, intact, normal color. Absent: rash Course Vital Signs 04/24/23 04/24/23 11:51 13:26 Temperature 98.1 F 98.0 F Pulse Rate 120 H 108 H Respiratory 18 18 Rate Blood Pressure 106/56 119/64 O2 Sat by Pulse 98 98 Oximetry Procedures - Orthopedic Splinting/Casting Injury #1 Side: right Upper Extremity Immobilizer: sugar tong splint Medical Decision Making - Medical Decision Making Was pt. sent in by a medical professional or institution (, PA, SPRAY APPLICATOR, urgent care, hospital, or assisted...) When possible be specific @ -No Did you speak to anyone other than the patient for history (EMS, parent, family, police, friend...)? What history was obtained from this source @ -No Did you review nursing and triage notes (agree or disagree)? Why? @ -I reviewed and agree with nursing and triage notes Were old charts reviewed (outside hosp., previous admission, EMS record, old EKG, old radiological studies, urgent care reports/EKG's, assisted records)? Report findings @ -No old charts were reviewed Differential Diagnosis (chest pain, altered mental status, abdominal pain women, abdominal pain men, vaginal bleeding, weakness, fever, dyspnea, syncope, headache, dizziness, GI bleed, back pain, seizure, CVA, palpatations, mental health, musculoskeletal)? @ -Differential Musculoskeletal Muscular strain, contusion, ligament sprain, fracture, arthritis, septic arthritis, bursitis, cellulitis, muscle spasm, nerve compression, DVT, arterial occlusion, herpes zoster, electrolyte abnormality, tumor.... This is not meant to be in all inclusive list EKG interpreted by me (3pts min.). @ -None X-rays interpreted by me (1pt min.). @ -X-ray of the right wrist shows distal radius fracture with minimal displacement, ulnar styloid fracture CT interpreted by me (1pt min.). @ -None done U/S interpreted by me (1pt. min.). @ -None done What testing was considered but not performed or refused? (CT, X-rays, U/S, labs)? Why? @ -None What meds were considered but not given or refused? Why? @ -None Did you discuss the management of the patient with other professionals (professionals i.e. , PA, SPRAY APPLICATOR, lab, RT, psych nurse, social services assistant, enameler, teacher, public information officer, case assistant)? Give summary @ -No Was smoking cessation discussed for >3mins.? @ -No Was critical care preformed (if so, how long)? @ -No Were there social determinants of health that impacted care today? How? (Homelessness, low income, unemployed, alcoholism, drug addiction, transportation, low edu. Level, literacy, decrease access to med. care, fdc, rehab)? @ -No Was there de-escalation of care discussed even if they declined (Discuss DNR or withdrawal of care, Hospice)? DNR status @ -No What co-morbidities impacted this encounter? (DM, HTN, Smoking, COPD, CAD, Cancer, CVA, ARF, Chemo, Hep., AIDS, mental health diagnosis, sleep apnea, morbid obesity)? @ -None Was patient admitted / discharged? Hospital course, mention meds given and route, prescriptions, significant lab abnormalities, going to OR and other pertinent info. @ -Discharge. Patient presented to the emergency department for evaluation of right wrist injury. He states that he took a fall on outstretched hand yesterday after he tripped on a blanket. Denies any other significant injury. X-ray obtained of the right wrist which shows a distal radius fracture with minimal displacement and ulnar styloid fracture. Patient was placed in a sugar- tong splint and given medication for pain control. Neurovascular status assessed post splint and intact. Patient will follow-up with orthopedics on outpatient basis. Patient understanding agreeable plan. Patient stable at time of discharge. Case discussed with Dr. Jones. Undiagnosed new problem with uncertain prognosis? @ -No Drug Therapy requiring intensive monitoring for toxicity (Heparin, Nitro, Insulin, Cardizem)? @ -No Were any procedures done? @ -No Diagnosis/symptom? @ -Distal radius fracture Acute, or Chronic, or Acute on Chronic? @ -Acute Uncomplicated (without systemic symptoms) or Complicated (systemic symptoms)? @ -Uncomplicated Side effects of treatment? @ -No Exacerbation, Progression, or Severe Exacerbation? @ -No Poses a threat to life or bodily function? How? (Chest pain, [place], [place], pneumonia, PE, COPD, DKA, ARF, appy, cholecystitis, CVA, Diverticulitis, Homicidal, Suicidal, threat to staff... and all critical care pts) @ -No Disposition Clinical Impression: Distal radius fracture, right Disposition: HOME SELF-CARE Condition: Stable Instructions (If sedation given, give patient instructions): Wrist Injury (ED) Additional Instructions: Please follow up with orthopedics. Return to the emergency department for new or worsening symptoms. Prescriptions: HYDROcodone/APAP 5-325MG [[place] 5] 1 each PO Q6HR PRN #12 tab PRN Reason: Pain Is patient prescribed a controlled substance at d/c from ED?: No Referrals: Rina Lawrence MD [Primary Care Provider] - 1-2 days Guerline Dixon DO [Doctor of Osteopathic Medicine] - 1-2 days
--- NOTE | 2023-04-24 12:40 | XR ---
EXAMINATION TYPE: XR wrist complete RT DATE OF EXAM: 04/24/2023 CLINICAL HISTORY: pain TECHNIQUE: Frontal, lateral and oblique images of the right wrist are obtained. COMPARISON: None. FINDINGS: Distal radial fracture which is minimally displaced. No definite intra-articular extension. Ulnar sty loid fracture component. The joint spaces appear within normal limits. Soft tissue swelling seen. IMPRESSION: Fractures of the radius and ulna as discussed.
[2023-04-24] MEDS ORDERED: HYDROmorphone 0.5 MG/0.5 ML SYRINGE IM STA (12:50)
[2023-04-24 13:53] VITALS: BP 119/64; PULSE 108; TEMP 98
== END 2023-04-24 14:10 | disposition home or self-care (01) ==
LOC: EC 11:41
DX: S52.611A Displaced fracture of right ulna styloid process, initial encounter for closed fracture (principal); S52.501A Unspecified fracture of the lower end of right radius, initial encounter for closed fracture; F41.9 Anxiety disorder, unspecified; F32.A Depression, unspecified; F17.200 Nicotine dependence, unspecified, uncomplicated; Z79.899 Other long term (current) drug therapy; Z91.030 Bee allergy status; W01.10XA Fall on same level from slipping, tripping and stumbling with subsequent striking against unspecified object, initial encounter
CPT/HCPCS: 73110; 99284; 96372 ×2; 29125; J1885; J1170

== ENCOUNTER → 2023-09-30 | Outpatient (CLI) | payer OTHER ==
[2023-09-30 15:37] LABS: Hepatitis A Antibody IgM Nonreactive (Nonreactive); Hepatitis B Core IgM Nonreactive (Nonreactive); Hepatitis B Surface Antigen Nonreactive (Nonreactive); Hepatitis C IgG Antibody Nonreactive (Nonreactive)
[2023-09-30 15:51] LABS: Basophils # (A) 0.04 X 10*3/uL (0.00-0.10); Basophils % (A) 0.8 %; Eosinophils # (A) 0.17 X 10*3/uL (0.04-0.35); Eosinophils % (A) 3.4 %; HCT 39.8 % (39.6-50.0); HGB 13.2 g/dL (13.0-17.0); Lymphocytes # (A) 1.16 X 10*3/uL (0.90-5.00); Lymphocytes % (A) 23.4 %; MCH 32.4 pg (27.0-32.0); MCHC 33.2 g/dL (32.0-37.0); MCV 97.8 FL (80.0-97.0); Mean Platelet Volume 9.5 FL (9.5-12.2); Monocytes # (A) 0.45 X 10*3/uL (0.20-1.00); Monocytes % (A) 9.1 %; NRBC Per 100 WBC 0 X 10*3/uL (0.00-0.01); Neutrophils # (A) 3.11 X 10*3/uL (1.80-7.70); Neutrophils % (A) 62.9 %; Platelet Count 247 X 10*3/uL (140-440); RBC 4.07 X 10*6/uL (4.40-5.60); RDW 17.6 % (11.5-14.5); WBC 4.95 X 10*3/uL (4.50-10.00)
[2023-09-30 15:55] LABS: ALT 35 U/L (10-49); AST 46 U/L (14-35); Albumin 4.4 g/dL (3.8-4.9); Albumin/Globulin Ratio 1.91 Ratio (1.60-3.17); Alkaline Phosphatase 74 U/L (41-126); BUN/Creat Ratio 13.29 Ratio (12.00-20.00); Blood Urea Nitrogen 9.3 mg/dL (9.0-27.0); Calcium 8.9 mg/dL (8.7-10.3); Carbon Dioxide 25.4 mmol/L (21.6-31.8); Chloride 105 mmol/L (96-109); Globulin 2.3 g/dL (1.6-3.3); Glucose 82 mg/dL (70-110); Potassium 4.3 mmol/L (3.5-5.5); Sodium 146 mmol/L (135-145); Total Bilirubin 0.5 mg/dL (0.3-1.2); Total Protein 6.7 g/dL (6.2-8.2)
--- NOTE | 2023-10-02 09:58 | US ---
EXAMINATION TYPE: US abdomen complete DATE OF EXAM: 09/30/2023 COMPARISON: NONE CLINICAL INDICATION: Male, 63 years old with history of R74.01 ELEVATION OF LEVELS OF LIVER TRANSAMIN ASE L; elevated labs TECHNIQUE: Multiple sonographic images of the abdomen are obtained. FINDINGS: EXAM MEASUREMENTS: Liver Length: 14.0 cm Gallbladder Wall: 0.1 cm CBD: 0.3 cm Spleen: 7.9 cm Right Kidney: 10.8 x 5.5 x 4.2 cm Left Kidney: 11.1 x 4.4 x 4.6 cm ANTIQUE FURNITURE REPRODUCER NOTES: Pancreas: wnl Liver: heterogeneous and increased attenuation Gallbladder: wnl Evidence for sonographic Jensen's sign: No CBD: wnl Spleen: wnl Right Kidney: wnl Left Kidney: wnl Upper IVC: wnl Abd Aorta: wnl The intrahepatic portion of the IVC and proximal abdominal aorta are within normal limits. There is no evidence of cholelithiasis. Common bile duct is unremarkable. The visualized portions of the minor creas are homogenous. The spleen is unremarkable. Kidneys are symmetric and free of hydronephrosis. No renal lesions are seen. IMPRESSION: Correlate for hepatic steatosis.
== END | disposition home or self-care (01) ==
LOC: RADUSWWP 09:46
PROVIDERS: ATTEND Internal Medicine Gastroenterology
DX: R74.01 Elevation of levels of liver transaminase levels (principal)
CPT/HCPCS: 76700; 80053; 80074; 81596; 85025

== ENCOUNTER 2024-07-16 17:20 | Emergency (ER) | payer OTHER ==
--- NOTE | 2024-07-16 18:09 | ED ---
Upper Extremity HPI - General Chief Complaint: Extremity Injury, Upper Stated Complaint: fell,right arm pain Time Seen by Provider: 07/16/24 17:36 Source: patient, RN notes reviewed Mode of arrival: ambulatory Limitations: no limitations - History of Present Illness Initial Comments: 63-year-old male presenting to the emergency room with complaint of right upper extremity pain. Patient states that 3 days ago he tripped falling onto his right shoulder. He denies hitting his head or loss conscious at the time of fall. Denies blood thinner use. He is attempted to make an at home a sling with an Ta wrap however is complaining of pain over the anterior head of the shoulder. States he is not able to complete full range of motion due to the pain. Denies paresthesias. No other acute complaints at this time. - Related Data Home Medications Medication Instructions Recorded Confirmed Aspirin 81 mg PO Q2D 12/09/23 12/09/23 Cyanocobalamin (Vitamin B-12) 10,000 mcg PO DAILY 12/09/23 12/09/23 [Vitamin B-12] Ferrous Sulfate [Feosol] 325 mg PO DAILY 12/09/23 12/09/23 Tamsulosin HCl [Flomax] 0.4 mg PO QAM 12/09/23 12/09/23 amLODIPine [Norvasc] 5 mg PO QAM 12/09/23 12/09/23 Previous Rx's Medication Instructions Recorded Rosuvastatin Calcium 10 mg PO DAILY #30 tab 04/20/23 HYDROcodone/APAP 7.5-325MG [[place] 1 tab PO Q6HR PRN 3 Days #12 tab 07/16/24 7.5-325] Allergies Allergy/AdvReac Type Severity Reaction Status Date / Time bee venom protein (honey bee) Allergy Anaphylaxis Verified 07/16/24 17:52 Review of Systems ROS Statement: Those systems with pertinent positive or pertinent negative responses have been documented in the HPI. ROS Other: All systems not noted in ROS Statement are negative. Past Medical History Past Medical History: Coronary Artery Disease (CAD), Pneumonia, Prostate Disorder Additional Past Medical History / Comment(s): ETOH, enlarged prostate,Mar 2023-chest tube, using O2@2.5L [place] prn,scattered bruising arms,neuropathy adilia feet History of Any Multi-Drug Resistant Organisms: None Reported Past Surgical History: Hernia Repair Additional Past Surgical History / Comment(s): Hernia Repair Past Anesthesia/Blood Transfusion Reactions: No Reported Reaction Past Psychological History: Anxiety, Depression Smoking Status: Current every day smoker Past Alcohol Use History: Daily, Heavy Past Drug Use History: None Reported - Past Family History Father Additional Family Medical History / Comment(s): OF PANCREATIC ISSUES Mother Additional Family Medical History / Comment(s): PULMONARY HYPERTENSION General Exam Limitations: no limitations General appearance: alert, in no apparent distress Neck exam: Present: normal inspection. Absent: tenderness, meningismus, lymphadenopathy Respiratory exam: Present: normal lung sounds bilaterally. Absent: respiratory distress, wheezes, rales, rhonchi, stridor Cardiovascular Exam: Present: regular rate, normal rhythm, normal heart sounds. Absent: systolic murmur, diastolic murmur, rubs, gallop, clicks GI/Abdominal exam: Present: soft, normal bowel sounds. Absent: distended, tenderness, guarding, rebound, rigid Right Shoulder Exam: Present: tenderness, swelling, ecchymosis. Absent: full ROM, deformity Upper Arm exam: Present: ecchymosis Elbow exam: Present: ecchymosis Hand Wrist exam: Present: normal inspection, full ROM Neuro motor exam: Present: wrist extension intact, thumb opposition intact Vascular: Present: normal capillary refill, radial pulse (2+). Absent: vascular compromise Back exam: Present: normal inspection Course Vital Signs 07/16/24 07/16/24 17:46 19:29 Temperature 98.2 F 97.7 F Pulse Rate 115 H 121 H Respiratory 18 22 Rate Blood Pressure 112/72 152/85 O2 Sat by Pulse 94 L 95 Oximetry Medical Decision Making - Medical Decision Making Was pt. sent in by a medical professional or institution (, PA, LADLE PATCHER, urgent care, hospital, or snf...) When possible be specific @ -No Did you speak to anyone other than the patient for history (EMS, parent, family, police, friend...)? What history was obtained from this source @ -No Did you review nursing and triage notes (agree or disagree)? Why? @ -I reviewed and agree with nursing and triage notes Were old charts reviewed (outside hosp., previous admission, EMS record, old EKG, old radiological studies, urgent care reports/EKG's, snf records)? Report findings @ -No old charts were reviewed Differential Diagnosis (chest pain, altered mental status, abdominal pain women, abdominal pain men, vaginal bleeding, weakness, fever, dyspnea, syncope, headache, dizziness, GI bleed, back pain, seizure, CVA, palpatations, mental health, musculoskeletal)? @ -Differential Musculoskeletal Muscular strain, contusion, ligament sprain, fracture, arthritis, septic art hritis, bursitis, cellulitis, muscle spasm, nerve compression, DVT, arterial occlusion, herpes zoster, electrolyte abnormality, tumor.... This is not meant to be in all inclusive list EKG interpreted by me (3pts min.). @ -None X-rays interpreted by me (1pt min.). @ -X-ray of the right shoulder reveals a comminuted likely intra-articular proximal right humerus fracture with lateral ambulation. CT interpreted by me (1pt min.). @ -None done U/S interpreted by me (1pt. min.). @ -None done What testing was considered but not performed or refused? (CT, X-rays, U/S, labs)? Why? @ -None What meds were considered but not given or refused? Why? @ -None Did you discuss the management of the patient with other professionals (professionals i.e. , PA, LADLE PATCHER, lab, RT, psych nurse, psychosocial rehabilitation counselor, special procedure tech, teacher, child support officer, egg caser)? Give summary @ -No Was smoking cessation discussed for >3mins.? @ -No Was critical care preformed (if so, how long)? @ -No Were there social determinants of health that impacted care today? How? (Homelessness, low income, unemployed, alcoholism, drug addiction, transportation, low edu. Level, literacy, decrease access to med. care, long term, rehab)? @ -No Was there de-escalation of care discussed even if they declined (Discuss DNR or withdrawal of care, Hospice)? DNR status @ -No What co-morbidities impacted this encounter? (DM, HTN, Smoking, COPD, CAD, Cancer, CVA, ARF, Chemo, Hep., AIDS, mental health diagnosis, sleep apnea, morbid obesity)? @ -None Was patient admitted / discharged? Hospital course, mention meds given and route, prescriptions, significant lab abnormalities, going to OR and other pertinent info. @ -Discharge. 63-year male presents emergency room with right upper extremity pain. There is noted severe ecchymosis over the right upper arm. Neurovascularly intact of the extremity. He is provided with dose of morphine for pain control. X-ray reveals a proximal right humerus fracture with lateral angulation. Patient provided with prescription for [place] and is placed in a sling and instructed follow-up with provide art therapy specialist. Case discussed with Dr. Cosme Undiagnosed new problem with uncertain prognosis? @ -No Drug Therapy requiring intensive monitoring for toxicity (Heparin, Nitro, Insulin, Cardizem)? @ -No Were any procedures done? @ -No Diagnosis/symptom? @ -Humeral head fracture Acute, or Chronic, or Acute on Chronic? @ -Acute Uncomplicated (without systemic symptoms) or Complicated (systemic symptoms)? @ -uncomplicated Side effects of treatment? @ -No Exacerbation, Progression, or Severe Exacerbation? @ -No Poses a threat to life or bodily function? How? (Chest pain, [place], [place], pneumonia, PE, COPD, DKA, ARF, appy, cholecystitis, CVA, Diverticulitis, Homicidal, Suicidal, threat to staff... and all critical care pts) @ -No Disposition Clinical Impression: Shoulder fracture, right Disposition: HOME SELF-CARE Condition: Good Instructions (If sedation given, give patient instructions): Arm Fracture in Adults (ED) Additional Instructions: Please return to the Emergency Department if symptoms worsen or any other concerns. Prescriptions: HYDROcodone/APAP 7.5-325MG [[place] 7.5-325] 1 tab PO Q6HR PRN 3 Days #12 tab PRN Reason: Severe Pain (Scale 7 To 10) Is patient prescribed a controlled substance at d/c from ED?: Yes When asked, does pt state using other controlled substances?: No If prescribed controlled substance>3 days was MAPS reviewed?: Prescribed <3 Days If Rx opioid, was Start Talking consent form obtained?: Yes Referrals: None,Stated [REFERRING] - 1-2 days Guerline Dixon [Doctor of Osteopathic Medicine] - 1-2 days Time of Disposition: 18:47
--- NOTE | 2024-07-16 18:42 | XR ---
EXAMINATION TYPE: XR shoulder complete RT DATE OF EXAM: 07/16/2024 6:29 PM COMPARISON: None CLINICAL INDICATION: Male, 63 years old with history of fall, pain, ecchymosis; PHH, pain TECHNIQUE: XR shoulder complete RT; examined in AP, internally rotated and scapular Y projections. FINDINGS: Comminuted fractures of proximal humerus with lateral angulation and distortion of multiple fragments . There is intra-articular extension. Visualized portions of lung are relatively unremarkable. Tissue swelling over the lateral arm. IMPRESSION: Comminuted likely intra-articular proximal right humerus fracture with lateral angulation. [facility], , 07/16/2024 6:40 PM
[2024-07-16] MEDS: MORPHINE SULFATE 4 MG/ML SYRINGE IM STA (18:44)
[2024-07-16 19:33] VITALS: BP 152/85; PULSE 121; RESP 22; TEMP 97.7
== END 2024-07-16 19:45 | disposition home or self-care (01) ==
LOC: EC 17:20
DX: S42.291A Other displaced fracture of upper end of right humerus, initial encounter for closed fracture (principal); F17.200 Nicotine dependence, unspecified, uncomplicated; Z91.030 Bee allergy status; W01.0XXA Fall on same level from slipping, tripping and stumbling without subsequent striking against object, initial encounter
CPT/HCPCS: 73030; 99283; 96372; J2270

== ENCOUNTER 2024-07-17 14:54 | Emergency (ER) | payer OTHER ==
[2024-07-17 15:02] VITALS: TEMP 98.1
--- NOTE | 2024-07-17 16:19 | ED ---
Upper Extremity HPI - General Chief Complaint: Extremity Injury, Upper Stated Complaint: Recheck-R arm issue Time Seen by Provider: 07/17/24 15:19 Source: patient, RN notes reviewed Limitations: no limitations - History of Present Illness Initial Comments: 63-year-old male presenting to the emergency room for recheck of his right arm. Patient reports yesterday was in the ER and x-rays show that he had a fracture. Patient was discharged home and told to follow-up with orthopedics. Patient believes the bruising looks worse and is concerned so presented for recheck. He denies any history of being on blood thinners. Denies any numbness, tingling, loss of sensation. - Related Data Home Medications Medication Instructions Recorded Confirmed Aspirin 81 mg PO Q2D 12/09/23 12/09/23 Cyanocobalamin (Vitamin B-12) 10,000 mcg PO DAILY 12/09/23 12/09/23 [Vitamin B-12] Ferrous Sulfate [Feosol] 325 mg PO DAILY 12/09/23 12/09/23 Tamsulosin HCl [Flomax] 0.4 mg PO QAM 12/09/23 12/09/23 amLODIPine [Norvasc] 5 mg PO QAM 12/09/23 12/09/23 Previous Rx's Medication Instructions Recorded Rosuvastatin Calcium 10 mg PO DAILY #30 tab 04/20/23 HYDROcodone/APAP 7.5-325MG [[place] 1 tab PO Q6HR PRN 3 Days #12 tab 07/16/24 7.5-325] Allergies Allergy/AdvReac Type Severity Reaction Status Date / Time bee venom protein (honey bee) Allergy Anaphylaxis Verified 07/17/24 15:02 Review of Systems ROS Statement: Those systems with pertinent positive or pertinent negative responses have been documented in the HPI. ROS Other: All systems not noted in ROS Statement are negative. Constitutional: Denies: fever, chills Respiratory: Denies: cough, dyspnea Cardiovascular: Denies: chest pain, palpitations Hematological/Lymphatic: Reports: easy bleeding, easy bruising Past Medical History Past Medical History: Coronary Artery Disease (CAD), Pneumonia, Prostate D isorder Additional Past Medical History / Comment(s): ETOH, enlarged prostate,Mar 2023- chest tube, using O2@2.5L [place] prn,scattered bruising arms,neuropathy adilia feet History of Any Multi-Drug Resistant Organisms: None Reported Past Surgical History: Hernia Repair Additional Past Surgical History / Comment(s): Hernia Repair Past Anesthesia/Blood Transfusion Reactions: No Reported Reaction Past Psychological History: Anxiety, Depression Smoking Status: Current every day smoker Past Alcohol Use History: Daily, Heavy Past Drug Use History: None Reported - Past Family History Father Additional Family Medical History / Comment(s): OF PANCREATIC ISSUES Mother Additional Family Medical History / Comment(s): PULMONARY HYPERTENSION General Exam Limitations: no limitations General appearance: alert, anxious Cardiovascular Exam: Present: tachycardia Right Shoulder Exam: Present: ecchymosis Upper Arm exam: Present: ecchymosis Elbow exam: Present: ecchymosis Forearm Wrist exam: Present: ecchymosis Hand Wrist exam: Present: ecchymosis Vascular: Present: normal capillary refill, radial pulse, brachial pulse, ulnar pulse. Absent: vascular compromise Neurological exam: Present: alert, oriented X3 Psychiatric exam: Present: normal affect, normal mood Skin exam: Present: other (Multiple ecchymosis spanning the entire right arm.) Course Vital Signs 07/17/24 07/17/24 14:58 16:28 Temperature 98.1 F Pulse Rate 119 H 99 Respiratory 18 20 Rate Blood Pressure 129/85 127/84 O2 Sat by Pulse 96 97 Oximetry Medical Decision Making - Medical Decision Making Was pt. sent in by a medical professional or institution (MISHEL Rolon, EXTERNAL GRINDER TENDER, urgent care, hospital, or usp...) When possible be specific @ -No Did you speak to anyone other than the patient for history (EMS, parent, family, police, friend...)? What history was obtained from this source @ -No Did you review nursing and triage notes (agree or disagree)? Why? @ -I reviewed and agree with nursing and triage notes Were old charts reviewed (outside hosp., previous admission, EMS record, old EKG, old radiological studies, urgent care reports/EKG's, usp records)? Report findings @ -No old charts were reviewed Differential Diagnosis? @ -Right shoulder fracture, compartment syndrome, hematoma, this is not an all- inclusive list EKG interpreted by me (3pts min.). @ -As above X-rays interpreted by me (1pt min.). @ -X-ray from yesterday shows right shoulder fracture CT interpreted by me (1pt min.). @ -None done U/S interpreted by me (1pt. min.). @ -None done What testing was considered but not performed or refused? (CT, X-rays, U/S, labs)? Why? @ -None What meds were considered but not given or refused? Why? @ -None Did you discuss the management of the patient with other professionals (professionals i.e. Dr., PA, EXTERNAL GRINDER TENDER, lab, RT, psych nurse, social research assistant, cnc mill operator, teacher, civil preparedness training officer, registered nurse hh case manager)? Give summary @ -Case was discussed with ED attending Dr. Cosme. Was smoking cessation discussed for >3mins.? @ -No Was critical care preformed (if so, how long)? @ -No Were there social determinants of health that impacted care today? How? (Homelessness, low income, unemployed, alcoholism, drug addiction, transportation, low edu. Level, literacy, decrease access to med. care, alf, rehab)? @ -No Was there de-escalation of care discussed even if they declined (Discuss DNR or withdrawal of care, Hospice)? DNR status @ -No What co-morbidities impacted this encounter? (DM, HTN, Smoking, COPD, CAD, Cancer, CVA, ARF, Chemo, Hep., AIDS, mental health diagnosis, sleep apnea, morbid obesity)? @ -None Was patient admitted / discharged? Hospital course, mention meds given and route, prescriptions, significant lab abnormalities, going to OR and other pertinent info. @ -Patient will be discharged home with self-care. Patient to follow-up with orthopedics. Undiagnosed new problem with uncertain prognosis? @ -No Drug Therapy requiring intensive monitoring for toxicity (Heparin, Nitro, Insulin, Cardizem)? @ -No Were any procedures done? @ -No Diagnosis/symptom? @ -Right shoulder fracture Acute, or Chronic, or Acute on Chronic? @ -Acute Uncomplicated (without systemic symptoms) or Complicated (systemic symptoms)? @ -Default Side effects of treatment? @ -No Exacerbation, Progression, or Severe Exacerbation? @ -No Poses a threat to life or bodily function? How? (Chest pain, [place], [place], pneumonia, PE, COPD, DKA, ARF, appy, cholecystitis, CVA, Diverticulitis, Homicidal, Suicidal, threat to staff... and all critical care pts) @ -Yes, bone fractures can cause neurovascular compromise which can lead to loss of limb. Disposition Clinical Impression: Fracture of right shoulder Disposition: HOME SELF-CARE Additional Instructions: Every disease is a spectrum and a small chance still exists that a serious condition could develop, for this reason, please monitor yourself closely for new, changing or worsening symptoms, symptoms that persist beyond 48 hours, any further episodes of vomiting blood, difficulty in breathing, severe abdominal pain, symptoms that did not improve in the next 48 hours, black or bloody stools, fever, inability to tolerate/keep down fluids or your medications, inability to follow up with outpatient providers as instructed and should you experience these symptoms or should you have any further concerns for your wellbeing please return to the ED or call 911 immediately. PLEASE take prescriptions as listed in discharge instructions. PLEASE call your primary care physician as soon as possible to arrange / discuss plan for followup appointment. Appointment in the next 1-3 days is strongly encouraged if possible. PLEASE let us know here before you leave if there is anything further we can do to be of any assistance. Take care and feel Better! Is patient prescribed a controlled substance at d/c from ED?: No Referrals: Rina Lawrence MD [Primary Care Provider] - 1-2 days
[2024-07-17] MEDS: HYDROmorphone 0.5 MG/0.5 ML SYRINGE IM STA (16:26)
[2024-07-17 16:30] VITALS: BP 127/84; PULSE 99; RESP 20
== END 2024-07-17 16:29 | disposition home or self-care (01) ==
LOC: EC 14:54
DX: S42.91XA Fracture of right shoulder girdle, part unspecified, initial encounter for closed fracture (principal); F17.200 Nicotine dependence, unspecified, uncomplicated; Z91.030 Bee allergy status; X58.XXXA Exposure to other specified factors, initial encounter
CPT/HCPCS: 99283; 96372; J1171

== ENCOUNTER 2024-08-20 03:24 | Inpatient (IN) | payer OTHER ==
[2024-08-20 04:40] LABS: Basophils # (A) 0.02 10*3/uL (0.00-0.10); Basophils % (A) 0.3 %; HCT 23.8 % (39.6-50.0); HGB 8.1 g/dL (13.0-17.0); Lymphocytes # (A) 0.85 10*3/uL (0.90-5.00); Lymphocytes % (A) 11.8 %; MCH 35.7 pg (27.0-32.0); MCV 104.8 fL (80.0-97.0); Mean Platelet Volume 10.3 fL (9.5-12.2); Monocytes % (A) 12.5 %; Neutrophils # (A) 5.41 10*3/uL (1.80-7.70); Platelet Count 173 10*3/uL (140-440); RBC 2.27 10*6/uL (4.40-5.60); RDW 14.6 % (11.5-14.5); WBC 7.21 10*3/uL (4.50-10.00)
[2024-08-20] MEDS: HYDROmorphone 0.5 MG/0.5 ML SYRINGE IVP STA (04:46)
[2024-08-20] MEDS: LORazepam 1 MG/0.5 ML VIAL IV STA (04:48)
[2024-08-20 04:55] LABS: ALT 28 U/L (4-49); AST 46 U/L (17-59); African American GFR (CKD) >90 (>60 ml/min/1.73 sqM); Albumin 3.7 g/dL (3.5-5.0); Alcohol <10 mg/dL; Alkaline Phosphatase 61 U/L (38-126); Anion Gap 12 mmol/L; Blood Urea Nitrogen 51 mg/dL (9-20); Calcium 9.4 mg/dL (8.4-10.2); Carbon Dioxide 23 mmol/L (22-30); Chloride 99 mmol/L (98-107); Glucose 124 mg/dL (74-99); INR 0.9 (<1.2); Magnesium 1.8 mg/dL (1.6-2.3); Non-African American GFR(CKD) >90 (>60 ml/min/1.73 sqM); Potassium 4.2 mmol/L (3.5-5.1); Prothrombin Time 10.3 sec (10.0-12.5); Sodium 134 mmol/L (137-145); Total Bilirubin 1.1 mg/dL (0.2-1.3); Total Protein 6.2 g/dL (6.3-8.2)
[2024-08-20 05:07] LABS: Partial Thromboplastin Time 19.9 sec (22.0-30.0)
[2024-08-20 05:12] LABS: Lactic Acid, Venous 2.6 mmol/L (0.7-2.0)
--- NOTE | 2024-08-20 05:15 | ED ---
General Adult HPI - General Chief complaint: Extremity Problem,Nontraumatic Stated complaint: vomiting blood Time Seen by Provider: 08/20/24 03:41 Source: patient, EMS Mode of arrival: EMS Limitations: no limitations - History of Present Illness Initial comments: This patient is a 63-year-old man who arrives here with complaint of right shoulder pain. The patient states that the pain is related to a fracture. He fell approximately 1 month ago fracturing the humerus. He states that he had been taking a lot of Motrin for the pain but that he started having some vomiting with blood in it. The patient states he was also drinking wine, approximately 1 bottle per day. 2 days ago he stopped drinking and he had also stopped taking the ibuprofen. He states that the vomiting with the blood stopped when he stopped drinking. He has had some vomiting since but is mostly clear. Patient denies abdominal pain, chest pain, dyspnea or other symptoms. -: days(s) Severity scale (1-10): 8 Quality: sharp Consistency: intermittent Improves with: immobilization Worsens with: movement Associated Symptoms: nausea/vomiting, other (tremor ) Treatments Prior to Arrival: none - Related Data Previous Rx's Medication Instructions Recorded Acetaminophen Tab [Tylenol] 650 mg PO Q6HR PRN tab 08/23/24 Cyanocobalamin [Vitamin B-12] 1,000 mcg PO DAILY #30 tab 08/23/24 Folic Acid 1 mg PO DAILY 30 Days #30 tab 08/23/24 HYDROcodone/APAP 7.5-325MG [[place] 1 each PO Q4H PRN #8 tab 08/23/24 7.5-325] Multivitamins, Thera [Multivitamin 1 each PO DAILY 30 Days #30 tab 08/23/24 (formulary)] Thiamine [Vitamin B-1] 100 mg PO DAILY #30 tab 08/23/24 chlordiazePOXIDE HCl [Librium] 25 mg PO TID #6 cap 08/23/24 Allergies Allergy/AdvReac Type Severity Reaction Status Date / Time bee venom protein (honey bee) Allergy Anaphylaxis Verified 08/20/24 10:41 Review of Systems ROS Statement: Those systems with pertinent positive or pertinent negative responses have been documented in the HPI. ROS Other: All systems not noted in ROS Statement are negative. Constitutional: Denies: fever, chills Eyes: Denies: vision change Respiratory: Denies: cough, dyspnea Cardiovascular: Reports: edema. Denies: chest pain, palpitations, syncope Gastrointestinal: Reports: nausea, vomiting, hematemesis. Denies: abdominal pain, diarrhea, melena, hematochezia Genitourinary: Denies: dysuria, hematuria Musculoskeletal: Denies: back pain Skin: Denies: rash Neurological: Denies: headache, weakness, numbness Psychiatric: Reports: anxiety. Denies: suicidal thoughts Hematological/Lymphatic: Denies: easy bleeding Past Medical History Past Medical History: Coronary Artery Disease (CAD), Pneumonia, Prostate Disorder Additional Past Medical History / Comment(s): ETOH, enlarged prostate,Mar 2023- chest tube, using O2@2.5L [place] prn,scattered bruising arms,neuropathy adilia feet History of Any Multi-Drug Resistant Organisms: None Reported Past Surgical History: Hernia Repair Additional Past Surgical History / Comment(s): Hernia Repair Past Anesthesia/Blood Transfusion Reactions: No Reported Reaction Past Psychological History: Anxiety, Depression Smoking Status: Current every day smoker Past Alcohol Use History: Daily, Heavy Past Drug Use History: None Reported - Past Family History Father Additional Family Medical History / Comment(s): OF PANCREATIC ISSUES Mother Additional Family Medical History / Comment(s): PULMONARY HYPERTENSION General Exam Limitations: no limitations General appearance: alert, anxious Head exam: Present: atraumatic, normocephalic Eye exam: Present: normal appearance. Absent: scleral icterus, conjunctival injection, nystagmus ENT exam: Present: normal oropharynx Neck exam: Present: normal inspection Respiratory exam: Present: normal lung sounds bilaterally. Absent: respiratory distress, wheezes, rales, rhonchi, stridor, accessory muscle use Cardiovascular Exam: Present: regular rate, normal rhythm, normal heart sounds. Absent: systolic murmur, diastolic murmur, rubs, gallop GI/Abdominal exam: Present: soft. Absent: distended, tenderness, guarding, rebound, rigid, mass Extremities exam: Present: tenderness, normal capillary refill. Absent: pedal edema, calf tenderness Right Shoulder Exam: Present: tenderness, ecchymosis. Absent: swelling, abrasion, laceration, deformity, dislocation, erythema Upper Arm exam: Present: tenderness, ecchymosis. Absent: swelling, abrasion, laceration, deformity Elbow exam: Present: normal inspection, full ROM. Absent: tenderness, swelling, abrasion Forearm Wrist exam: Present: normal inspection, full ROM. Absent: tenderness, swelling Hand Wrist exam: Present: normal inspection, full ROM. Absent: tenderness, swelling Vascular: Present: normal capillary refill. Absent: vascular compromise Back exam: Present: normal inspection. Absent: vertebral tenderness Neurological exam: Present: alert, oriented X3, CN II-XII intact. Absent: motor sensory deficit Skin exam: Present: warm, dry, intact, normal color. Absent: rash Course Vital Signs 08/20/24 08/20/24 08/20/24 03:28 06:34 07:32 Temperature 98.7 F Pulse Rate 112 H 92 86 Respiratory 20 18 20 Rate Blood Pressure 133/104 126/81 134/75 O2 Sat by Pulse 100 97 97 Oximetry 08/20/24 08/20/24 08/20/24 08:55 10:43 13:00 Temperature Pulse Rate 93 112 H 100 Respiratory 20 20 20 Rate Blood Pressure 138/80 120/70 116/70 O2 Sat by Pulse 97 96 96 Oximetry 08/20/24 15:24 Temperature Pulse Rate 85 Respiratory 20 Rate Blood Pressure 107/70 O2 Sat by Pulse 97 Oximetry EKG Findings - EKG Results: EKG: interpreted by ERMD, sinus rhythm (Rate 95 beats per minute), normal axis, normal QRS - Blocks, [place], Hypertrophy, ST Abn: Repolarization changes or abnormalities: nonspecific abnormality, ST segment, and/or T wave, Q-T interval prolongation Medical Decision Making - Medical Decision Making Patient is a 63-year-old man presenting with complaint of right arm pain. The patient manifesting moderate alcohol withdrawal. He is anxious and tremulous. The patient's initial CIWA score 9. Discussed with the patient and will admit. Patient is given analgesic and also benzodiazepines and CIWA score shows improvement. The patient did have episode of emesis in the emergency department and did not have any blood or coffee-ground material. The emesis was clear. Discussed with admitting team and they will admit to treat the withdrawal. Was pt. sent in by a medical professional or institution (, PA, RESTRIKE HAMMER OPERATOR, urgent care, hospital, or senior care...) When possible be specific @ -[No] Did you speak to anyone other than the patient for history (EMS, parent, family, police, friend...)? What history was obtained from this source @ -[No] Did you review nursing and triage notes (agree or disagree)? Why? @ -[I reviewed and agree with nursing and triage notes] Were old charts reviewed (outside hosp., previous admission, EMS record, old EKG, old radiological studies, urgent care reports/EKG's, senior care records)? Report findings @ -[No old charts were reviewed] Differential Diagnosis (chest pain, altered mental status, abdominal pain women, abdominal pain men, vaginal bleeding, weakness, fever, dyspnea, syncope, headache, dizziness, GI bleed, back pain, seizure, CVA, palpatations, mental health, musculoskeletal)? @ -[Differential Musculoskeletal Muscular strain, contusion, ligament sprain, fracture, arthritis, septic arthritis, bursitis, cellulitis, muscle spasm, nerve compression, DVT, arterial occlusion, herpes zoster, electrolyte abnormality, tumor.... This is not meant to be in all inclusive list Differential Mental Health Depression, anxiety, bipolar, psychosis, schizophrenia, borderline personality, situational depression, adjustment disorder, behavioral disorder, brain tumor, malingering, substance abuse, encephalopathy, medication reaction, dementia, hypothyroidism, degenerative neurologic disorder, lupus.... This is not meant to be all-inclusive list EKG interpreted by me (3pts min.). @ -[I interpreted as above] X-rays interpreted by me (1pt min.). @ -[None done] CT interpreted by me (1pt min.). @ -[None done] U/S interpreted by me (1pt. min.). @ -[None done] What testing was considered but not performed or refused? (CT, X-rays, U/S, labs)? Why? @ -[None] What meds were considered but not given or refused? Why? @ -[None] Did you discuss the management of the patient with other professionals (professionals i.e. , PA, RESTRIKE HAMMER OPERATOR, lab, RT, psych nurse, oncology social worker, tumbler machine operator, teacher, tourist information officer, case reviewer)? Give summary @ -[Case discussed with admitting physician and treatment recommendations incorporated Was smoking cessation discussed for >3mins.? @ -[No] Was critical care preformed (if so, how long)? @ -[No] Were there social determinants of health that impacted care today? How? (Homelessness, low income, unemployed, alcoholism, drug addiction, transportation, low edu. Level, literacy, decrease access to med. care, custodial, rehab)? @ -[Alcohol abuse Was there de-escalation of care discussed even if they declined (Discuss DNR or withdrawal of care, Hospice)? DNR status @ -[No] What co-morbidities impacted this encounter? (DM, HTN, Smoking, COPD, CAD, Cancer, CVA, ARF, Chemo, Hep., AIDS, mental health diagnosis, sleep apnea, morbid obesity)? @ -[Alcohol abuse, history of GI bleed Was patient admitted / discharged? Hospital course, mention meds given and route, prescriptions, significant lab abnormalities, going to OR and other pertinent info. @ -[Patient is 64-year-old man presenting with symptoms and signs of alcohol withdrawal/impending delirium tremens. He will be admitted to manage that. In addition patient with recent humerus fracture, will have orthopedic consultation. Undiagnosed new problem with uncertain prognosis? @ -[No] Drug Therapy requiring intensive monitoring for toxicity (Heparin, Nitro, Insulin, Cardizem)? @ -[No] Were any procedures done? @ -[No] Diagnosis/symptom? @ -[Acute alcohol withdrawal Impending DTs Subacute humerus fracture Anemia History of GI bleed Acute, or Chronic, or Acute on Chronic? @ -[Acute Uncomplicated (without systemic symptoms) or Complicated (systemic symptoms)? @ -[Uncomplicated Side effects of treatment? @ -[No] Exacerbation, Progression, or Severe Exacerbation? @ -[No] Poses a threat to life or bodily function? How? (Chest pain, [place], [place], pneumonia, PE, COPD, DKA, ARF, appy, cholecystitis, CVA, Diverticulitis, Homicidal, Suicidal, threat to staff... and all critical care pts) @ -[Yes there is significant risk of morbidity and mortality associated with delirium tremens/withdrawal All treatments are based on ideal body weight as in ED triage - Lab Data Result diagrams: 08/23/24 05:09 08/23/24 15:08 Lab Results 08/20/24 08/20/24 08/20/24 Range/Units 04:18 04:18 04:18 WBC 7.21 (4.50-10.00) 10*3/uL RBC 2.27 L (4.40-5.60) 10*6/uL Hgb 8.1 L (13.0-17.0) g/dL Hct 23.8 L (39.6-50.0) % MCV 104.8 H (80.0-97.0) fL MCH 35.7 H (27.0-32.0) pg MCHC 34.0 (32.0-37.0) g/dL Plt Count 173 (140-440) 10*3/uL MPV 10.3 (9.5-12.2) fL Immature Gran % (Auto) 0.4 % Neutrophils % 75.0 % Lymphocytes % 11.8 % Monocytes % 12.5 % Eosinophils % 0.0 % Basophils % 0.3 % Immature Gran # 0.03 (0.00-0.04) 10*3/uL Neutrophils # 5.41 (1.80-7.70) 10*3/uL Lymphocytes # 0.85 L (0.90-5.00) 10*3/uL Monocytes # 0.90 (0.20-1.00) 10*3/uL Eosinophils # 0.00 L (0.04-0.35) 10*3/uL Basophils # 0.02 (0.00-0.10) 10*3/uL PT 10.3 (10.0-12.5) sec INR 0.9 (<1.2) APTT 19.9 L (22.0-30.0) sec Sodium 134 L (137-145) mmol/L Potassium 4.2 (3.5-5.1) mmol/L Chloride 99 (98-107) mmol/L Carbon Dioxide 23 (22-30) mmol/L Anion Gap 12 mmol/L BUN 51 H (9-20) mg/dL Creatinine 0.59 L (0.66-1.25) mg/dL Est GFR (CKD-EPI)AfAm >90 (>60 ml/min/1.73 sqM) Est GFR (CKD-EPI)NonAf >90 (>60 ml/min/1.73 sqM) Glucose 124 H (74-99) mg/dL Lactic Ac Sepsis Rflx Plasma Lactic Acid Franky (0.7-2.0) mmol/L Calcium 9.4 (8.4-10.2) mg/dL Magnesium 1.8 (1.6-2.3) mg/dL Ferritin (22.0-322.0) ng/mL Total Bilirubin 1.1 (0.2-1.3) mg/dL AST 46 (17-59) U/L ALT 28 (4-49) U/L Alkaline Phosphatase 61 (38-126) U/L Ammonia (<30) umol/L Troponin I (0.000-0.034) ng/mL Total Protein 6.2 L (6.3-8.2) g/dL Albumin 3.7 (3.5-5.0) g/dL Vitamin B12 (200.0-944.0) pg/mL Serum Alcohol <10 mg/dL Blood Type Confirm 08/20/24 08/20/24 08/20/24 Range/Units 04:18 04:18 04:18 WBC (4.50-10.00) 10*3/uL RBC (4.40-5.60) 10*6/uL Hgb (13.0-17.0) g/dL Hct (39.6-50.0) % MCV (80.0-97.0) fL MCH (27.0-32.0) pg MCHC (32.0-37.0) g/dL Plt Count (140-440) 10*3/uL MPV (9.5-12.2) fL Immature Gran % (Auto) % Neutrophils % % Lymphocytes % % Monocytes % % Eosinophils % % Basophils % % Immature Gran # (0.00-0.04) 10*3/uL Neutrophils # (1.80-7.70) 10*3/uL Lymphocytes # (0.90-5.00) 10*3/uL Monocytes # (0.20-1.00) 10*3/uL Eosinophils # (0.04-0.35) 10*3/uL Basophils # (0.00-0.10) 10*3/uL PT (10.0-12.5) sec INR (<1.2) APTT (22.0-30.0) sec Sodium (137-145) mmol/L Potassium (3.5-5.1) mmol/L Chloride (98-107) mmol/L Carbon Dioxide (22-30) mmol/L Anion Gap mmol/L BUN (9-20) mg/dL Creatinine (0.66-1.25) mg/dL Est GFR (CKD-EPI)AfAm (>60 ml/min/1.73 sqM) Est GFR (CKD-EPI)NonAf (>60 ml/min/1.73 sqM) Glucose (74-99) mg/dL Lactic Ac Sepsis Rflx Plasma Lactic Acid Franky 2.6 H* (0.7-2.0) mmol/L Calcium (8.4-10.2) mg/dL Magnesium (1.6-2.3) mg/dL Ferritin 209.0 (22.0-322.0) ng/mL Total Bilirubin (0.2-1.3) mg/dL AST (17-59) U/L ALT (4-49) U/L Alkaline Phosphatase (38-126) U/L Ammonia <9 (<30) umol/L Troponin I <0.012 (0.000-0.034) ng/mL Total Protein (6.3-8.2) g/dL Albumin (3.5-5.0) g/dL Vitamin B12 3365.0 H (200.0-944.0) pg/mL Serum Alcohol mg/dL Blood Type Confirm 08/20/24 08/20/24 Range/Units 04:18 05:12 WBC (4.50-10.00) 10*3/uL RBC (4.40-5.60) 10*6/uL Hgb (13.0-17.0) g/dL Hct (39.6-50.0) % MCV (80.0-97.0) fL MCH (27.0-32.0) pg MCHC (32.0-37.0) g/dL Plt Count (140-440) 10*3/uL MPV (9.5-12.2) fL Immature Gran % (Auto) % Neutrophils % % Lymphocytes % % Monocytes % % Eosinophils % % Basophils % % Immature Gran # (0.00-0.04) 10*3/uL Neutrophils # (1.80-7.70) 10*3/uL Lymphocytes # (0.90-5.00) 10*3/uL Monocytes # (0.20-1.00) 10*3/uL Eosinophils # (0.04-0.35) 10*3/uL Basophils # (0.00-0.10) 10*3/uL PT (10.0-12.5) sec INR (<1.2) APTT (22.0-30.0) sec Sodium (137-145) mmol/L Potassium (3.5-5.1) mmol/L Chloride (98-107) mmol/L Carbon Dioxide (22-30) mmol/L Anion Gap mmol/L BUN (9-20) mg/dL Creatinine (0.66-1.25) mg/dL Est GFR (CKD-EPI)AfAm (>60 ml/min/1.73 sqM) Est GFR (CKD-EPI)NonAf (>60 ml/min/1.73 sqM) Glucose (74-99) mg/dL Lactic Ac Sepsis Rflx Y Plasma Lactic Acid Franky (0.7-2.0) mmol/L Calcium (8.4-10.2) mg/dL Magnesium (1.6-2.3) mg/dL Ferritin (22.0-322.0) ng/mL Total Bilirubin (0.2-1.3) mg/dL AST (17-59) U/L ALT (4-49) U/L Alkaline Phosphatase (38-126) U/L Ammonia (<30) umol/L Troponin I (0.000-0.034) ng/mL Total Protein (6.3-8.2) g/dL Albumin (3.5-5.0) g/dL Vitamin B12 (200.0-944.0) pg/mL Serum Alcohol mg/dL Blood Type Confirm A Positive Disposition Clinical Impression: Alcohol withdrawal, Lactic acidosis, Anemia, Impending delirium tremens Disposition: ADMITTED IP TO THIS HOSP Condition: Fair
[2024-08-20] MEDS ORDERED: NALOXONE 0.4 MG/ML 1 ML VIAL IV PRN (06:53)
[2024-08-20] MEDS ORDERED: MAG HYDROX/AL HYDROX/SIMETH 30 ML CUP PO PRN (06:53)
[2024-08-20] MEDS ORDERED: LORazepam 1 MG/0.5 ML VIAL IV PRN (06:57)
[2024-08-20] MEDS: ONDANSETRON 4 MG/2 ML VIAL IVP STA (07:30)
[2024-08-20] MEDS: SODIUM CHLORIDE 0.9% 1,000 ML IV SCH (07:31)
[2024-08-20] MEDS: CYANOCOBALAMIN 500 MCG TAB PO SCH (08:49)
[2024-08-20] MEDS: FERROUS SULFATE 325 MG TAB PO SCH (08:49)
[2024-08-20] MEDS: TAMSULOSIN 0.4 MG CAP.ER.24H PO SCH (08:50)
[2024-08-20] MEDS: amLODIPine 5 MG TAB PO SCH (08:50)
[2024-08-20] MEDS: ATORVASTATIN 20 MG TAB PO SCH (08:50)
[2024-08-20] MEDS: PANTOPRAZOLE 40 MG/10 ML VIAL IV SCH (08:50)
--- NOTE | 2024-08-20 08:55 | XR ---
EXAMINATION TYPE: XR shoulder complete RT DATE OF EXAM: 08/20/2024 CLINICAL INDICATION: Male, 63 years old with history of proximal humerus fracture, pain TECHNIQUE: Three views of the right shoulder are obtained. COMPARISON: Right shoulder x-rays July 16, 2024. FINDINGS: Persistent comminuted displaced impacted fracture surgical neck right proximal humerus. Jasper ency in the frontal projection is less prominent on current study suggesting interval callus formatio n. No new fractures are seen. Persistent right suprahilar linear scarring. Osseous structures are dem ineralized. IMPRESSION: As above. [facility], , 08/20/2024 8:53 AM
[2024-08-20] MEDS: LORazepam 1 MG/0.5 ML VIAL IV PRN ×2 (09:04→16:19)
--- NOTE | 2024-08-20 10:04 | P.CNOR ---
History of Present Illness - [facility] Consult date: 08/20/24 Consult reason: fracture (Right proximal humerus) History of present illness: Jorge presented to the emergency department early this morning with complaint of right shoulder pain. The patient states that he had a fall and sustained injury to his right shoulder. He initially stated that his injury was about a month ago. When questioned further he states it might have been closer to a week ago. The patient has history of EtOH abuse and is uncertain as to when he injured his shoulder. He is having difficulty managing his pain. He is admitted to internal medicine and we are consulted for orthopedic evaluation. He states that he has seen an orthopedic provider for his shoulder but is unsure as to who we saw. Past Medical History Past Medical History: Coronary Artery Disease (CAD), Pneumonia, Prostate Disorder Additional Past Medical History / Comment(s): ETOH, enlarged prostate,Mar 2023- chest tube, using O2@2.5L [place] prn,scattered bruising arms,neuropathy adilia feet History of Any Multi-Drug Resistant Organisms: None Reported Past Surgical History: Hernia Repair Additional Past Surgical History / Comment(s): Hernia Repair Past Anesthesia/Blood Transfusion Reactions: No Reported Reaction Past Psychological History: Anxiety, Depression Smoking Status: Current every day smoker Past Alcohol Use History: Daily, Heavy Past Drug Use History: None Reported - Past Family History Father Additional Family Medical History / Comment(s): OF PANCREATIC ISSUES Mother Additional Family Medical History / Comment(s): PULMONARY HYPERTENSION Medications and Allergies Home Medications Medication Instructions Recorded Confirmed Type Rosuvastatin Calcium 10 mg PO DAILY #30 tab 04/20/23 12/09/23 Rx Aspirin 81 mg PO Q2D 12/09/23 12/09/23 History Cyanocobalamin (Vitamin B-12) 10,000 mcg PO DAILY 12/09/23 12/09/23 History [Vitamin B-12] Ferrous Sulfate [Feosol] 325 mg PO DAILY 12/09/23 12/09/23 History Tamsulosin HCl [Flomax] 0.4 mg PO QAM 12/09/23 12/09/23 History amLODIPine [Norvasc] 5 mg PO QAM 12/09/23 12/09/23 History HYDROcodone/APAP 7.5-325MG [[place] 1 tab PO Q6HR PRN 3 Days #12 tab 07/16/24 Rx 7.5-325] Allergies Allergy/AdvReac Type Severity Reaction Status Date / Time bee venom protein (honey bee) Allergy Anaphylaxis Verified 07/17/24 15:02 Physical Examination This is a 63-year-old male in no acute distress. He is alert and oriented at this time. Exam of the head and neck revealed no obvious deformity. He has fairly good cervical spine motion without difficulty or pain. Exam of the upper extremities reveals significant ecchymosis about the right shoulder and right side of the chest. There is swelling noted to the right shoulder. He is unable/unwilling to perform range of motion of the shoulder. He has fairly good elbow, wrist and finger motion. Exam of the left upper extremity is unremarkable. Neurovascular status to the upper extremities is intact. Exam of the lower extremities is unremarkable. Results X-rays of the right shoulder including only 1 view reveals a minimally displaced proximal humerus fracture. - Labs Labs: Abnormal Lab Results - Last 24 Hours (Table) 08/20/24 08/20/24 08/20/24 Range/Units 04:18 04:18 04:18 RBC 2.27 L (4.40-5.60) 10*6/uL Hgb 8.1 L (13.0-17.0) g/dL Hct 23.8 L (39.6-50.0) % MCV 104.8 H (80.0-97.0) fL MCH 35.7 H (27.0-32.0) pg Lymphocytes # 0.85 L (0.90-5.00) 10*3/uL Eosinophils # 0.00 L (0.04-0.35) 10*3/uL APTT 19.9 L (22.0-30.0) sec Sodium 134 L (137-145) mmol/L BUN 51 H (9-20) mg/dL Creatinine 0.59 L (0.66-1.25) mg/dL Glucose 124 H (74-99) mg/dL Plasma Lactic Acid Franky (0.7-2.0) mmol/L Total Protein 6.2 L (6.3-8.2) g/dL 08/20/24 Range/Units 04:18 RBC (4.40-5.60) 10*6/uL Hgb (13.0-17.0) g/dL Hct (39.6-50.0) % MCV (80.0-97.0) fL MCH (27.0-32.0) pg Lymphocytes # (0.90-5.00) 10*3/uL Eosinophils # (0.04-0.35) 10*3/uL APTT (22.0-30.0) sec Sodium (137-145) mmol/L BUN (9-20) mg/dL Creatinine (0.66-1.25) mg/dL Glucose (74-99) mg/dL Plasma Lactic Acid Franky 2.6 H* (0.7-2.0) mmol/L Total Protein (6.3-8.2) g/dL H & H 08/20/24 Range/Units 04:18 Hgb 8.1 L (13.0-17.0) g/dL Hct 23.8 L (39.6-50.0) % Coagulation 08/20/24 Range/Units 04:18 INR 0.9 (<1.2) Result Diagrams: 08/20/24 04:18 08/20/24 04:18 Assessment and Plan (1) Fracture of humerus, proximal, right, closed Current Visit: Yes Status: Acute Code(s): S42.201A - UNSP FRACTURE OF UPPER END OF RIGHT HUMERUS, INIT SNOMED Code(s): 16204105 (2) Alcohol intoxication Current Visit: No Status: Acute Code(s): F10.929 - ALCOHOL USE, UNSPECIFIED WITH INTOXICATION, UNSPECIFIED SNOMED Code(s): 45803155 (3) Impending delirium tremens Current Visit: No Status: Acute Code(s): F10.239 - ALCOHOL DEPENDENCE WITH WITHDRAWAL, UNSPECIFIED SNOMED Code(s): 864073945 (4) Lactic acidosis Current Visit: No Status: Acute Code(s): E87.2 - ACIDOSIS * DO NOT USE * SNOMED Code(s): 01735941 Plan: The clinical and radiographic findings are discussed with the patient. I have ordered a CT scan of the right shoulder for further evaluation. He is being admitted for treatment of his alcohol withdrawal symptoms. He likely will be able to be treated nonoperatively in a sling. We will await CT scan results and make further recommendations as indicated.
--- NOTE | 2024-08-20 10:46 | CT ---
EXAMINATION TYPE: CT shoulder RT wo con DATE OF EXAM: 08/20/2024 10:16 AM COMPARISON: None. CLINICAL INDICATION: Male, 63 years old with history of Fracture fracture, Rt shoulder pain and bruis ing. TECHNIQUE: Contrast used: mL of , (none if empty) Oral contrast used: (none if empty) Axial images at 3 mm thick sections. Reconstructed images in the coronal and sagittal planes. FINDINGS: The acromioclavicular junction appears intact. Clavicle is intact. Scapula is intact. There is a fracture of the surgical neck of the humerus. Some impaction is present. The humeral head articulates with the glenoid. Joint space appears preserved. IMPRESSION: 1. IMPACTED FRACTURE SURGICAL NECK OF THE HUMERUS [facility], , 08/20/2024 10:44 AM
--- NOTE | 2024-08-20 12:53 | P.HPIM ---
History of Present Illness Patient 63-year-old male came in with complaints of right shoulder pain patient is found to have right humerus fracture for which orthopedic surgery evaluate the patient and patient will have a sling and patient will undergo nonoperative management because of the pain in the left shoulder patient has been taking a lot of Motrin and patient has been vomiting blood. Patient last hemoptysis are coffee-ground emesis was was yesterday.. Patient does drink alcohol on regular basis patient says he drinks 1 bottle of wine every day. Patient is presently not having withdrawals patient last alcohol drink was 2 days ago denied any ches t pain does have some abdominal burning sensation. Patient does not have any fever chills. Patient does have elevated MCV hemoglobin is 8.1. Low sodium of 134. REVIEW OF SYSTEMS: All other systems are negative except those mentioned in the HPI PHYSICAL EXAMINATION: GENERAL: The patient is alert and oriented x3, not in any acute distress. Well developed, well nourished. Patient presently does not have any withdrawal symptoms HEENT: Pupils are round and equally reacting to light. EOMI. No scleral icterus. No conjunctival pallor. Normocephalic, atraumatic. No pharyngeal erythema. No t hyromegaly. CARDIOVASCULAR: S1 and S2 present. No murmurs, rubs, or gallops. PULMONARY: Chest is clear to auscultation, no wheezing or crackles. ABDOMEN: Soft, nontender, nondistended, normoactive bowel sounds. No palpable organomegaly. MUSCULOSKELETAL: No joint swelling or deformity. EXTREMITIES: No cyanosis, clubbing, or pedal edema. NEUROLOGICAL: Gross neurological examination did not reveal any focal deficits. SKIN: No rashes. Assessment and plan -Upper GI bleed/hemoptysis/coffee-ground emesis: Secondary to Motrin use and chronic alcohol use. Patient probably has peptic ulcer disease. Patient will be on IV Protonix as patient's coffee-ground emesis resolved may not need any upper GI endoscopy at this time. Will monitor overnight - Alcohol abuse/alcohol withdrawal patient is presently not having any withdrawals at this time although patient is on CIWA protocol with Ativan. Which we will continue - Severe anemia probably secondary to chronic alcoholism will obtain a B12 f olate level along with ferritin level because of his GI bleed may benefit from platelet supplementation if his ferritin level is low patient is on thiamine supplementation will add multivitamin supplementation to this and awaiting B12 and folate levels - Left humerus fracture nonoperative nonoperative management with pain medications and sling - Depression - Anxiety - History of hypertension patient blood pressure is within normal meds now patient is not on any medications at this time will not require any medications. DVT prophylaxis: Early ambulation Past Medical History Past Medical History: Coronary Artery Disease (CAD), Pneumonia, Prostate Disorder Additional Past Medical History / Comment(s): ETOH, enlarged prostate,Mar 2023- chest tube, using O2@2.5L [place] prn,scattered bruising arms,neuropathy adilia feet History of Any Multi-Drug Resistant Organisms: None Reported Past Surgical History: Hernia Repair Additional Past Surgical History / Comment(s): Hernia Repair Past Anesthesia/Blood Transfusion Reactions: No Reported Reaction Past Psychological History: Anxiety, Depression Smoking Status: Current every day smoker Past Alcohol Use History: Daily, Heavy Past Drug Use History: None Reported - Past Family History Father Additional Family Medical History / Comment(s): OF PANCREATIC ISSUES Mother Additional Family Medical History / Comment(s): PULMONARY HYPERTENSION Medications and Allergies Home Medications Medication Instructions Recorded Confirmed Type No Known Home Medications 08/20/24 08/20/24 History Allergies Allergy/AdvReac Type Severity Reaction Status Date / Time bee venom protein (honey bee) Allergy Anaphylaxis Verified 08/20/24 10:41 Physical Exam Vitals: Vital Signs Temp Pulse Resp BP Pulse Ox 08/20/24 10:43 112 H 20 120/70 96 08/20/24 08:55 93 20 138/80 97 08/20/24 07:32 86 20 134/75 97 08/20/24 06:34 92 18 126/81 97 08/20/24 03:28 98.7 F 112 H 20 133/104 100 Intake and Output 08/19/24 08/20/24 08/20/24 22:59 06:59 14:59 Other: Weight 58.513 kg Results CBC & Chem 7: 08/20/24 04:18 08/20/24 04:18 Labs: Abnormal Lab Results - Last 24 Hours (Table) 08/20/24 08/20/24 08/20/24 Range/Units 04:18 04:18 04:18 RBC 2.27 L (4.40-5.60) 10*6/uL Hgb 8.1 L (13.0-17.0) g/dL Hct 23.8 L (39.6-50.0) % MCV 104.8 H (80.0-97.0) fL MCH 35.7 H (27.0-32.0) pg Lymphocytes # 0.85 L (0.90-5.00) 10*3/uL Eosinophils # 0.00 L (0.04-0.35) 10*3/uL APTT 19.9 L (22.0-30.0) sec Sodium 134 L (137-145) mmol/L BUN 51 H (9-20) mg/dL Creatinine 0.59 L (0.66-1.25) mg/dL Glucose 124 H (74-99) mg/dL Plasma Lactic Acid Franky (0.7-2.0) mmol/L Total Protein 6.2 L (6.3-8.2) g/dL 08/20/24 Range/Units 04:18 RBC (4.40-5.60) 10*6/uL Hgb (13.0-17.0) g/dL Hct (39.6-50.0) % MCV (80.0-97.0) fL MCH (27.0-32.0) pg Lymphocytes # (0.90-5.00) 10*3/uL Eosinophils # (0.04-0.35) 10*3/uL APTT (22.0-30.0) sec Sodium (137-145) mmol/L BUN (9-20) mg/dL Creatinine (0.66-1.25) mg/dL Glucose (74-99) mg/dL Plasma Lactic Acid Franky 2.6 H* (0.7-2.0) mmol/L Total Protein (6.3-8.2) g/dL
[2024-08-20] MEDS: HYDROcodone/APAP 7.5-325MG 1 EACH TAB PO PRN (14:01)
[2024-08-20] MEDS: FOLIC ACID 1 MG TAB PO SCH (14:02)
[2024-08-20] MEDS: MULTIVITAMINS, THERA 1 EACH TAB PO SCH (14:02)
[2024-08-21] MEDS: THIAMINE 100 MG TAB PO SCH (08:56)
[2024-08-21 10:54] LABS: BUN/Creat Ratio 28.67 Ratio (12.00-20.00); Blood Urea Nitrogen 17.2 mg/dL (9.0-27.0); Calcium 8.4 mg/dL (8.7-10.3); Carbon Dioxide 23.7 mmol/L (21.6-31.8); Chloride 107 mmol/L (96-109); Glucose 90 mg/dL (70-110); Magnesium 1.8 mg/dL (1.5-2.4); Sodium 141 mmol/L (135-145)
[2024-08-21 10:56] LABS: Basophils # (A) 0.03 X 10*3/uL (0.00-0.10); Basophils % (A) 0.8 %; Eosinophils # (A) 0.04 X 10*3/uL (0.04-0.35); HGB 6.6 g/dL (13.0-17.0); Lymphocytes # (A) 0.85 X 10*3/uL (0.90-5.00); Lymphocytes % (A) 21.9 %; MCH 35.3 pg (27.0-32.0); MCHC 31.4 g/dL (32.0-37.0); MCV 112.3 FL (80.0-97.0); Mean Platelet Volume 10.2 FL (9.5-12.2); Monocytes # (A) 0.43 X 10*3/uL (0.20-1.00); Monocytes % (A) 11.1 %; NRBC Per 100 WBC 0 X 10*3/uL (0.00-0.01); Neutrophils # (A) 2.52 X 10*3/uL (1.80-7.70); Neutrophils % (A) 64.7 %; Platelet Count 146 X 10*3/uL (140-440); RBC 1.87 X 10*6/uL (4.40-5.60); RDW 14.7 % (11.5-14.5); WBC 3.89 X 10*3/uL (4.50-10.00)
--- NOTE | 2024-08-21 15:00 | P.PN ---
Subjective Progress Note Date: 08/21/24 Jorge presented to the emergency department early this morning with complaint of right shoulder pain. The patient states that he had a fall and sustained injury to his right shoulder. He initially stated that his injury was about a month ago. When questioned further he states it might have been closer to a week ago. The patient has history of EtOH abuse and is uncertain as to when he injured his shoulder. He is having difficulty managing his pain. He is admitted to internal medicine and we are consulted for orthopedic evaluation. He states that he has seen an orthopedic provider for his shoulder but is unsure as to who we saw. 09/17/2024 progress: No acute events overnight per patient. Patient states they continue to have right shoulder pain. Patient denies any other complaints at the time of exam. Patient denies chest pain or shortness of breath. Objective - Vital Signs Vital signs: Vital Signs Temp 97.9 F 08/21/24 12:33 Pulse 91 08/21/24 12:33 Resp 16 08/21/24 12:33 BP 122/78 08/21/24 12:33 Pulse Ox 99 08/21/24 12:33 FiO2 Intake & Output 08/20/24 08/21/24 08/21/24 18:59 06:59 18:59 Intake Total 480 Balance 480 Weight 58.513 kg Intake: Oral 480 Other: Voiding Method Urinal Diaper # Voids 2 - Exam No acute distress. He is alert and oriented at this time. Exam of the head and neck revealed no obvious deformity. He has fairly good cervical spine motion without difficulty or pain. Exam of the upper extremities reveals significant ecchymosis about the right shoulder and right side of the chest. There is swelling noted to the right shoulder. He is unable/unwilling to perform range of motion of the shoulder. He has fairly good elbow, wrist and finger motion. Exam of the left upper extremity is unremarkable. Neurovascular status to the upper extremities is intact. Exam of the lower extremities is unremarkable. - Labs CBC & Chem 7: 08/21/24 05:57 08/21/24 05:57 Labs: Abnormal Lab Results - Last 24 Hours (Table) 08/20/24 08/21/24 08/21/24 Range/Units 04:18 05:57 05:57 WBC 3.89 L (4.50-10.00) X 10*3/uL RBC 1.87 L (4.40-5.60) X 10*6/uL Hgb 6.6 A* (13.0-17.0) g/dL Hct 21.0 L (39.6-50.0) % MCV 112.3 H (80.0-97.0) FL MCH 35.3 H (27.0-32.0) pg MCHC 31.4 L (32.0-37.0) g/dL RDW 14.7 H (11.5-14.5) % Lymphocytes # 0.85 L (0.90-5.00) X 10*3/uL BUN/Creatinine Ratio 28.67 H (12.00-20.00) Ratio Calcium 8.4 L (8.7-10.3) mg/dL Vitamin B12 3365.0 H (200.0-944.0) pg/mL Crossmatch 08/21/24 Range/Units 13:04 WBC (4.50-10.00) X 10*3/uL RBC (4.40-5.60) X 10*6/uL Hgb (13.0-17.0) g/dL Hct (39.6-50.0) % MCV (80.0-97.0) FL MCH (27.0-32.0) pg MCHC (32.0-37.0) g/dL RDW (11.5-14.5) % Lymphocytes # (0.90-5.00) X 10*3/uL BUN/Creatinine Ratio (12.00-20.00) Ratio Calcium (8.7-10.3) mg/dL Vitamin B12 (200.0-944.0) pg/mL Crossmatch See Detail Assessment and Plan Assessment: Fracture of humerus, proximal, right, closed Right shoulder pain Alcohol intoxication Plan: CT shoulder right without contrast images were reviewed and agree with impression. CT shoulder RT wo con 08/20/2024: Impacted fracture surgical neck of the humerus. The humeral head articulates with the glenoid. Joint space appears preserved. The clinical and radiographic findings are discussed with the patient. No acute surgical interventions are recommended at this time. An order for a sling has been placed in patient's chart. Nonweightbearing right upper extremity in sling for comfort may remove for hygiene. Pain control per primary team. Patient is cleared to discharge from an orthopedic standpoint when pain has been controlled per primary team. We will sign off at this time. Thank you for the consult. Do not hesitate to contact us with any questions. Patient should have outpatient follow-up with [facility] Dr. Guerline Dixon 1 to 2 weeks after discharge.
[2024-08-21] MEDS: HYDROcodone/APAP 7.5-325MG 1 EACH TAB PO PRN (16:08)
[2024-08-21] MEDS: PANTOPRAZOLE 40 MG/10 ML VIAL IV SCH (20:09)
[2024-08-21] MEDS ORDERED: ACETAMINOPHEN TAB 325 MG TAB PO PRN (23:08)
--- NOTE | 2024-08-22 05:53 | P.PN ---
Subjective Progress Note Date: 08/21/24 Patient 63-year-old male came in with complaints of right shoulder pain patient is found to have right humerus fracture for which orthopedic surgery evaluate the patient and patient will have a sling and patient will undergo nonoperative management because of the pain in the left shoulder patient has been taking a lot of Motrin and patient has been vomiting blood. Patient last hemoptysis are coffee-ground emesis was was yesterday.. Patient does drink alcohol on regular basis patient says he drinks 1 bottle of wine every day. Patient is presently not having withdrawals patient last alcohol drink was 2 days ago denied any chest pain does have some abdominal burning sensation. Patient does not have any fever chills. Patient does have elevated MCV hemoglobin is 8.1. Low sodium of 134. 08/21/2024 Patient is seen in follow-up today. Feeling unwell with occasional nausea and no further vomiting noted. CBC pending for this a.m. and no rectal bleeding noted time. Per nursing staff, patient experienced significant hematuria yesterday and her closely. Discussed with the patient about obtaining a urine sample for evaluation. Patient reports has been up and walking and recommend PT/OT therapy evaluation. Orthopedics has evaluated the patient for right shoulder pain with no plans of surgical intervention recommending sling and conservative management with outpatient follow-up. Encouraged increase activity as tolerated and continue CIWA protocol for now. Patient does not appear to be actively withdrawing at this time. Review of systems: Constitutional: No reports of fatigue, fever, or chills Cardiovascular: No reports of chest pain or palpitations Respiratory: No reports of shortness of breath or cough GI: reports of occasional nausea, no further vomiting, or diarrhea : No reports of dysuria or retention, reports blood in urine Neurovascular: reports of generalized weakness All medications have been reviewed PHYSICAL EXAMINATION: GENERAL: The patient is alert and oriented x3, not in any acute distress. Well developed, elderly appearing, thin built, patient presently does not have any withdrawal symptoms HEENT: Pupils are round and equally reacting to light. EOMI. No scleral icterus. No conjunctival pallor. Normocephalic, atraumatic. No pharyngeal erythema. No thyromegaly. CARDIOVASCULAR: S1 and S2 present. No murmurs, rubs, or gallops. PULMONARY: Chest is clear to auscultation, no wheezing or crackles. ABDOMEN: Soft, nontender, nondistended, normoactive bowel sounds. No palpable organomegaly. MUSCULOSKELETAL: No joint swelling or deformity. Reports shoulder pain on palpation bilaterally, more so on the right EXTREMITIES: No cyanosis, clubbing, or pedal edema. NEUROLOGICAL: Gross neurological examination did not reveal any focal deficits. Diffusely weak SKIN: No rashes. Assessment: -Upper GI bleed/hemoptysis/coffee-ground emesis: Secondary to Motrin use and chronic alcohol use. Most likely peptic ulcer disease. Continue IV Protonix as patient's coffee-ground emesis resolved, will have patient follow-up with GI and/or general surgery outpatient for endoscopy and evaluation -Anemia, likely chronic although having some acute blood loss anemia secondary to residual hemoptysis, hemoglobin noted to be 6.6 today we will transfuse 1 unit of PRBC on repeat labs in a.m. - Alcohol abuse/alcohol withdrawal patient is presently not having any withdrawals at this time although patient is on CIWA protocol with Ativan. Which we will continue - Severe anemia probably secondary to chronic alcoholism, B12 elevated, will order ferritin and iron studies, platelets 146 -Right humerus fracture noted on CT, nonoperative per orthopedics recommending conservative management with sling and outpatient follow-up - Depression - Anxiety - History of hypertension patient blood pressure is within normal meds now patient is not on any medications at this time will not require any medications. - GI prophylaxis -DVT prophylaxis: Early ambulation - Full code Plan: Patient's hemoglobin was 6.6 today will receive 1 unit of PRBC and follow-up on iron studies and repeat CBC in AM. Transfuse if 7 or less Per nursing staff there was some hematuria noted yesterday although patient denies any pain or burning with urination, recommend monitoring for any further bleeding and will consult urology if needed Encourage increase activity as tolerated with PT/OT therapy to evaluate Continue CIWA protocol although patient does not appear to be actively withdrawing Encouraged oral intake Case management/social work following to arrange for discharge planning needs. Recommend inpatient alcohol rehab Avoid NSAID use and patient is having significant pain, will continue [place] for now. Recommend pain management consult outpatient Continue Protonix twice daily and will on discharge as well Discharge planning in the next 24 to 48 hours The impression and plan of care has been dictated by Barbara Lawler, Nurse Practitioner as directed. Dr. Octavia MD I have performed a history and examination and MDM of this patient, discussed the same with the dictator, and agree with the dictator's assessment and plan as written ,documented as a scribe. Based on total visit time, I have performed more than 50% of the visit. Objective - Vital Signs Vital signs: Vital Signs Temp 97.7 F 08/21/24 07:16 Pulse 89 08/21/24 07:16 Resp 20 08/21/24 07:16 BP 115/74 08/21/24 07:16 Pulse Ox 95 08/21/24 07:16 FiO2 Intake & Output 08/20/24 08/21/24 08/21/24 18:59 06:59 18:59 Intake Total 480 Balance 480 Weight 58.513 kg Intake: Oral 480 Other: Voiding Method Urinal Diaper # Voids 2 - Labs CBC & Chem 7: 08/21/24 05:57 08/21/24 05:57 Labs: Abnormal Lab Results - Last 24 Hours (Table) 08/20/24 Range/Units 04:18 Vitamin B12 3365.0 H (200.0-944.0) pg/mL
[2024-08-22 06:34] LABS: Basophils # (A) 0.04 10*3/uL (0.00-0.10); Basophils % (A) 0.9 %; Eosinophils # (A) 0.11 10*3/uL (0.04-0.35); Eosinophils % (A) 2.5 %; HCT 27.1 % (39.6-50.0); Lymphocytes # (A) 1.04 10*3/uL (0.90-5.00); Lymphocytes % (A) 23.3 %; MCH 34.1 pg (27.0-32.0); MCHC 33.2 g/dL (32.0-37.0); MCV 102.7 fL (80.0-97.0); Mean Platelet Volume 9.8 fL (9.5-12.2); Monocytes # (A) 0.51 10*3/uL (0.20-1.00); Monocytes % (A) 11.4 %; Neutrophils # (A) 2.73 10*3/uL (1.80-7.70); Neutrophils % (A) 61.2 %; Platelet Count 158 10*3/uL (140-440); RBC 2.64 10*6/uL (4.40-5.60); WBC 4.46 10*3/uL (4.50-10.00)
[2024-08-22 08:37] LABS: % Iron Saturation 18.06 (15.00-50.00)
[2024-08-22] MEDS ORDERED: LORazepam 1 MG/0.5 ML VIAL IV PRN ×2 (15:19)
--- NOTE | 2024-08-22 15:23 | P.PN ---
Subjective Progress Note Date: 08/22/24 Patient 63-year-old male came in with complaints of right shoulder pain patient is found to have right humerus fracture for which orthopedic surgery evaluate the patient and patient will have a sling and patient will undergo nonoperative management because of the pain in the left shoulder patient has been taking a lot of Motrin and patient has been vomiting blood. Patient last hemoptysis are coffee-ground emesis was was yesterday.. Patient does drink alcohol on regular basis patient says he drinks 1 bottle of wine every day. Patient is presently not having withdrawals patient last alcohol drink was 2 days ago denied any chest pain does have some abdominal burning sensation. Patient does not have any fever chills. Patient does have elevated MCV hemoglobin is 8.1. Low sodium of 134. 08/21/2024 Patient is seen in follow-up today. Feeling unwell with occasional nausea and no further vomiting noted. CBC pending for this a.m. and no rectal bleeding noted time. Per nursing staff, patient experienced significant hematuria yesterday and her closely. Discussed with the patient about obtaining a urine sample for evaluation. Patient reports has been up and walking and recommend PT/OT therapy evaluation. Orthopedics has evaluated the patient for right shoulder pain with no plans of surgical intervention recommending sling and conservative management with outpatient follow-up. Encouraged increase activity as tolerated and continue CIWA protocol for now. Patient does not appear to be actively withdrawing at this time. 08/22/2024 Patient evaluated in follow-up on the medical floor. Patient was eval by orthopedic surgery and recommended to continue with conservative management and patient has sling in place. He is complaining of significant pain to his right shoulder area he is on a course of Tylenol and [place] 7.5 every 4 hours as needed. Patient is complaining of significant anxiety and tremors and feels like he is going through withdrawal at this time he states that he feels like he has a veil over his eyes. In addition to the IV Ativan patient will also be given scheduled Librium. There are no complaints of GI bleeding at this time. He continues on IV Protonix twice daily. Hemoglobin today of 9.0, white blood cell count 4.46. Iron studies show a low iron of 52 however he does not appear to be iron deficient. Review of systems: Constitutional: No reports of fatigue, fever, or chills Cardiovascular: No reports of chest pain or palpitations Respiratory: No reports of shortness of breath or cough GI: reports of occasional nausea, no further vomiting, or diarrhea : No reports of dysuria or retention, reports blood in urine Neurovascular: reports of generalized weakness All medications have been reviewed PHYSICAL EXAMINATION: GENERAL: The patient is alert and oriented x3, not in any acute distress. Well developed, elderly appearing, thin built, patient presently does not have any withdrawal symptoms HEENT: Pupils are round and equally reacting to light. EOMI. No scleral icterus. No conjunctival pallor. Normocephalic, atraumatic. No pharyngeal erythema. No thyromegaly. CARDIOVASCULAR: S1 and S2 present. No murmurs, rubs, or gallops. PULMONARY: Chest is clear to auscultation, no wheezing or crackles. ABDOMEN: Soft, nontender, nondistended, normoactive bowel sounds. No palpable organomegaly. MUSCULOSKELETAL: No joint swelling or deformity. Reports shoulder pain on palpation bilaterally, more so on the right EXTREMITIES: No cyanosis, clubbing, or pedal edema. NEUROLOGICAL: Gross neurological examination did not reveal any focal deficits. Diffusely weak SKIN: No rashes. Assessment: - Upper GI bleed/hemoptysis/coffee-ground emesis: Secondary to Motrin use and chronic alcohol use. Most likely peptic ulcer disease. Continue IV Protonix as patient's coffee-ground emesis resolved, will have patient follow-up with GI and/or general surgery outpatient for endoscopy and evaluation - Anemia, likely chronic although having some acute blood loss anemia secondary to residual hemoptysis, patient's hemoglobin is stable at 9.0 he is status post 1 unit of PRBCs. - Alcohol abuse/alcohol withdrawal patient is presently not having any withdrawals at this time although patient is on CIWA protocol with Ativan. Which we will continue we will add scheduled Librium as patient is significantly agitated. - Severe anemia probably secondary to chronic alcoholism, B12 elevated, will order ferritin and iron studies, platelets 146 - Right humerus fracture noted on CT, nonoperative per orthopedics recommending conservative management with sling and outpatient follow-up - Depression - Anxiety - History of hypertension patient blood pressure is within normal meds now patient is not on any medications at this time will not require any medications. - GI prophylaxis on IV Protonix twice daily - DVT prophylaxis: Early ambulation - Full code Plan: Patient's hemoglobin was 6.6 today will receive 1 unit of PRBC. No signs of active bleeding hemoglobin stable at 9.0 transfuse if 7 or less Per nursing staff there was some hematuria noted yesterday although patient denies any pain or burning with urination, recommend monitoring for any further bleeding and will consult urology if needed Encourage increase activity as tolerated with PT/OT therapy to evaluate Continue CIWA protocol and will add scheduled Librium as patient is sig nificantly agitated and feels like he is withdrawing at this time Encouraged oral intake Case management/social work following to arrange for discharge planning needs. Recommend inpatient alcohol rehab Avoid NSAID use and patient is having significant pain, will continue [place] for now. Recommend pain management consult outpatient Continue Protonix twice daily and will on discharge as well Patient was eval by PT and recommending subacute rehabilitation he has unstable and not safe for discharge home. Social work to reevaluate as patient is now agreeable to subacute rehab and discharge planning is in progress. Monitor electrolytes and renal function. The impression and plan of care has been dictated by Thu Theodore, Nurse Practitioner as directed. Dr. Octavia MD I have performed a history and examination and MDM of this patient, discussed the same with the dictator, and agree with the dictator's assessment and plan as written ,documented as a scribe. Based on total visit time, I have performed more than 50% of the visit. Objective - Vital Signs Vital signs: Vital Signs Temp 97.8 F 08/22/24 12:02 Pulse 94 08/22/24 12:02 Resp 20 08/22/24 12:02 BP 139/82 08/22/24 12:02 Pulse Ox 98 08/22/24 12:02 FiO2 Intake & Output 08/21/24 08/22/24 08/22/24 18:59 06:59 18:59 Intake Total 2230 780 Output Total 950 200 Balance 1280 780 -200 Intake: Oral 1920 780 Blood Product 310 Rc As-1 Unit 310 [id number] Output: Urine 950 200 Other: Voiding Method Urinal Urinal Diaper Diaper # Voids 4 - Labs CBC & Chem 7: 08/22/24 05:26 08/21/24 05:57 Labs: Abnormal Lab Results - Last 24 Hours (Table) 08/21/24 08/22/2408/22/25 Range/Units 13:04 05:26 05:59 WBC 4.46 L (4.50-10.00) 10*3/uL RBC 2.64 L (4.40-5.60) 10*6/uL Hgb 9.0 L (13.0-17.0) g/dL Hct 27.1 L (39.6-50.0) % MCV 102.7 H (80.0-97.0) fL MCH 34.1 H (27.0-32.0) pg RDW 18.0 H (11.5-14.5) % Iron 52 L (65-175) UG/DL Crossmatch See Detail Assessment and Plan Time with Patient: Less than 30
[2024-08-22] MEDS: chlordiazePOXIDE 25 MG CAP PO SCH (16:19)
--- NOTE | 2024-08-22 20:27 | P.GSCN ---
History of Present Illness Consult date: 08/22/24 Reason for Consult: gross hematuria History of present illness: This is a 63 yo male admitted to the hospital with alcohol withdrawal, Urology is consulted for gross hematuria. Patient is a limited historian, he is unsure if he had a gross hematuria, but per nursing staff he had an episode of gross hematuria yesterday. His hemoglobin was down to 6.6 and required blood transfusion. Patient does have chronic anemia secondary to alcohol use. Of note he is also been having episodes of hemoptysis. He does not take any anticoagulation but has been taken high doses of NSAIDs. No previous history of kidney stones recurrent UTIs, or any urological history. No known family history of renal or bladder malignancy. He indicated at the current time he does not having any hematuria and his urine is clear. Denies any clots with his hematuria. Review of Systems - Constitutional Denies fever, Denies weight loss - EENT Ears, nose, mouth and throat: Denies dysphagia - Cardiovascular Denies chest pain, Denies shortness of breath - Respiratory Denies cough, Denies 7 - Gastrointestinal Reports as per HPI - Genitourinary Reports hematuria, Denies dysuria, Denies flank pain - Integumentary Denies rash, Denies unusual bruising - Neurological Denies headaches, Denies syncope Past Medical History Past Medical History: Coronary Artery Disease (CAD), Pneumonia, Prostate Disorder Additional Past Medical History / Comment(s): ETOH, enlarged prostate,Mar 2023- chest tube, using O2@2.5L [place] prn,scattered bruising arms,neuropathy adilia feet History of Any Multi-Drug Resistant Organisms: None Reported Past Surgical History: Hernia Repair Additional Past Surgical History / Comment(s): Hernia Repair Past Anesthesia/Blood Transfusion Reactions: No Reported Reaction Past Psychological History: Anxiety, Depression Smoking Status: Current every day smoker Past Alcohol Use History: Daily, Heavy Past Drug Use History: None Reported - Past Family History Father Additional Family Medical History / Comment(s): OF PANCREATIC ISSUES Mother Additional Family Medical History / Comment(s): PULMONARY HYPERTENSION Medications and Allergies Home Medications Medication Instructions Recorded Confirmed Type No Known Home Medications 08/20/24 08/20/24 History Allergies Allergy/AdvReac Type Severity Reaction Status Date / Time bee venom protein (honey bee) Allergy Anaphylaxis Verified 08/20/24 10:41 Surgical - Exam Vital Signs Temp Pulse Resp BP Pulse Ox 98.7 F 112 H 20 133/104 100 08/20/24 03:28 08/20/24 03:28 08/20/24 03:28 08/20/24 03:28 08/20/24 03:28 - General no distress, no pain - Eyes normal ocular movement, no pale - ENT normal nares, normal mucosa - Respiratory normal expansion, normal respiratory effort - Abdomen Abdomen: soft, non tender, no distended Results - Labs 08/22/24 05:26 08/21/24 05:57 Abnormal Lab Results - Last 24 Hours (Table) 08/22/24 08/22/24 Range/Units 05:26 05:59 WBC 4.46 L (4.50-10.00) 10*3/uL RBC 2.64 L (4.40-5.60) 10*6/uL Hgb 9.0 L (13.0-17.0) g/dL Hct 27.1 L (39.6-50.0) % MCV 102.7 H (80.0-97.0) fL MCH 34.1 H (27.0-32.0) pg RDW 18.0 H (11.5-14.5) % Iron 52 L (65-175) UG/DL Assessment and Plan Assessment: 63-year-old male with history of gross hematuria, this was 1 episode and has resolved right now. Given this finding I do recommend further evaluation -CT urogram - Urinalysis - Follow-up for outpatient cystoscopy
[2024-08-22] MEDS: LORazepam 1 MG/0.5 ML VIAL IV PRN (20:38)
[2024-08-23 08:58] LABS: Blood Urea Nitrogen 7.7 mg/dL (9.0-27.0); Calcium 8.3 mg/dL (8.7-10.3); Carbon Dioxide 23.7 mmol/L (21.6-31.8); Chloride 103 mmol/L (96-109); Glucose 108 mg/dL (70-110); Potassium 3.4 mmol/L (3.5-5.5); Sodium 135 mmol/L (135-145)
[2024-08-23] MEDS ORDERED: LORazepam 1 MG TAB PO PRN ×3 (10:06→10:08)
[2024-08-23] MEDS ORDERED: Potassium Replacement Protocol 1 EACH MISC MISCELLANE PRN (10:08)
[2024-08-23] MEDS: POTASSIUM CHLORIDE ER 20 MEQ TAB.ER PO SCH (10:23)
[2024-08-23 11:24] LABS: Basophils # (A) 0.04 X 10*3/uL (0.00-0.10); Basophils % (A) 0.7 %; Eosinophils # (A) 0.12 X 10*3/uL (0.04-0.35); Eosinophils % (A) 2.2 %; HCT 26.7 % (39.6-50.0); Lymphocytes # (A) 1.02 X 10*3/uL (0.90-5.00); Lymphocytes % (A) 18.9 %; MCH 34.1 pg (27.0-32.0); MCHC 33.7 g/dL (32.0-37.0); MCV 101.1 FL (80.0-97.0); Mean Platelet Volume 9.8 FL (9.5-12.2); Monocytes # (A) 0.74 X 10*3/uL (0.20-1.00); Monocytes % (A) 13.7 %; NRBC Per 100 WBC 0 X 10*3/uL (0.00-0.01); Neutrophils # (A) 3.45 X 10*3/uL (1.80-7.70); Neutrophils % (A) 63.9 %; Platelet Count 171 X 10*3/uL (140-440); RBC 2.64 X 10*6/uL (4.40-5.60); RDW 16.9 % (11.5-14.5)
[2024-08-23 12:47] VITALS: BP 114/77; PULSE 90; RESP 14; TEMP 98.4
--- NOTE | 2024-08-23 13:29 | CT ---
EXAMINATION TYPE: CT urogram wo/w con DATE OF EXAM: 08/23/2024 COMPARISON: CT abdomen and pelvis July 13, 2021 CLINICAL INDICATION: Male, 63 years old with history of gross hematuria, gross hematuria, TECHNIQUE: CT scan of the abdomen and pelvis is performed without and with IV Contrast, patient injected with 10 0ml mL of Isovue 300., (none if empty) Oral contrast used: (none if empty) CT DLP: 924.6 mGycm, Automated exposure control for dose reduction was used. Urogram protocol with 3- D reconstructed images on independent Workstation and reviewed. FINDINGS: KUB: Noncontrast images show central vascular calcification bilaterally but possible additional 2 to 3 mm nonobstructing calculus in the right kidney coronal image 66 and possible 3 mm calculus centrall y in the left kidney on coronal image 59. Postcontrast images show symmetric uptake and excretion wit hout hydronephrosis seen bilaterally. There is adequate filling of the urinary bladder without intral uminal mass or calculus. LUNG BASES: No significant abnormality is appreciated. LIVER/GB: Noncontrast images liver is diffusely hypodense consistent with diffuse fatty infiltrative hepatocellular disease. PANCREAS: No significant abnormality is seen. SPLEEN: No significant abnormality is seen. ADRENALS: No significant abnormality is seen. BOWEL: No significant abnormality is seen. PROSTATE/SEMINAL VESICLES: Mildly enlarged prostate consistent with BPH. LYMPH NODES: No greater than 1cm abdominal or pelvic lymph nodes are appreciated. OSSEOUS STRUCTURES: Mild to moderate narrowing of both hip joints. OTHER: [id number] calcified plaque of the aorta extends into branch vessels. IMPRESSION: Significant vascular calcification present bilaterally. I do suspect a few tiny nonobstru cting renal calculi bilaterally which may account for patient's clinical symptoms. [facility], , 08/23/2024 1:27 PM
[2024-08-23] MEDS: POTASSIUM CHLORIDE ER 20 MEQ TAB.ER PO STA (16:34)
--- NOTE | 2024-08-26 23:19 | P.DS ---
Providers Date of admission: 08/20/24 06:57 Expected date of discharge: 08/23/24 Attending physician: Joaquín Ramsey Consults: 08/20/24 07:30 Consult Physician Routine Consulting Provider: Raji Wing Consult Reason/Comments: right humerus fracture Do you want consulting provider notified?: Yes 08/22/24 09:48 Consult Physician Routine Consulting Provider: Gregory Collins Consult Reason/Comments: blood in urine Do you want consulting provider notified?: Already Contacted Primary care physician: Rina Lawrence [facility] Course: Final diagnosis - Upper GI bleed/hemoptysis/coffee-ground emesis: Secondary to Motrin use and chronic alcohol use. Most likely peptic ulcer disease. - Anemia, likely chronic although having some acute blood loss anemia secondary to residual hemoptysis, patient's hemoglobin is stable at 9.0 he is status post 1 unit of PRBC this admission - Alcohol abuse/alcohol withdrawal - Severe anemia probably secondary to chronic alcoholism, B12 elevated - Right humerus fracture noted on CT, nonoperative per orthopedics recommending conservative management with sling and outpatient follow-up - Depression - Anxiety - History of hypertension patient blood pressure is within normal limits - GI prophylaxis on IV Protonix twice daily - DVT prophylaxis: Early ambulation - Full code Discharge disposition Patient is being discharged in a stable condition with guarded prognosis to home. Patient will follow-up with Dr. Zachery Ramsey in the outpatient setting upon discharge. Patient is to continue with outpatient follow-up with orthopedics as scheduled. Strongly recommend inpatient alcohol rehab. Librium taper provided on discharge. Total time taken is greater than 35 minutes. Hospital course This is a 63-year-old male who was recently admitted with hemoptysis with coffee-ground emesis noted with concerns of possible upper GI bleed being closely monitored. Patient also has alcoholic with concerns of acute alcohol withdrawal and delirium tremens. Patient maintained on CIWA protocol along with Librium showing some improvements although significantly weak. Patient also with shoulder pain from previous fall a few weeks ago evaluated by orthopedics with no plans of surgical intervention at this time recommending outpatient follow-up. Patient to continue on pain control and adjust accordingly. Recommend outpatient follow-up with GI and/or general surgery regarding further endoscopic intervention. Hemoglobin remained stable at 9 with no further bleeding noted and has been cleared for discharge. Initially patient was attempting to go to rehab for continued strength and mobility although doing better with physical therapy while in hospital and does not qualify. Patient will be returning home. Strongly recommend inpatient alcohol rehab and complete alcohol cessation and exposure to. Please refer to other consultation notes for further HPI. Patient was also evaluated by urology for hematuria recommending outpatient follow-up. Currently no reports of chest pain, shortness of breath, or palpitations. Patient is afebrile. No reports of nausea or vomiting and patient is tolerating diet. Patient will be discharged home today. Physical exam: Gen: This is a 63-year-old male who is awake, alert and oriented x 3, well- developed, elderly appearing, thin build HEENT: Head is atraumatic, normocephalic. Pupils equal, round. Sclerae is anicteric. NECK: Supple. No JVD. No lymphadenopathy. No thyromegaly. LUNGS: Diminished breath sounds bilaterally otherwise clear to auscultation. No wheezes or rhonchi. No intercostal retractions. HEART: S1, S2 are muffled ABDOMEN: Soft. Bowel sounds are present. No masses. No tenderness. EXTREMITIES: No pedal edema. No calf tenderness. NEUROLOGICAL: Patient is awake, alert and oriented x3. Cranial nerves 2 through 12 are grossly intact. Please refer to medication reconciliation sheet for a list of medications. The impression and plan of care has been dictated by Barbara Lawler, Nurse Practitioner as directed. Dr. Octavia MD I have performed a history and examination and MDM of this patient, discussed the same with the dictator, and agree with the dictator's assessment and plan as written ,documented as a scribe. Based on total visit time, I have performed more than 50% of the visit. Patient Condition at Discharge: Fair Plan - Discharge Summary Discharge Rx Participant: Yes New Discharge Prescriptions: New Folic Acid 1 mg PO DAILY 30 Days #30 tab chlordiazePOXIDE HCl [Librium] 25 mg PO TID #6 cap Cyanocobalamin [Vitamin B-12] 1,000 mcg PO DAILY #30 tab Multivitamins, Thera [Multivitamin (formulary)] 1 each PO DAILY 30 Days #30 tab HYDROcodone/APAP 7.5-325MG [[place] 7.5-325] 1 each PO Q4H PRN #8 tab PRN Reason: Severe Pain (Scale 7 To 10) Acetaminophen Tab [Tylenol] 650 mg PO Q6HR PRN tab PRN Reason: Mild Pain Or Fever > 100.5 Thiamine [Vitamin B-1] 100 mg PO DAILY #30 tab Discharge Medication List Acetaminophen Tab [Tylenol] 650 mg PO Q6HR PRN tab 08/23/24 [Rx] Cyanocobalamin [Vitamin B-12] 1,000 mcg PO DAILY #30 tab 08/23/24 [Rx] Folic Acid 1 mg PO DAILY 30 Days #30 tab 08/23/24 [Rx] HYDROcodone/APAP 7.5-325MG [[place] 7.5-325] 1 each PO Q4H PRN #8 tab 08/23/24 [Rx] Multivitamins, Thera [Multivitamin (formulary)] 1 each PO DAILY 30 Days #30 tab 08/23/24 [Rx] Thiamine [Vitamin B-1] 100 mg PO DAILY #30 tab 08/23/24 [Rx] chlordiazePOXIDE HCl [Librium] 25 mg PO TID #6 cap 08/23/24 [Rx] Follow up Appointment(s)/Referral(s): Guerline Dixon [Doctor of Osteopathic Medicine] - 1 Week (Please call the office to schedule a follow up appointment) Barry Gross MD [STAFF PHYSICIAN] - 1 Week (the office will call with a follow up appointment. ) Elaina Brooks MD [STAFF PHYSICIAN] - 2 Weeks (possible outpatient endoscopy, please call to schedule a follow up appointment) Rina Lawrence MD [Primary Care Provider] - 1-2 days (please call to schedule a follow up appointment.) Ambulatory/Diagnostic Orders: Complete Blood Count w/diff [LAB.AMB] Time Frame: 3 Days, Location: None Selected Activity/Diet/Wound Care/Special Instructions: Nonweightbearing right upper extremity in sling for comfort, may remove for hygiene Follow-up with primary care provider on discharge Follow-up with GI and/or general surgery outpatient for possible EGD/colonoscopy Follow-up with urology outpatient for cystoscopy Repeat labs in the next few days to monitor hemoglobin Recommending avoiding all alcohol intake and exposure to . Discharge Disposition: HOME WITH HOME HEALTH SERVICES
== END 2024-08-23 17:26 | disposition home health service (06) | DRG 378 ==
LOC: EC 03:24 → 5NMEDONC 06:57
PROVIDERS: ADMIT Hospitalist; ATTEND Hospitalist
PROC: 30233P1 Transfusion of Nonautologous Frozen Red Cells into Peripheral Vein, Percutaneous Approach (ICD-10-PCS; principal; 2024-08-21)
DX: K27.4 Chronic or unspecified peptic ulcer, site unspecified, with hemorrhage (principal); D62 Acute posthemorrhagic anemia; E87.20 Acidosis, unspecified; D64.2 Secondary sideroblastic anemia due to drugs and toxins; F10.239 Alcohol dependence with withdrawal, unspecified; F32.A Depression, unspecified; I10 Essential (primary) hypertension; F10.288 Alcohol dependence with other alcohol-induced disorder; F17.200 Nicotine dependence, unspecified, uncomplicated; F41.9 Anxiety disorder, unspecified; G62.9 Polyneuropathy, unspecified; I25.10 Atherosclerotic heart disease of native coronary artery without angina pectoris; S42.201D Unspecified fracture of upper end of right humerus, subsequent encounter for fracture with routine healing; T39.315A Adverse effect of propionic acid derivatives, initial encounter; R31.0 Gross hematuria; N40.0 Benign prostatic hyperplasia without lower urinary tract symptoms; Z79.82 Long term (current) use of aspirin; Z79.899 Other long term (current) drug therapy; Z87.440 Personal history of urinary (tract) infections; W19.XXXD Unspecified fall, subsequent encounter; Z91.81 History of falling
CPT/HCPCS: 36415; 74178; 74400; 80048; 80053; 80320; 82140; 82607; 82728; 83540; 83550; 83605; 83735; 84132; 84300; 84484; 85025; 85610; 85730; 86850; 86900; 86901; 86920; 87086; 93005; 96361; 96374; 96375; 96376; 99285